=== PATIENT | female | born 1945 | race Hispanic/Latino ===

== ENCOUNTER 2016-11-27 21:22 | Inpatient (IN) | payer MEDICARE, MEDICAID ==
[2016-11-27 21:26] VITALS: BMI 28.3
--- NOTE | 2016-11-27 21:34 | ED PDOC ---
Arrival/HPI - General Chief Complaint: Female Genitourinary Time Seen by Provider: 11/27/16 21:25 Historian: Alf - History of Present Illness Narrative History of Present Illness (Text): 11/27/16 21:34 Heather Grewal is a 71 year old female,whose past medical history includes hypertension, CVA with left hemiplegia, renal failure, diabetes, hydronephrosis with nephrostomy, dementia, and anemia, who presents to the Emergency department sent from custodial for gross hematuria and positive urine culture growth for pseudomonas and enterococcus. Limited HPI and ROS due to patient's dementia. 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 - Reproductive Menopause: Yes - Cardiac Hx Cardiac Disorders: Yes Hx Pacemaker: No - Pulmonary Hx Respiratory Disorders: Yes Hx Pneumonia: Yes - Neurological Hx Neurological Disorder: Yes HX Cerebrovascular Accident: Yes - HEENT Hx HEENT Disorder: No - Renal Hx Renal Disorder: Yes Hx Renal Failure: Yes - Endocrine/Metabolic Hx Endocrine Disorders: Yes Hx Diabetes Mellitus Type 2: Yes - Hematological/Oncological Hx Blood Disorders: No - Integumentary Hx Dermatological Disorder: No Other/Comment: healed sacral and left lower buttock wounds, stge 3 wound to left hand 3rd finger 1cm round wound bed white surrounded by red skin, 2nd finger stg 2 .3cm round small opening wound bed red surrounding skin red, stg 2 left thumb .5 round wound bed red surrounded by red skin, left hand contracted into a fist, left arm contracted, right heel dry and red - Musculoskeletal/Rheumatological Hx Musculoskeletal Disorders: Yes (HX. L HIP FX.) Hx Falls: Yes - Gastrointestinal Hx Gastrointestinal Disorders: Yes Hx Gastroesophageal Reflux: Yes - Genitourinary/Gynecological Hx Genitourinary Disorders: Yes Hx Hematuria: Yes Hx Incontinence: Yes Hx Urinary Tract Infection: Yes - Psychiatric Hx Psychophysiologic Disorder: No Hx Emotional Abuse: No Hx Physical Abuse: No Hx Substance Use: No - Surgical History Hx Orthopedic Surgery: Yes (L hip orif) Other/Comment: cysto with stents, cecal mass excision. R arm PICC - Anesthesia Hx Anesthesia: Yes Hx Anesthesia Reactions: No Hx Malignant Hyperthermia: No - Suicidal Assessment Feels Threatened In Home Enviroment: No Family/Social History - Physician Review Nursing Documentation Reviewed: Yes Family/Social History: No Known Family HX Smoking Status: Unknown If Ever Smoked Hx Alcohol Use: No Hx Substance Use: No Hx Substance Use Treatment: No Allergies/Home Meds Allergies/Adverse Reactions: Allergies ciprofloxacin [From Cipro] Allergy (Verified 11/27/16 22:00) RASH levofloxacin [From Levaquin] Allergy (Verified 11/27/16 22:01) RASH Quinolones Allergy (Verified 11/27/16 22:01) RASH Home Medications: Home Meds Medication Instructions Recorded Confirmed Acetaminophen [Tylenol 325mg tab] 325 mg PO Q4H PRN 11/27/16 11/27/16 Aluminum Hydroxide/Magnesium H 30 ml PO Q4H PRN 11/27/16 11/27/16 [Maalox 30 ml] Aspirin [Aspirin Chewable] 81 mg PO DAILY 11/27/16 11/27/16 Enoxaparin [Lovenox] 40 mg SQ DAILY 11/27/16 11/27/16 Loperamide [Loperamide HCl] 4 mg PO Q6H PRN 11/27/16 11/27/16 Magnesium Hydroxide [Milk Of 400 mg PO HS PRN 11/27/16 11/27/16 Magnesia] Prochlorperazine [Compro] 25 mg RC BID PRN 11/27/16 11/27/16 Sod Phos,M-B/Na Phos,Di-Ba [Fleet 133 ml RC Q8H PRN 11/27/16 11/27/16 Enema] Review of Systems - Review of Systems Systems not reviewed;Unavailable: Altered Mental Status Genitourinary Female: Hematuria Physical Exam Vital Signs Reviewed: Yes Vital Signs Temp Pulse Resp BP Pulse Ox 11/27/16 23:43 46 L 18 156/88 H 99 11/27/16 21:34 98.4 F 42 L 12 174/81 H 100 Temperature: Afebrile Blood Pressure: Hypertensive Pulse: Regular Respiratory Rate: Normal Appearance: Positive for: Non-Toxic, Ill-Appearing Pain Distress: None Mental Status: Positive for: other (Awake, alert, oriented x2) - Systems Exam Head: Present: Atraumatic, Normocephalic Pupils: Present: PERRL Extroacular Muscles: Present: EOMI Conjunctiva: Present: Normal Mouth: Present: Moist Mucous Membranes Neck: Present: Normal Range of Motion Respiratory/Chest: Present: Clear to Auscultation, Good Air Exchange. No: Respiratory Distress, Accessory Muscle Use Cardiovascular: Present: Regular Rate and Rhythm, Normal S1, S2. No: Murmurs Abdomen: Present: Normal Bowel Sounds. No: Tenderness, Distention, Peritoneal Signs Genitourinary/Pelvic Exam: Present: Other (In-dwelling Hirsch catheter with gross hematuria in bag) Back: Present: Other (Nephrostomy tube) Upper Extremity: Present: Other (Positive contracture to bilateral upper extremities). No: Cyanosis, Edema Lower Extremity: Present: Other (Positive contracture to bilatera lower extremities, left heel ulcer). No: Edema Neurological: Present: GCS=15 Skin: Present: Warm, Dry, Rashes (Diffuse psoriatic-type rash to upper back), Normal Color Psychiatric: Present: Alert. No: Oriented x 3 (Oriented x2) Medical Decision Making ED Course and Treatment: 11/27/16 21:34 Impression: 71 year old female brought in for gross hematuria and positive urine culture growth. Differential Diagnosis include but are not limited to: hematuria vs. UTI Plan: -- EKG -- Chest X-ray -- Labs, VBG -- UA, urine cultures -- Reassess and disposition Prior Visits: Notes and results from previous visits were reviewed. On 02/17/2016, pt was seen in the Emergency department for displaced nephrostomy tube. Pt was admitted to the hospital for further evaluation. Progress Notes: 11/27/16 22:17 Reviewed EKG, sinus bradycardia at [address]pm[address] RBBB. Non-specific ST/T wave changes. 11/28/16 00:12 Reviewed radiology, Chest X-ray shows no acute processes. 11/28/16 02:[address] Ghosh, covering for Dr. Colon, who is aware and agrees with plan. Pt will be admitted to [facility] for gross hematuria and UTI. Requests Dr. Romano and Dr. Hughes on consult. - Lab Interpretations Lab Results: 11/27/16 22:35 11/27/16 22:35 Lab Results 11/27/16 22:50: Urine Color Red, Urine Appearance Cloudy, Urine pH 7.0, Ur Specific [place] 1.025, Urine Protein >=300 H, Urine Glucose (UA) Negative, Urine Ketones Negative, Urine Blood Large H, Urine Nitrate Positive H, Urine Bilirubin Negative, Urine Urobilinogen 0.2, Ur Leukocyte Esterase Moderate H, Urine RBC Tntc, Urine WBC 10 - 15, Ur Epithelial Cells Many, Amorphous Sediment Trace, Urine Bacteria Mod 11/27/16 22:35: pO2 133 H, VBG pH 7.47 H, VBG pCO2 39.0 L, VBG HCO3 28.4 H, VBG Total CO2 29.6 H, VBG O2 Sat (Calc) 98.8 H, VBG Base Excess 4.4 H, VBG Potassium 3.7, Sodium 139.0, Chloride 109.0 H, Glucose 198 H, Lactate 1.6, FiO2 21.0, Venous Blood Potassium 3.7 11/27/16 22:35: WBC 7.8 D, RBC 4.11, Hgb 11.7 L, Hct 35.8 L, MCV 87.1, MCH 28.5 , MCHC 32.7, RDW 16.2 H, Plt Count 275, MPV 10.4 11/27/16 22:35: Sodium 137, Chloride 105, Potassium 3.7, Carbon Dioxide 25, Anion Gap 11, BUN 21, Creatinine 0.7, Est GFR ( Amer) > 60, Est GFR (Non- Af Amer) > 60, Random Glucose 187 H, Calcium 8.6, Total Bilirubin 0.3, AST 22, ALT 29, Alkaline Phosphatase 74, Total Protein 7.4, Albumin 3.5, Globulin 3.9, Albumin/Globulin Ratio 0.9 L I have reviewed the lab results: Yes - RAD Interpretation Radiology Orders: 11/27/16 22:05 CHEST PORTABLE [RAD] Stat Hourly Shift: ED Physician - EKG Interpretation Interpreted by ED Physician: Yes Type: 12 lead EKG - Medication Orders Current Medication Orders: Sodium Chloride (Sodium Chloride 0.9%) 1,000 mls @ 100 mls/hr IV .Q10H VESNA Discontinued Medications Cefepime HCl (Maxipime 1gm) 1 gm in 100 mls @ 100 mls/hr IVPB ONCE ONE PRN Reason: Protocol Stop: 11/28/16 03:00 Last Admin: 11/28/16 02:32 Dose: 100 mls/hr - Scribe Statement The provider has reviewed the documentation as recorded by the Scribgriselda Dowd All medical record entries made by the Scribe were at my direction and personally dictated by me. I have reviewed the chart and agree that the record accurately reflects my personal performance of the history, physical exam, medical decision making, and the department course for this patient. I have also personally directed, reviewed, and agree with the discharge instructions and disposition. Disposition/Present on Arrival - Present on Arrival Any Indicators Present on Arrival: No History of DVT/PE: No History of Uncontrolled Diabetes: No Urinary Catheter: Yes History of Decub. Ulcer: No History Surgical Site Infection Following: None - Disposition Have Diagnosis and Disposition been Completed?: Yes Diagnosis: Gross hematuria, UTI (urinary tract infection) Disposition: HOSPITALIZED Disposition Time: 02:23 Patient Plan: Admission Patient Problems: Current Active Problems Problem Status Onset Gross hematuria Acute UTI (urinary tract infection) Acute Condition: STABLE
[2016-11-27 22:46] LABS: HEMATOCRIT 35.8 % (36.0-48.0); MEAN CELL VOLUME 87.1 fL (80.0-105.0); MEAN CORPUSCULAR HEMOGLOBIN 28.5 pg (25.0-35.0); MEAN CORPUSCULAR HGB CONC 32.7 g/dl (31.0-37.0); MEAN PLATELET VOLUME 10.4 fl (7.0-11.0); RED CELL DISTRIBUTION WIDTH 16.2 % (11.5-14.5); WHITE BLOOD COUNT 7.8 10^3/ul (4.5-11.0)
[2016-11-27 22:51] LABS: VENOUS BLOOD GAS BASE EXCESS 4.4 mmol/L (0.0-2.0); VENOUS BLOOD PH 7.47 (7.32-7.43)
[2016-11-27 22:53] LABS: ALB/GLOB RATIO 0.9 (1.1-1.8); ALKALINE PHOSPHATASE 74 U/L (38-133); ALT/SGPT 29 U/L (7-56); AST/SGOT 22 U/L (15-39); BILIRUBIN,TOTAL 0.3 mg/dL (0.2-1.3); BLOOD UREA NITROGEN 21 mg/dL (7-21); CALCIUM 8.6 mg/dL (8.4-10.5); CARBON DIOXIDE 25 mmol/L (21-33); CHLORIDE 105 mmol/L (98-107); GFR AFRICAN-AMERICAN > 60; GLUCOSE,RANDOM 187 mg/dL (70-110); POTASSIUM 3.7 mmol/L (3.6-5.0); SODIUM 137 mmol/L (132-148); TOTAL PROTEIN 7.4 g/dL (5.8-8.3)
[2016-11-27 23:06] LABS: URINE BILIRUBIN NEGATIVE (NEGATIVE); URINE BLOOD LARGE (NEGATIVE); URINE GLUCOSE (UA) NEGATIVE (NEGATIVE); URINE KETONE NEGATIVE (NEGATIVE); URINE LEUKOCYTE ESTERASE MODERATE Leu/uL (NEGATIVE); URINE PROTEIN >=300 mg/dL (<30 mg/dL); URINE UROBILINOGEN 0.2 E.U./dL (<1 E.U./dL)
[2016-11-27 23:07] LABS: URINE APPEARANCE CLOUDY (CLEAR); URINE COLOR RED (YELLOW); URINE EPITHELIAL CELLS MANY /hpf (0-5); URINE RBC TNTC /hpf (0-2)
[2016-11-27 23:08] LABS: URINE AMORPHOUS SEDIMENT TRACE; URINE BACTERIA MOD (NEG)
[2016-11-28] MEDS ORDERED: Cefepime 1gm in NS 100ml 1 GM/100 ML BAG IVPB ONE (02:01)
[2016-11-28] MEDS ORDERED: ALUMINUM HYDROXIDE PO PRN (04:22)
[2016-11-28] MEDS ORDERED: MAGNESIUM H PO PRN (04:22)
[2016-11-28] MEDS ORDERED: Magnesium Hydroxide Susp 30 ml UD PO PRN (04:22)
--- NOTE | 2016-11-28 05:03 | CP.PCM.HP ---
History of Present Illness - History of Present Illness History of Present Illness: 71 year old female with past medical history of CVA with residual left hemiplegia, HTN, hydronephrosis with nephrotomy, anemia and dementia that presents to [facility] ED from skilled nursing for gross hematuria and UTI. On presentation patient is alert but not oriented and confused, this appears to be patients baseline. In the ED ID and urology consults were placed. HPI is limited due to patient's baseline dementia. PMHx: CVA with left hemiplegia, HTN, hydronephrosis PSHx: cysto with stents, cecal mass excision, orthopedic surgery of left hip Social hx: former smoker, denies alcohol or illicit drug use Allergy: ciprofloxacin-rash, levofloxacin- rash, quinolones- rash Home meds: see MAR Present on Admission - Present on Admission Any Indicators Present on Admission: No History of DVT/PE: No History of Uncontrolled Diabetes: No Review of Systems - Review of Systems Systems not reviewed;Unavailable: Dementia - Constitutional Constitutional: As Per HPI - EENT Eyes: As Per HPI Ears: As Per HPI Nose/Mouth/Throat: As Per HPI - Breasts Breasts: As Per HPI - Cardiovascular Cardiovascular: As Per HPI - Respiratory Respiratory: As Per HPI - Gastrointestinal Gastrointestinal: As Per HPI - Genitourinary Genitourinary: As Per HPI, Hematuria - Reproductive: Female Reproductive:Female: As Per HPI - Menstruation Menstruation: As Per HPI - Musculoskeletal Musculoskeletal: As Per HPI - Integumentary Integumentary: As Per HPI - Neurological Neurological: As Per HPI - Psychiatric Psychiatric: As Per HPI - Endocrine Endocrine: As Per HPI - Hematologic/Lymphatic Hematologic: As Per HPI Past Patient History - Infectious Disease Hx of Infectious Diseases: VRE - Past Social History Smoking Status: Unknown If Ever Smoked - CARDIAC Hx Cardiac Disorders: Yes Hx Pacemaker: No - PULMONARY Hx Respiratory Disorders: Yes Hx Pneumonia: Yes - NEUROLOGICAL Hx Neurological Disorder: Yes HX Cerebrovascular Accident: Yes - HEENT Hx HEENT Problems: No - RENAL Hx Chronic Kidney Disease: Yes Hx Renal Failure: Yes - ENDOCRINE/METABOLIC Hx Endocrine Disorders: Yes Hx Diabetes Mellitus Type 2: Yes - HEMATOLOGICAL/ONCOLOGICAL Hx Blood Disorders: No - INTEGUMENTARY Hx Dermatological Problems: No Other/Comment: healed sacral and left lower buttock wounds, stge 3 wound to left hand 3rd finger 1cm round wound bed white surrounded by red skin, 2nd finger stg 2 .3cm round small opening wound bed red surrounding skin red, stg 2 left thumb .5 round wound bed red surrounded by red skin, left hand contracted into a fist, left arm contracted, right heel dry and red - MUSCULOSKELETAL/RHEUMATOLOGICAL Hx Musculoskeletal Disorders: Yes (HX. L HIP FX.) Hx Falls: Yes - GASTROINTESTINAL Hx Gastrointestinal Disorders: Yes Hx Gastroesophageal Reflux: Yes - GENITOURINARY/GYNECOLOGICAL Hx Genitourinary Disorders: Yes Hx Hematuria: Yes Hx Incontinence: Yes Hx Urinary Tract Infection: Yes - PSYCHIATRIC Hx Psychophysiologic Disorder: No Hx Emotional Abuse: No Hx Physical Abuse: No Hx Substance Use: No - SURGICAL HISTORY Hx Orthopedic Surgery: Yes (L hip orif) Other/Comment: cysto with stents, cecal mass excision. R arm PICC - ANESTHESIA Hx Anesthesia: Yes Hx Anesthesia Reactions: No Hx Malignant Hyperthermia: No Meds Allergies/Adverse Reactions: Allergies Allergy/AdvReac Type Severity Reaction Status Date / Time ciprofloxacin [From Cipro] Allergy RASH Verified 11/27/16 22:00 levofloxacin [From Levaquin] Allergy RASH Verified 11/27/16 22:01 Quinolones Allergy RASH Verified 11/27/16 22:01 Physical Exam - Constitutional Appears: Non-toxic, No Acute Distress, Chronically Ill - Head Exam Head Exam: ATRAUMATIC, NORMAL INSPECTION, NORMOCEPHALIC - Eye Exam Eye Exam: EOMI, Normal appearance, PERRL - ENT Exam ENT Exam: Mucous Membranes Moist - Neck Exam Neck exam: Positive for: Normal Inspection - Respiratory Exam Respiratory Exam: Clear to Auscultation Bilateral, NORMAL BREATHING PATTERN. absent: Rhonchi, Wheezes, Respiratory Distress - Cardiovascular Exam Cardiovascular Exam: REGULAR RHYTHM, RRR, +S1, +S2 - GI/Abdominal Exam GI & Abdominal Exam: Normal Bowel Sounds, Soft. absent: Tenderness - Extremities Exam Extremities exam: Positive for: normal capillary refill, pedal pulses present - Back Exam Back exam: NORMAL INSPECTION - Neurological Exam Neurological exam: Alert - Psychiatric Exam Psychiatric exam: Flat Affect - Skin Skin Exam: Normal Color, Warm Results - Vital Signs Recent Vital Signs: Last Vital Signs Temp 98.4 F 11/27/16 21:34 Pulse 52 L 11/28/16 04:54 Resp 18 11/28/16 04:54 BP 143/72 11/28/16 04:54 Pulse Ox 100 11/28/16 04:54 - Labs Result Diagrams: 11/27/16 22:35 11/27/16 22:35 Assessment & Plan - Assessment and Plan (Free Text) Assessment: 71 year old female with past medical history of CVA with residual left hemiplegia, HTN, hydronephrosis, and dementia presents with gross hematuria and UTI Plan: Gross Hematuria - Consultation Urology- Dr. Hughes - Consultation ID- Dr. Romano - H/H stable, no active bleeding - Continue to monitor UTI - UA positive for LE, Nitrate and Protein - cultures- urine and blood - Rocephin 1g iv given in ED - Consultation ID- Dr. Romano - IVF NS 100ml/hr DM - Insulin SS with accuchecks - Cont to Monitor HTN - stable - Cont home medications Amlodipine - Cont to monitor Prophylactic measures - Protonix for GI ppx - SCD for DVT ppx
[2016-11-28] MEDS: Pantoprazole 40 mg EC Tab PO SCH (08:39)
[2016-11-28 10:45] LABS: ADD MANUAL DIFF? NO
[2016-11-28 10:48] LABS: BASO # 0.04 K/mm3 (0.0-2.0); BASO % 0.6 % (0.0-3.0); EOS % 0.1 % (1.5-5.0); GRAN # 5.48 (1.4-6.5); GRAN % 76.8 % (50.0-68.0); HEMATOCRIT 36.5 % (36.0-48.0); LYMPH # 1.2 (1.2-3.4); LYMPH % 16.9 % (22.0-35.0); MEAN CELL VOLUME 87.7 fL (80.0-105.0); MEAN CORPUSCULAR HEMOGLOBIN 28.1 pg (25.0-35.0); MEAN CORPUSCULAR HGB CONC 32.1 g/dl (31.0-37.0); MEAN PLATELET VOLUME 10.8 fl (7.0-11.0); MONO # 0.4 (0.1-0.6); MONO % 5.6 % (1.0-6.0); PLATELET COUNT 278 10^3/uL (120.0-450.0); RED CELL DISTRIBUTION WIDTH 16.3 % (11.5-14.5); WHITE BLOOD COUNT 7.1 10^3/ul (4.5-11.0)
--- NOTE | 2016-11-28 10:55 | RAD ---
HISTORY: medical clearance COMPARISON: 11/02/2015 FINDINGS: LUNGS: No active pulmonary disease. PLEURA: No significant pleural effusion identified, no pneumothorax apparent. CARDIOVASCULAR: Normal. OSSEOUS STRUCTURES: No significant abnormalities. VISUALIZED UPPER ABDOMEN: Normal. OTHER FINDINGS: None. IMPRESSION: No active disease.
[2016-11-28] MEDS: Nystatin 100,000 Units/gm Topical Pow(15 gm) TOP SCH ×2 (11:13→17:55)
[2016-11-28] MEDS: Enoxaparin 40 mg Syringe SC SCH (11:15)
[2016-11-28] MEDS: Piperacillin/Tazobact 3.375 gm 100 ML IVPB SCH ×2 (11:15→18:30)
[2016-11-28 11:23] LABS: ALB/GLOB RATIO 0.9 (1.1-1.8); ALKALINE PHOSPHATASE 76 U/L (38-133); ALT/SGPT 29 U/L (7-56); AST/SGOT 19 U/L (15-39); BILIRUBIN,TOTAL 0.5 mg/dL (0.2-1.3); BLOOD UREA NITROGEN 19 mg/dL (7-21); CALCIUM 8.3 mg/dL (8.4-10.5); CARBON DIOXIDE 23 mmol/L (21-33); CHLORIDE 106 mmol/L (98-107); GFR AFRICAN-AMERICAN > 60; GLUCOSE,RANDOM 248 mg/dL (70-110); POTASSIUM 3.6 mmol/L (3.6-5.0); SODIUM 139 mmol/L (132-148); TOTAL PROTEIN 7.1 g/dL (5.8-8.3)
[2016-11-28] MEDS: Insulin Reg-MEDIUM-Coverage SC SCH ×4 (11:32→22:00)
--- NOTE | 2016-11-28 13:23 | CP.PCM.CON ---
History of Present Illness - History of Present Illness History of Present Illness: 71 year old female with PMH of septic shock due to bacteremia from Proteus and Providencia probably urine as the source S/P right nephrostomy tube placement, diabetes mellitus, hypertension, Chronic kidney disease, hyperlipidemia, cerebrovascular accident, anxiety disorder, history of Morganella morganii urinary tract infection, history of gastrointestinal bleeding, dementia, was brought in to [facility] [place] because of hematuria. Cultures were done in the long-term which apparently showed Pseudomonas and Enterococcus. Infectious Diseases consult is requested to further evaluate and manage. Full review of systems is unobtainable because of the patient's dementia but there is no note of fever, no loss of consciousness, no vomiting, no diarrhea, no convulsion. Review of Systems - Review of Systems Systems not reviewed;Unavailable: Dementia Past Patient History - Infectious Disease Hx of Infectious Diseases: VRE - Past Social History Smoking Status: Unknown If Ever Smoked - CARDIAC Hx Cardiac Disorders: Yes Hx Pacemaker: No - PULMONARY Hx Respiratory Disorders: Yes Hx Pneumonia: Yes - NEUROLOGICAL Hx Neurological Disorder: Yes HX Cerebrovascular Accident: Yes - HEENT Hx HEENT Problems: No - RENAL Hx Chronic Kidney Disease: Yes Hx Renal Failure: Yes - ENDOCRINE/METABOLIC Hx Endocrine Disorders: Yes Hx Diabetes Mellitus Type 2: Yes - HEMATOLOGICAL/ONCOLOGICAL Hx Blood Disorders: No - INTEGUMENTARY Hx Dermatological Problems: No Other/Comment: healed sacral and left lower buttock wounds, stge 3 wound to left hand 3rd finger 1cm round wound bed white surrounded by red skin, 2nd finger stg 2 .3cm round small opening wound bed red surrounding skin red, stg 2 left thumb .5 round wound bed red surrounded by red skin, left hand contracted into a fist, left arm contracted, right heel dry and red - MUSCULOSKELETAL/RHEUMATOLOGICAL Hx Musculoskeletal Disorders: Yes (HX. L HIP FX.) Hx Falls: Yes - GASTROINTESTINAL Hx Gastrointestinal Disorders: Yes Hx Gastroesophageal Reflux: Yes - GENITOURINARY/GYNECOLOGICAL Hx Genitourinary Disorders: Yes Hx Hematuria: Yes Hx Incontinence: Yes Hx Urinary Tract Infection: Yes - PSYCHIATRIC Hx Psychophysiologic Disorder: No Hx Emotional Abuse: No Hx Physical Abuse: No Hx Substance Use: No - SURGICAL HISTORY Hx Orthopedic Surgery: Yes (L hip orif) Other/Comment: cysto with stents, cecal mass excision. R arm PICC - ANESTHESIA Hx Anesthesia: Yes Hx Anesthesia Reactions: No Hx Malignant Hyperthermia: No Meds Allergies/Adverse Reactions: Allergies Allergy/AdvReac Type Severity Reaction Status Date / Time ciprofloxacin [From Cipro] Allergy RASH Verified 11/27/16 22:00 levofloxacin [From Levaquin] Allergy RASH Verified 11/27/16 22:01 Quinolones Allergy RASH Verified 11/27/16 22:01 - Medications Medications: Current Medications Acetaminophen (Tylenol 325mg Tab) 325 mg PO Q4H PRN PRN Reason: Mild pain and fever Aspirin (Aspirin Chewable) 81 mg PO DAILY VESNA Sodium Chloride (Sodium Chloride 0.9%) 1,000 mls @ 100 mls/hr IV .Q10H VESNA Loperamide HCl (Imodium) 4 mg PO Q6H PRN PRN Reason: diarrhoea Magnesium Hydroxide (Milk Of Magnesia) 30 ml PO HS PRN PRN Reason: Constipation Non-Formulary Medication (Aluminum Hydroxide/Magnesium H [Maalox 30 Ml]) 30 ml PO Q4H PRN PRN Reason: Indigestion Pantoprazole Sodium (Protonix Ec Tab) 40 mg PO 0630 VESNA Prochlorperazine (Compazine Rectal Supp) 25 mg RC BID PRN PRN Reason: nausea and vomiting Sodium Phosphate (Fleet Enema) 133 ml RC Q8H PRN PRN Reason: if no result from MOM Physical Exam - Constitutional Appears: Non-toxic, No Acute Distress - Head Exam Head Exam: NORMAL INSPECTION - ENT Exam ENT Exam: Mucous Membranes Moist - Neck Exam Neck exam: Negative for: Lymphadenopathy, Meningismus - Respiratory Exam Respiratory Exam: Decreased Breath Sounds - Cardiovascular Exam Cardiovascular Exam: +S1, +S2 - GI/Abdominal Exam GI & Abdominal Exam: Soft. absent: Tenderness Results - Vital Signs Recent Vital Signs: Last Vital Signs Temp 98.4 F 11/27/16 21:34 Pulse 52 L 11/28/16 04:54 Resp 18 11/28/16 04:54 BP 143/72 11/28/16 04:54 Pulse Ox 100 11/28/16 04:54 - Labs Result Diagrams: 11/28/16 10:44 11/28/16 10:44 Assessment & Plan - Assessment and Plan (Free Text) Plan: Assessment Hematuria, consider urinary tract infections history of septic shock from to gram negative bacteremia (Proteus and Providencia), with urine as the source S/P right nephrostomy tube placement diabetes mellitus hypertension Chronic kidney disease hyperlipidemia cerebrovascular accident anxiety disorder history of Morganella morganii urinary tract infection history of gastrointestinal bleeding Pelvic mass Plan started patient on Zosyn pending blood and urine cx; follow up Urology evaluation will monitor clinically
--- NOTE | 2016-11-28 14:43 | HP ---
I got a call last night that she was having gross bloody urine in the Hirsch from the longterm and this just happened, so I sent her to the Emergency Room. She is fairly comfortable. She is a 71-ye ar-old female with gross hematuria from the longterm, also with appears to be urinary tract infec tion and will need to be on antibiotics. She is alert, eyes looking at me, nonverbal. PAST MEDICAL HISTORY: Includes hypertension, CVA with left weakness, renal failure, diabetes, hydron ephrosis with a nephrostomy, dementia and anemia. There are others, VRE history, menopause, pneumoni a history. She has a healed sacral left and left lower buttock wounds stage III, left hand third fin rigoberto wound, second finger wound, left thumb wound, left hand contracted, left arm contracted, right he el dry and red. She has multiple skin issues already coming from the longterm. History of left hip fracture and fall, gastroesophageal reflux, hematuria in the past, incontinence, urinary tract in fections, left hip ORIF, cystoscopy with stent, cecal mass excision, right arm PICC. FAMILY HISTORY: No known. Not sure if she ever smoked. No alcohol or substance abuse. ALLERGIES: SHE IS ALLERGIC TO CIPRO, LEVOFLOXACIN, QUINOLONES. She takes Tylenol, Maalox, aspirin, Lovenox, loperamide, milk of magnesia, prochlorperazine, Fleet en otoniel as needed. REVIEW OF SYSTEMS: Cannot do, she is nonverbal, does not answer questions at this time, altered ment al status, but looking at me. I cannot tell if she understands what I am saying or not from her face . PHYSICAL EXAMINATION: VITAL SIGNS: Temp 98.4, 46 pulse, 18 respiratory rate, 156/88 blood pressure, 99%-100% O2 sat on heath m air. HEAD: Atraumatic, normocephalic. GENERAL: She is alert, appears comfortable, nontoxic. EYES: Extraocular muscles are intact. Pupils equally reactive to light. THROAT: Moist. NECK: Supple. HEART: Regular rate. Normal S1, S2. LUNGS: Decreased breath sounds. No rhonchi, rales or wheezes. Just not taking deep breaths. ABDOMEN: Soft, nondistended, positive bowel sounds, no guarding, no rebound. EXTREMITIES: Contracted with multiple skin issues. GENITOURINARY: She has a Hirsch catheter in with gross hematuria. NEUROLOGIC: She is alert. Eyes open, that is it. SKIN: Warm and dry with multiple skin issues and small ulcers on her hands and back. LYMPHATIC: Thyroid midline. No appreciable palpable lymphadenopathy. She is here with gross hematuria, which is new, and also probably a urinary tract infection. She is currently on Maalox, aspirin, prochlorperazine, Fleet enema, Imodium, milk of magnesia, Norvas c, Protonix, IV fluids, Tylenol, and Zosyn IV. Urine is moderate leukocytes, moderate bacteria, many large blood. White count 7.8, hemoglobin 11.7, hematocrit 35.8, platelets are 275. Sodium 137, potassium 3.7, BUN 21, creatinine 0.7, GFR is great er than 60, sugar is 187, calcium is 8.6, total bili is 0.3, AST is 22, ALT is 29, alk phos 74, total protein 7.4, albumin 3.5. She has a consult with infectious disease and urology. She will be on IV antibiotics, IV fluids and hopefully she will improve with the gross hematuria and urinary tract infection. Seen for Dr. Mayo is. Geoffrey Ghosh DO cc: [id number] TT: 11/28/2016 14:43:13 en
[2016-11-28] MEDS: Sodium Chloride 0.9% 1,000 ML IV SCH (17:55)
[2016-11-29] MEDS: Piperacillin/Tazobact 3.375 gm 100 ML IVPB SCH ×4 (00:42→23:31)
--- NOTE | 2016-11-29 01:38 | CARD ---
APPROVED REPORT EKG Measurement Heart [id number] <Conclusion> Marked sinus bradycardia Right bundle branch block Septal infarct, age undetermined Abnormal ECG
[2016-11-29] MEDS: Pantoprazole 40 mg EC Tab PO SCH (05:58)
--- NOTE | 2016-11-29 07:15 | CP.PCM.PN ---
<Dayami Pro - Last Filed: 11/29/16 16:21> Subjective - Date & Time of Evaluation Date of Evaluation: 11/29/16 Time of Evaluation: 07:25 - Subjective Subjective: Medicine progress note for Dr Colon and Dr Steen service. Patient with no acute events overnight. Patient curled up in position. Patient is demented, waxing and waning mental status. Patient not interested in talking, told me to " leave her alone and not touch her". Unable to obtain ROS. Objective - Vital Signs/Intake and Output Vital Signs (last 24 hours): Temp Pulse Resp BP Pulse Ox 98.6 F 48 L 19 173/58 H 99 11/28/16 18:02 11/28/16 18:02 11/28/16 18:02 11/28/16 18:02 11/28/16 18:02 Intake and Output: 11/29/16 11/29/16 06:59 18:59 Output Total 450 Balance -450 - Medications Medications: Current Medications Acetaminophen (Tylenol 325mg Tab) 325 mg PO Q4H PRN PRN Reason: Mild pain and fever Amlodipine Besylate (Norvasc) 10 mg PO DAILY [facility] Last Admin: 11/28/16 09:02 Dose: 10 mg Aspirin (Aspirin Chewable) 81 mg PO DAILY [facility] Last Admin: 11/28/16 11:13 Dose: 81 mg Enoxaparin Sodium (Lovenox) 40 mg SC DAILY [facility] PRN Reason: Protocol Last Admin: 11/28/16 11:15 Dose: 40 mg Sodium Chloride (Sodium Chloride 0.9%) 1,000 mls @ 100 mls/hr IV .Q10H [facility] Last Admin: 11/28/16 17:55 Dose: 100 mls/hr Piperacillin Sod/Tazobactam Sod (Zosyn 3.375 In Ns 100ml) 100 mls @ 200 mls/hr IVPB Q6 [facility] PRN Reason: Protocol Stop: 12/05/16 12:01 Last Admin: 11/29/16 00:42 Dose: 200 mls/hr Insulin Human Regular (Humulin R Med) 0 units SC ACHS [facility] PRN Reason: Protocol Last Admin: 11/28/16 22:00 Dose: Not Given Loperamide HCl (Imodium) 4 mg PO Q6H PRN PRN Reason: diarrhoea Magnesium Hydroxide (Milk Of Magnesia) 30 ml PO HS PRN PRN Reason: Constipation Non-Formulary Medication (Aluminum Hydroxide/Magnesium H [Maalox 30 Ml]) 30 ml PO Q4H PRN PRN Reason: Indigestion Nystatin (Nystop Topical Powder) 1 gm TOP BID [facility] Last Admin: 11/28/16 17:55 Dose: 1 applic Pantoprazole Sodium (Protonix Ec Tab) 40 mg PO 0630 [facility] Last Admin: 11/29/16 05:58 Dose: 40 mg Prochlorperazine (Compazine Rectal Supp) 25 mg RC BID PRN PRN Reason: nausea and vomiting Sodium Phosphate (Fleet Enema) 133 ml RC Q8H PRN PRN Reason: if no result from MOM - Labs Labs: 11/28/16 10:44 11/28/16 10:44 - Constitutional Appears: No Acute Distress, Cachectic, Chronically Ill - Head Exam Head Exam: ATRAUMATIC, NORMAL INSPECTION, NORMOCEPHALIC - Eye Exam Eye Exam: EOMI, Normal appearance, PERRL. absent: Scleral icterus - ENT Exam ENT Exam: Mucous Membranes Dry - Neck Exam Neck Exam: Normal Inspection - Respiratory Exam Respiratory Exam: Clear to Ausculation Bilateral, NORMAL BREATHING PATTERN. absent: Rales, Rhonchi, Wheezes, Respiratory Distress, Stridor - Cardiovascular Exam Cardiovascular Exam: REGULAR RHYTHM, RRR, +S1, +S2, Murmur - GI/Abdominal Exam GI & Abdominal Exam: Soft, Normal Bowel Sounds. absent: Distended, Firm, Guarding, Rigid, Tenderness - Extremities Exam Extremities Exam: Normal Inspection - Back Exam Back Exam: NORMAL INSPECTION - Neurological Exam Neurological Exam: Alert, Awake, Oriented x3 - Psychiatric Exam Psychiatric exam: Flat Affect - Skin Skin Exam: Dry, Normal Color, Warm Assessment and Plan - Assessment and Plan (Free Text) Assessment: Patient is a 71 y/o with PMH of recurrent UTI/Urosepsis s/p right nephrostomy tube placement, DM, HTN, CKD, hyperlipidemia, h/o CVA, anxiety disorder, and dementia sent from long term secondary to gross hematuria. Plan: 1) Gross hematuria - have nephrostomy tube - Uro following - IR consulted for nephrostogram - pending - have Hirsch catheter in place 2) UTI - Ua growing gram neg austyn - bcx no growth after 24 hrs pending - no leukocytosis and afebrile. - ID following - Patient is on zosyn pending sensitivity 3) DM - ISS - Accuchecks achs - 4) Uncontrolled htn - continue norvasc. - will monitor and adjuste BP meds accordingly 5) Anxiety - on prohlorperazine 6) Sinus juan j - cardio consult 7) CAD- continue asa 8) Hypokalemia - will replete, and continue to monitor 9) Chronic diarhea/constipation- imodium and fleet enema prn 10) DVT and gi prophylaxis- lovenox sc and protonix. Patient seen, examined, case discussed with Dr Steen <Hayden Steen - Last Filed: 12/12/16 19:07> Objective - Vital Signs/Intake and Output Vital Signs (last 24 hours): Temp Pulse Resp BP Pulse Ox 98.2 F 46 L 20 166/82 H 99 12/02/16 07:57 12/02/16 07:57 12/02/16 07:57 12/02/16 15:43 12/02/16 07:57 - Labs Labs: 12/02/16 08:50 12/02/16 08:50 PT 11.0 Seconds (9.9-11.8) 11/29/16 07:00 INR 1.02 (0.93-1.08) 11/29/16 07:00 Attending/Attestation - Attestation I have personally seen and examined this patient.: Yes I have fully participated in the care of the patient.: Yes I have reviewed all pertinent clinical information, including history, physical exam and plan: Yes Notes (Text): 12/12/16 19:07 Medical record note made by the resident after discussion with my direction and input after the patient was personally seen and examined by me. I have reviewed the chart and agree that the record accurately reflects by personal performance of the history, physical exam, data review, and medical decision-making, in the course for the patient. I have also personally directed the plan of care.
[2016-11-29 07:37] LABS: HEMATOCRIT 36.1 % (36.0-48.0); MEAN CORPUSCULAR HEMOGLOBIN 28.2 pg (25.0-35.0); MEAN CORPUSCULAR HGB CONC 32.4 g/dl (31.0-37.0); MEAN PLATELET VOLUME 11.1 fl (7.0-11.0); RED CELL DISTRIBUTION WIDTH 16.4 % (11.5-14.5); WHITE BLOOD COUNT 7.1 10^3/ul (4.5-11.0)
[2016-11-29 07:43] LABS: INR 1.02 (0.93-1.08)
[2016-11-29 07:54] LABS: ALB/GLOB RATIO 0.8 (1.1-1.8); ALKALINE PHOSPHATASE 78 U/L (38-133); ALT/SGPT 27 U/L (7-56); AST/SGOT 25 U/L (15-39); BILIRUBIN,TOTAL 0.5 mg/dL (0.2-1.3); BLOOD UREA NITROGEN 14 mg/dL (7-21); CARBON DIOXIDE 24 mmol/L (21-33); CHLORIDE 105 mmol/L (95-110); GFR AFRICAN-AMERICAN > 60; GLUCOSE,RANDOM 232 mg/dL (70-110); POTASSIUM 3.4 mmol/L (3.6-5.0); SODIUM 139 mmol/L (132-148); TOTAL PROTEIN 7.3 g/dL (5.8-8.3)
--- NOTE | 2016-11-29 09:08 | CON ---
DATE: 11/28/2016 CHIEF COMPLAINT: Hematuria. HISTORY OF PRESENT ILLNESS: The history is obtained from the chart since the patient has dementia an d is unable to provide any history. The patient [facility] from a [facility]. She has a right nephrost cat tube in as well as a Hirsch catheter. She has had a history of bacteremia in the past. I reviewe d old CAT scan reports. She had a history of prior right renal calculi and a right stent. There cur rently is no stent in place, but a nephrostomy tube and there are no calculi mentioned in the right k idney, or visible. She was admitted because of cultures of pseudomonas and enterococcus in her [facility] home. She had some hematuria, however, no fever, no chills, no clinical evidence of sepsis. PAST MEDICAL HISTORY: Reveals a history of dementia, a CVA, chronic renal insufficiency. She does h ave also history of type 2 diabetes. She has a prior history of a healed sacral and lower gluteal de cubiti. FAMILY AND SOCIAL HISTORY: Not obtainable. REVIEW OF SYMPTOMS: No apparent chest pain or shortness of breath, but because of her dementia, she is unable to communicate. ALLERGIES: CIPRO AND OTHER QUINOLONES. In the [facility], she is on Protonix. She is on milk of magnesia for constipation. PHYSICAL EXAMINATION: VITAL SIGNS: Shows her to be afebrile, pulse 49, blood pressure 159/58, respirations 18. GENERAL: She is not oriented to time, place or person. BACK: She has a rash on her back. Some of it looks psoriatic. GENITOURINARY: She had a Hirsch catheter draining. She has a nephrostomy tube from the right flank, which has hematuria in it. She currently is on Zosyn. SKIN: She has no edema or purpura. LABORATORY WORK: Shows a white count 7000, hemoglobin 11.7. Her creatinine is only 0.7. Coags are normal. IMPRESSION: She has a nephrostomy tube in with some hematuria. She clearly is a very, very poor syd gical candidate. I am not certain why the nephrostomy tube is in place, but I will ask Shantanu hughes put some contrast down the right nephrostomy tube to see if it drains. If it does drain promptly, then we might consider clamping it and possibly removing it. If there is any obstruction, then obvio usly she would still need to have the nephrostomy tube in and he could change it. I showed the nurse s how to make sure the tubes are secured to avoid them inadvertently being pulled out. I would be ve ry conservative with this patient. She is not a surgical candidate regardless of what is found. It is possible trauma could be the source of the hematuria from the tube banging around inside her right renal pelvis. We will speak to Shantanu Ortiz. Akash Hughes MD cc: [phone] TT: 11/29/2016 09:07:40 Confirmation # [id number] Dictation # [id number]
[2016-11-29] MEDS: Insulin Reg-MEDIUM-Coverage SC SCH ×4 (09:16→21:54)
[2016-11-29] MEDS: Enoxaparin 40 mg Syringe SC SCH (09:17)
[2016-11-29] MEDS: Nystatin 100,000 Units/gm Topical Pow(15 gm) TOP SCH ×2 (09:18→17:25)
[2016-11-29] MEDS: Sodium Chloride 0.9% 1,000 ML IV SCH (09:18)
[2016-11-29] MEDS ORDERED: Lidocaine 2% Inj (20ml) ONE (12:38)
[2016-11-29] MEDS ORDERED: Iodixanol 320 MG/ML 100 ML BOTTLE IV ONE ×2 (12:38→13:49)
[2016-11-29] MEDS ORDERED: Midazolam 2 MG/2 ML VIAL ONE (13:00)
[2016-11-29] MEDS ORDERED: Potassium Chloride 20 mEq ER Tab PO ONE (13:36)
--- NOTE | 2016-11-29 16:35 | CP.PCM.PN ---
Subjective - Date & Time of Evaluation Date of Evaluation: 11/29/16 Time of Evaluation: 11:05 - Subjective Subjective: Comfortable, not in distress, afebrile overnight. Objective - Vital Signs/Intake and Output Vital Signs (last 24 hours): Temp Pulse Resp BP Pulse Ox 97.8 F 50 L 16 144/69 99 11/29/16 14:33 11/29/16 14:33 11/29/16 14:33 11/29/16 14:33 11/29/16 14:33 Intake and Output: 11/29/16 11/29/16 06:59 18:59 Intake Total 240 Output Total 450 Balance -450 240 - Medications Medications: Current Medications Acetaminophen (Tylenol 325mg Tab) 325 mg PO Q4H PRN PRN Reason: Mild pain and fever Amlodipine Besylate (Norvasc) 10 mg PO DAILY [facility] Last Admin: 11/29/16 09:18 Dose: Not Given Aspirin (Aspirin Chewable) 81 mg PO DAILY [facility] Last Admin: 11/29/16 09:16 Dose: 81 mg Enoxaparin Sodium (Lovenox) 40 mg SC DAILY [facility] PRN Reason: Protocol Last Admin: 11/29/16 09:17 Dose: 40 mg Sodium Chloride (Sodium Chloride 0.9%) 1,000 mls @ 100 mls/hr IV .Q10H [facility] Last Admin: 11/29/16 09:18 Dose: 100 mls/hr Piperacillin Sod/Tazobactam Sod (Zosyn 3.375 In Ns 100ml) 100 mls @ 200 mls/hr IVPB Q6 [facility] PRN Reason: Protocol Stop: 12/05/16 12:01 Last Admin: 11/29/16 00:42 Dose: 200 mls/hr Insulin Human Regular (Humulin R Med) 0 units SC ACHS [facility] PRN Reason: Protocol Last Admin: 11/29/16 11:52 Dose: 5 units Magnesium Hydroxide (Milk Of Magnesia) 30 ml PO HS PRN PRN Reason: Constipation Non-Formulary Medication (Aluminum Hydroxide/Magnesium H [Maalox 30 Ml]) 30 ml PO Q4H PRN PRN Reason: Indigestion Nystatin (Nystop Topical Powder) 1 gm TOP BID [facility] Last Admin: 11/29/16 09:18 Dose: 1 applic Pantoprazole Sodium (Protonix Ec Tab) 40 mg PO 0630 [facility] Last Admin: 11/29/16 05:58 Dose: 40 mg Prochlorperazine (Compazine Rectal Supp) 25 mg RC BID PRN PRN Reason: nausea and vomiting Sodium Phosphate (Fleet Enema) 133 ml RC Q8H PRN PRN Reason: if no result from [facility]OM - Labs Labs: 11/29/16 07:00 11/29/16 07:00 PT 11.0 Seconds (9.9-11.8) 11/29/16 07:00 INR 1.02 (0.93-1.08) 11/29/16 07:00 - Constitutional Appears: Non-toxic, No Acute Distress - Head Exam Head Exam: NORMAL INSPECTION - Neck Exam Neck Exam: absent: Meningismus - Respiratory Exam Respiratory Exam: Decreased Breath Sounds - Cardiovascular Exam Cardiovascular Exam: +S1, +S2 - GI/Abdominal Exam GI & Abdominal Exam: Soft. absent: Tenderness Assessment and Plan - Assessment and Plan (Free Text) Plan: Assessment Hematuria, consider urinary tract infection with gram negative bacilli history of septic shock from to gram negative bacteremia (Proteus and Providencia), with urine as the source S/P right nephrostomy tube placement diabetes mellitus hypertension Chronic kidney disease hyperlipidemia cerebrovascular accident anxiety disorder history of Morganella morganii urinary tract infection history of gastrointestinal bleeding Pelvic mass Plan continue Zosyn day 2 pending blood and urine cx; follow up Urology evaluation will continue to monitor clinically
--- NOTE | 2016-11-29 19:02 | VASCULAR ---
PROCEDURE: 1. Right nephrostomy tube change HISTORY: Previous pyonephrosis. Chronic indwelling right nephrostomy tube. All functioning tube. Check position PHYSICIAN(S): Shantanu Ortiz MD. TECHNIQUE: The relative risks and indications of the procedure were explained to the patient's family and consent obtained. The patient was placed prone on the angiography table in the right nephrostomy tube prepped and draped usual sterile fashion. 1 percent xylocaine was used to anesthetize the skin and soft tissues. Some difficulty the obstructed right nephrostomy tube was injected. A limited right nephrostogram was performed. 0.035 glidewire was coiled within the right renal pelvis. The old tube was removed. A new larger 14 [place] right nephrostomy tube was coiled in the right renal pelvis. Position was confirmed with injection of contrast. The tube was flushed and secured. The patient tolerated the procedure well . FINDINGS: There is mild right hydronephrosis present. Some narrowing of the right UPJ is noted. Its clinical significance is uncertain. The right ureter is patent and normal in caliber. Contrast flows to the bladder which contains a Hirsch catheter. IMPRESSION: 1.New 14 [place] right nephrostomy tube placed. 2. Apparent right UPJ obstruction. Its clinical significance is uncertain. 3. In the future, the right nephrostomy tube may be capped and patient observed to see if she tolerates capping the nephrostomy tube
[2016-11-30] MEDS: Pantoprazole 40 mg EC Tab PO SCH (05:36)
[2016-11-30] MEDS: Piperacillin/Tazobact 3.375 gm 100 ML IVPB SCH ×4 (05:36→23:39)
[2016-11-30 06:44] LABS: ADD MANUAL DIFF? NO
[2016-11-30 07:07] LABS: BASO # 0.05 K/mm3 (0.0-2.0); BASO % 0.6 % (0.0-3.0); EOS % 0.1 % (1.5-5.0); GRAN # 5.98 (1.4-6.5); GRAN % 73.7 % (50.0-68.0); HEMATOCRIT 32.7 % (36.0-48.0); LYMPH # 1.4 (1.2-3.4); MEAN CELL VOLUME 87.4 fL (80.0-105.0); MEAN CORPUSCULAR HEMOGLOBIN 28.1 pg (25.0-35.0); MEAN CORPUSCULAR HGB CONC 32.1 g/dl (31.0-37.0); MEAN PLATELET VOLUME 10.8 fl (7.0-11.0); MONO # 0.7 (0.1-0.6); MONO % 8.6 % (1.0-6.0); PLATELET COUNT 201 10^3/uL (120.0-450.0); RED CELL DISTRIBUTION WIDTH 16.8 % (11.5-14.5); WHITE BLOOD COUNT 8.1 10^3/ul (4.5-11.0)
[2016-11-30] MEDS: Insulin Reg-MEDIUM-Coverage SC SCH ×4 (08:30→22:06)
[2016-11-30 08:51] LABS: BLOOD UREA NITROGEN 12 mg/dL (7-21); CALCIUM 7.8 mg/dL (8.4-10.5); CARBON DIOXIDE 23 mmol/L (21-33); CHLORIDE 109 mmol/L (98-107); GFR AFRICAN-AMERICAN > 60; GLUCOSE,RANDOM 159 mg/dL (70-110); POTASSIUM 3.4 mmol/L (3.6-5.0); SODIUM 140 mmol/L (132-148)
--- NOTE | 2016-11-30 09:39 | CP.PCM.PN ---
<Dayami Pro - Last Filed: 11/30/16 13:02> Subjective - Date & Time of Evaluation Date of Evaluation: 11/30/16 Time of Evaluation: 07:45 - Subjective Subjective: Medicine progress note for Dr Colon and Dr Steen Patient with no acute events overnight. S/p nephrostomy tube replacement. Unable to obtain ROS due to patient's baseline mental status of dementia. Objective - Vital Signs/Intake and Output Vital Signs (last 24 hours): Temp Pulse Resp BP Pulse Ox 99.1 F 49 L 20 120/57 L 99 11/30/16 08:29 11/30/16 08:29 11/30/16 08:29 11/30/16 08:29 11/30/16 08:29 Intake and Output: 11/30/16 11/30/16 06:59 18:59 Intake Total 360 Output Total 1015 Balance -655 - Medications Medications: Current Medications Acetaminophen (Tylenol 325mg Tab) 325 mg PO Q4H PRN PRN Reason: Mild pain and fever Amlodipine Besylate (Norvasc) 10 mg PO DAILY [facility] Last Admin: 11/29/16 09:18 Dose: Not Given Aspirin (Aspirin Chewable) 81 mg PO DAILY [facility] Last Admin: 11/29/16 09:16 Dose: 81 mg Enoxaparin Sodium (Lovenox) 40 mg SC DAILY [facility] PRN Reason: Protocol Last Admin: 11/29/16 09:17 Dose: 40 mg Sodium Chloride (Sodium Chloride 0.9%) 1,000 mls @ 100 mls/hr IV .Q10H [facility] Last Admin: 11/29/16 09:18 Dose: 100 mls/hr Piperacillin Sod/Tazobactam Sod (Zosyn 3.375 In Ns 100ml) 100 mls @ 200 mls/hr IVPB Q6 [facility] PRN Reason: Protocol Stop: 12/05/16 12:01 Last Admin: 11/30/16 05:36 Dose: 200 mls/hr Insulin Human Regular (Humulin R Med) 0 units SC ACHS [facility] PRN Reason: Protocol Last Admin: 11/30/16 08:30 Dose: 1 units Magnesium Hydroxide (Milk Of Magnesia) 30 ml PO HS PRN PRN Reason: Constipation Non-Formulary Medication (Aluminum Hydroxide/Magnesium H [Maalox 30 Ml]) 30 ml PO Q4H PRN PRN Reason: Indigestion Nystatin (Nystop Topical Powder) 1 gm TOP BID [facility] Last Admin: 11/29/16 17:25 Dose: 1 applic Pantoprazole Sodium (Protonix Ec Tab) 40 mg PO 0630 [facility] Last Admin: 11/30/16 05:36 Dose: 40 mg Potassium Chloride (K-Dur 20 Meq Er Tab) 40 meq PO Q4H [facility] Stop: 11/30/16 13:46 Prochlorperazine (Compazine Rectal Supp) 25 mg RC BID PRN PRN Reason: nausea and vomiting Sodium Phosphate (Fleet Enema) 133 ml RC Q8H PRN PRN Reason: if no result from [facility] - Labs Labs: 11/30/16 06:15 11/30/16 06:15 PT 11.0 Seconds (9.9-11.8) 11/29/16 07:00 INR 1.02 (0.93-1.08) 11/29/16 07:00 - Constitutional Appears: No Acute Distress, Older Than Stated Age, Cachectic, Chronically Ill - Head Exam Head Exam: ATRAUMATIC, NORMAL INSPECTION, NORMOCEPHALIC - Eye Exam Eye Exam: Normal appearance, PERRL. absent: Scleral icterus - ENT Exam ENT Exam: Mucous Membranes Moist - Neck Exam Neck Exam: Normal Inspection - Respiratory Exam Respiratory Exam: Clear to Ausculation Bilateral, NORMAL BREATHING PATTERN. absent: Prolonged Expiratory Phase, Rales, Rhonchi, Wheezes, Respiratory Distress, Stridor - Cardiovascular Exam Cardiovascular Exam: REGULAR RHYTHM, RRR, +S1, +S2, Murmur - GI/Abdominal Exam GI & Abdominal Exam: Soft, Normal Bowel Sounds. absent: Distended, Firm, Guarding, Rigid, Tenderness - Extremities Exam Extremities Exam: Normal Inspection - Back Exam Back Exam: NORMAL INSPECTION - Neurological Exam Neurological Exam: Alert, Awake - Psychiatric Exam Psychiatric exam: Anxious - Skin Skin Exam: Dry, Warm Additional comments: Hirsch catheter in place draining clots with bloody urine Right sided nephrostomy tube draining bloody urine as well. Assessment and Plan - Assessment and Plan (Free Text) Assessment: Patient is a 71 y/o with PMH of recurrent UTI/Urosepsis s/p right nephrostomy tube placement, DM, HTN, CKD, hyperlipidemia, h/o CVA, anxiety disorder, and dementia sent from [facility] secondary to gross hematuria. Plan: 1) Gross hematuria - s/p replacement of the nephrostomy tube by IR. - still draining hematuria - Uro and IR following 2) UTI - Ua growing drug resistance proteus and enterococcus. - will follow up with ID to choices of antibiotics - Otherwise patient is afebrile and has no leukocytosis. 3) DM - ISS - Accuchecks achs - dysphasia diet. 4) Uncontrolled htn - continue norvasc. - will monitor and adjust BP meds accordingly 5) Anxiety - on prochlorperazine 6) Sinus juan j - Monitor for now - cardio consult for help. 7) CAD- continue asa 8) Hypokalemia -will replete, and continue to monitor, will check mag. 9) Chronic diarrhea/constipation- imodium and fleet enema prn 10) DVT and gi prophylaxis- lovenox sc and protonix. Patient seen, examined, case discussed with Dr Steen <Hayden Steen - Last Filed: 12/22/16 14:59> Objective - Vital Signs/Intake and Output Vital Signs (last 24 hours): Temp Pulse Resp BP Pulse Ox 98.2 F 46 L 20 166/82 H 99 12/02/16 07:57 12/02/16 07:57 12/02/16 07:57 12/02/16 15:43 12/02/16 07:57 - Labs Labs: 12/02/16 08:50 12/02/16 08:50 PT 11.0 Seconds (9.9-11.8) 11/29/16 07:00 INR 1.02 (0.93-1.08) 11/29/16 07:00 Attending/Attestation - Attestation I have personally seen and examined this patient.: Yes I have fully participated in the care of the patient.: Yes I have reviewed all pertinent clinical information, including history, physical exam and plan: Yes Notes (Text): 12/22/16 14:59 Medical record note made by the resident after discussion with my direction and input after the patient was personally seen and examined by me. I have reviewed the chart and agree that the record accurately reflects by personal performance of the history, physical exam, data review, and medical decision-making, in the course for the patient. I have also personally directed the plan of care.
[2016-11-30] MEDS: Enoxaparin 40 mg Syringe SC SCH (10:24)
[2016-11-30] MEDS: Potassium Chloride 20 mEq ER Tab PO SCH ×2 (10:26→14:49)
[2016-11-30] MEDS: Nystatin 100,000 Units/gm Topical Pow(15 gm) TOP SCH ×2 (11:03→17:44)
--- NOTE | 2016-11-30 13:23 | CON ---
DATE: 11/30/2016 HISTORY OF PRESENT ILLNESS: The patient is a 71-year-old woman who presented to the hospital for [place] [facility] hematuria. PAST MEDICAL HISTORY: Includes dementia, history of CVA, hypertension, renal insufficiency as well as hydronephrosis with a nephrostomy tube. I was asked to see her for her sinus bradycardia and abnormalities on EKG. SOCIAL HISTORY: Not available. REVIEW OF SYSTEMS: Not available. PHYSICAL EXAMINATION: GENERAL: The patient is in bed, unable to give a history, but is without shortness of breath. VITAL SIGNS: Blood pressure is 120/57, the heart rate is in the 50s. NECK: Negative JVD. LUNGS: Without rales. HEART: Reveals S1, S2 with a III/ systolic ejection murmur. EXTREMITIES: Without edema. EKG shows normal sinus rhythm with 2:1 heart block with a right bundle branch block. LABORATORIES: Potassium is 3.4. The glucose is 159. Hemoglobin is 10.5. IMPRESSION: 1. A 2:1 atrioventricular block, Mobitz II. 2. Right bundle branch block. 3. Aortic stenosis. 4. Anemia. 5. History of cerebrovascular accident. 6. Dementia. 7. Status post nephrostomy tube. 8. Diabetes mellitus. FERREIRA: Given these findings, there is no indication for pacemaker at this time. However, the patient has a high-grade AV block. This may be, in combination, due to her calcification of her aortic valve with her high likelihood of having aortic stenosis. We will obtain an echocardiogram. Avoid AV celestino blocking agents like beta blockers or digoxin. Shantanu Griffith MD cc: [phone] TT: 11/30/2016 13:23:20 Confirmation # [id number] Dictation # [id number]
--- NOTE | 2016-11-30 17:45 | CARD ---
APPROVED REPORT EXAM: Two-dimensional and M-mode echocardiogram with Doppler and color Doppler. INDICATION AV STENOSIS 2D DIMENSIONS Left Atrium (2D)3.8 (1.6-4.0cm)IVSd1.3 (0.7-1.1cm) LVDd3.4 (3.9-5.9cm)LVOT Diameter1.8 (1.8-2.4cm) PWd1.4 (0.7-1.1cm)LVDs2.4 (2.5-4.0cm) FS (%) 30.3 %LVEF (%)58.8 (>50%) M-Mode DIMENSIONS Aortic Root2.40 (2.2-3.7cm)Aortic Cusp Exc.0.90 (1.5-2.0cm) Aortic Valve AoV Peak Qrvwseoi504.0cm/sAoV VTI70.3cmAO Peak GR.42mmHg LVOT Peak Fsaergwx835.0cm/sLVOT VTI28.00cmAO Mean GR.23mmHg STEVAN (VMAX)1.14gi9HTK (VTI)1.03cm2 Mitral Valve E/A ratio0.0 TDI E/Lateral E'0.0E/Medial E'0.0 Tricuspid Valve TR Peak [id number]/sRAP [id number] Peak Gr.40mmHg [id number] LEFT VENTRICLE The left ventricle is normal size. There is mild to moderate concentric left ventricular hypertrophy. The left ventricular function is normal. The left ventricular ejection fraction is within the normal range. Transmitral Doppler flow pattern is Grade I-abnormal relaxation pattern. RIGHT VENTRICLE The right ventricle is normal size. There is normal right ventricular wall thickness. The right ventricular systolic function is normal. ATRIA The left atrium size is normal. The right atrium size is normal. AORTIC VALVE The aortic valve is moderately calcified. There is moderate to severe valvular aortic stenosis. MITRAL VALVE Mitral annular calcification is moderate. Mitral regurgitation is mild. TRICUSPID VALVE There is mild to moderate tricuspid regurgitation. There is moderate pulmonary hypertension. GREAT VESSELS The IVC is normal in size and collapses >50% with inspiration. PERICARDIAL EFFUSION There is no pericardial effusion. <Conclusion> The left ventricle is normal size. There is mild to moderate concentric left ventricular hypertrophy. The left ventricular function is normal. The left ventricular ejection fraction is within the normal range. Transmitral Doppler flow pattern is Grade I-abnormal relaxation pattern. The aortic valve is moderately calcified. There is moderate to severe valvular aortic stenosis. Mitral regurgitation is mild. There is moderate pulmonary hypertension.
--- NOTE | 2016-11-30 20:20 | CP.PCM.PN ---
Subjective - Date & Time of Evaluation Date of Evaluation: 11/30/16 Time of Evaluation: 12:25 - Subjective Subjective: Comfortable, no fevers overnight. Not in distress. Objective - Vital Signs/Intake and Output Vital Signs (last 24 hours): Temp Pulse Resp BP Pulse Ox 98.7 F 82 20 138/79 96 11/30/16 16:00 11/30/16 16:00 11/30/16 16:00 11/30/16 16:00 11/30/16 16:00 - Medications Medications: Current Medications Acetaminophen (Tylenol 325mg Tab) 325 mg PO Q4H PRN PRN Reason: Mild pain and fever Amlodipine Besylate (Norvasc) 10 mg PO DAILY [facility] Last Admin: 11/30/16 10:24 Dose: Not Given Aspirin (Aspirin Chewable) 81 mg PO DAILY [facility] Last Admin: 11/30/16 10:24 Dose: 81 mg Enoxaparin Sodium (Lovenox) 40 mg SC DAILY [facility] PRN Reason: Protocol Last Admin: 11/30/16 10:24 Dose: 40 mg Sodium Chloride (Sodium Chloride 0.9%) 1,000 mls @ 100 mls/hr IV .Q10H [facility] Last Admin: 11/29/16 09:18 Dose: 100 mls/hr Piperacillin Sod/Tazobactam Sod (Zosyn 3.375 In Ns 100ml) 100 mls @ 200 mls/hr IVPB Q6 [facility] PRN Reason: Protocol Stop: 12/05/16 12:01 Last Admin: 11/30/16 17:52 Dose: 200 mls/hr Insulin Human Regular (Humulin R Med) 0 units SC ACHS [facility] PRN Reason: Protocol Last Admin: 11/30/16 17:44 Dose: 1 units Magnesium Hydroxide (Milk Of Magnesia) 30 ml PO HS PRN PRN Reason: Constipation Non-Formulary Medication (Aluminum Hydroxide/Magnesium H [Maalox 30 Ml]) 30 ml PO Q4H PRN PRN Reason: Indigestion Nystatin (Nystop Topical Powder) 1 gm TOP BID [facility] Last Admin: 11/30/16 17:44 Dose: 1 applic Pantoprazole Sodium (Protonix Ec Tab) 40 mg PO 0630 [facility] Last Admin: 11/30/16 05:36 Dose: 40 mg Prochlorperazine (Compazine Rectal Supp) 25 mg RC BID PRN PRN Reason: nausea and vomiting Sodium Phosphate (Fleet Enema) 133 ml RC Q8H PRN PRN Reason: if no result from MOM - Labs Labs: 11/30/16 06:15 11/30/16 06:15 PT 11.0 Seconds (9.9-11.8) 11/29/16 07:00 INR 1.02 (0.93-1.08) 11/29/16 07:00 - Constitutional Appears: Non-toxic, No Acute Distress - Head Exam Head Exam: NORMAL INSPECTION - Neck Exam Neck Exam: absent: Lymphadenopathy, Meningismus - Respiratory Exam Respiratory Exam: Decreased Breath Sounds - Cardiovascular Exam Cardiovascular Exam: +S1, +S2 - GI/Abdominal Exam GI & Abdominal Exam: Soft. absent: Tenderness Assessment and Plan - Assessment and Plan (Free Text) Plan: Assessment Hematuria, consider urinary tract infection with E. faecalis; multidrug- resistant Proteus also found in the urine R/O colonization history of septic shock from to gram negative bacteremia (Proteus and Providencia), with urine as the source S/P right nephrostomy tube placement diabetes mellitus hypertension Chronic kidney disease hyperlipidemia cerebrovascular accident anxiety disorder history of Morganella morganii urinary tract infection history of gastrointestinal bleeding Pelvic mass Plan continue Zosyn day 3; repeated urine cx to see if the PRoteus persists - if it does not, then it is colonization but if it persists, then will need treatment with Aminoglycosides reviewed Urology evaluation will continue to monitor clinically
[2016-12-01] MEDS: Pantoprazole 40 mg EC Tab PO SCH (05:38)
[2016-12-01] MEDS: Piperacillin/Tazobact 3.375 gm 100 ML IVPB SCH ×3 (05:39→17:16)
[2016-12-01 07:30] LABS: ADD MANUAL DIFF? NO
[2016-12-01 07:50] LABS: BLOOD UREA NITROGEN 9 mg/dL (7-21); CALCIUM 7.6 mg/dL (8.4-10.5); CARBON DIOXIDE 26 mmol/L (21-33); CHLORIDE 110 mmol/L (95-110); GFR AFRICAN-AMERICAN > 60; GLUCOSE,RANDOM 121 mg/dL (70-110); MAGNESIUM 1.7 mg/dL (1.7-2.2); PHOSPHOROUS 2.5 mg/dL (2.5-4.5); POTASSIUM 3.3 mmol/L (3.6-5.0); SODIUM 140 mmol/L (132-148)
[2016-12-01 07:53] LABS: BASO # 0.02 K/mm3 (0.0-2.0); BASO % 0.5 % (0.0-3.0); EOS % 0.7 % (1.5-5.0); GRAN # 2.38 (1.4-6.5); GRAN % 58.5 % (50.0-68.0); HEMATOCRIT 29.2 % (36.0-48.0); LYMPH # 1.1 (1.2-3.4); MEAN CELL VOLUME 87.7 fL (80.0-105.0); MEAN CORPUSCULAR HEMOGLOBIN 28.2 pg (25.0-35.0); MEAN CORPUSCULAR HGB CONC 32.2 g/dl (31.0-37.0); MEAN PLATELET VOLUME 10.9 fl (7.0-11.0); MONO # 0.5 (0.1-0.6); MONO % 13.3 % (1.0-6.0); PLATELET COUNT 167 10^3/uL (120.0-450.0); RED CELL DISTRIBUTION WIDTH 16.8 % (11.5-14.5); WHITE BLOOD COUNT 4.1 10^3/ul (4.5-11.0)
[2016-12-01] MEDS: Insulin Reg-MEDIUM-Coverage SC SCH ×3 (08:08→16:50)
--- NOTE | 2016-12-01 09:53 | PQF ANEMIA ---
This form is a permanent part of the medical record Dr. Steen/Dr. Colon, Patient admitted with hematuria and UTI. Hematuria persistent since admission several days ago with H/H dropping from 11.7/35.8 to 9.4/29.2. Documentation notes anemia but this diagnosis needs more specificity to reflect severity. Can you specify if this is acute, chronic, blood loss, iron deficiency, other? Clarification of your documentation is requested to better reflect the severity of illness and intensity of treatment of your patient. Indicators present [x] Anemia [x] Drop in H&H from []11.7/35.8___ to []___9.4/29.2 [] Hypotension [] GI Bleed [] Transfusion(s) [x] Acute bleed other sites- hematuria [] Tachycardia [] Surgical Procedure Blood Loss (expected not a complication) Other:[] Location in the medical record that reflects the above clinical findings: [] Treatment Provided: [] PHYSICIAN'S RESPONSE Based on your medical judgment of the clinical indicators outlined above, are you treating this patient for a known or suspected: [] Acute blood loss anemia [] Chronic blood loss anemia [] Acute on Chronic blood loss anemia [] Anemia due to malignancy [] Anemia due to chemotherapy or radiation therapy [] Anemia of Chronic Disease, please specify: [] [] Other, please indicate type of anemia []____ [] If Unable to Determine, please check the box, sign and date. Present On Admission (POA) Indicator: [] Present at the time of admission [] Not present at the time of admission [] Clinically Undetermined In responding to this query, please exercise your independent professional judgment. The fact that a question is asked does not imply that any particular answer is desired or expected. Thank you for your clarification on this documentation. If you have any questions please call:[ ] * Thank you, [ ]Magdalena Krishna [facility] #[id number] cytotechnologist TYREL
[2016-12-01] MEDS: Potassium Chloride 20 mEq ER Tab PO SCH ×2 (10:04→12:02)
[2016-12-01] MEDS: Enoxaparin 40 mg Syringe SC SCH (10:05)
[2016-12-01] MEDS: Sodium Chloride 0.9% 1,000 ML IV SCH (10:05)
[2016-12-01] MEDS: Nystatin 100,000 Units/gm Topical Pow(15 gm) TOP SCH ×2 (12:42→18:26)
[2016-12-01] MEDS ORDERED: Potassium Chloride 20 mEq ER Tab PO ONE (13:20)
--- NOTE | 2016-12-01 14:52 | CP.PCM.PN ---
Addendum entered and electronically signed by Dee Orellana DO 12/01/16 22:37 : Consent for blood transfusions was obtained over the phone from patient's cousin , Martha Grewal, patient's POA. Risk and benefits were explained in detail, all questions were answered. Nurse witnessed conversation. POA gave consent. Original Note: <Dayami Pro - Last Filed: 12/01/16 20:23> Subjective - Date & Time of Evaluation Date of Evaluation: 12/01/16 Time of Evaluation: 08:20 - Subjective Subjective: Medicine progress note for Dr Colon and Dr Steen. Patient's Mon catheter and nephrostomy tube is still very bloody. Patient appears more diaphoretic, and looks paler . Patient is demented, and unable to obtain ROS. Objective - Vital Signs/Intake and Output Vital Signs (last 24 hours): Temp Pulse Resp BP Pulse Ox 98.2 F 43 L 20 136/50 L 98 12/01/16 06:00 12/01/16 06:00 12/01/16 06:00 12/01/16 10:04 12/01/16 06:00 Intake and Output: 12/01/16 12/01/16 06:59 18:59 Intake Total 2760 0 Output Total 600 300 Balance 2160 -300 - Medications Medications: Current Medications Acetaminophen (Tylenol 325mg Tab) 325 mg PO Q4H PRN PRN Reason: Mild pain and fever Amlodipine Besylate (Norvasc) 10 mg PO DAILY [facility] Last Admin: 12/01/16 10:04 Dose: 10 mg Sodium Chloride (Sodium Chloride 0.9%) 1,000 mls @ 100 mls/hr IV .Q10H [facility] Last Admin: 12/01/16 10:05 Dose: 100 mls/hr Piperacillin Sod/Tazobactam Sod (Zosyn 3.375 In Ns 100ml) 100 mls @ 200 mls/hr IVPB Q6 [facility] PRN Reason: Protocol Stop: 12/05/16 12:01 Last Admin: 12/01/16 12:01 Dose: 200 mls/hr Insulin Human Regular (Humulin R Med) 0 units SC ACHS [facility] PRN Reason: Protocol Last Admin: 12/01/16 12:02 Dose: 1 units Magnesium Hydroxide (Milk Of Magnesia) 30 ml PO HS PRN PRN Reason: Constipation Non-Formulary Medication (Aluminum Hydroxide/Magnesium H [Maalox 30 Ml]) 30 ml PO Q4H PRN PRN Reason: Indigestion Nystatin (Nystop Topical Powder) 1 gm TOP BID [facility] Last Admin: 12/01/16 12:42 Dose: 1 applic Pantoprazole Sodium (Protonix Ec Tab) 40 mg PO 0630 [facility] Last Admin: 12/01/16 05:38 Dose: 40 mg Prochlorperazine (Compazine Rectal Supp) 25 mg RC BID PRN PRN Reason: nausea and vomiting Sodium Phosphate (Fleet Enema) 133 ml RC Q8H PRN PRN Reason: if no result from MOM - Labs Labs: 12/01/16 07:00 12/01/16 07:00 PT 11.0 Seconds (9.9-11.8) 11/29/16 07:00 INR 1.02 (0.93-1.08) 11/29/16 07:00 - Constitutional Appears: No Acute Distress, Older Than Stated Age, Confused, Cachectic, Chronically Ill - Head Exam Head Exam: ATRAUMATIC, NORMAL INSPECTION, NORMOCEPHALIC - Eye Exam Eye Exam: Normal appearance, PERRL. absent: Scleral icterus (pale) - ENT Exam ENT Exam: Mucous Membranes Moist - Neck Exam Neck Exam: Normal Inspection - Respiratory Exam Respiratory Exam: Decreased Breath Sounds, NORMAL BREATHING PATTERN. absent: Rales, Rhonchi, Wheezes, Respiratory Distress, Stridor - Cardiovascular Exam Cardiovascular Exam: REGULAR RHYTHM, RRR, +S1, +S2, Murmur - GI/Abdominal Exam GI & Abdominal Exam: Soft, Normal Bowel Sounds. absent: Distended, Firm, Guarding, Rigid, Tenderness Additional comments: right nephrostomy tube in place, draining bloody urine. - Extremities Exam Extremities Exam: Pedal Edema - Back Exam Back Exam: absent: NORMAL INSPECTION - Neurological Exam Neurological Exam: Alert, Awake. absent: Oriented x3 - Psychiatric Exam Psychiatric exam: Anxious, Depressed - Skin Skin Exam: Dry, Rash (in the back ), Warm Assessment and Plan - Assessment and Plan (Free Text) Assessment: Patient is a 71 y/o correction resident with PMH of recurrent UTI/Urosepsis s/ p right nephrostomy tube placement, DM, HTN, CKD, hyperlipidemia, h/o CVA, anxiety disorder, and dementia admitted with UTI and gross hematuria. Patient is s/p nephrostomy tube replacement 2nd to obstruction. Patient's mon and nephrostomy tube is still draining bloody urine. Plan: 1)Symptomatic acute on chronic anemia 2nd to gross hematuria - h/h dropped from 11.7 to 9.4 - Patient's nephrostomy tube and mon are still bloody - will transfuse 1 unit of prbc - will continue to monitor h/h 2) Gross hematuria 2nd to obstructed nephrostomy tube - s/p IR replacement of the nephrostomy tube - still draining bloody urine - Will follow up with urology for the next plan 3) UTI - 1st urine culture growing drug resistance organism likely due to contamination - repeat urine cx after treatment with zosyn with no growth - Continue abx as per ID 4) DM - ISS - Accuchecks achs - dysphasia diet. 5) htn - continue norvasc. 5) Anxiety - on prochlorperazine 6) High degree av block - cardiology rec appreciate - No Permanent pacemaker at this time. 7) CAD- - repeat echo with moderate to severe , see emr for full report. - Patient also has new RBBB on ekg. - continue asa 8) Hypokalemia -2nd to poor intake, will replete, and continue to monitor. 9) Chronic diarrhea/constipation- imodium and fleet enema prn 10) DVT and gi prophylaxis- SCDs and protonix. Patient seen, examined, case discussed with Dr Steen <Hayden Steen - Last Filed: 12/23/16 18:42> Objective - Vital Signs/Intake and Output Vital Signs (last 24 hours): Temp Pulse Resp BP Pulse Ox 98.2 F 46 L 20 166/82 H 99 12/02/16 07:57 12/02/16 07:57 12/02/16 07:57 12/02/16 15:43 12/02/16 07:57 - Labs Labs: 12/02/16 08:50 12/02/16 08:50 PT 11.0 Seconds (9.9-11.8) 11/29/16 07:00 INR 1.02 (0.93-1.08) 11/29/16 07:00 Attending/Attestation - Attestation I have personally seen and examined this patient.: Yes I have fully participated in the care of the patient.: Yes I have reviewed all pertinent clinical information, including history, physical exam and plan: Yes Notes (Text): 12/22/16 15:11 Medical record note made by the resident after discussion with my direction and input after the patient was personally seen and examined by me. I have reviewed the chart and agree that the record accurately reflects by personal performance of the history, physical exam, data review, and medical decision-making, in the course for the patient. I have also personally directed the plan of care.
--- NOTE | 2016-12-01 15:17 | PN ---
DATE: 12/01/2016 SUBJECTIVE: The patient is in bed, resting comfortably without shortness of breath. PHYSICAL EXAMINATION: VITAL SIGNS: Blood pressure 136/50, heart rate is in the 40s with 2:1 AV celestino block. NECK: Negative JVD. LUNGS: Without rales. HEART: Reveals a III/ systolic ejection murmur. EXTREMITIES: Without edema. LABORATORIES: Hemoglobin is 9.4. Chemistries: BUN and creatinine are normal. Glucose is 121. Echocardiogram reveals aortic stenosis with good LV function. IMPRESSION: 1. 2:1 AV celestino block. 2. Aortic stenosis. 3. Anemia. 4. Dementia. 5. Status post urologic obstruction with a nephrostomy tube. 6. Sepsis. PLAN: Given these findings, the patient has a combined AV celestino block as well as aortic stenosis. G ivjenn the patient's multiple comorbidities, would not proceed with intervention into the aortic valve at this time. Would avoid AV celestino blocking agents. The patient would be at increased risk for any invasive procedures for heart block as well as hemodynamic compromise with her aortic stenosis. Shantanu Griffith MD cc: [phone] TT: 12/01/2016 15:16:31 Confirmation # [id number] Dictation # [id number] naveen
--- NOTE | 2016-12-01 20:27 | CP.PCM.PN ---
Subjective - Date & Time of Evaluation Date of Evaluation: 12/01/16 Time of Evaluation: 12:25 - Subjective Subjective: Comfortable, afebrile. Objective - Vital Signs/Intake and Output Vital Signs (last 24 hours): Temp Pulse Resp BP Pulse Ox 98.5 F 48 L 20 183/60 H 98 12/01/16 16:00 12/01/16 16:00 12/01/16 16:00 12/01/16 16:00 12/01/16 16:00 Intake and Output: 12/01/16 12/02/16 18:59 06:59 Intake Total 480 Output Total 900 Balance -420 - Medications Medications: Current Medications Acetaminophen (Tylenol 325mg Tab) 325 mg PO Q4H PRN PRN Reason: Mild pain and fever Amlodipine Besylate (Norvasc) 10 mg PO DAILY [facility] Last Admin: 12/01/16 10:04 Dose: 10 mg Piperacillin Sod/Tazobactam Sod (Zosyn 3.375 In Ns 100ml) 100 mls @ 200 mls/hr IVPB Q6 [facility] PRN Reason: Protocol Stop: 12/05/16 12:01 Last Admin: 12/01/16 17:16 Dose: 200 mls/hr Insulin Human Regular (Humulin R Med) 0 units SC ACHS [facility] PRN Reason: Protocol Last Admin: 12/01/16 16:50 Dose: 1 units Magnesium Hydroxide (Milk Of Magnesia) 30 ml PO HS PRN PRN Reason: Constipation Non-Formulary Medication (Aluminum Hydroxide/Magnesium H [Maalox 30 Ml]) 30 ml PO Q4H PRN PRN Reason: Indigestion Nystatin (Nystop Topical Powder) 1 gm TOP BID [facility] Last Admin: 12/01/16 18:26 Dose: 1 applic Pantoprazole Sodium (Protonix Ec Tab) 40 mg PO 0630 [facility] Last Admin: 12/01/16 05:38 Dose: 40 mg Prochlorperazine (Compazine Rectal Supp) 25 mg RC BID PRN PRN Reason: nausea and vomiting Sodium Phosphate (Fleet Enema) 133 ml RC Q8H PRN PRN Reason: if no result from MOM - Labs Labs: 12/01/16 07:00 12/01/16 07:00 PT 11.0 Seconds (9.9-11.8) 11/29/16 07:00 INR 1.02 (0.93-1.08) 11/29/16 07:00 - Constitutional Appears: Non-toxic, No Acute Distress - Head Exam Head Exam: NORMAL INSPECTION - Respiratory Exam Respiratory Exam: Decreased Breath Sounds - Cardiovascular Exam Cardiovascular Exam: +S1, +S2 - GI/Abdominal Exam GI & Abdominal Exam: Soft. absent: Tenderness Assessment and Plan - Assessment and Plan (Free Text) Plan: Assessment Hematuria, consider urinary tract infection with E. faecalis; multidrug- resistant Proteus also found in the urine, probably colonization since it cleared from the repeat urine cx without specific treatment history of septic shock from to gram negative bacteremia (Proteus and Providencia), with urine as the source S/P right nephrostomy tube placement diabetes mellitus hypertension Chronic kidney disease hyperlipidemia cerebrovascular accident anxiety disorder history of Morganella morganii urinary tract infection history of gastrointestinal bleeding Pelvic mass Plan continue Zosyn day 4; reviewed Urology evaluation will continue to monitor clinically
[2016-12-02] MEDS: Piperacillin/Tazobact 3.375 gm 100 ML IVPB SCH ×4 (00:26→17:32)
[2016-12-02] MEDS: Pantoprazole 40 mg EC Tab PO SCH (05:45)
[2016-12-02 07:58] VITALS: BP 166/82; PULSE 46; RESP 20; TEMP 98.2; O2SAT 99
[2016-12-02] MEDS: Insulin Reg-MEDIUM-Coverage SC SCH ×3 (08:44→17:32)
[2016-12-02 09:01] LABS: ADD MANUAL DIFF? NO
[2016-12-02 09:03] LABS: BASO # 0.02 K/mm3 (0.0-2.0); BASO % 0.5 % (0.0-3.0); EOS % 0.2 % (1.5-5.0); GRAN # 2.53 (1.4-6.5); GRAN % 57.5 % (50.0-68.0); HEMATOCRIT 38.5 % (36.0-48.0); LYMPH # 1.4 (1.2-3.4); LYMPH % 32.3 % (22.0-35.0); MEAN CELL VOLUME 84.2 fL (80.0-105.0); MEAN CORPUSCULAR HEMOGLOBIN 28.7 pg (25.0-35.0); MEAN PLATELET VOLUME 10.5 fl (7.0-11.0); MONO # 0.4 (0.1-0.6); MONO % 9.5 % (1.0-6.0); PLATELET COUNT 206 10^3/uL (120.0-450.0); RED CELL DISTRIBUTION WIDTH 16.3 % (11.5-14.5); WHITE BLOOD COUNT 4.4 10^3/ul (4.5-11.0)
[2016-12-02 09:13] LABS: BLOOD UREA NITROGEN 7 mg/dL (7-21); CALCIUM 8.7 mg/dL (8.4-10.5); CARBON DIOXIDE 25 mmol/L (21-33); CHLORIDE 106 mmol/L (98-107); GFR AFRICAN-AMERICAN > 60; GLUCOSE,RANDOM 158 mg/dL (70-110); POTASSIUM 3.5 mmol/L (3.6-5.0); SODIUM 140 mmol/L (132-148)
--- NOTE | 2016-12-02 09:13 | PN ---
DATE: 12/02/2016 She continues to have some gross hematuria. This may be mechanical from placement and change of her tube with injection. She is a very poor surgical candidate. There was nothing noted abnormally in t he right nephrostogram. The patient had a CAT scan done last February which did not show any calculi. I am going to repeat a noncontrast CAT scan just to make sure there are no obvious obstructing stone s or bladder calculi. I have also ordered urine for cytology. I am not going to do a cysto unless t he cytology is grossly abnormal. The bleeding from the right nephrostomy tube is what is tracking do wn the ureter into the Hirsch catheter and this hopefully will clear. Akash Hughes MD cc: [phone] TT: 12/02/2016 09:12:02 Confirmation # [id number] Dictation # [id number] tn
--- NOTE | 2016-12-02 10:50 | PN ---
DATE: 12/02/2016 The patient is awake, alert, no dizziness noted. PHYSICAL EXAMINATION: VITAL SIGNS: Blood pressure is 166/82, the heart rate is in the 40s. NECK: Negative JVD. LUNGS: Without rales. HEART: Revealed S1, S2. EXTREMITIES: Without edema. Hemoglobin is 13.1. Potassium is 3.5. IMPRESSION: 1. Sepsis. 2. A 2:1 heart block. 3. Aortic stenosis. 4. Dementia. 5. Anemia. Given these findings, the patient's cardiac status is unchanged. She is currently on IV antibiotics for a urinary tract infection. Shantanu Griffith MD cc: [phone] TT: 12/02/2016 10:48:53 Confirmation # [id number] Dictation # [id number] en
--- NOTE | 2016-12-02 11:01 | CT ---
PROCEDURE: CT Abdomen and Pelvis without intravenous contrast HISTORY: r/o stone COMPARISON: None. TECHNIQUE: Without contrast. Contrast Dose: Radiation dose: Total exam DLP = 617 mGy-cm. This CT exam was performed using one or more of the following dose reduction techniques: Automated exposure control, adjustment of the mA and/or kV according to patient size, and/or use of iterative reconstruction technique. FINDINGS: LOWER THORAX: Minimal pericardial effusion LIVER: Unremarkable. No gross lesion or ductal dilatation. GALLBLADDER AND BILE DUCTS: Unremarkable. PANCREAS: Unremarkable. No gross lesion or ductal dilatation. SPLEEN: Unremarkable. ADRENALS: Unremarkable. No mass. KIDNEYS AND URETERS: There is a right-sided nephrostomy catheter. There is a 9 mm stone adjacent to the pigtail portion of the catheter seen on image 201 series 3. There is a 6 mm stone seen posterior and lateral to the pigtail catheter. There are no ureteral stones visualized VASCULATURE: Unremarkable. No aortic aneurysm. BOWEL: Unremarkable. No obstruction. No gross mural thickening. There is constipation with a moderate degree of fecal impaction APPENDIX: Unremarkable. Normal appendix. PERITONEUM: Unremarkable. No free fluid. No free air. LYMPH NODES: Unremarkable. No enlarged lymph nodes. BLADDER: The bladder is decompressed by Hirsch catheter REPRODUCTIVE: Unremarkable. BONES: No acute fracture. OTHER FINDINGS: None. IMPRESSION: Right-sided nephrostomy with nephrolithiasis.
--- NOTE | 2016-12-02 15:29 | CP.PCM.DIS ---
<Dayami Pro - Last Filed: 12/07/16 09:18> Provider - Provider Date of Admission: 11/28/16 02:14 Attending physician: Lee Colon MD Primary care physician: NO PRIMARY CARE PROVIDER Consults: ID Urology IR Time Spent in preparation of Discharge (in minutes): 60 Diagnosis - Discharge Diagnosis (1) Gross hematuria Status: Acute (2) UTI (urinary tract infection) Status: Acute (3) Sepsis Status: Acute (4) Hypokalemia Status: Resolved (5) HTN (hypertension) Status: Chronic (6) CKD (chronic kidney disease) Status: Chronic (7) Diabetes Status: Chronic (8) CVA (cerebrovascular accident) Status: Chronic Hospital Course - Lab Results Lab Results: Micro Results 11/28/16 11:00 Blood-Venous Blood Culture - Preliminary NO GROWTH AFTER 4 DAYS 11/28/16 10:44 Blood-Venous Blood Culture - Preliminary NO GROWTH AFTER 4 DAYS 11/30/16 10:50 Urine,Hirsch Urine Culture - Final No Growth (<1,000 CFU/ML) Most Recent Lab Values WBC 4.4 10^3/ul (4.5-11.0) L 12/02/16 08:50 RBC 4.57 10^6/uL (3.5-6.1) 12/02/16 08:50 Hgb 13.1 gm/dL (12.0-16.0) 12/02/16 08:50 Hct 38.5 % (36.0-48.0) 12/02/16 08:50 MCV 84.2 fL (80.0-105.0) 12/02/16 08:50 MCH 28.7 pg (25.0-35.0) 12/02/16 08:50 MCHC 34.0 g/dl (31.0-37.0) 12/02/16 08:50 RDW 16.3 % (11.5-14.5) H 12/02/16 08:50 Plt Count 206 10^3/uL (120.0-450.0) 12/02/16 08:50 MPV 10.5 fl (7.0-11.0) 12/02/16 08:50 Gran % 57.5 % (50.0-68.0) 12/02/16 08:50 Lymph % (Auto) 32.3 % (22.0-35.0) 12/02/16 08:50 Pickens % (Auto) 9.5 % (1.0-6.0) H 12/02/16 08:50 Eos % (Auto) 0.2 % (1.5-5.0) L 12/02/16 08:50 Baso % (Auto) 0.5 % (0.0-3.0) 12/02/16 08:50 Gran # 2.53 (1.4-6.5) 12/02/16 08:50 Lymph # 1.4 (1.2-3.4) 12/02/16 08:50 Pickens # 0.4 (0.1-0.6) 12/02/16 08:50 Eos # 0.0 (0.0-0.7) 12/02/16 08:50 Baso # 0.02 K/mm3 (0.0-2.0) 12/02/16 08:50 PT 11.0 Seconds (9.9-11.8) 11/29/16 07:00 INR 1.02 (0.93-1.08) 11/29/16 07:00 pO2 133 mm/Hg (30-55) H 11/27/16 22:35 VBG pH 7.47 (7.32-7.43) H 11/27/16 22:35 VBG pCO2 39.0 (40-60) L 11/27/16 22:35 VBG HCO3 28.4 mmol/l (21-28) H 11/27/16 22:35 VBG Total CO2 29.6 mmol.L (22-28) H 11/27/16 22:35 VBG O2 Sat (Calc) 98.8 % (40-65) H 11/27/16 22:35 VBG Base Excess 4.4 mmol/L (0.0-2.0) H 11/27/16 22:35 VBG Potassium 3.7 mmol/L (3.6-5.2) 11/27/16 22:35 Sodium 139.0 mmol/L (132-148) 11/27/16 22:35 Chloride 109.0 mmol/L (98-107) H 11/27/16 22:35 Glucose 198 mg/dl (65-105) H 11/27/16 22:35 Lactate 1.6 mmol/L (0.7-2.1) 11/27/16 22:35 FiO2 21.0 % 11/27/16 22:35 Sodium 140 mmol/L (132-148) 12/02/16 08:50 Potassium 3.5 mmol/L (3.6-5.0) L 12/02/16 08:50 Chloride 106 mmol/L (98-107) 12/02/16 08:50 Carbon Dioxide 25 mmol/L (21-33) 12/02/16 08:50 Anion Gap 13 (10-20) 12/02/16 08:50 BUN 7 mg/dL (7-21) 12/02/16 08:50 Creatinine 0.6 mg/dL (0.5-1.4) 12/02/16 08:50 Est GFR ( Amer) > 60 12/02/16 08:50 Est GFR (Non-Af Amer) > 60 12/02/16 08:50 POC Glucose (mg/dL) 166 mg/dL (65-110) H 12/02/16 07:30 Random Glucose 158 mg/dL (70-110) H 12/02/16 08:50 Calcium 8.7 mg/dL (8.4-10.5) 12/02/16 08:50 Phosphorus 2.5 mg/dL (2.5-4.5) 12/01/16 07:00 Magnesium 1.7 mg/dL (1.7-2.2) 12/01/16 07:00 Total Bilirubin 0.5 mg/dL (0.2-1.3) 11/29/16 07:00 AST 25 U/L (15-39) 11/29/16 07:00 ALT 27 U/L (7-56) 11/29/16 07:00 Alkaline Phosphatase 78 U/L (38-133) 11/29/16 07:00 Total Protein 7.3 g/dL (5.8-8.3) 11/29/16 07:00 Albumin 3.3 g/dL (3.0-4.8) 11/29/16 07:00 Globulin 3.9 gm/dL 11/29/16 07:00 Albumin/Globulin Ratio 0.8 (1.1-1.8) L 11/29/16 07:00 Venous Blood Potassium 3.7 mmol/L (3.6-5.2) 11/27/16 22:35 Urine Color Red (YELLOW) 11/27/16 22:50 Urine Appearance Cloudy (CLEAR) 11/27/16 22:50 Urine pH 7.0 (4.7-8.0) 11/27/16 22:50 Ur Specific Hurricane 1.025 (1.005-1.035) 11/27/16 22:50 Urine Protein >=300 mg/dL (<30 mg/dL) H 11/27/16 22:50 Urine Glucose (UA) Negative mg/dL (NEGATIVE) 11/27/16 22:50 Urine Ketones Negative mg/dL (NEGATIVE) 11/27/16 22:50 Urine Blood Large (NEGATIVE) H 11/27/16 22:50 Urine Nitrate Positive (NEGATIVE) H 11/27/16 22:50 Urine Bilirubin Negative (NEGATIVE) 11/27/16 22:50 Urine Urobilinogen 0.2 E.U./dL (<1 E.U./dL) 11/27/16 22:50 Ur Leukocyte Esterase Moderate Earnest/uL (NEGATIVE) H 11/27/16 22:50 Urine RBC Tntc /hpf (0-2) 11/27/16 22:50 Urine WBC 10 - 15 /hpf (0-6) 11/27/16 22:50 Ur Epithelial Cells Many /hpf (0-5) 11/27/16 22:50 Amorphous Sediment Trace 11/27/16 22:50 Urine Bacteria Mod (NEG) 11/27/16 22:50 Blood Type O POSITIVE 12/01/16 13:18 Antibody Screen Negative 12/01/16 13:18 Crossmatch See Detail 12/01/16 13:18 BBK History Checked Patient has bt 12/01/16 13:18 - Hospital Course Hospital Course: Patient is a 71 y/o with PMH of recurrent UTI/Urosepsis s/p right nephrostomy tube placement, DM, HTN, CKD, hyperlipidemia, h/o CVA, anxiety disorder, and dementia sent from detention secondary to gross hematuria. On arrival, patient underwent basic labs which was normal, patient was afebrile as well. In the ED, patient's Hirsch catheter was changed, ua revealed UTI. Blood cultures and urine cultures were sent. Chest x-ray was normal. Patient was started on zosyn for UTI. The ucx grew proteus and enteroccocus feacalus few days later, which was multidrug resistance. ID recommended to repeat urine culture. The urine culture revealed no growth, thus colonization was suspected. Patient was treated with zosyn for 5 days, then Augmentin for 5 more days for a total of 10 days. The hematuria was from the Hirsch catheter and nephrostomy tube, urology was consulted, recommended IR do cystostogram. The Cystostogram revealed obstruction of the nephrotomy tube, and the tube was changed. Patient continue to have hematuria afterward. Urology recommended CT which revealed nephrostomy tube and nephrolithiasis. Urology and IR recommended no further interventions, and stated to continue to flush the catheter and eventually the hematuria will resolve. Furthermore, patient was suspected to have new RBBB, with high degree AV block, however due to patient multiple comorbidities, cardiology recommended no pacemaker at this time. Patient should avoid beta blockers and clonidine. Patient to be discharged to detention, and to continue with Augmentin for 5 more days, flush the nephrostomy tube bid. - Date & Time of H&P Date of H&P: 11/28/16 Time of H&P: 09:29 Discharge Exam - Head Exam Head Exam: NORMAL INSPECTION - Eye Exam Eye Exam: EOMI, Normal appearance, PERRL - ENT Exam ENT Exam: Mucous Membranes Moist - Respiratory Exam Respiratory Exam: Clear to PA & Lateral, NORMAL BREATHING PATTERN, UNREMARKABLE. absent: Rales, Rhonchi, Wheezes, Respiratory Distress, Stridor - Cardiovascular Exam Cardiovascular Exam: REGULAR RHYTHM, +S1, +S2. absent: Systolic Murmur - GI/Abdominal Exam GI & Abdominal Exam: Normal Bowel Sounds, Soft, Unremarkable. absent: Distended , Guarding, Hernia, Tenderness - Exam Additional comments: Hirsch and nephrostomy tube draining serosanguinous urine. - Extremities Exam Extremities exam: normal inspection - Back Exam Back exam: NORMAL INSPECTION - Neurological Exam Neurological exam: Altered Additional comments: barely verbal, protracted. - Psychiatric Exam Psychiatric exam: Flat Affect - Skin Skin Exam: Dry, Warm Discharge Plan - Discharge Medications Prescriptions: amLODIPine [Norvasc] 10 mg PO DAILY #30 tab - Follow Up Plan Condition: STABLE Disposition: TRANSF TO SNF Instructions: Acute Hematuria (DC) Additional Instructions: Flush the nephrostomy tube with 10 cc syringe of saline twice a day. Referrals: PCP,NO [Primary Care Provider] - <Hayden Steen - Last Filed: 12/24/16 18:54> Provider - Provider Date of Admission: 11/28/16 02:14 Attending physician: Lee Colon MD Primary care physician: RICHARD PRIMARY CARE PROVIDER Hospital Course - Lab Results Lab Results: Micro Results 11/28/16 11:00 Blood-Venous Blood Culture - Final NO GROWTH AFTER 5 DAYS 11/28/16 11:00 Blood-Venous Gram Stain - Final TEST NOT PERFORMED 11/28/16 10:44 Blood-Venous Blood Culture - Final NO GROWTH AFTER 5 DAYS 11/28/16 10:44 Blood-Venous Gram Stain - Final TEST NOT PERFORMED 11/30/16 10:50 Urine,Hirsch Urine Culture - Final No Growth (<1,000 CFU/ML) Most Recent Lab Values WBC 4.4 10^3/ul (4.5-11.0) L 12/02/16 08:50 RBC 4.57 10^6/uL (3.5-6.1) 12/02/16 08:50 Hgb 13.1 gm/dL (12.0-16.0) 12/02/16 08:50 Hct 38.5 % (36.0-48.0) 12/02/16 08:50 MCV 84.2 fL (80.0-105.0) 12/02/16 08:50 MCH 28.7 pg (25.0-35.0) 12/02/16 08:50 MCHC 34.0 g/dl (31.0-37.0) 12/02/16 08:50 RDW 16.3 % (11.5-14.5) H 12/02/16 08:50 Plt Count 206 10^3/uL (120.0-450.0) 12/02/16 08:50 MPV 10.5 fl (7.0-11.0) 12/02/16 08:50 Gran % 57.5 % (50.0-68.0) 12/02/16 08:50 Lymph % (Auto) 32.3 % (22.0-35.0) 12/02/16 08:50 Pickens % (Auto) 9.5 % (1.0-6.0) H 12/02/16 08:50 Eos % (Auto) 0.2 % (1.5-5.0) L 12/02/16 08:50 Baso % (Auto) 0.5 % (0.0-3.0) 12/02/16 08:50 Gran # 2.53 (1.4-6.5) 12/02/16 08:50 Lymph # 1.4 (1.2-3.4) 12/02/16 08:50 Pickens # 0.4 (0.1-0.6) 12/02/16 08:50 Eos # 0.0 (0.0-0.7) 12/02/16 08:50 Baso # 0.02 K/mm3 (0.0-2.0) 12/02/16 08:50 PT 11.0 Seconds (9.9-11.8) 11/29/16 07:00 INR 1.02 (0.93-1.08) 11/29/16 07:00 pO2 133 mm/Hg (30-55) H 11/27/16 22:35 VBG pH 7.47 (7.32-7.43) H 11/27/16 22:35 VBG pCO2 39.0 (40-60) L 11/27/16 22:35 VBG HCO3 28.4 mmol/l (21-28) H 11/27/16 22:35 VBG Total CO2 29.6 mmol.L (22-28) H 11/27/16 22:35 VBG O2 Sat (Calc) 98.8 % (40-65) H 11/27/16 22:35 VBG Base Excess 4.4 mmol/L (0.0-2.0) H 11/27/16 22:35 VBG Potassium 3.7 mmol/L (3.6-5.2) 11/27/16 22:35 Sodium 139.0 mmol/L (132-148) 11/27/16 22:35 Chloride 109.0 mmol/L (98-107) H 11/27/16 22:35 Glucose 198 mg/dl (65-105) H 11/27/16 22:35 Lactate 1.6 mmol/L (0.7-2.1) 11/27/16 22:35 FiO2 21.0 % 11/27/16 22:35 Sodium 140 mmol/L (132-148) 12/02/16 08:50 Potassium 3.5 mmol/L (3.6-5.0) L 12/02/16 08:50 Chloride 106 mmol/L (98-107) 12/02/16 08:50 Carbon Dioxide 25 mmol/L (21-33) 12/02/16 08:50 Anion Gap 13 (10-20) 12/02/16 08:50 BUN 7 mg/dL (7-21) 12/02/16 08:50 Creatinine 0.6 mg/dL (0.5-1.4) 12/02/16 08:50 Est GFR ( Amer) > 60 12/02/16 08:50 Est GFR (Non-Af Amer) > 60 12/02/16 08:50 POC Glucose (mg/dL) 164 mg/dL (65-110) H 12/02/16 16:28 Random Glucose 158 mg/dL (70-110) H 12/02/16 08:50 Calcium 8.7 mg/dL (8.4-10.5) 12/02/16 08:50 Phosphorus 2.5 mg/dL (2.5-4.5) 12/01/16 07:00 Magnesium 1.7 mg/dL (1.7-2.2) 12/01/16 07:00 Total Bilirubin 0.5 mg/dL (0.2-1.3) 11/29/16 07:00 AST 25 U/L (15-39) 11/29/16 07:00 ALT 27 U/L (7-56) 11/29/16 07:00 Alkaline Phosphatase 78 U/L (38-133) 11/29/16 07:00 Total Protein 7.3 g/dL (5.8-8.3) 11/29/16 07:00 Albumin 3.3 g/dL (3.0-4.8) 11/29/16 07:00 Globulin 3.9 gm/dL 11/29/16 07:00 Albumin/Globulin Ratio 0.8 (1.1-1.8) L 11/29/16 07:00 Venous Blood Potassium 3.7 mmol/L (3.6-5.2) 11/27/16 22:35 Urine Color Red (YELLOW) 11/27/16 22:50 Urine Appearance Cloudy (CLEAR) 11/27/16 22:50 Urine pH 7.0 (4.7-8.0) 11/27/16 22:50 Ur Specific Hurricane 1.025 (1.005-1.035) 11/27/16 22:50 Urine Protein >=300 mg/dL (<30 mg/dL) H 11/27/16 22:50 Urine Glucose (UA) Negative mg/dL (NEGATIVE) 11/27/16 22:50 Urine Ketones Negative mg/dL (NEGATIVE) 11/27/16 22:50 Urine Blood Large (NEGATIVE) H 11/27/16 22:50 Urine Nitrate Positive (NEGATIVE) H 11/27/16 22:50 Urine Bilirubin Negative (NEGATIVE) 11/27/16 22:50 Urine Urobilinogen 0.2 E.U./dL (<1 E.U./dL) 11/27/16 22:50 Ur Leukocyte Esterase Moderate Earnest/uL (NEGATIVE) H 11/27/16 22:50 Urine RBC Tntc /hpf (0-2) 11/27/16 22:50 Urine WBC 10 - 15 /hpf (0-6) 11/27/16 22:50 Ur Epithelial Cells Many /hpf (0-5) 11/27/16 22:50 Amorphous Sediment Trace 11/27/16 22:50 Urine Bacteria Mod (NEG) 11/27/16 22:50 Blood Type O POSITIVE 12/01/16 13:18 Antibody Screen Negative 12/01/16 13:18 Crossmatch See Detail 12/01/16 13:18 BBK History Checked Patient has bt 12/01/16 13:18 Attending/Attestation - Attestation I have personally seen and examined this patient.: Yes I have fully participated in the care of the patient.: Yes I have reviewed all pertinent clinical information, including history, physical exam and plan: Yes Notes (Text): 12/24/16 18:54 Medical record note made by the resident after discussion with my direction and input after the patient was personally seen and examined by me. I have reviewed the chart and agree that the record accurately reflects by personal performance of the history, physical exam, data review, and medical decision-making, in the course for the patient. I have also personally directed the plan of care.
[2016-12-02] MEDS: Potassium Chloride 20 mEq ER Tab PO SCH (15:43)
[2016-12-02] MEDS: Nystatin 100,000 Units/gm Topical Pow(15 gm) TOP SCH ×2 (15:45→17:32)
--- NOTE | 2016-12-02 18:05 | CP.PCM.PN ---
Subjective - Date & Time of Evaluation Date of Evaluation: 12/02/16 Time of Evaluation: 11:05 - Subjective Subjective: Comfortable, no fevers overnight, not in distress. Objective - Vital Signs/Intake and Output Vital Signs (last 24 hours): Temp Pulse Resp BP Pulse Ox 98.2 F 46 L 20 166/82 H 99 12/02/16 07:57 12/02/16 07:57 12/02/16 07:57 12/02/16 15:43 12/02/16 07:57 Intake and Output: 12/02/16 12/02/16 06:59 18:59 Intake Total 685 480 Output Total 900 1400 Balance -215 -920 - Medications Medications: Current Medications Acetaminophen (Tylenol 325mg Tab) 325 mg PO Q4H PRN PRN Reason: Mild pain and fever Amlodipine Besylate (Norvasc) 10 mg PO DAILY [facility] Last Admin: 12/02/16 15:43 Dose: 10 mg Piperacillin Sod/Tazobactam Sod (Zosyn 3.375 In Ns 100ml) 100 mls @ 200 mls/hr IVPB Q6 VESNA PRN Reason: Protocol Stop: 12/05/16 12:01 Last Admin: 12/02/16 17:32 Dose: 200 mls/hr Insulin Human Regular (Humulin R Med) 0 units SC ACHS VESNA PRN Reason: Protocol Last Admin: 12/02/16 17:32 Dose: 1 units Magnesium Hydroxide (Milk Of Magnesia) 30 ml PO HS PRN PRN Reason: Constipation Non-Formulary Medication (Aluminum Hydroxide/Magnesium H [Maalox 30 Ml]) 30 ml PO Q4H PRN PRN Reason: Indigestion Nystatin (Nystop Topical Powder) 1 gm TOP BID [facility] Last Admin: 12/02/16 17:32 Dose: 1 applic Pantoprazole Sodium (Protonix Ec Tab) 40 mg PO 0630 [facility] Last Admin: 12/02/16 05:45 Dose: 40 mg Potassium Chloride (K-Dur 20 Meq Er Tab) 20 meq PO BRK [facility] Prochlorperazine (Compazine Rectal Supp) 25 mg RC BID PRN PRN Reason: nausea and vomiting Sodium Phosphate (Fleet Enema) 133 ml RC Q8H PRN PRN Reason: if no result from MOM - Labs Labs: 12/02/16 08:50 12/02/16 08:50 PT 11.0 Seconds (9.9-11.8) 11/29/16 07:00 INR 1.02 (0.93-1.08) 11/29/16 07:00 - Constitutional Appears: Non-toxic, No Acute Distress - Head Exam Head Exam: NORMAL INSPECTION - ENT Exam ENT Exam: Mucous Membranes Moist - Neck Exam Neck Exam: absent: Lymphadenopathy, Meningismus - Respiratory Exam Respiratory Exam: Decreased Breath Sounds - Cardiovascular Exam Cardiovascular Exam: +S1, +S2 - GI/Abdominal Exam GI & Abdominal Exam: Soft. absent: Tenderness Assessment and Plan - Assessment and Plan (Free Text) Plan: Assessment Hematuria, consider urinary tract infection with E. faecalis; multidrug- resistant Proteus also found in the urine, probably colonization since it cleared from the repeat urine cx without specific treatment history of septic shock from to gram negative bacteremia (Proteus and Providencia), with urine as the source S/P right nephrostomy tube placement diabetes mellitus hypertension Chronic kidney disease hyperlipidemia cerebrovascular accident anxiety disorder history of Morganella morganii urinary tract infection history of gastrointestinal bleeding Pelvic mass Plan on Zosyn day 5; can be switched to PO Augmentin to complete another 5 days reviewed Urology evaluation
[2016-12-03] MEDS ORDERED: Potassium Chloride 20 mEq ER Tab PO SCH (08:00)
== END 2016-12-02 19:28 | DRG 871 ==
LOC: ED 21:22 → ERH 11-28 02:14 → 3RNO 11-28 06:12
PROVIDERS: ADMIT Internal Medicine; ATTEND Internal Medicine
PROC: 0T25X0Z Change Drainage Device in Kidney, External Approach (ICD-10-PCS; principal; 2016-11-29)
PROC: 30233N1 Transfusion of Nonautologous Red Blood Cells into Peripheral Vein, Percutaneous Approach (ICD-10-PCS; 2016-12-02)
DX: A41.9 Sepsis, unspecified organism (principal); L89.893 Pressure ulcer of other site, stage 3; E11.22 Type 2 diabetes mellitus with diabetic chronic kidney disease; I69.354 Hemiplegia and hemiparesis following cerebral infarction affecting left non-dominant side; F03.90 Unspecified dementia, unspecified severity, without behavioral disturbance, psychotic disturbance, mood disturbance, and anxiety; I44.1 Atrioventricular block, second degree; D62 Acute posthemorrhagic anemia; N39.0 Urinary tract infection, site not specified; N13.30 Unspecified hydronephrosis; Z93.6 Other artificial openings of urinary tract status; I12.9 Hypertensive chronic kidney disease with stage 1 through stage 4 chronic kidney disease, or unspecified chronic kidney disease; R31.0 Gross hematuria; N18.9 Chronic kidney disease, unspecified; E78.5 Hyperlipidemia, unspecified; F41.9 Anxiety disorder, unspecified; I35.0 Nonrheumatic aortic (valve) stenosis; I45.10 Unspecified right bundle-branch block; K21.9 Gastro-esophageal reflux disease without esophagitis; Z87.01 Personal history of pneumonia (recurrent); Z87.440 Personal history of urinary (tract) infections; Z87.442 Personal history of urinary calculi; Z87.891 Personal history of nicotine dependence; Z87.81 Personal history of (healed) traumatic fracture; R32 Unspecified urinary incontinence; Z88.1 Allergy status to other antibiotic agents; Z88.8 Allergy status to other drugs, medicaments and biological substances; L89.892 Pressure ulcer of other site, stage 2; K59.00 Constipation, unspecified; I25.10 Atherosclerotic heart disease of native coronary artery without angina pectoris; E87.6 Hypokalemia; R19.00 Intra-abdominal and pelvic swelling, mass and lump, unspecified site; B95.2 Enterococcus as the cause of diseases classified elsewhere; Z16.21 Resistance to vancomycin; B96.4 Proteus (mirabilis) (morganii) as the cause of diseases classified elsewhere; T83.092A Other mechanical complication of nephrostomy catheter, initial encounter

== ENCOUNTER 2016-12-06 17:20 | Observation (INO) | payer MEDICARE, MEDICAID ==
[2016-12-06 17:33] VITALS: BMI 26.5
[2016-12-06 18:11] LABS: ADD MANUAL DIFF? NO
[2016-12-06 18:13] LABS: VENOUS BLOOD GAS BASE EXCESS 5.1 mmol/L (0.0-2.0); VENOUS BLOOD PH 7.44 (7.32-7.43)
[2016-12-06 18:27] LABS: BASO # 0.02 K/mm3 (0.0-2.0); BASO % 0.2 % (0.0-3.0); EOS % 0.2 % (1.5-5.0); GRAN # 5.47 (1.4-6.5); GRAN % 65.4 % (50.0-68.0); HEMATOCRIT 36.8 % (36.0-48.0); LYMPH # 2.2 (1.2-3.4); LYMPH % 26.6 % (22.0-35.0); MEAN CELL VOLUME 86.6 fL (80.0-105.0); MEAN CORPUSCULAR HEMOGLOBIN 29.4 pg (25.0-35.0); MONO # 0.6 (0.1-0.6); MONO % 7.6 % (1.0-6.0); PLATELET COUNT 344 10^3/uL (120.0-450.0); RED CELL DISTRIBUTION WIDTH 16.4 % (11.5-14.5); WHITE BLOOD COUNT 8.4 10^3/ul (4.5-11.0)
[2016-12-06 18:35] LABS: INR 0.97 (0.93-1.08); PARTIAL THROMBOPLASTIN TIME 25.5 Seconds (23.7-30.8)
[2016-12-06 19:25] LABS: URINE BILIRUBIN NEGATIVE (NEGATIVE); URINE BLOOD LARGE (NEGATIVE); URINE GLUCOSE (UA) 500 mg/dL (NEGATIVE); URINE KETONE NEGATIVE (NEGATIVE); URINE LEUKOCYTE ESTERASE SMALL Leu/uL (NEGATIVE); URINE PROTEIN >=300 mg/dL (<30 mg/dL)
[2016-12-06 19:26] LABS: URINE APPEARANCE CLOUDY (CLEAR); URINE COLOR YELLOW (YELLOW)
[2016-12-06 19:55] LABS: ALB/GLOB RATIO 0.9 (1.1-1.8); ALKALINE PHOSPHATASE 70 U/L (38-133); ALT/SGPT 24 U/L (7-56); AST/SGOT 25 U/L (15-39); BILIRUBIN,TOTAL 0.4 mg/dL (0.2-1.3); BLOOD UREA NITROGEN 28 mg/dL (7-21); CARBON DIOXIDE 28 mmol/L (21-33); CHLORIDE 102 mmol/L (98-107); GFR AFRICAN-AMERICAN > 60; GLUCOSE,RANDOM 229 mg/dL (70-110); PHOSPHOROUS 3.1 mg/dL (2.5-4.5); POTASSIUM 3.9 mmol/L (3.6-5.0); SODIUM 138 mmol/L (132-148); TOTAL PROTEIN 7.2 g/dL (5.8-8.3)
[2016-12-06 20:06] LABS: TROPONIN I 0.03 ng/mL
[2016-12-06 20:09] LABS: URINE RBC 20 - 25 /hpf (0-2); URINE WBC TNTC /hpf (0-6)
[2016-12-06 20:10] LABS: URINE BACTERIA MOD (NEG)
[2016-12-06] MEDS ORDERED: cefTRIAXone 1 gm 1 GM/100 ML BAG IVPB STA (20:33)
[2016-12-06] MEDS ORDERED: Azithromycin 500MG/NS 250ml 500 MG/250 ML BAG IVPB STA (20:34)
--- NOTE | 2016-12-06 20:38 | ED PDOC ---
Arrival/HPI - General Historian: Other (RN) - General Chief Complaint: Female Genitourinary Time Seen by Provider: 12/06/16 17:25 - History of Present Illness Narrative History of Present Illness (Text): 12/06/16 20:36 Per RN, 71yo female from a NH with multiple co morbidities was BIBA for clogged nephrostomy tube. states patient have blood on her nephrostomy tube. Patient is a poor historian. She is aphasic and lethargic appearing. 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 - Cardiac Hx Cardiac Disorders: Yes Hx Hypertension: Yes - Pulmonary Hx Pneumonia: Yes - Neurological HX Cerebrovascular Accident: Yes - HEENT Hx HEENT Disorder: No - Renal Hx Renal Failure: Yes - Endocrine/Metabolic Hx Diabetes Mellitus Type 2: Yes - Hematological/Oncological Hx Blood Disorders: No - Integumentary Hx Dermatological Disorder: No Other/Comment: healed sacral and left lower buttock wounds, stge 3 wound to left hand 3rd finger 1cm round wound bed white surrounded by red skin, 2nd finger stg 2 .3cm round small opening wound bed red surrounding skin red, stg 2 left thumb .5 round wound bed red surrounded by red skin, left hand contracted into a fist, left arm contracted, right heel dry and red - Musculoskeletal/Rheumatological Hx Musculoskeletal Disorders: Yes (HX. L HIP FX.) Hx Falls: Yes - Gastrointestinal Hx Gastrointestinal Disorders: Yes Hx Gastroesophageal Reflux: Yes - Genitourinary/Gynecological Hx Genitourinary Disorders: Yes Hx Hematuria: Yes Hx Incontinence: Yes Hx Urinary Tract Infection: Yes - Psychiatric Hx Psychophysiologic Disorder: No Hx Emotional Abuse: No Hx Physical Abuse: No Hx Substance Use: No - Surgical History Hx Orthopedic Surgery: Yes (L hip orif) Other/Comment: cysto with stents, cecal mass excision. R arm PICC - Anesthesia Hx Anesthesia: Yes Hx Anesthesia Reactions: No Hx Malignant Hyperthermia: No - Suicidal Assessment Feels Threatened In Home Enviroment: No Family/Social History - Physician Review Nursing Documentation Reviewed: Yes Family/Social History: Unknown Family HX Smoking Status: Unknown If Ever Smoked Hx Alcohol Use: No Hx Substance Use: No Hx Substance Use Treatment: No Allergies/Home Meds Allergies/Adverse Reactions: Allergies ciprofloxacin [From Cipro] Allergy (Verified 12/06/16 18:55) RASH levofloxacin [From Levaquin] Allergy (Verified 12/06/16 18:55) RASH Quinolones Allergy (Verified 12/06/16 18:55) RASH Home Medications: Home Meds Medication Instructions Recorded Confirmed Acetaminophen [Tylenol 325mg tab] 325 mg PO Q4H PRN 11/27/16 12/06/16 Aluminum Hydroxide/Magnesium H 30 ml PO Q4H PRN 11/27/16 12/06/16 [Maalox 30 ml] Aspirin [Aspirin Chewable] 81 mg PO DAILY 11/27/16 12/06/16 Enoxaparin [Lovenox] 40 mg SQ DAILY 11/27/16 12/06/16 Loperamide [Imodium] 4 mg PO Q6H PRN 11/27/16 12/06/16 Magnesium Hydroxide [Milk Of 400 mg PO HS PRN 11/27/16 12/06/16 Magnesia] Prochlorperazine [Compro] 25 mg RC BID PRN 11/27/16 12/06/16 Sod Phos,M-B/Na Phos,Di-Ba [Fleet 133 ml RC Q8H PRN 11/27/16 12/06/16 Enema] Review of Systems - Review of Systems Systems not reviewed;Unavailable: Other (Aphasic and lethargic) Genitourinary Female: Other (Infilterated nephrostomy tube) Physical Exam Vital Signs Reviewed: Yes Temperature: Febrile Blood Pressure: Normal Pulse: Regular Respiratory Rate: Normal Appearance: Positive for: Non-Toxic, Comfortable, Ill-Appearing, Other ( Contracted extremities) Pain Distress: None - Systems Exam Head: Present: Atraumatic, Normocephalic Pupils: Present: PERRL Extroacular Muscles: Present: EOMI Conjunctiva: Present: Normal Respiratory/Chest: Present: Clear to Auscultation, Good Air Exchange. No: Respiratory Distress, Accessory Muscle Use, Wheezes, Decreased Breath Sounds, Rales, Retracting, Rhonchi Cardiovascular: Present: Regular Rate and Rhythm, Normal S1, S2. No: Murmurs Abdomen: Present: Normal Bowel Sounds, Other (Right sided nephrostomy tube noted in place with blood. No sign of infection in the area). No: Tenderness, Distention, Peritoneal Signs, Rebound, Guarding, McBurney's Point Tender, Rovsing's Sign Present Genitourinary/Pelvic Exam: Present: Other (Hirsch noted in place with urine in the bag) Upper Extremity: Present: Other (Appear contracted). No: Cyanosis, Edema Lower Extremity: Present: Other (appear contracted). No: Edema Skin: Present: Warm, Dry, Normal Color. No: Rashes Vital Signs Temp Pulse Resp BP Pulse Ox 12/06/16 22:34 98.3 F 49 L 18 149/57 L 100 12/06/16 21:10 51 L 20 146/67 99 12/06/16 19:25 52 L 20 145/52 L 99 12/06/16 17:21 101.1 F H 50 L 18 176/69 H 100 Medical Decision Making ED Course and Treatment: I was available for consultation during PA evaluation. The chart was reviewed by me, and I agree with disposition. The documented history was done by the physician office machine mechanic. The documented physical exam was done by the physician office machine mechanic. The documented procedures were done by the physician office machine mechanic. ( Viktor España) 12/07/16 01:27 Pt appeared lethargic and aphasic in ED. The Hirsch was changed in ED. She had no leukocytosis however consolidation was noted on her LLL of her CXR. she does not meet the sepsis criteria. She was recently discharged from the hospital. Zithromax and Rocephin was ordered EKG Marked sinus juan j with incomplete RBBB @47bpm. No ST changes Case was DW Dr. Steen and pt was placed on OBS under Dr. Colon service, Per Dr. Steen. Case was also DW the medical social consultant and he saw pt in ED. (Javad Plunkett) - Lab Interpretations Lab Results: 12/06/16 18:00 12/06/16 19:30 Lab Results 12/06/16 19:30: Sodium 138, Chloride 102, Potassium 3.9, Carbon Dioxide 28, Anion Gap 12, BUN 28 H, Creatinine 0.7, Est GFR ( Amer) > 60, Est GFR ( Non-Af Amer) > 60, Random Glucose 229 H, Calcium 9.0, Phosphorus 3.1, Magnesium 2.0, Total Bilirubin 0.4, AST 25, ALT 24, Alkaline Phosphatase 70, Troponin I 0.03 D, Total Protein 7.2, Albumin 3.4, Globulin 3.7, Albumin/Globulin Ratio 0.9 L 12/06/16 19:00: Urine Color Yellow, Urine Appearance Cloudy, Urine pH 6.0, Ur Specific [place] >= 1.030, Urine Protein >=300 H, Urine Glucose (UA) 500 H, Urine Ketones Negative, Urine Blood Large H, Urine Nitrate Negative, Urine Bilirubin Negative, Urine Urobilinogen 1.0 H, Ur Leukocyte Esterase Small H, Urine RBC 20 - 25, Urine WBC Tntc, Ur Epithelial Cells 4 - 5, Urine Bacteria Mod 12/06/16 18:00: pO2 62 H, VBG pH 7.44 H, VBG pCO2 44.0, VBG HCO3 29.9 H, VBG Total CO2 31.3 H, VBG O2 Sat (Calc) 94.1 H, VBG Base Excess 5.1 H, VBG Potassium 4.4, Sodium 138.0, Chloride 107.0, Glucose 281 H, Lactate 2.3 H, FiO2 21.0, Venous Blood Potassium 4.4 12/06/16 18:00: PT 10.5, INR 0.97, APTT 25.5 12/06/16 18:00: WBC 8.4 D, RBC 4.25, Hgb 12.5, Hct 36.8, MCV 86.6, MCH 29.4, MCHC 34.0, RDW 16.4 H, Plt Count 344, MPV 11.0, Gran % 65.4, Lymph % (Auto) 26.6 , [place] % (Auto) 7.6 H, Eos % (Auto) 0.2 L, Baso % (Auto) 0.2, Gran # 5.47, Lymph # 2.2, [place] # 0.6, Eos # 0.0, Baso # 0.02 - RAD Interpretation Radiology Orders: 12/06/16 17:43 CHEST PORTABLE [RAD] Stat - Medication Orders Current Medication Orders: Acetaminophen (Tylenol 325mg Tab) 650 mg PO Q6H PRN PRN Reason: Fever >100.4 F Al Hydrox/Mg Hydrox/Simethicone (Maalox Plus 30 Ml) 30 ml PO Q4H PRN PRN Reason: Indigestion Amlodipine Besylate (Norvasc) 10 mg PO DAILY VESNA Aspirin (Aspirin Chewable) 81 mg PO DAILY [facility] Enoxaparin Sodium (Lovenox) 40 mg SC DAILY VESNA PRN Reason: Protocol Vancomycin HCl (Vancomycin 1gm) 1 gm in 250 mls @ 167 mls/hr IVPB DAILY VESNA PRN Reason: Protocol Piperacillin Sod/Tazobactam Sod (Zosyn 3.375 In Ns 100ml) 100 mls @ 200 mls/hr IVPB Q6 VESNA PRN Reason: Protocol Stop: 12/07/16 06:29 Last Admin: 12/07/16 00:03 Dose: 200 mls/hr Loperamide HCl (Imodium) 4 mg PO Q6H PRN PRN Reason: diarrhoea Magnesium Hydroxide (Milk Of Magnesia) 30 ml PO HS PRN PRN Reason: Constipation Nystatin (Nystop Topical Powder) 1 gm TOP BID [facility] Pantoprazole Sodium (Protonix Ec Tab) 40 mg PO 0630 [facility] Prochlorperazine (Compazine Rectal Supp) 25 mg RC BID PRN PRN Reason: nausea and vomiting Sodium Phosphate (Fleet Enema) 133 ml RC Q8H PRN PRN Reason: if no result from MOM Discontinued Medications Acetaminophen (Tylenol 325 Mg Supp) 975 mg TN ONCE STA Stop: 12/06/16 17:43 Last Admin: 12/06/16 18:47 Dose: 975 mg Ceftriaxone Sodium (Rocephin 1 Gram Ivpb) 1 gm in 100 mls @ 200 mls/hr IVPB STAT STA PRN Reason: Protocol Stop: 12/06/16 21:02 Last Admin: 12/06/16 21:11 Dose: 200 mls/hr Azithromycin (Zithromax 500mg In Ns) 500 mg in 250 mls @ 167 mls/hr IVPB STAT STA PRN Reason: Protocol Stop: 12/06/16 22:03 Last Admin: 12/06/16 22:14 Dose: 167 mls/hr Disposition/Present on Arrival - Present on Arrival Any Indicators Present on Arrival: No History of DVT/PE: No History of Uncontrolled Diabetes: No Urinary Catheter: No History of Decub. Ulcer: Yes History Surgical Site Infection Following: None - Disposition Have Diagnosis and Disposition been Completed?: Yes Disposition Time: 20:35 - Disposition Diagnosis: Pneumonia, UTI (urinary tract infection) Disposition: HOSPITALIZED Patient Problems: Current Active Problems Problem Status Onset Pneumonia Acute UTI (urinary tract infection) Acute Condition: FAIR
[2016-12-06] MEDS ORDERED: Magnesium Hydroxide Susp 30 ml UD PO PRN (22:31)
[2016-12-06] MEDS ORDERED: Alum-Mag Hydrox-Simethicone Susp (30 mL) PO PRN (22:31)
--- NOTE | 2016-12-06 22:36 | CP.PCM.HP ---
<Samina Ellis - Last Filed: 12/07/16 02:41> History of Present Illness - History of Present Illness History of Present Illness: 71 year old female with past medical history of CVA with residual left hemiplegia, HTN, hydronephrosis with nephrotomy, anemia and dementia that presents to [facility] ED from [facility] for clogged nephrostomy tube. On presentation patient is awake and alert but non verbal. Per chart review, patient appears to be aphasic at baseline. Patient was recently discharged from [facility] for hematuria and UTI on 12/02/16. In the ED Hirsch was changed. CXR showed left lower lobe infiltrate, suggestive of pneumonia. HPI and ROS were limited due to patient's baseline mentation. PMHx: CVA with left hemiplegia, HTN, DM, anxiety, hydronephrosis PSHx: cysto with stents, cecal mass excision, orthopedic surgery of left hip Social hx: former smoker, denies alcohol or illicit drug use Allergy: ciprofloxacin-rash, levofloxacin- rash, quinolones- rash Home meds: see MAR Present on Admission - Present on Admission Any Indicators Present on Admission: No History of DVT/PE: No History of Uncontrolled Diabetes: No Review of Systems - Review of Systems Systems not reviewed;Unavailable: Dementia, Altered Mental Status - Constitutional Constitutional: As Per HPI - EENT Eyes: As Per HPI Ears: As Per HPI Nose/Mouth/Throat: As Per HPI - Cardiovascular Cardiovascular: As Per HPI - Respiratory Respiratory: As Per HPI - Gastrointestinal Gastrointestinal: As Per HPI - Genitourinary Genitourinary: As Per HPI - Musculoskeletal Musculoskeletal: As Per HPI - Integumentary Integumentary: As Per HPI - Neurological Neurological: As Per HPI - Psychiatric Psychiatric: As Per HPI - Endocrine Endocrine: As Per HPI - Hematologic/Lymphatic Hematologic: As Per HPI Past Patient History - Infectious Disease Hx of Infectious Diseases: VRE - Past Social History Smoking Status: Unknown If Ever Smoked - CARDIAC Hx Cardiac Disorders: Yes Hx Hypertension: Yes - PULMONARY Hx Pneumonia: Yes - NEUROLOGICAL HX Cerebrovascular Accident: Yes - HEENT Hx HEENT Problems: No - RENAL Hx Renal Failure: Yes - ENDOCRINE/METABOLIC Hx Diabetes Mellitus Type 2: Yes - HEMATOLOGICAL/ONCOLOGICAL Hx Blood Disorders: No - INTEGUMENTARY Hx Dermatological Problems: No Other/Comment: healed sacral and left lower buttock wounds, stge 3 wound to left hand 3rd finger 1cm round wound bed white surrounded by red skin, 2nd finger stg 2 .3cm round small opening wound bed red surrounding skin red, stg 2 left thumb .5 round wound bed red surrounded by red skin, left hand contracted into a fist, left arm contracted, right heel dry and red - MUSCULOSKELETAL/RHEUMATOLOGICAL Hx Musculoskeletal Disorders: Yes (HX. L HIP FX.) Hx Falls: Yes - GASTROINTESTINAL Hx Gastrointestinal Disorders: Yes Hx Gastroesophageal Reflux: Yes - GENITOURINARY/GYNECOLOGICAL Hx Genitourinary Disorders: Yes Hx Hematuria: Yes Hx Incontinence: Yes Hx Urinary Tract Infection: Yes - PSYCHIATRIC Hx Psychophysiologic Disorder: No Hx Emotional Abuse: No Hx Physical Abuse: No Hx Substance Use: No - SURGICAL HISTORY Hx Orthopedic Surgery: Yes (L hip orif) Other/Comment: cysto with stents, cecal mass excision. R arm PICC - ANESTHESIA Hx Anesthesia: Yes Hx Anesthesia Reactions: No Hx Malignant Hyperthermia: No Meds Allergies/Adverse Reactions: Allergies Allergy/AdvReac Type Severity Reaction Status Date / Time ciprofloxacin [From Cipro] Allergy RASH Verified 12/06/16 18:55 levofloxacin [From Levaquin] Allergy RASH Verified 12/06/16 18:55 Quinolones Allergy RASH Verified 12/06/16 18:55 Physical Exam - Constitutional Appears: Non-toxic, No Acute Distress - Head Exam Head Exam: ATRAUMATIC, NORMOCEPHALIC - Eye Exam Eye Exam: Normal appearance, PERRL - ENT Exam ENT Exam: Mucous Membranes Moist - Neck Exam Neck exam: Positive for: Normal Inspection - Respiratory Exam Respiratory Exam: Clear to Auscultation Bilateral, NORMAL BREATHING PATTERN. absent: Rhonchi, Wheezes, Respiratory Distress - Cardiovascular Exam Cardiovascular Exam: REGULAR RHYTHM, RRR - GI/Abdominal Exam GI & Abdominal Exam: Normal Bowel Sounds, Soft. absent: Tenderness - Extremities Exam Extremities exam: Positive for: normal capillary refill, pedal pulses present Additional comments: contracted bilateral upper extremity, pulses present - Back Exam Back exam: absent: NORMAL INSPECTION (nephrostomy site clean, no erythema nor signs of infection) - Neurological Exam Neurological exam: Alert Additional comments: non verbal - Psychiatric Exam Additional comments: unable to assess - Skin Skin Exam: Normal Color, Warm Additional comments: multiple small ulcerations on hands and back Results - Vital Signs Recent Vital Signs: Last Vital Signs Temp 101.1 F H 12/06/16 17:21 Pulse 49 L 12/06/16 22:34 Resp 18 12/06/16 22:34 BP 149/57 L 12/06/16 22:34 Pulse Ox 100 12/06/16 22:34 - Labs Result Diagrams: 12/06/16 18:00 12/06/16 19:30 Assessment & Plan - Assessment and Plan (Free Text) Assessment: 71 year old female with past medical history of CVA with residual left hemiplegia, HTN, hydronephrosis with nephrotomy, anemia and dementia presents with clogged nephrostomy tube found to have LLL pneumonia and UTI Plan: Pneumonia -Recent hospital admission within 90 days -CXR in ED showed left lower lobe infiltrate -Fever of 101.1 on presentation -No leukocytosis -Start vancomycin and zosyn IV -ID consult, Dr. Romano help appreciated -Follow up blood and urine cultures UTI -Recent admission urine culture positive for P. Mirabilis and E. Faecalis -UA showed small LE, protein >300 -Follow urine culture -Hirsch replaced in the ED -Urology consult, Dr. Hughes help appreciated -ID consult, Dr. Romano help appreciated DM -ISS -Accuchecks ACHS -dysphasia diet, pureed HTN -continue norvasc Anxiety -on prochlorperazine CAD -EKG Marked sinus juan j with incomplete RBBB @47bpm. No ST changes -continue asa Prophylactic measures -SCD for DVT prophylaxis -protonix for GI prophylaxis <Hayden Steen - Last Filed: 12/24/16 18:52> Results - Vital Signs Recent Vital Signs: Last Vital Signs Temp 97.5 F L 12/07/16 16:30 Pulse 54 L 12/07/16 16:30 Resp 16 12/07/16 16:30 BP 130/67 12/07/16 16:30 Pulse Ox 98 12/07/16 16:30 - Labs Result Diagrams: 12/07/16 07:00 12/07/16 07:00 Attending/Attestation - Attestation I have personally seen and examined this patient.: Yes I have fully participated in the care of the patient.: Yes I have reviewed all pertinent clinical information: Yes Notes (Text): 12/24/16 18:52 Medical record note made by the resident after discussion with my direction and input after the patient was personally seen and examined by me. I have reviewed the chart and agree that the record accurately reflects by personal performance of the history, physical exam, data review, and medical decision-making, in the course for the patient. I have also personally directed the plan of care.
[2016-12-06 22:38] LABS: VENOUS BLOOD GAS BASE EXCESS 5.5 mmol/L (0.0-2.0); VENOUS BLOOD PH 7.46 (7.32-7.43)
[2016-12-07] MEDS: Piperacillin/Tazobact 3.375 gm 100 ML IVPB SCH ×2 (00:03→05:53)
[2016-12-07] MEDS ORDERED: Pantoprazole 40 mg EC Tab PO SCH (06:30)
[2016-12-07 07:31] LABS: ADD MANUAL DIFF? NO
--- NOTE | 2016-12-07 07:52 | RAD ---
HISTORY: Sepsis Patient COMPARISON: 11/27/2016 FINDINGS: LUNGS: Left base obscured by patient's hand. No pulmonary infiltrate. PLEURA: No significant pleural effusion identified, no pneumothorax apparent. CARDIOVASCULAR: Normal. OSSEOUS STRUCTURES: No significant abnormalities. VISUALIZED UPPER ABDOMEN: Right percutaneous nephrostomy tube. OTHER FINDINGS: None. IMPRESSION: No active disease.
[2016-12-07 07:55] LABS: ALB/GLOB RATIO 0.9 (1.1-1.8); ALKALINE PHOSPHATASE 74 U/L (38-133); ALT/SGPT 28 U/L (7-56); AST/SGOT 18 U/L (15-39); BILIRUBIN,TOTAL 0.6 mg/dL (0.2-1.3); BLOOD UREA NITROGEN 27 mg/dL (7-21); CALCIUM 8.7 mg/dL (8.4-10.5); CARBON DIOXIDE 28 mmol/L (21-33); CHLORIDE 105 mmol/L (98-107); GFR AFRICAN-AMERICAN > 60; GLUCOSE,RANDOM 200 mg/dL (70-110); POTASSIUM 4.3 mmol/L (3.6-5.0); SODIUM 140 mmol/L (132-148)
[2016-12-07 08:04] VITALS: RESP 16
[2016-12-07] MEDS: Insulin Reg-MEDIUM-Coverage SC SCH ×3 (08:30→16:38)
[2016-12-07 09:08] LABS: BASO # 0.03 K/mm3 (0.0-2.0); BASO % 0.4 % (0.0-3.0); EOS % 0.4 % (1.5-5.0); GRAN # 4.71 (1.4-6.5); GRAN % 59.2 % (50.0-68.0); HEMATOCRIT 36.9 % (36.0-48.0); LYMPH # 2.5 (1.2-3.4); LYMPH % 30.9 % (22.0-35.0); MEAN CELL VOLUME 87.6 fL (80.0-105.0); MEAN PLATELET VOLUME 10.9 fl (7.0-11.0); MONO # 0.7 (0.1-0.6); MONO % 9.1 % (1.0-6.0); PLATELET COUNT 266 10^3/uL (120.0-450.0); RED CELL DISTRIBUTION WIDTH 16.3 % (11.5-14.5)
--- NOTE | 2016-12-07 09:35 | CON ---
DATE: 12/07/2016 REASON FOR CONSULTATION: Pneumonia. REFERRING PHYSICIAN: Dr. Lee Colon. History is obtained via extensive discussion with the night nurse. I have also reviewed the chart at length. HISTORY OF PRESENT ILLNESS: The patient is a 71-year-old female with past medical history significant for cerebrovascular accident (with residual left hemiplegia and aphasia), hypertension, anemia, dementia, hydronephrosis with nephrostomy, who was transferred to [facility] - from [facility] - because of a clogged nephrostomy tube. The patient did present to [facility] with fevers (101.1). In addition, the chest x-ray done in the Emergency Room - revealed a left lower lobe pneumonia. The patient was thus admitted for additional evaluation and treatment. Again, I did discuss the case with the night nurse at length. The night nurse notes NO shortness of breath, cough, or sputum production. There is also no history of chest pain, coughing up of blood or chest pain - made worse with deep respirations. As above, the patient did present with fevers. No history of chills or infectious exposure. No history of night sweats, weight loss or appetite change prior to the above events. No history of calf pains. No history of syncope or diaphoresis. No history of recent travel or trauma. REVIEW OF SYSTEMS: No history of nausea, vomiting or diarrhea. No new neurologic complaints. No musculoskeletal complaints. Rest of review of systems is negative. ALLERGIES: CIPROFLOXACIN AND LEVAQUIN. SOCIAL HISTORY: Negative for tobacco, negative for alcohol. FAMILY HISTORY: No inheritable diseases. HOME MEDICATIONS: Include Norvasc, enema, milk of magnesia, Lovenox, Augmentin , Compro, Imodium, Tylenol, aspirin. PHYSICAL EXAMINATION: GENERAL: The patient appears comfortable this morning. She is not short of breath at rest. VITAL SIGNS: Temperature is 97.0, pulse 49, respirations 18, blood pressure 133 /53. Oxygen saturation on room air is 100%. HEENT: Normocephalic, atraumatic. NECK: No JVD. CARDIOVASCULAR: Positive S1, S2. No S3. LUNGS: Crackles noted at the left base. No rhonchi. No wheezing. EXTREMITIES: No clubbing, cyanosis, or edema. Calves are nontender to palpation. GASTROINTESTINAL: Abdomen is soft, nontender, nondistended. Bowel sounds are positive. SKIN: No acute rash. NEUROLOGIC: Limited at the present time. PERTINENT LABORATORY DATA: Chest x-ray was done in the Emergency Room. There is a new left lower lobe infiltrate noted. CBC: White count 8.4, hemoglobin 12.5, hematocrit 36.8, platelets of 344. Complete metabolic profile: BUN 28, glucose 229. Rest of the metabolic profile is within normal limits. IMPRESSION: 1. Left lower lobe pneumonia. 2. Nephrostomy tube malfunction. 3. Sepsis syndrome. 4. Cerebrovascular accident in the past. PLAN: Again, I did discuss the case with the night nurse at length. I have also reviewed the chart at length. The patient presents to [facility] - transferred from [facility] - with main complaint of clogged nephrostomy tube. On presentation to the Emergency Room, the patient was noted to be febrile. In addition, as above, the chest x-ray showed a left lower lobe pneumonia. The patient was thus admitted for additional evaluation. On physical exam, there is no significant bronchospasm noted. In addition, there is no significant alveolar arterial gradient. Oxygen saturation on room air is 100%. I will certainly order aspiration precautions for this patient - given her above history. The patient has been placed on antibiotic therapy. Pancultures have been ordered and will be analyzed when feasible. Consultation with Dr. oRmano (infectious disease) has also been ordered. Repeat a.m. labs are also ordered. The patient does appear clinically improved this morning. I would also like to repeat the chest x-ray - in a few days - for comparison. Additional pulmonary intervention will be based on the above results, as well as the clinical status of the patient. I will discuss the above with Dr. Colon. Thank you very much for this pulmonary consultation. Moises Salgado MD cc: [id number] TT: 12/07/2016 09:34:21 Confirmation # [id number] Dictation # [id number] kelvin SARAH
[2016-12-07] MEDS ORDERED: Nystatin 100,000 Units/gm Topical Pow(15 gm) TOP SCH (10:00)
[2016-12-07] MEDS ORDERED: Enoxaparin 40 mg Syringe SC SCH (10:00)
[2016-12-07] MEDS ORDERED: Vancomycin 1gm in NS 250ml 1 GM/250 ML BAG IVPB SCH (10:00)
--- NOTE | 2016-12-07 10:14 | CP.PCM.DIS ---
<Dayami Pro - Last Filed: 12/08/16 06:45> Provider - Provider Date of Admission: 12/06/16 21:07 Attending physician: Lee Colon MD Primary care physician: NO PRIMARY CARE PROVIDER Consults: ID urology Pulm Time Spent in preparation of Discharge (in minutes): 45 Diagnosis - Discharge Diagnosis (1) Aspiration pneumonia Status: Acute (2) Nephrostomy tube displaced Status: Acute (3) Fever Status: Acute (4) High degree atrioventricular block Status: Acute (5) Dementia Status: Acute Hospital Course - Lab Results Lab Results: Most Recent Lab Values WBC 8.0 10^3/ul (4.5-11.0) 12/07/16 07:00 RBC 4.21 10^6/uL (3.5-6.1) 12/07/16 07:00 Hgb 11.8 gm/dL (12.0-16.0) L 12/07/16 07:00 Hct 36.9 % (36.0-48.0) 12/07/16 07:00 MCV 87.6 fL (80.0-105.0) 12/07/16 07:00 MCH 28.0 pg (25.0-35.0) 12/07/16 07:00 MCHC 32.0 g/dl (31.0-37.0) 12/07/16 07:00 RDW 16.3 % (11.5-14.5) H 12/07/16 07:00 Plt Count 266 10^3/uL (120.0-450.0) 12/07/16 07:00 MPV 10.9 fl (7.0-11.0) 12/07/16 07:00 Gran % 59.2 % (50.0-68.0) 12/07/16 07:00 Lymph % (Auto) 30.9 % (22.0-35.0) 12/07/16 07:00 [place] % (Auto) 9.1 % (1.0-6.0) H 12/07/16 07:00 Eos % (Auto) 0.4 % (1.5-5.0) L 12/07/16 07:00 Baso % (Auto) 0.4 % (0.0-3.0) 12/07/16 07:00 Gran # 4.71 (1.4-6.5) 12/07/16 07:00 Lymph # 2.5 (1.2-3.4) 12/07/16 07:00 [place] # 0.7 (0.1-0.6) H 12/07/16 07:00 Eos # 0.0 (0.0-0.7) 12/07/16 07:00 Baso # 0.03 K/mm3 (0.0-2.0) 12/07/16 07:00 PT 10.5 Seconds (9.9-11.8) 12/06/16 18:00 INR 0.97 (0.93-1.08) 12/06/16 18:00 APTT 25.5 Seconds (23.7-30.8) 12/06/16 18:00 pO2 211 mm/Hg (30-55) H 12/06/16 22:30 VBG pH 7.46 (7.32-7.43) H 12/06/16 22:30 VBG pCO2 42.0 (40-60) 12/06/16 22:30 VBG HCO3 29.9 mmol/l (21-28) H 12/06/16 22:30 VBG Total CO2 31.2 mmol.L (22-28) H 12/06/16 22:30 VBG O2 Sat (Calc) 98.9 % (40-65) H 12/06/16 22:30 VBG Base Excess 5.5 mmol/L (0.0-2.0) H 12/06/16 22:30 VBG Potassium 3.9 mmol/L (3.6-5.2) 12/06/16 22:30 Sodium 139.0 mmol/L (132-148) 12/06/16 22:30 Chloride 108.0 mmol/L (98-107) H 12/06/16 22:30 Glucose 208 mg/dl (65-105) H 12/06/16 22:30 Lactate 1.7 mmol/L (0.7-2.1) 12/06/16 22:30 FiO2 21.0 % 12/06/16 22:30 Sodium 140 mmol/L (132-148) 12/07/16 07:00 Potassium 4.3 mmol/L (3.6-5.0) 12/07/16 07:00 Chloride 105 mmol/L (98-107) 12/07/16 07:00 Carbon Dioxide 28 mmol/L (21-33) 12/07/16 07:00 Anion Gap 11 (10-20) 12/07/16 07:00 BUN 27 mg/dL (7-21) H 12/07/16 07:00 Creatinine 0.8 mg/dL (0.5-1.4) 12/07/16 07:00 Est GFR ( Amer) > 60 12/07/16 07:00 Est GFR (Non-Af Amer) > 60 12/07/16 07:00 POC Glucose (mg/dL) 229 mg/dL (65-110) H 12/07/16 07:43 Random Glucose 200 mg/dL (70-110) H 12/07/16 07:00 Calcium 8.7 mg/dL (8.4-10.5) 12/07/16 07:00 Phosphorus 3.1 mg/dL (2.5-4.5) 12/06/16 19:30 Magnesium 2.0 mg/dL (1.7-2.2) 12/06/16 19:30 Total Bilirubin 0.6 mg/dL (0.2-1.3) 12/07/16 07:00 AST 18 U/L (15-39) 12/07/16 07:00 ALT 28 U/L (7-56) 12/07/16 07:00 Alkaline Phosphatase 74 U/L (38-133) 12/07/16 07:00 Troponin I 0.03 ng/mL D 12/06/16 19:30 Total Protein 7.0 g/dL (5.8-8.3) 12/07/16 07:00 Albumin 3.3 g/dL (3.0-4.8) 12/07/16 07:00 Globulin 3.7 gm/dL 12/07/16 07:00 Albumin/Globulin Ratio 0.9 (1.1-1.8) L 12/07/16 07:00 Venous Blood Potassium 3.9 mmol/L (3.6-5.2) 12/06/16 22:30 Urine Color Yellow (YELLOW) 12/06/16 19:00 Urine Appearance Cloudy (CLEAR) 12/06/16 19:00 Urine pH 6.0 (4.7-8.0) 12/06/16 19:00 Ur Specific [place] >= 1.030 (1.005-1.035) 12/06/16 19:00 Urine Protein >=300 mg/dL (<30 mg/dL) H 12/06/16 19:00 Urine Glucose (UA) 500 mg/dL (NEGATIVE) H 12/06/16 19:00 Urine Ketones Negative mg/dL (NEGATIVE) 12/06/16 19:00 Urine Blood Large (NEGATIVE) H 12/06/16 19:00 Urine Nitrate Negative (NEGATIVE) 12/06/16 19:00 Urine Bilirubin Negative (NEGATIVE) 12/06/16 19:00 Urine Urobilinogen 1.0 E.U./dL (<1 E.U./dL) H 12/06/16 19:00 Ur Leukocyte Esterase Small Earnest/uL (NEGATIVE) H 12/06/16 19:00 Urine RBC 20 - 25 /hpf (0-2) 12/06/16 19:00 Urine WBC Tntc /hpf (0-6) 12/06/16 19:00 Ur Epithelial Cells 4 - 5 /hpf (0-5) 12/06/16 19:00 Urine Bacteria Mod (NEG) 12/06/16 19:00 - Hospital Course Hospital Course: 71 y/o with PMH of recurrent UTI/Urosepsis s/p right nephrostomy tube placement , DM, HTN, CKD, hyperlipidemia, h/o CVA, anxiety disorder, and dementia , recent discharge for gross hematuria and [facility]rosepsis [facility] to inability to flush the nephrostomy tube. In the ED, the nephrostomy tube was noted to be functioning ( draining urine), the Hirsch catheter was changed. Patient had basic labs which were normal, ua with no uti, chest x-ray left lobe consolidation. Patient was febrile with temp of 101.1. Patient was giving Rocephin and vanco in the ED for nosocomial infection. urology saw patient and recommended the nephrostomy tube was not anchored to patient's skin. Id was also consulted. Correctional Case Manager recommended patient be placed on aspiration precaution, and repeat chest x-ray in few days to reevaluate. Patient looks clinically better, and will be discharged back to [facility] Steen will be following patient as outpatient. Patient to be discharged on Levaquin for 7 days. - Date & Time of H&P Date of H&P: 12/07/16 Time of H&P: 00:05 Discharge Exam - Head Exam Head Exam: ATRAUMATIC, NORMOCEPHALIC Discharge Plan - Discharge Medications Prescriptions: Levofloxacin [Levaquin] 750 mg PO Q24H #7 tablet - Follow Up Plan Condition: FAIR Disposition: TRANSF TO SNF Patient education suggested?: No Instructions: Hirsch Catheter Placement and Care (DC), How to Prevent Pressure Ulcers (DC), Diabetes Mellitus Type 2 in Adults (DC), Nephrostomy Tube Care (DC) , Pneumonia (GEN) Additional Instructions: Discharge to [facility] Keep nephrostomy tube secure to prevent pulling Referrals: RICHARD BOWMAN [Primary Care Provider] - Hayden Steen MD [Staff Provider] - <Hayden Steen - Last Filed: 12/11/16 16:29> Provider - Provider Date of Admission: 12/06/16 21:07 Attending physician: Lee Colon MD Primary care physician: RICHARD PRIMARY CARE PROVIDER Hospital Course - Lab Results Lab Results: Micro Results 12/07/16 15:52 Rectal Fluid VRE Culture - Final Most Recent Lab Values WBC 8.0 10^3/ul (4.5-11.0) 12/07/16 07:00 RBC 4.21 10^6/uL (3.5-6.1) 12/07/16 07:00 Hgb 11.8 gm/dL (12.0-16.0) L 12/07/16 07:00 Hct 36.9 % (36.0-48.0) 12/07/16 07:00 MCV 87.6 fL (80.0-105.0) 12/07/16 07:00 MCH 28.0 pg (25.0-35.0) 12/07/16 07:00 MCHC 32.0 g/dl (31.0-37.0) 12/07/16 07:00 RDW 16.3 % (11.5-14.5) H 12/07/16 07:00 Plt Count 266 10^3/uL (120.0-450.0) 12/07/16 07:00 MPV 10.9 fl (7.0-11.0) 12/07/16 07:00 Gran % 59.2 % (50.0-68.0) 12/07/16 07:00 Lymph % (Auto) 30.9 % (22.0-35.0) 12/07/16 07:00 [place] % (Auto) 9.1 % (1.0-6.0) H 12/07/16 07:00 Eos % (Auto) 0.4 % (1.5-5.0) L 12/07/16 07:00 Baso % (Auto) 0.4 % (0.0-3.0) 12/07/16 07:00 Gran # 4.71 (1.4-6.5) 12/07/16 07:00 Lymph # 2.5 (1.2-3.4) 12/07/16 07:00 [place] # 0.7 (0.1-0.6) H 12/07/16 07:00 Eos # 0.0 (0.0-0.7) 12/07/16 07:00 Baso # 0.03 K/mm3 (0.0-2.0) 12/07/16 07:00 PT 10.5 Seconds (9.9-11.8) 12/06/16 18:00 INR 0.97 (0.93-1.08) 12/06/16 18:00 APTT 25.5 Seconds (23.7-30.8) 12/06/16 18:00 pO2 211 mm/Hg (30-55) H 12/06/16 22:30 VBG pH 7.46 (7.32-7.43) H 12/06/16 22:30 VBG pCO2 42.0 (40-60) 12/06/16 22:30 VBG HCO3 29.9 mmol/l (21-28) H 12/06/16 22:30 VBG Total CO2 31.2 mmol.L (22-28) H 12/06/16 22:30 VBG O2 Sat (Calc) 98.9 % (40-65) H 12/06/16 22:30 VBG Base Excess 5.5 mmol/L (0.0-2.0) H 12/06/16 22:30 VBG Potassium 3.9 mmol/L (3.6-5.2) 12/06/16 22:30 Sodium 139.0 mmol/L (132-148) 12/06/16 22:30 Chloride 108.0 mmol/L (98-107) H 12/06/16 22:30 Glucose 208 mg/dl (65-105) H 12/06/16 22:30 Lactate 1.7 mmol/L (0.7-2.1) 12/06/16 22:30 FiO2 21.0 % 12/06/16 22:30 Sodium 140 mmol/L (132-148) 12/07/16 07:00 Potassium 4.3 mmol/L (3.6-5.0) 12/07/16 07:00 Chloride 105 mmol/L (98-107) 12/07/16 07:00 Carbon Dioxide 28 mmol/L (21-33) 12/07/16 07:00 Anion Gap 11 (10-20) 12/07/16 07:00 BUN 27 mg/dL (7-21) H 12/07/16 07:00 Creatinine 0.8 mg/dL (0.5-1.4) 12/07/16 07:00 Est GFR ( Amer) > 60 12/07/16 07:00 Est GFR (Non-Af Amer) > 60 12/07/16 07:00 POC Glucose (mg/dL) 276 mg/dL (65-110) H 12/07/16 15:48 Random Glucose 200 mg/dL (70-110) H 12/07/16 07:00 Calcium 8.7 mg/dL (8.4-10.5) 12/07/16 07:00 Phosphorus 3.1 mg/dL (2.5-4.5) 12/06/16 19:30 Magnesium 2.0 mg/dL (1.7-2.2) 12/06/16 19:30 Total Bilirubin 0.6 mg/dL (0.2-1.3) 12/07/16 07:00 AST 18 U/L (15-39) 12/07/16 07:00 ALT 28 U/L (7-56) 12/07/16 07:00 Alkaline Phosphatase 74 U/L (38-133) 12/07/16 07:00 Troponin I 0.03 ng/mL D 12/06/16 19:30 Total Protein 7.0 g/dL (5.8-8.3) 12/07/16 07:00 Albumin 3.3 g/dL (3.0-4.8) 12/07/16 07:00 Globulin 3.7 gm/dL 12/07/16 07:00 Albumin/Globulin Ratio 0.9 (1.1-1.8) L 12/07/16 07:00 Procalcitonin 0.07 NG/ML (0.19-0.49) L 12/07/16 05:30 Venous Blood Potassium 3.9 mmol/L (3.6-5.2) 12/06/16 22:30 Urine Color Yellow (YELLOW) 12/06/16 19:00 Urine Appearance Cloudy (CLEAR) 12/06/16 19:00 Urine pH 6.0 (4.7-8.0) 12/06/16 19:00 Ur Specific [place] >= 1.030 (1.005-1.035) 12/06/16 19:00 Urine Protein >=300 mg/dL (<30 mg/dL) H 12/06/16 19:00 Urine Glucose (UA) 500 mg/dL (NEGATIVE) H 12/06/16 19:00 Urine Ketones Negative mg/dL (NEGATIVE) 12/06/16 19:00 Urine Blood Large (NEGATIVE) H 12/06/16 19:00 Urine Nitrate Negative (NEGATIVE) 12/06/16 19:00 Urine Bilirubin Negative (NEGATIVE) 12/06/16 19:00 Urine Urobilinogen 1.0 E.U./dL (<1 E.U./dL) H 12/06/16 19:00 Ur Leukocyte Esterase Small Earnest/uL (NEGATIVE) H 12/06/16 19:00 Urine RBC 20 - 25 /hpf (0-2) 12/06/16 19:00 Urine WBC Tntc /hpf (0-6) 12/06/16 19:00 Ur Epithelial Cells 4 - 5 /hpf (0-5) 12/06/16 19:00 Urine Bacteria Mod (NEG) 12/06/16 19:00 Attending/Attestation - Attestation I have personally seen and examined this patient.: Yes I have fully participated in the care of the patient.: Yes I have reviewed all pertinent clinical information, including history, physical exam and plan: Yes Notes (Text): 12/11/16 16:28 Medical record note made by the resident after discussion with my direction and input after the patient was personally seen and examined by me. I have reviewed the chart and agree that the record accurately reflects by personal performance of the history, physical exam, data review, and medical decision-making, in the course for the patient. I have also personally directed the plan of care.
--- NOTE | 2016-12-07 11:34 | CP.PCM.CON ---
History of Present Illness - History of Present Illness History of Present Illness: 71 year old female with PMH of septic shock due to bacteremia from Proteus and Providencia probably urine as the source S/P right nephrostomy tube placement, diabetes mellitus, hypertension, Chronic kidney disease, hyperlipidemia, cerebrovascular accident, anxiety disorder, history of Morganella morganii urinary tract infection, history of gastrointestinal bleeding, dementia was brought in to [facility] from the senior care because of a clogged right nephrostomy tube. There was no note of fever, no convulsions, no loss of consciousness, no diarrhea. Full review of systems is unobtainable because of the patient's dementia. In the ED, CXR was done which shows questionable left lower lobe infiltrate and the patient had one episode of 101.f F fever. Infectious diseases consult is requested to further evaluate and manage. Review of Systems - Review of Systems Systems not reviewed;Unavailable: Dementia Past Patient History - Infectious Disease Hx of Infectious Diseases: VRE - Past Social History Smoking Status: Unknown If Ever Smoked - CARDIAC Hx Cardiac Disorders: Yes Hx Hypertension: Yes - PULMONARY Hx Pneumonia: Yes - NEUROLOGICAL HX Cerebrovascular Accident: Yes - HEENT Hx HEENT Problems: No - RENAL Hx Renal Failure: Yes - ENDOCRINE/METABOLIC Hx Diabetes Mellitus Type 2: Yes - HEMATOLOGICAL/ONCOLOGICAL Hx Blood Disorders: No - INTEGUMENTARY Hx Dermatological Problems: No Other/Comment: healed sacral and left lower buttock wounds, stge 3 wound to left hand 3rd finger 1cm round wound bed white surrounded by red skin, 2nd finger stg 2 .3cm round small opening wound bed red surrounding skin red, stg 2 left thumb .5 round wound bed red surrounded by red skin, left hand contracted into a fist, left arm contracted, right heel dry and red - MUSCULOSKELETAL/RHEUMATOLOGICAL Hx Musculoskeletal Disorders: Yes (HX. L HIP FX.) Hx Falls: Yes - GASTROINTESTINAL Hx Gastrointestinal Disorders: Yes Hx Gastroesophageal Reflux: Yes - GENITOURINARY/GYNECOLOGICAL Hx Genitourinary Disorders: Yes Hx Hematuria: Yes Hx Incontinence: Yes Hx Urinary Tract Infection: Yes - PSYCHIATRIC Hx Psychophysiologic Disorder: No Hx Emotional Abuse: No Hx Physical Abuse: No Hx Substance Use: No - SURGICAL HISTORY Hx Orthopedic Surgery: Yes (L hip orif) Other/Comment: cysto with stents, cecal mass excision. R arm PICC - ANESTHESIA Hx Anesthesia: Yes Hx Anesthesia Reactions: No Hx Malignant Hyperthermia: No Meds Allergies/Adverse Reactions: Allergies Allergy/AdvReac Type Severity Reaction Status Date / Time ciprofloxacin [From Cipro] Allergy RASH Verified 12/06/16 18:55 levofloxacin [From Levaquin] Allergy RASH Verified 12/06/16 18:55 Quinolones Allergy RASH Verified 12/06/16 18:55 - Medications Medications: Current Medications Acetaminophen (Tylenol 325mg Tab) 650 mg PO Q6H PRN PRN Reason: Fever >100.4 F Al Hydrox/Mg Hydrox/Simethicone (Maalox Plus 30 Ml) 30 ml PO Q4H PRN PRN Reason: Indigestion Amlodipine Besylate (Norvasc) 10 mg PO DAILY VESNA Aspirin (Aspirin Chewable) 81 mg PO DAILY VESNA Doxycycline Hyclate (Doryx) 100 mg PO Q12 VESNA PRN Reason: Protocol Vancomycin HCl (Vancomycin 1gm) 1 gm in 250 mls @ 167 mls/hr IVPB DAILY VESNA PRN Reason: Protocol Piperacillin Sod/Tazobactam Sod (Zosyn 3.375 In Ns 100ml) 100 mls @ 200 mls/hr IVPB Q6 VESNA PRN Reason: Protocol Stop: 12/07/16 18:29 Insulin Human Regular (Humulin R Med) 0 units SC ACHS VESNA PRN Reason: Protocol Loperamide HCl (Imodium) 4 mg PO Q6H PRN PRN Reason: diarrhoea Magnesium Hydroxide (Milk Of Magnesia) 30 ml PO HS PRN PRN Reason: Constipation Nystatin (Nystop Topical Powder) 1 gm TOP BID [facility] Pantoprazole Sodium (Protonix Ec Tab) 40 mg PO 0630 [facility] Prochlorperazine (Compazine Rectal Supp) 25 mg RC BID PRN PRN Reason: nausea and vomiting Sodium Phosphate (Fleet Enema) 133 ml RC Q8H PRN PRN Reason: if no result from MOM Physical Exam - Constitutional Appears: Non-toxic, No Acute Distress - Head Exam Head Exam: NORMAL INSPECTION - Neck Exam Neck exam: Negative for: Lymphadenopathy, Meningismus - Respiratory Exam Respiratory Exam: Decreased Breath Sounds - Cardiovascular Exam Cardiovascular Exam: +S1, +S2 - GI/Abdominal Exam GI & Abdominal Exam: Soft. absent: Tenderness - Back Exam Additional comments: right sided nephrostomy in place Results - Vital Signs Recent Vital Signs: Last Vital Signs Temp 97 F L 12/06/16 23:24 Pulse 48 L 12/06/16 23:24 Resp 18 12/06/16 23:24 BP 133/53 L 12/06/16 23:24 Pulse Ox 100 12/06/16 22:34 - Labs Result Diagrams: 12/07/16 07:00 12/07/16 07:00 Labs: Laboratory Results - last 24 hr 12/06/16 22:30 pO2 211 H VBG pH 7.46 H VBG pCO2 42.0 VBG HCO3 29.9 H VBG Total CO2 31.2 H VBG O2 Sat (Calc) 98.9 H VBG Base Excess 5.5 H VBG Potassium 3.9 Sodium 139.0 Chloride 108.0 H Glucose 208 H Lactate 1.7 FiO2 21.0 Venous Blood Potassium 3.9 Assessment & Plan - Assessment and Plan (Free Text) Plan: Assessment Fever, source to be determined; unlikely pneumonia since the CXR did not show infiltrates (obscuring the left base is the patient's hand, not infiltrate) history of urinary tract infection with E. 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
--- NOTE | 2016-12-07 11:53 | CON ---
DATE: 12/07/2016 CONSULTATION CHIEF COMPLAINT: Questionable blocked nephrostomy tube. HISTORY OF PRESENT ILLNESS: The patient has dementia. History is obtained from the chart. She came through the Emergency Room that is notably because of a blocked nephrostomy tube. The nephrostomy t ube is draining nicely now. There is no leakage around the tube. She was brought to the Emergency R o. The Emergency Room had a chest x-ray done, which was read as left lower lobe infiltrate suggest valdo of pneumonia. The final reading did not show pneumonia. Her tube is draining nicely now. She h as no fever. Her white count is normal. The urine is much clearer than when she was [facility] in [facility]. PAST MEDICAL HISTORY: Significant for history of CVA, hypertension, diabetes, dementia. She has had her left hip pinned. SOCIAL HISTORY AND FAMILY HISTORY: Noncontributory. ALLERGIES: QUINOLONES; SHE GETS A RASH. REVIEW OF SYMPTOMS: She seems comfortable. No obvious complaints of cardiac or respiratory problems . PHYSICAL EXAMINATION: VITAL SIGNS: Shows her to be afebrile. Blood pressure 146/69, pulse 50, respirations 16. GENERAL: She is not oriented x 3. SKIN: Shows no jaundice, no ecchymosis. ABDOMEN: No apparent CVA pain. No hepatosplenomegaly, rebound or guarding. No flank tenderness. N o Rivera Michael's sign. The tube is draining well. What I did notice was her nephrostomy tube is not anchored to her skin. It is only being held in faith ce by the suture, and I instructed the nurses to make sure it is taped in several places to her flank to avoid it accidentally being pulled out, and I will also call [facility] where she reside s to make sure they are aware of this as well to avoid having a problem in the future. No need for a [place] acute urologic problem or intervention. Akash Hughes MD cc: [id number] TT: 12/07/2016 11:53:21 Confirmation # [id number] Dictation # [id number] mynor
[2016-12-07] MEDS ORDERED: Piperacillin/Tazobact 3.375 gm 100 ML IVPB SCH (12:00)
[2016-12-07 16:40] VITALS: BP 130/67; PULSE 54; TEMP 97.5; O2SAT 98
--- NOTE | 2016-12-08 01:52 | CARD ---
APPROVED REPORT EKG Measurement Heart [id number] <Conclusion> Sinus rhythm with 2:1 AV block Incomplete right bundle branch block Abnormal ECG
== END 2016-12-07 18:08 ==
LOC: ED 17:20 → ERH 21:07 → 5RSO 22:54
PROVIDERS: ADMIT Internal Medicine; ATTEND Internal Medicine
DX: T83.193A Other mechanical complication of other urinary stent, initial encounter (principal); J69.0 Pneumonitis due to inhalation of food and vomit; R50.9 Fever, unspecified; I44.30 Unspecified atrioventricular block; F03.90 Unspecified dementia, unspecified severity, without behavioral disturbance, psychotic disturbance, mood disturbance, and anxiety; N18.9 Chronic kidney disease, unspecified; I12.9 Hypertensive chronic kidney disease with stage 1 through stage 4 chronic kidney disease, or unspecified chronic kidney disease; E11.22 Type 2 diabetes mellitus with diabetic chronic kidney disease; E78.5 Hyperlipidemia, unspecified; Y73.2 Prosthetic and other implants, materials and accessory gastroenterology and urology devices associated with adverse incidents; N39.0 Urinary tract infection, site not specified; F41.9 Anxiety disorder, unspecified; I69.320 Aphasia following cerebral infarction; I69.354 Hemiplegia and hemiparesis following cerebral infarction affecting left non-dominant side; K21.9 Gastro-esophageal reflux disease without esophagitis; Z87.01 Personal history of pneumonia (recurrent); Z87.440 Personal history of urinary (tract) infections; Z87.891 Personal history of nicotine dependence; R32 Unspecified urinary incontinence; Z88.1 Allergy status to other antibiotic agents; I45.10 Unspecified right bundle-branch block; I25.10 Atherosclerotic heart disease of native coronary artery without angina pectoris; Z87.19 Personal history of other diseases of the digestive system; R19.00 Intra-abdominal and pelvic swelling, mass and lump, unspecified site; B37.49 Other urogenital candidiasis
CPT/HCPCS: 36415; 71010; 80053; 81001; 82803; 82948; 83735; 84100; 84145; 84484; 85025; 85610; 85730; 87040; 87081; 87086; 93005; 96365; 96366; 96367; 96375; 99285; G0378; J0456; J0696; J2543

== ENCOUNTER 2017-01-23 13:00 | Inpatient (IN) | payer MEDICARE, MEDICAID ==
[2017-01-23 13:01] VITALS: BMI 26.5
--- NOTE | 2017-01-23 13:31 | ED PDOC ---
Arrival/HPI - General Chief Complaint: Female Genitourinary Time Seen by Provider: 01/23/17 13:22 Historian: [facility] - History of Present Illness Narrative History of Present Illness (Text): 01/23/17 13:46 a 71 year old female, whose past medical history includes hypertension, CVA with left hemiplegia, renal failure, diabetes, hydronephrosis with nephrostomy, dementia, a-fib, and anemia, is presenting to the Emergency department sent from [facility] for nephrostomy tube evaulation due to bloody drainage. detention reports that patient has 100 cc bloody drainage from nephrostomy and 100 cc orange drainage in mon bag. Limited HPI and ROS due to patient's dementia. 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 - Cardiac Hx Cardiac Disorders: Yes Hx Hypertension: Yes - Pulmonary Hx Pneumonia: Yes - Neurological HX Cerebrovascular Accident: Yes - HEENT Hx HEENT Disorder: No - Renal Hx Renal Failure: Yes - Endocrine/Metabolic Hx Diabetes Mellitus Type 2: Yes - Hematological/Oncological Hx Blood Disorders: No - Integumentary Hx Dermatological Disorder: No Other/Comment: healed sacral and left lower buttock wounds, stge 3 wound to left hand 3rd finger 1cm round wound bed white surrounded by red skin, 2nd finger stg 2 .3cm round small opening wound bed red surrounding skin red, stg 2 left thumb .5 round wound bed red surrounded by red skin, left hand contracted into a fist, left arm contracted, right heel dry and red - Musculoskeletal/Rheumatological Hx Musculoskeletal Disorders: Yes (HX. L HIP FX.) Hx Falls: Yes - Gastrointestinal Hx Gastrointestinal Disorders: Yes Hx Gastroesophageal Reflux: Yes - Genitourinary/Gynecological Hx Genitourinary Disorders: Yes Hx Hematuria: Yes Hx Incontinence: Yes Hx Urinary Tract Infection: Yes - Psychiatric Hx Psychophysiologic Disorder: No Hx Emotional Abuse: No Hx Physical Abuse: No Hx Substance Use: No - Surgical History Hx Orthopedic Surgery: Yes (L hip orif) Other/Comment: cysto with stents, cecal mass excision. R arm PICC - Anesthesia Hx Anesthesia: Yes Hx Anesthesia Reactions: No Hx Malignant Hyperthermia: No - Suicidal Assessment Feels Threatened In Home Enviroment: No Family/Social History - Physician Review Nursing Documentation Reviewed: Yes Family/Social History: No Known Family HX Smoking Status: Unknown If Ever Smoked Hx Alcohol Use: No Hx Substance Use: No Hx Substance Use Treatment: No Allergies/Home Meds Allergies/Adverse Reactions: Allergies ciprofloxacin [From Cipro] Allergy (Verified 12/06/16 18:55) RASH levofloxacin [From Levaquin] Allergy (Verified 12/06/16 18:55) RASH Quinolones Allergy (Verified 12/06/16 18:55) RASH Home Medications: Home Meds Medication Instructions Recorded Confirmed Acetaminophen [Tylenol 325mg tab] 325 mg PO Q4H PRN 11/27/16 01/23/17 Aluminum Hydroxide/Magnesium H 30 ml PO Q4H PRN 11/27/16 01/23/17 [Maalox 30 ml] Aspirin [Aspirin Chewable] 81 mg PO DAILY 11/27/16 01/23/17 Enoxaparin [Lovenox] 40 mg SQ DAILY 11/27/16 01/23/17 Loperamide [Imodium] 4 mg PO Q6H PRN 11/27/16 01/23/17 Magnesium Hydroxide [Milk Of 400 mg PO HS PRN 11/27/16 01/23/17 Magnesia] Prochlorperazine [Compro] 25 mg RC BID PRN 11/27/16 01/23/17 Sod Phos,M-B/Na Phos,Di-Ba [Fleet 133 ml RC Q8H PRN 11/27/16 01/23/17 Enema] Review of Systems - Review of Systems Systems not reviewed;Unavailable: Dementia Genitourinary Female: Hematuria Physical Exam - Physical Exam Narrative Physical Exam (Text): 01/23/17 13: Constitutional: No acute distress. Head: Normocephalic. Atraumatic. Eyes: PERRL. ENT: Moist mucous membranes. Neck: Supple. Cardiovascular: Regular rate. Chest: No tenderness. Respiratory: Clear to auscultation bilaterally. GI: nephrostomy tube with gross blood. Soft. Nontender. Nondistended. Back: No CVA tenderness. Musculoskeletal: Extremity contraction x 4. No tenderness or swelling of extremities. Skin: No rash. Neurologic: Alert, no focal deficit. Vital Signs Reviewed: Yes Vital Signs Temp Pulse Resp BP Pulse Ox 01/23/17 19:00 46 L 18 169/89 H 99 07/16/17 17:55 47 L 16 209/79 H 99 01/23/17 15:01 52 L 18 209/79 H 100 01/23/17 13:23 98.1 F 47 L 16 169/57 H 100 Temperature: Afebrile Blood Pressure: Hypertensive Pulse: Bradycardic Respiratory Rate: Normal Appearance: Positive for: Well-Appearing, Non-Toxic, Comfortable Pain Distress: None Mental Status: Positive for: other (A & O x 2) Medical Decision Making ED Course and Treatment: 01/23/17 13: Impression: A 71 year old female, brought in by assisted for nephrostomy tube evaluation. Differential Diagnosis included but are not limited to: Plan: -- EKG -- Labs -- Chest X-Ray -- Urinalysis -- Reassess and disposition Prior Visits: Notes and results from previous visits were reviewed. Patient was last seen on 12/06/16 for pneumonia and urinary tract infection. Patient was admitted to the hospital and discharged 12/07/16. Progress Notes: EKG: Ordered, reviewed, and independently interpreted the EKG. Rate : 50 BPM Rhythm : Sinus Rhythm Interpretation : No ST-segment elevations or depressions. Comparison : No previous EKG for comparison. Chest X-Ray [employer] Pricing And Inventory Clerk : Abdoulaye Pompa MD 01/23/2017 14:37:01 HISTORY:hematuria IMPRESSION: No suspect minor bibasilar atelectasis. . In situ right-sided nephrostomy tube. Obvious UTI. Ceftriaxone administered. Cultures sent. Dr. Ghosh accepts patient to his service. - Lab Interpretations Lab Results: 01/23/17 14:43 01/23/17 14:43 Lab Results 01/23/17 14:43: Sodium 137, Potassium 4.2, Chloride 103, Carbon Dioxide 25, Anion Gap 13, BUN 22 H, Creatinine 0.6, Est GFR ( Amer) > 60, Est GFR ( Non-Af Amer) > 60, Random Glucose 206 H, Calcium 9.1, Total Bilirubin 0.4, AST 32, ALT 12, Alkaline Phosphatase 87, Total Protein 8.1, Albumin 3.7, Globulin 4.4, Albumin/Globulin Ratio 0.8 L 01/23/17 14:43: WBC 5.7 D, RBC 4.46, Hgb 12.9, Hct 39.0, MCV 87.4, MCH 28.9, MCHC 33.1, RDW 14.2, Plt Count 282, MPV 11.0, Gran % 64.1, Lymph % (Auto) 27.7, [place] % (Auto) 5.4, Eos % (Auto) 2.3, Baso % (Auto) 0.5, Gran # 3.67, Lymph # 1.6 , [place] # 0.3, Eos # 0.1, Baso # 0.03 01/23/17 14:17: Urine Color Yellow, Urine Appearance Sl cloudy, Urine pH 6.5, Ur Specific [place] 1.010, Urine Protein 100 H, Urine Glucose (UA) Negative, Urine Ketones Negative, Urine Blood Moderate H, Urine Nitrate Positive H, Urine Bilirubin Negative, Urine Urobilinogen 0.2, Ur Leukocyte Esterase Large H, Urine RBC 0 - 2, Urine WBC Tntc, Ur Epithelial Cells 0 - 2, Urine Bacteria Large I have reviewed the lab results: Yes - RAD Interpretation Radiology Orders: 01/23/17 13:48 CHEST PORTABLE [RAD] Stat - EKG Interpretation Interpreted by ED Physician: Yes Type: 12 lead EKG - Medication Orders Current Medication Orders: Amlodipine Besylate (Norvasc) 10 mg PO DAILY [facility] Ceftriaxone Sodium (Rocephin 1 Gram Ivpb) 1 gm in 100 mls @ 100 mls/hr IVPB DAILY [facility] PRN Reason: Protocol Sodium Chloride (Sodium Chloride 0.9%) 1,000 mls @ 75 mls/hr IV .[id number] [facility] Last Admin: 01/23/17 20:30 Dose: 75 mls/hr Insulin Human Lispro (Humalog Med) 0 units SC ACHS [facility] PRN Reason: Protocol Last Admin: 01/23/17 21:44 Dose: Not Given Non-Admin Reason: Blood Sugar Parameter Pantoprazole Sodium (Protonix Ec Tab) 40 mg PO 0630 [facility] Prochlorperazine (Compazine Rectal Supp) 25 mg RC BID PRN PRN Reason: nausea and vomiting Discontinued Medications Amlodipine Besylate (Norvasc) 10 mg PO DAILY [facility] Ceftriaxone Sodium (Rocephin 1 Gram Ivpb) 1 gm in 100 mls @ 200 mls/hr IVPB STAT STA PRN Reason: Protocol Stop: 01/23/17 15:21 Last Admin: 01/23/17 16:45 Dose: 200 mls/hr Sodium Chloride (Sodium Chloride 0.9%) 1,000 mls @ 50 mls/hr IV .Q20H [facility] - Scribe Statement The provider has reviewed the documentation as recorded by the Scribgriselda Ibarra Provider Scribe Attestation: All medical record entries made by the Scribe were at my direction and personally dictated by me. I have reviewed the chart and agree that the record accurately reflects my personal performance of the history, physical exam, medical decision making, and the department course for this patient. I have also personally directed, reviewed, and agree with the discharge instructions and disposition. Disposition/Present on Arrival - Present on Arrival Any Indicators Present on Arrival: Yes History of DVT/PE: No History of Uncontrolled Diabetes: No Urinary Catheter: Yes History of Decub. Ulcer: Yes History Surgical Site Infection Following: None - Disposition Have Diagnosis and Disposition been Completed?: Yes Diagnosis: UTI (urinary tract infection), Nephrostomy tube bleed Disposition: HOSPITALIZED Disposition Time: 15:55 Patient Plan: Admission Condition: GUARDED
[2017-01-23 14:21] LABS: PH,URINE 6.5 (4.7-8.0); URINE BILIRUBIN NEGATIVE (NEGATIVE); URINE BLOOD MODERATE (NEGATIVE); URINE GLUCOSE (UA) NEGATIVE (NEGATIVE); URINE LEUKOCYTE ESTERASE LARGE Leu/uL (NEGATIVE); URINE NITRATE POSITIVE (NEGATIVE); URINE PROTEIN 100 mg/dL (<30 mg/dL); URINE UROBILINOGEN 0.2 E.U./dL (<1 E.U./dL)
[2017-01-23 14:22] LABS: URINE APPEARANCE SL CLOUDY (CLEAR); URINE COLOR YELLOW (YELLOW)
[2017-01-23 14:35] LABS: URINE BACTERIA LARGE (NEG); URINE EPITHELIAL CELLS 0 - 2 /hpf (0-5); URINE RBC 0 - 2 /hpf (0-2); URINE WBC TNTC /hpf (0-6)
--- NOTE | 2017-01-23 14:38 | RAD ---
HISTORY: hematuria COMPARISON: PacsNo prior. FINDINGS: LUNGS: Suspect mild right bibasilar atelectasis right greater than left. Note that the left lateral lower lung field is partially obscured by overlying left hand artifact. . Tubing artifact overlies right lateral lower lung field PLEURA: No significant pleural effusion identified, no pneumothorax apparent. CARDIOVASCULAR: Heart size is within range of normal size OSSEOUS STRUCTURES: No significant abnormalities. VISUALIZED UPPER ABDOMEN: Re- demonstrated is a right-sided pigtail nephrostomy tube unchanged from prior study. OTHER FINDINGS: None. IMPRESSION: No suspect minor bibasilar atelectasis. . In situ right-sided nephrostomy tube.
[2017-01-23] MEDS ORDERED: cefTRIAXone 1 gm 1 GM/100 ML BAG IVPB STA (14:52)
[2017-01-23 15:14] LABS: ALB/GLOB RATIO 0.8 (1.1-1.8); ALBUMIN 3.7 g/dL (3.0-4.8); ALT/SGPT 12 U/L (7-56); AST/SGOT 32 U/L (15-39); BLOOD UREA NITROGEN 22 mg/dL (7-21); CALCIUM 9.1 mg/dL (8.4-10.5); GFR AFRICAN-AMERICAN > 60; GFR NON-AFRICAN AMERICAN > 60
[2017-01-23 15:44] LABS: BASO # 0.03 K/mm3 (0.0-2.0); BASO % 0.5 % (0.0-3.0); EOS # 0.1 (0.0-0.7); EOS % 2.3 % (1.5-5.0); GRAN # 3.67 (1.4-6.5); GRAN % 64.1 % (50.0-68.0); HEMOGLOBIN 12.9 gm/dL (12.0-16.0); LYMPH # 1.6 (1.2-3.4); LYMPH % 27.7 % (22.0-35.0); MEAN CELL VOLUME 87.4 fL (80.0-105.0); MEAN CORPUSCULAR HEMOGLOBIN 28.9 pg (25.0-35.0); MEAN CORPUSCULAR HGB CONC 33.1 g/dl (31.0-37.0); MONO # 0.3 (0.1-0.6); MONO % 5.4 % (1.0-6.0); PLATELET COUNT 282 10^3/uL (120.0-450.0); RBC 4.46 10^6/uL (3.5-6.1); RED CELL DISTRIBUTION WIDTH 14.2 % (11.5-14.5); WHITE BLOOD COUNT 5.7 10^3/ul (4.5-11.0)
--- NOTE | 2017-01-23 18:31 | CP.PCM.HP ---
History of Present Illness - History of Present Illness History of Present Illness: Patient is a 71 year old female with a past medical history including hypertension, CVA with left hemiplegia, renal failure, diabetes, hydronephrosis with nephrostomy, dementia, a-fib, and anemia, who presents to the Emergency department from [facility] for evaluation of her right sided nephrostomy tube which contains bloody drainage. Patient states that she is unaware of the onset of the bleed or any provoking event that may have caused the bleed. As her the mcc reports that patient has 100 cc bloody drainage and 100 cc orange drainage. Patient denies fever, chills, dizziness, chest pain, SOB, abdominal pain, N/V, diarrhea, constipation, urinary symptoms. PMHx: CVA with left hemiplegia, HTN, DM, anxiety, hydronephrosis PSHx: cystoscopy with stent placement, cecal mass excision, orthopedic surgery of left hip Social hx: former smoker, denies alcohol or illicit drug use Allergy: ciprofloxacin-rash, levofloxacin- rash, quinolones- rash Home meds: please see MAR Present on Admission - Present on Admission Any Indicators Present on Admission: Yes Urinary Catheter: Yes Review of Systems - Review of Systems Review of Systems: Please see HPI Past Patient History - Infectious Disease Hx of Infectious Diseases: VRE - Past Social History Smoking Status: Unknown If Ever Smoked - CARDIAC Hx Cardiac Disorders: Yes Hx Hypertension: Yes - PULMONARY Hx Pneumonia: Yes - NEUROLOGICAL HX Cerebrovascular Accident: Yes - HEENT Hx HEENT Problems: No - RENAL Hx Renal Failure: Yes - ENDOCRINE/METABOLIC Hx Diabetes Mellitus Type 2: Yes - HEMATOLOGICAL/ONCOLOGICAL Hx Blood Disorders: No - INTEGUMENTARY Hx Dermatological Problems: No Other/Comment: healed sacral and left lower buttock wounds, stge 3 wound to left hand 3rd finger 1cm round wound bed white surrounded by red skin, 2nd finger stg 2 .3cm round small opening wound bed red surrounding skin red, stg 2 left thumb .5 round wound bed red surrounded by red skin, left hand contracted into a fist, left arm contracted, right heel dry and red - MUSCULOSKELETAL/RHEUMATOLOGICAL Hx Musculoskeletal Disorders: Yes (HX. L HIP FX.) Hx Falls: Yes - GASTROINTESTINAL Hx Gastrointestinal Disorders: Yes Hx Gastroesophageal Reflux: Yes - GENITOURINARY/GYNECOLOGICAL Hx Genitourinary Disorders: Yes Hx Hematuria: Yes Hx Incontinence: Yes Hx Urinary Tract Infection: Yes - PSYCHIATRIC Hx Psychophysiologic Disorder: No Hx Emotional Abuse: No Hx Physical Abuse: No Hx Substance Use: No - SURGICAL HISTORY Hx Orthopedic Surgery: Yes (L hip orif) Other/Comment: cysto with stents, cecal mass excision. R arm PICC - ANESTHESIA Hx Anesthesia: Yes Hx Anesthesia Reactions: No Hx Malignant Hyperthermia: No Meds Allergies/Adverse Reactions: Allergies Allergy/AdvReac Type Severity Reaction Status Date / Time ciprofloxacin [From Cipro] Allergy RASH Verified 12/06/16 18:55 levofloxacin [From Levaquin] Allergy RASH Verified 12/06/16 18:55 Quinolones Allergy RASH Verified 12/06/16 18:55 Physical Exam - Head Exam Head Exam: ATRAUMATIC, NORMAL INSPECTION - Eye Exam Eye Exam: EOMI. absent: Conjunctival injection, Normal appearance Additional comments: left sided scleral discoloration - ENT Exam ENT Exam: Mucous Membranes Dry - Neck Exam Neck exam: Positive for: Normal Inspection. Negative for: Tenderness - Respiratory Exam Respiratory Exam: NORMAL BREATHING PATTERN. absent: Accessory Muscle Use, Rales , Rhonchi, Wheezes - Cardiovascular Exam Cardiovascular Exam: Bradycardia, REGULAR RHYTHM, +S1, +S2 - GI/Abdominal Exam GI & Abdominal Exam: Soft. absent: Rebound, Rigid - Exam Additional comments: Hirsch in place Hirsch bag placed on bed rails for gravity assisted drainage Dora colored urine noted in bag - Extremities Exam Extremities exam: Positive for: pedal pulses present. Negative for: tenderness - Back Exam Additional comments: right sided nephrostomy tube secured in place with bandage no drainage around tube insertion site no erythema around tube insertion site - Neurological Exam Additional comments: Patient is awake, alert, orientated x [address], not to time Patient responds to verbal stimuli, answers questions appropriately, and follows commands CN II- XII intact bilaterally although she did have difficulty shrugging left shoulder Patient is in a contracted state with no movement of the left upper extremity and lower extremity on command muscle strength 0/5 Left hand contracted into a fist, left arm contracted Patient is able to move right upper extremity and right lower extremity on command muscle strength 3/5 Sensation is intact to touch on the right upper extremity and lower extremity pedrito points - Psychiatric Exam Psychiatric exam: Normal Affect, Normal Mood - Skin Additional comments: Sacral redness with mild abrasion noted, covered with bandage with no drainage. right heel dry and red Results - Vital Signs Recent Vital Signs: Last Vital Signs Temp 98.1 F 01/23/17 13:23 Pulse 47 L 01/23/17 17:55 Resp 16 01/23/17 17:55 BP 209/79 H 01/23/17 17:55 Pulse Ox 99 01/23/17 17:55 - Labs Result Diagrams: 01/24/17 01:14 01/23/17 14:43 Assessment & Plan - Assessment and Plan (Free Text) Assessment: . Plan: Patient is a 71 year old female with past medical history of CVA with residual left hemiplegia, HTN, hydronephrosis with nephrotomy, anemia and dementia who is being admitted to the hospital for evaluation and treatment of bloody drainage from the NGT 1. Hx of Hydronephrosis with Current Nephrostomy Tube Bleed - Consult urology - H and H q8 hours - renal ultrasound 2. UTI - urine culture - ceftriaxone - procalcitonin 3. Diabetes - accuchecks - insulin sliding scale - dysphagia/consistent carb diet 4. Hypertension - continue home amlodipine hold parameters SBP < 100 or HR < 60 - hydralazine PRN 4. Anemia - HGb 12.9 HCT 39, at baseline - monitor via daily CBC 5. Left Sided Hemiplegia 2/2 Hx of CVA - high risk fall precautions - physical therapy - occupational therapy 6. Anxiety - continue home prochlorperazine 7. PPX - SCD - protonix
[2017-01-23] MEDS ORDERED: Sodium Chloride 0.9% 1,000 ML IV SCH (19:15)
[2017-01-23] MEDS: Sodium Chloride 0.9% 1,000 ML IV SCH (20:30)
[2017-01-23] MEDS: Insulin Lispro (humaLOG) MEDIUM Coverage SC SCH (21:44)
[2017-01-24 01:34] LABS: BASO # 0.03 K/mm3 (0.0-2.0); BASO % 0.4 % (0.0-3.0); EOS # 0.1 (0.0-0.7); EOS % 1.7 % (1.5-5.0); GRAN # 6.01 (1.4-6.5); GRAN % 72.4 % (50.0-68.0); HEMOGLOBIN 12.8 gm/dL (12.0-16.0); LYMPH # 1.5 (1.2-3.4); LYMPH % 18.4 % (22.0-35.0); MEAN CELL VOLUME 87.5 fL (80.0-105.0); MEAN CORPUSCULAR HEMOGLOBIN 29.1 pg (25.0-35.0); MEAN CORPUSCULAR HGB CONC 33.2 g/dl (31.0-37.0); MEAN PLATELET VOLUME 11.2 fl (7.0-11.0); MONO # 0.6 (0.1-0.6); MONO % 7.1 % (1.0-6.0); PLATELET COUNT 268 10^3/uL (120.0-450.0); WHITE BLOOD COUNT 8.3 10^3/ul (4.5-11.0)
[2017-01-24] MEDS: Pantoprazole 40 mg EC Tab PO SCH (05:50)
[2017-01-24 07:23] LABS: BASO # 0.03 K/mm3 (0.0-2.0); BASO % 0.4 % (0.0-3.0); EOS # 0.2 (0.0-0.7); EOS % 2.1 % (1.5-5.0); GRAN # 4.35 (1.4-6.5); GRAN % 59.7 % (50.0-68.0); HEMOGLOBIN 11.6 gm/dL (12.0-16.0); LYMPH # 2.2 (1.2-3.4); MEAN CELL VOLUME 87.8 fL (80.0-105.0); MEAN CORPUSCULAR HEMOGLOBIN 28.3 pg (25.0-35.0); MEAN CORPUSCULAR HGB CONC 32.2 g/dl (31.0-37.0); MONO # 0.6 (0.1-0.6); MONO % 7.8 % (1.0-6.0); PLATELET COUNT 240 10^3/uL (120.0-450.0); RED CELL DISTRIBUTION WIDTH 14.1 % (11.5-14.5); WHITE BLOOD COUNT 7.3 10^3/ul (4.5-11.0)
[2017-01-24 07:48] LABS: ALB/GLOB RATIO 0.9 (1.1-1.8); ALBUMIN 3.2 g/dL (3.0-4.8); ALT/SGPT 19 U/L (7-56); AST/SGOT 24 U/L (15-39); BLOOD UREA NITROGEN 23 mg/dL (7-21); CALCIUM 8.5 mg/dL (8.4-10.5); GFR AFRICAN-AMERICAN > 60; GFR NON-AFRICAN AMERICAN > 60
[2017-01-24] MEDS ORDERED: cefTRIAXone 1 gm 1 GM/100 ML BAG IVPB SCH (10:00)
[2017-01-24] MEDS: Insulin Lispro (humaLOG) MEDIUM Coverage SC SCH ×4 (10:01→22:15)
--- NOTE | 2017-01-24 15:34 | US ---
PROCEDURE: Ultrasound of the Kidneys HISTORY: nephrostomy tube bleed COMPARISON: None available. TECHNIQUE: Sonogram of the kidneys. FINDINGS: RIGHT KIDNEY: Measures: 9.1 cm. Normal in size, contour and echogenicity. No mass or hydronephrosis. Lower pole nonobstructing calculus, 7 mm. LEFT KIDNEY: Measures: 10.3 cm. Normal in size, contour and echogenicity. No stone, solid mass lesion or hydronephrosis visualized. OTHER FINDINGS: None. IMPRESSION: 7 mm nonobstructing right lower pole renal calculus. Otherwise unremarkable examination.
--- NOTE | 2017-01-24 16:23 | CP.PCM.PN ---
Subjective - Date & Time of Evaluation Date of Evaluation: 01/24/17 Time of Evaluation: 06:45 - Subjective Subjective: Melissa Ybarra DO PGY1 - Internal Medicine Progress Note - Darlene/Enio Service Patient seen and evaluated at bedside. No acute overnight events reported. She initially presented with bloody drainage from right nephrostomy tube. Today, she is not speaking, but appears awake and alert. She does not appear uncomfortable. Hirsch catheter and nephrostomy tubes are in place and appear patent. Objective - Vital Signs/Intake and Output Vital Signs (last 24 hours): Temp Pulse Resp BP Pulse Ox 97.8 F 48 L 18 163/52 H 100 01/24/17 07:43 01/24/17 07:43 01/24/17 07:43 01/24/17 07:43 01/24/17 07:43 Intake and Output: 01/24/17 01/24/17 06:59 18:59 Intake Total 0 360 Output Total 900 475 Balance -900 -115 - Medications Medications: Current Medications Amlodipine Besylate (Norvasc) 10 mg PO DAILY [facility] Last Admin: 01/24/17 10:03 Dose: Not Given Hydralazine HCl (Apresoline) 10 mg IVP Q6 PRN PRN Reason: SBP > 180 Ceftriaxone Sodium (Rocephin 1 Gram Ivpb) 1 gm in 100 mls @ 100 mls/hr IVPB DAILY [facility] PRN Reason: Protocol Last Admin: 01/24/17 10:02 Dose: 100 mls/hr Sodium Chloride (Sodium Chloride 0.9%) 1,000 mls @ 75 mls/hr IV .[id number] [facility] Last Admin: 01/23/17 20:30 Dose: 75 mls/hr Insulin Human Lispro (Humalog Med) 0 units SC ACHS [facility] PRN Reason: Protocol Last Admin: 01/24/17 12:20 Dose: 5 units Pantoprazole Sodium (Protonix Ec Tab) 40 mg PO 0630 [facility] Last Admin: 01/24/17 05:50 Dose: 40 mg Prochlorperazine (Compazine Rectal Supp) 25 mg RC BID PRN PRN Reason: nausea and vomiting - Labs Labs: 01/24/17 06:45 01/24/17 06:45 - Constitutional Appears: Non-toxic, No Acute Distress - Head Exam Head Exam: ATRAUMATIC, NORMOCEPHALIC - Eye Exam Eye Exam: EOMI, Normal appearance - ENT Exam ENT Exam: Mucous Membranes Moist - Neck Exam Neck Exam: Normal Inspection - Respiratory Exam Respiratory Exam: Clear to Ausculation Bilateral - Cardiovascular Exam Cardiovascular Exam: RRR, +S1, +S2, Murmur (blowing holosystolic, grade ) - GI/Abdominal Exam GI & Abdominal Exam: Soft. absent: Tenderness - Exam Additional comments: Hirsch catheter in place. Cloudy-yellow urine in the bag. Nephrostomy tube in place. Dark bloody urine in the bag. - Back Exam Additional comments: Nephrostomy tube on the right, bandaged. - Neurological Exam Neurological Exam: Alert, Awake Additional comments: Not speaking, appears to hear, but not obeying commands. - Psychiatric Exam Psychiatric exam: Flat Affect, Normal Mood - Skin Skin Exam: Dry, Intact Assessment and Plan - Assessment and Plan (Free Text) Assessment: Patient is a 71 year old female with past medical history of CVA with residual left hemiplegia, HTN, hydronephrosis with nephrotomy, anemia and dementia who is being treated for hematuria and UTI. Plan: 1. R kidney hematuria - Patient has a PMH of Hydronephrosis, s/p nephrostomy one year ago, remains patent, continues to have bloody drainage from nephrostomy tube - Renal US significant for 7mm non-obstructing nephrolithiasis in left lower pole - Consult urology Dr. Hughes, appreciate all recs - H and H stable, continue to monitor 2. UTI - Urine culture significant for gram negative rods - Continue ceftriaxone - Procalcitonin 0.07 3. Diabetes - Continue accuchecks - Continue insulin sliding scale - Continue dysphagia/consistent carb diet 4. Hypertension - Continue home amlodipine hold parameters SBP < 100 or HR < 60 - Continue hydralazine PRN 4. Anemia - stable - HGb 12.9 HCT 39, at baseline - Monitor via daily CBC 5. Left Sided Hemiplegia 2/2 Hx of CVA - High risk fall precautions - Continue PT/OT 6. Anxiety - Continue home prochlorperazine GI/DVT PPx - Protonix and DVT Patient discussed and reviewed with senior resident Dr. Beasley PGY2 and attending Dr. Colon
--- NOTE | 2017-01-24 17:19 | CARD ---
APPROVED REPORT EKG Measurement Heart [id number] DC 180P24 [id number] <Conclusion> Marked sinus bradycardia Incomplete right bundle branch block Septal infarct, age undetermined Abnormal ECG
[2017-01-24] MEDS: Sodium Chloride 0.9% 1,000 ML IV SCH ×2 (20:59→23:15)
[2017-01-25] MEDS: Pantoprazole 40 mg EC Tab PO SCH (06:20)
[2017-01-25 07:15] LABS: BASO # 0.02 K/mm3 (0.0-2.0); BASO % 0.4 % (0.0-3.0); EOS # 0.2 (0.0-0.7); EOS % 3.6 % (1.5-5.0); GRAN # 2.39 (1.4-6.5); GRAN % 50.1 % (50.0-68.0); HEMOGLOBIN 12.2 gm/dL (12.0-16.0); LYMPH % 41.3 % (22.0-35.0); MEAN CORPUSCULAR HEMOGLOBIN 28.8 pg (25.0-35.0); MEAN CORPUSCULAR HGB CONC 32.7 g/dl (31.0-37.0); MEAN PLATELET VOLUME 11.1 fl (7.0-11.0); MONO # 0.2 (0.1-0.6); MONO % 4.6 % (1.0-6.0); PLATELET COUNT 215 10^3/uL (120.0-450.0); RBC 4.24 10^6/uL (3.5-6.1); RED CELL DISTRIBUTION WIDTH 14.1 % (11.5-14.5); WHITE BLOOD COUNT 4.8 10^3/ul (4.5-11.0)
[2017-01-25 07:27] LABS: ALB/GLOB RATIO 0.9 (1.1-1.8); ALBUMIN 3.1 g/dL (3.0-4.8); ALT/SGPT 20 U/L (7-56); AST/SGOT 19 U/L (15-39); BLOOD UREA NITROGEN 16 mg/dL (7-21); CALCIUM 8.4 mg/dL (8.4-10.5); GFR AFRICAN-AMERICAN > 60; GFR NON-AFRICAN AMERICAN > 60
[2017-01-25] MEDS: Insulin Lispro (humaLOG) MEDIUM Coverage SC SCH ×4 (08:31→22:25)
[2017-01-25] MEDS: Sodium Chloride 0.9% 1,000 ML IV SCH (10:22)
--- NOTE | 2017-01-25 20:18 | CP.PCM.PN ---
<ROSAURAMELISSA - Last Filed: 01/25/17 20:15> Subjective - Date & Time of Evaluation Date of Evaluation: 01/25/17 Time of Evaluation: 06:45 - Subjective Subjective: Melissa Ybarra DO PGY1 - Internal Medicine Progress Note - Darlene/Enio Service Patient seen and evaluated at bedside. No acute overnight events reported. She initially presented with bloody drainage from right nephrostomy tube. Today, she is awake and alert, and more responsive than yesterday. She does not appear uncomfortable. Hirsch catheter and nephrostomy tubes are in place and appear patent. Objective - Vital Signs/Intake and Output Vital Signs (last 24 hours): Temp Pulse Resp BP Pulse Ox 97.7 F 48 L 18 179/61 H 100 01/25/17 16:00 01/25/17 16:00 01/25/17 16:00 01/25/17 16:00 01/25/17 16:00 - Medications Medications: Current Medications Amlodipine Besylate (Norvasc) 10 mg PO DAILY [facility] Last Admin: 01/24/17 10:03 Dose: Not Given Hydralazine HCl (Apresoline) 10 mg IVP Q6 PRN PRN Reason: SBP > 180 Sodium Chloride (Sodium Chloride 0.9%) 1,000 mls @ 75 mls/hr IV .[id number] [facility] Last Admin: 01/25/17 10:22 Dose: 75 mls/hr Insulin Human Lispro (Humalog Med) 0 units SC ACHS [facility] PRN Reason: Protocol Last Admin: 01/25/17 17:45 Dose: 3 units Pantoprazole Sodium (Protonix Ec Tab) 40 mg PO 0630 [facility] Last Admin: 01/25/17 06:20 Dose: Not Given Prochlorperazine (Compazine Rectal Supp) 25 mg RC BID PRN PRN Reason: nausea and vomiting - Labs Labs: 01/25/17 07:00 01/25/17 07:00 - Constitutional Appears: Non-toxic, No Acute Distress, Chronically Ill - Head Exam Head Exam: ATRAUMATIC, NORMOCEPHALIC - Eye Exam Eye Exam: EOMI, Normal appearance - ENT Exam ENT Exam: Mucous Membranes Moist - Respiratory Exam Respiratory Exam: Clear to Ausculation Bilateral. absent: Rales, Rhonchi, Wheezes - Cardiovascular Exam Cardiovascular Exam: RRR, +S1, +S2 - GI/Abdominal Exam GI & Abdominal Exam: Soft. absent: Tenderness - Exam Additional comments: Hirsch catheter in place. Clear-yellow urine in the bag. Nephrostomy tube in place. [place] urine in the bag. - Back Exam Additional comments: Nephrostomy tube on the right, bandaged. - Neurological Exam Neurological Exam: Awake Additional comments: Answering questions appropriately - Psychiatric Exam Psychiatric exam: Flat Affect - Skin Skin Exam: Dry, Intact Assessment and Plan - Assessment and Plan (Free Text) Assessment: Patient is a 71 year old female with past medical history of CVA with residual left hemiplegia, HTN, hydronephrosis with nephrotomy, anemia and dementia who is being treated for hematuria and UTI. Plan: 1. R kidney hematuria - Patient has a PMH of Hydronephrosis, s/p nephrostomy one year ago, remains patent, continues to have bloody drainage from nephrostomy tube - Renal US significant for 7mm non-obstructing nephrolithiasis in left lower pole - Consult urology (Dr. Hughes), appreciate all recs; Seen today, flushed nephrostomy tube. Recommended adjustment or replacement by IR - Consult IR (Dr. Ortiz) - H and H stable, continue to monitor - Pending transfer back to [facility] 2. UTI - Urine culture significant for E. coli, ESBL+ - Consult ID (Juan Antonio), advised no Abx needed - Discontinue ceftriaxone 3. Diabetes - Continue accuchecks - Continue insulin sliding scale - Continue dysphagia/consistent carb diet 4. Hypertension - Continue home amlodipine hold parameters SBP < 100 or HR < 60 - Continue hydralazine PRN 5. Left Sided Hemiplegia 2/2 Hx of CVA - High risk fall precautions - Continue PT/OT 6. Anxiety - Continue home prochlorperazine GI/DVT PPx - Protonix and DVT Patient discussed and reviewed with attending Dr. Steen <Hayden Steen - Last Filed: 01/31/17 17:14> Objective - Vital Signs/Intake and Output Vital Signs (last 24 hours): Temp Pulse Resp BP Pulse Ox 98.2 F 55 L 18 173/64 H 98 01/26/17 16:30 01/26/17 16:30 01/26/17 16:30 01/26/17 16:30 01/26/17 16:30 - Labs Labs: 01/26/17 07:00 01/26/17 07:00 Attending/Attestation - Attestation I have personally seen and examined this patient.: Yes I have fully participated in the care of the patient.: Yes I have reviewed all pertinent clinical information, including history, physical exam and plan: Yes Notes (Text): 01/31/17 17:14 Medical record note made by the resident after discussion with my direction and input after the patient was personally seen and examined by me. I have reviewed the chart and agree that the record accurately reflects by personal performance of the history, physical exam, data review, and medical decision-making, in the course for the patient. I have also personally directed the plan of care.
[2017-01-26] MEDS: Pantoprazole 40 mg EC Tab PO SCH (06:37)
[2017-01-26 07:20] LABS: BASO # 0.02 K/mm3 (0.0-2.0); BASO % 0.5 % (0.0-3.0); EOS # 0.1 (0.0-0.7); EOS % 3.2 % (1.5-5.0); GRAN # 2.29 (1.4-6.5); GRAN % 52.9 % (50.0-68.0); LYMPH # 1.5 (1.2-3.4); LYMPH % 35.3 % (22.0-35.0); MEAN CELL VOLUME 87.5 fL (80.0-105.0); MEAN CORPUSCULAR HEMOGLOBIN 28.1 pg (25.0-35.0); MEAN CORPUSCULAR HGB CONC 32.2 g/dl (31.0-37.0); MEAN PLATELET VOLUME 10.7 fl (7.0-11.0); MONO # 0.4 (0.1-0.6); MONO % 8.1 % (1.0-6.0); PLATELET COUNT 200 10^3/uL (120.0-450.0); RBC 3.91 10^6/uL (3.5-6.1); WHITE BLOOD COUNT 4.3 10^3/ul (4.5-11.0)
[2017-01-26 07:44] LABS: ALB/GLOB RATIO 0.9 (1.1-1.8); ALBUMIN 2.9 g/dL (3.0-4.8); ALT/SGPT 19 U/L (7-56); AST/SGOT 17 U/L (15-39); BLOOD UREA NITROGEN 12 mg/dL (7-21); CALCIUM 8.2 mg/dL (8.4-10.5); GFR AFRICAN-AMERICAN > 60; GFR NON-AFRICAN AMERICAN > 60
--- NOTE | 2017-01-26 07:54 | CON ---
DATE: 01/24/2017 CHIEF COMPLAINT: Hematuria. HISTORY OF PRESENT ILLNESS: This is 71-year-old female who is seen in [facility]. The patient has a history of renal failure with hydronephrosis, she had a right nephrostomy placed. She has multiple medical issues including dementia and atrial fibrillation, reportedly the patient was transferred from [facility] to the emergency department for bleeding in her right nephrostomy tube. The patient is awake and alert although does have dementia, she is no acute distress and a consultation was requested. PAST MEDICAL HISTORY: Significant for CVA with left hemiplegia, hypertension, diabetes, anxiety, dementia, kidney stones, questionable colon cancer. MEDICATIONS: Include, hydralazine, Compazine, insulin coverage, Norvasc, Protonix and Rocephin. ALLERGIES: ALLERGIC TO CIPRO, LEVAQUIN AND QUINOLONES. FAMILY HISTORY: Noncontributory. SOCIAL HISTORY: Positive for smoking in the past and no current smoking or EtOH use. REVIEW OF SYSTEMS: This is obtained from the chart as patient is unable to give adequate history. Positive for gross hematuria, positive for weakness and lethargy. Other systems as per the history of present illness. PHYSICAL EXAMINATION: GENERAL: The patient is awake, alert, she is responsive, but unable to give a good history. VITAL SIGNS: She has been afebrile, temperature was 97.8, pulse 48, blood pressure 163/52, respirations 18. NECK: Supple. There is no adenopathy. LUNGS: Chest reveals normal inspiratory effort. CARDIAC: Exam shows positive S1 and S2. There was some bradycardia, there is mild peripheral edema noted. ABDOMEN: Soft, nontender and nondistended. There is no hepatosplenomegaly, the nephrostomy tube draining from the flank is moderately blood tinged. There is no suprapubic tenderness. Hirsch catheter in place, draining clear urine. The nephrostomy site appears clean and dry. LABORATORY DATA: WBC count was 7.3. GFR was greater than 60. Urine culture and blood cultures are pending. IMPRESSION: I flushed the nephrostomy tube, it irrigates easily and appears to be clearing up. The patient does not appears septic at this point; although, she does have some bradycardia. On reviewing the chart, it appears that the patient has had the nephrostomy tube dislodged in the past, currently it does not appear to be dislodged and is draining. Unfortunately, from time to time the patient will likely have hematuria as the tube causes localized trauma in the kidney and the urine will likely always be infected given the indwelling tube. The patient had a renal ultrasound done, which showed the right kidney to have a lower pole non-obstructing stone. Left kidney, no stones or hydronephrosis. IMPRESSION: Gross hematuria from the nephrostomy tube, appears stable, the tube is draining well. I irrigated it with sterile saline and the tube is patent and draining well. PLAN: Will be to consult Dr. Shantanu Ortiz if the tube has not been changed recently, it should be changed and the patient should be on a schedule where the tube is changed approximately every 3 months. If it has been within this time, then the patient can be treated with antibiotics, likely return to the nursing facility and be scheduled for the tube to be changed as an outpatient when her other medical issues have improved. Thank you for allowing me to participate in the care of this patient. We will follow her with you. Stephen Singh MD
[2017-01-26] MEDS: Insulin Lispro (humaLOG) MEDIUM Coverage SC SCH ×3 (08:28→17:02)
[2017-01-26] MEDS ORDERED: Lidocaine 2% Inj (20ml) ONE (09:59)
[2017-01-26] MEDS ORDERED: Midazolam 2 MG/2 ML VIAL ONE ×2 (10:00→11:37)
[2017-01-26] MEDS ORDERED: Iodixanol 320 MG/ML 100 ML BOTTLE IV ONE (10:00)
[2017-01-26 12:53] VITALS: O2SAT 98
[2017-01-26] MEDS ORDERED: Meropenem 1g/NS 100mL IVPB 1 GM/100 ML PIGGYBACK IVPB SCH (14:30)
[2017-01-26 16:34] VITALS: BP 173/64; PULSE 55; RESP 18; TEMP 98.2
--- NOTE | 2017-01-26 19:28 | VASCULAR ---
PROCEDURE: 1. Right nephrostomy tube injection and change HISTORY: Previous pyonephrosis. Renal calculi. Chronic right nephrostomy tube. Inject catheter unchanged tube. PHYSICIAN(S): Shantanu Ortiz MD. TECHNIQUE: The relative risks and indications of the procedure were explained to the patient's power of immigration attorney and consent obtained. The patient was placed prone on the arteriogram table and the right nephrostomy tube prepped and draped usual sterile fashion. Conscious sedation monitoring were provided throughout the procedure by a nurse. Contrast was injected and a right nephrostogram performed. 0.035 glidewire was coiled in the right renal pelvis in the old tube removed. A new 14 [place]ana nephrostomy tube was placed in the right renal pelvis. Its position was confirmed with injection of contrast. The catheter was flushed secured and capped. FINDINGS: The intrarenal collecting system is decompressed. 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 With additional injection contrast flows down the normal-appearing right ureter. The visualized bladder contains a Hirsch catheter. Is otherwise unremarkable. No obstructing stones are seen in the ureter. IMPRESSION: 1.Successful change of a 14 [place]ana right nephrostomy tube. The new tube was capped. If the patient tolerates the capped tube, the tube may be removed in the near future. 2. Apparent secondary right UPJ obstruction. Otherwise the right ureter is normal in caliber and course. No obstructing stone is seen in the ureter. Some debris/stones are noted in the right renal pelvis.
--- NOTE | 2017-01-26 19:36 | CP.PCM.DIS ---
Addendum entered and electronically signed by Frandy Beasley DO 01/28/17 07:20: Patient seen throughout admission. Nephrostomy tube changed, no more bloody urine, will have 7 days of meropenem. Frandy Beasley D.O. PGY-2 Original Note: <JOSE KAPLAN - Last Filed: 01/26/17 19:26> Provider - Provider Date of Admission: 01/23/17 18:14 Attending physician: Lee Colon MD Primary care physician: Lee Colon MD Consults: Uro: Ellen IR: Shantanu Ortiz ID: [email or web address] Time Spent in preparation of Discharge (in minutes): 45 Diagnosis - Discharge Diagnosis (1) Nephrostomy tube bleed Status: Acute Priority: High (2) UTI (urinary tract infection) Status: Acute Priority: High Hospital Course - Lab Results Lab Results: Most Recent Lab Values WBC 4.3 10^3/ul (4.5-11.0) L 01/26/17 07:00 RBC 3.91 10^6/uL (3.5-6.1) 01/26/17 07:00 Hgb 11.0 gm/dL (12.0-16.0) L 01/26/17 07:00 Hct 34.2 % (36.0-48.0) L 01/26/17 07:00 MCV 87.5 fL (80.0-105.0) 01/26/17 07:00 MCH 28.1 pg (25.0-35.0) 01/26/17 07:00 MCHC 32.2 g/dl (31.0-37.0) 01/26/17 07:00 RDW 14.0 % (11.5-14.5) 01/26/17 07:00 Plt Count 200 10^3/uL (120.0-450.0) 01/26/17 07:00 MPV 10.7 fl (7.0-11.0) 01/26/17 07:00 Gran % 52.9 % (50.0-68.0) 01/26/17 07:00 Lymph % (Auto) 35.3 % (22.0-35.0) H 01/26/17 07:00 [place] % (Auto) 8.1 % (1.0-6.0) H 01/26/17 07:00 Eos % (Auto) 3.2 % (1.5-5.0) 01/26/17 07:00 Baso % (Auto) 0.5 % (0.0-3.0) 01/26/17 07:00 Gran # 2.29 (1.4-6.5) 01/26/17 07:00 Lymph # 1.5 (1.2-3.4) 01/26/17 07:00 [place] # 0.4 (0.1-0.6) 01/26/17 07:00 Eos # 0.1 (0.0-0.7) 01/26/17 07:00 Baso # 0.02 K/mm3 (0.0-2.0) 01/26/17 07:00 Sodium 142 mmol/L (132-148) 01/26/17 07:00 Potassium 3.6 mmol/L (3.6-5.0) 01/26/17 07:00 Chloride 108 mmol/L (95-110) 01/26/17 07:00 Carbon Dioxide 26 mmol/L (21-33) 01/26/17 07:00 Anion Gap 12 (10-20) 01/26/17 07:00 BUN 12 mg/dL (7-21) 01/26/17 07:00 Creatinine 0.6 mg/dL (0.5-1.4) 01/26/17 07:00 Est GFR ( Amer) > 60 01/26/17 07:00 Est GFR (Non-Af Amer) > 60 01/26/17 07:00 POC Glucose (mg/dL) 161 mg/dL (65-110) H 01/26/17 07:26 Random Glucose 149 mg/dL (70-110) H 01/26/17 07:00 Calcium 8.2 mg/dL (8.4-10.5) L 01/26/17 07:00 Total Bilirubin 0.2 mg/dL (0.2-1.3) 01/26/17 07:00 AST 17 U/L (15-39) 01/26/17 07:00 ALT 19 U/L (7-56) 01/26/17 07:00 Alkaline Phosphatase 64 U/L (38-133) 01/26/17 07:00 Total Protein 6.1 g/dL (5.8-8.3) 01/26/17 07:00 Albumin 2.9 g/dL (3.0-4.8) L 01/26/17 07:00 Globulin 3.2 gm/dL 01/26/17 07:00 Albumin/Globulin Ratio 0.9 (1.1-1.8) L 01/26/17 07:00 Procalcitonin 0.07 NG/ML (0.19-0.49) L 01/24/17 06:45 Urine Color Yellow (YELLOW) 01/23/17 14:17 Urine Appearance Sl cloudy (CLEAR) 01/23/17 14:17 Urine pH 6.5 (4.7-8.0) 01/23/17 14:17 Ur Specific [place] 1.010 (1.005-1.035) 01/23/17 14:17 Urine Protein 100 mg/dL (<30 mg/dL) H 01/23/17 14:17 Urine Glucose (UA) Negative mg/dL (NEGATIVE) 01/23/17 14:17 Urine Ketones Negative mg/dL (NEGATIVE) 01/23/17 14:17 Urine Blood Moderate (NEGATIVE) H 01/23/17 14:17 Urine Nitrate Positive (NEGATIVE) H 01/23/17 14:17 Urine Bilirubin Negative (NEGATIVE) 01/23/17 14:17 Urine Urobilinogen 0.2 E.U./dL (<1 E.U./dL) 01/23/17 14:17 Ur Leukocyte Esterase Large Earnest/uL (NEGATIVE) H 01/23/17 14:17 Urine RBC 0 - 2 /hpf (0-2) 01/23/17 14:17 Urine WBC Tntc /hpf (0-6) 01/23/17 14:17 Ur Epithelial Cells 0 - 2 /hpf (0-5) 01/23/17 14:17 Urine Bacteria Large (NEG) 01/23/17 14:17 - Hospital Course Hospital Course: Patient is a 71 year old female with past medical history of CVA with residual left hemiplegia, HTN, hydronephrosis with nephrotomy, anemia and dementia who is being admitted to the hospital for evaluation and treatment of bloody drainage from right nephrostomy. On admission, she was also diagnosed with UTI based on UA. She was started Ceftriaxone for UTI, and urology was consulted concerning the nephrostomy. The following day, urology (Dr. Hughes) flushed the nephrostomy and recommended evaluation by IR to consider replacement vs adjustment. On hospital day 3, the urine in the mon bag was no longer cloudy, but the urine in the nephrostomy bag was still bloody. Culture and sensitivity of the urine came back positive for E. coli ELBL+ and ID was consulted, who recommended IV merrem. Today, patient was seen by IR (Dr. Ortiz) who replaced the nephrostomy tube. Patient reports no pain or discomfort. A new IV line was placed for administration of the IV Merrem and the patient was discharged back to the retirement. Discharge Exam - Head Exam Head Exam: ATRAUMATIC, NORMOCEPHALIC - Eye Exam Eye Exam: EOMI, Normal appearance - ENT Exam ENT Exam: Mucous Membranes Moist - Neck Exam Neck exam: Normal Inspection - Respiratory Exam Respiratory Exam: Clear to PA & Lateral. absent: Rales, Rhonchi, Wheezes - Cardiovascular Exam Cardiovascular Exam: RRR, +S1, +S2 - GI/Abdominal Exam GI & Abdominal Exam: Normal Bowel Sounds, Soft - Exam Additional comments: Mon catheter in place. Clear-yellow urine in the bag. Nephrostomy tube in place. [place] urine in the bag. - Extremities Exam Additional comments: All extremities contracted - Back Exam Additional comments: Nephrostomy tube on the right, bandaged. - Neurological Exam Neurological exam: Alert - Psychiatric Exam Psychiatric exam: Agitated Discharge Plan - Follow Up Plan Condition: GUARDED Disposition: TRANSF TO [facility] Instructions: Urinary Tract Infection in Women (DC), Nephrostomy Tube Care (DC) , Dysuria (GEN), Fall Prevention (DC) Referrals: Lee Colon MD [Primary Care Provider] - <Hayden Steen - Last Filed: 01/31/17 17:17> Provider - Provider Date of Admission: 01/23/17 18:14 Attending physician: Lee Colon MD Primary care physician: Lee Colon MD Hospital Course - Lab Results Lab Results: Most Recent Lab Values WBC 4.3 10^3/ul (4.5-11.0) L 01/26/17 07:00 RBC 3.91 10^6/uL (3.5-6.1) 01/26/17 07:00 Hgb 11.0 gm/dL (12.0-16.0) L 01/26/17 07:00 Hct 34.2 % (36.0-48.0) L 01/26/17 07:00 MCV 87.5 fL (80.0-105.0) 01/26/17 07:00 MCH 28.1 pg (25.0-35.0) 01/26/17 07:00 MCHC 32.2 g/dl (31.0-37.0) 01/26/17 07:00 RDW 14.0 % (11.5-14.5) 01/26/17 07:00 Plt Count 200 10^3/uL (120.0-450.0) 01/26/17 07:00 MPV 10.7 fl (7.0-11.0) 01/26/17 07:00 Gran % 52.9 % (50.0-68.0) 01/26/17 07:00 Lymph % (Auto) 35.3 % (22.0-35.0) H 01/26/17 07:00 [place] % (Auto) 8.1 % (1.0-6.0) H 01/26/17 07:00 Eos % (Auto) 3.2 % (1.5-5.0) 01/26/17 07:00 Baso % (Auto) 0.5 % (0.0-3.0) 01/26/17 07:00 Gran # 2.29 (1.4-6.5) 01/26/17 07:00 Lymph # 1.5 (1.2-3.4) 01/26/17 07:00 [place] # 0.4 (0.1-0.6) 01/26/17 07:00 Eos # 0.1 (0.0-0.7) 01/26/17 07:00 Baso # 0.02 K/mm3 (0.0-2.0) 01/26/17 07:00 Sodium 142 mmol/L (132-148) 01/26/17 07:00 Potassium 3.6 mmol/L (3.6-5.0) 01/26/17 07:00 Chloride 108 mmol/L (95-110) 01/26/17 07:00 Carbon Dioxide 26 mmol/L (21-33) 01/26/17 07:00 Anion Gap 12 (10-20) 01/26/17 07:00 BUN 12 mg/dL (7-21) 01/26/17 07:00 Creatinine 0.6 mg/dL (0.5-1.4) 01/26/17 07:00 Est GFR ( Amer) > 60 01/26/17 07:00 Est GFR (Non-Af Amer) > 60 01/26/17 07:00 POC Glucose (mg/dL) 223 mg/dL (65-110) H 01/26/17 15:49 Random Glucose 149 mg/dL (70-110) H 01/26/17 07:00 Calcium 8.2 mg/dL (8.4-10.5) L 01/26/17 07:00 Total Bilirubin 0.2 mg/dL (0.2-1.3) 01/26/17 07:00 AST 17 U/L (15-39) 01/26/17 07:00 ALT 19 U/L (7-56) 01/26/17 07:00 Alkaline Phosphatase 64 U/L (38-133) 01/26/17 07:00 Total Protein 6.1 g/dL (5.8-8.3) 01/26/17 07:00 Albumin 2.9 g/dL (3.0-4.8) L 01/26/17 07:00 Globulin 3.2 gm/dL 01/26/17 07:00 Albumin/Globulin Ratio 0.9 (1.1-1.8) L 01/26/17 07:00 Procalcitonin 0.07 NG/ML (0.19-0.49) L 01/24/17 06:45 Urine Color Yellow (YELLOW) 01/23/17 14:17 Urine Appearance Sl cloudy (CLEAR) 01/23/17 14:17 Urine pH 6.5 (4.7-8.0) 01/23/17 14:17 Ur Specific [place] 1.010 (1.005-1.035) 01/23/17 14:17 Urine Protein 100 mg/dL (<30 mg/dL) H 01/23/17 14:17 Urine Glucose (UA) Negative mg/dL (NEGATIVE) 01/23/17 14:17 Urine Ketones Negative mg/dL (NEGATIVE) 01/23/17 14:17 Urine Blood Moderate (NEGATIVE) H 01/23/17 14:17 Urine Nitrate Positive (NEGATIVE) H 01/23/17 14:17 Urine Bilirubin Negative (NEGATIVE) 01/23/17 14:17 Urine Urobilinogen 0.2 E.U./dL (<1 E.U./dL) 01/23/17 14:17 Ur Leukocyte Esterase Large Earnest/uL (NEGATIVE) H 01/23/17 14:17 Urine RBC 0 - 2 /hpf (0-2) 01/23/17 14:17 Urine WBC Tntc /hpf (0-6) 01/23/17 14:17 Ur Epithelial Cells 0 - 2 /hpf (0-5) 01/23/17 14:17 Urine Bacteria Large (NEG) 01/23/17 14:17 Attending/Attestation - Attestation I have personally seen and examined this patient.: Yes I have fully participated in the care of the patient.: Yes I have reviewed all pertinent clinical information, including history, physical exam and plan: Yes Notes (Text): 01/31/17 17:17 Medical record note made by the resident after discussion with my direction and input after the patient was personally seen and examined by me. I have reviewed the chart and agree that the record accurately reflects by personal performance of the history, physical exam, data review, and medical decision-making, in the course for the patient. I have also personally directed the plan of care.
[2017-01-27] MEDS ORDERED: Meropenem 1g/NS 100mL IVPB 1 GM/100 ML PIGGYBACK IVPB SCH (06:00)
--- NOTE | 2017-01-27 08:41 | CON ---
DATE: 01/26/2017 The patient seen early this morning in room 570, bed 1. CHIEF COMPLAINT: Positive for urine culture times 1 day duration. HISTORY OF PRESENT ILLNESS: This is a 71-year-old female with past medical history of hypertension, kidney disease, dyslipidemia, cerebrovascular accident, anxiety, history of Morganella morganii, History of GI bleed, history of proteus bacteremia. The patient also had right nephrostomy tube. She is allergic to quinolone, ceftriaxone and amoxicillin who was admitted from assisted with hematuria. No fevers or chills reported. No chest pain. No shortness of breath, abdominal pain or diarrhea. PAST MEDICAL HISTORY: Significant for hypertension, kidney disease, dyslipidemia, cerebrovascular accident, anxiety, and history of proteus bacteremia. PAST SURGICAL HISTORY: Significant for right nephrostomy tube. The patient at this time also had Hirsch catheter. ALLERGIES: CIPRO, LEVAQUIN AND QUINOLONES. MEDICATIONS AT HOME: Reveals the patient's assisted records are reviewed. PHYSICAL EXAMINATION VITAL SIGNS: Temperature is 98, blood pressure is 172/50, respiratory rate of 22, and heart rate of 62. HEENT: Examination of HEENT is unremarkable. NECK: Supple. LUNGS: Decreased breath sounds. HEART: S1 and S2. ABDOMEN: Soft and nontender. LABORATORY DATA: Examination reveals white count is 4.3, hemoglobin of 11, and platelets of 200. Chemistries reveal the BUN of 12, and creatinine of 0.6. Urinalysis reveals too numerous to count of WBCs with large bacteria. Microbiology reveals ESBL E. Coli, urinary tract infection and/or cystitis. ASSESSMENT AND PLAN: This is a 71-year-old female with history of Morganella morganii, urinary tract infection, history of Enterococcus urinary tract infection, history of Proteus urinary tract infection and history of anxiety and Proteus bacteremia and kidney disease, now admitted with hematuria with right nephrostomy tube with extended-spectrum beta-lactamase Escherichia coli and urinary tract infection with completed short course of meropenem and 5 days of meropenem and we will follow closely with you. Case was discussed with team. We will also keep the patient on extended-spectrum beta-lactamase precautions. Sin Romano MD
== END 2017-01-26 22:43 | DRG 699 ==
LOC: ED 13:00 → ERH 18:14 → 5RSO 19:09
PROVIDERS: ADMIT Family Medicine; ATTEND Internal Medicine
PROC: 0T9B70Z Drainage of Bladder with Drainage Device, Via Natural or Artificial Opening (ICD-10-PCS; 2017-01-24)
PROC: 0T25X0Z Change Drainage Device in Kidney, External Approach (ICD-10-PCS; principal; 2017-01-26)
DX: N99.520 Hemorrhage of incontinent external stoma of urinary tract (principal); N39.0 Urinary tract infection, site not specified; I69.354 Hemiplegia and hemiparesis following cerebral infarction affecting left non-dominant side; F03.90 Unspecified dementia, unspecified severity, without behavioral disturbance, psychotic disturbance, mood disturbance, and anxiety; N19 Unspecified kidney failure; I10 Essential (primary) hypertension; B96.20 Unspecified Escherichia coli [E. coli] as the cause of diseases classified elsewhere; E11.9 Type 2 diabetes mellitus without complications; N13.2 Hydronephrosis with renal and ureteral calculous obstruction; D64.9 Anemia, unspecified; Y83.3 Surgical operation with formation of external stoma as the cause of abnormal reaction of the patient, or of later complication, without mention of misadventure at the time of the procedure; F41.9 Anxiety disorder, unspecified; K21.9 Gastro-esophageal reflux disease without esophagitis; R31.0 Gross hematuria; Z79.4 Long term (current) use of insulin; Z87.891 Personal history of nicotine dependence; Z79.82 Long term (current) use of aspirin

== ENCOUNTER 2017-04-28 16:39 | Inpatient (IN) | payer MEDICARE, MEDICAID ==
--- NOTE | 2017-04-28 16:57 | ED PDOC ---
Arrival/HPI - General Time Seen by Provider: 04/28/17 16:42 Historian: Patient - History of Present Illness Narrative History of Present Illness (Text): 04/28/17 16:57 Information taken from patient's nursing chart. a 71 year old female, whose past medical history includes hypertension, CVA with left hemiplegia, renal failure, diabetes, hydronephrosis with nephrostomy, dementia, a-fib, and anemia, is presenting to the Emergency department sent from [facility] for hematuria seen on Mon catheter, lethergic, and fever since early today. Patient is not alert. 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 - Cardiac Hx Cardiac Disorders: Yes Hx Hypertension: Yes - Pulmonary Hx Pneumonia: Yes - Neurological HX Cerebrovascular Accident: Yes - HEENT Hx HEENT Disorder: No - Renal Hx Renal Failure: Yes - Endocrine/Metabolic Hx Diabetes Mellitus Type 2: Yes - Hematological/Oncological Hx Blood Disorders: No - Integumentary Hx Dermatological Disorder: No Other/Comment: healed sacral and left lower buttock wounds, stge 3 wound to left hand 3rd finger 1cm round wound bed white surrounded by red skin, 2nd finger stg 2 .3cm round small opening wound bed red surrounding skin red, stg 2 left thumb .5 round wound bed red surrounded by red skin, left hand contracted into a fist, left arm contracted, right heel dry and red - Musculoskeletal/Rheumatological Hx Musculoskeletal Disorders: Yes (HX. L HIP FX.) Hx Falls: Yes - Gastrointestinal Hx Gastrointestinal Disorders: Yes Hx Gastroesophageal Reflux: Yes - Genitourinary/Gynecological Hx Genitourinary Disorders: Yes Hx Hematuria: Yes Hx Incontinence: Yes Hx Urinary Tract Infection: Yes - Psychiatric Hx Psychophysiologic Disorder: No Hx Emotional Abuse: No Hx Physical Abuse: No Hx Substance Use: No - Surgical History Hx Orthopedic Surgery: Yes (L hip orif) Other/Comment: cysto with stents, cecal mass excision. R arm PICC - Anesthesia Hx Anesthesia: Yes Hx Anesthesia Reactions: No Hx Malignant Hyperthermia: No - Suicidal Assessment Feels Threatened In Home Enviroment: No Family/Social History - Physician Review Nursing Documentation Reviewed: Yes Family/Social History: Other (noncontributory) Smoking Status: Unknown If Ever Smoked Hx Alcohol Use: No Hx Substance Use: No Hx Substance Use Treatment: No Allergies/Home Meds Allergies/Adverse Reactions: Allergies ciprofloxacin [From Cipro] Allergy (Verified 12/06/16 18:55) RASH levofloxacin [From Levaquin] Allergy (Verified 12/06/16 18:55) RASH Quinolones Allergy (Verified 12/06/16 18:55) RASH Home Medications: Home Meds Medication Instructions Recorded Confirmed Acetaminophen [Tylenol 325mg tab] 325 mg PO Q4H PRN 11/27/16 01/23/17 Aluminum Hydroxide/Magnesium H 30 ml PO Q4H PRN 11/27/16 01/23/17 [Maalox 30 ml] Aspirin [Aspirin Chewable] 81 mg PO DAILY 11/27/16 01/23/17 Enoxaparin [Lovenox] 40 mg SQ DAILY 11/27/16 01/23/17 Loperamide [Imodium] 4 mg PO Q6H PRN 11/27/16 01/23/17 Magnesium Hydroxide [Milk Of 400 mg PO HS PRN 11/27/16 01/23/17 Magnesia] Prochlorperazine [Compro] 25 mg RC BID PRN 11/27/16 01/23/17 Sod Phos,M-B/Na Phos,Di-Ba [Fleet 133 ml RC Q8H PRN 11/27/16 01/23/17 Enema] Review of Systems - Review of Systems Systems not reviewed;Unavailable: Altered Mental Status Physical Exam Vital Signs Temp Pulse Resp BP Pulse Ox 04/28/17 18:10 102.4 F H 04/28/17 17:14 102.4 F H 102 H 30 H 161/90 H 93 L 04/28/17 17:09 102.4 F H 106 H 32 H 161/90 H 93 L Temperature: Febrile Blood Pressure: Hypertensive Pulse: Tachycardic Respiratory Rate: Normal Appearance: Positive for: Comfortable, Ill-Appearing Pain Distress: None - Systems Exam Head: Present: Atraumatic, Normocephalic Pupils: Present: PERRL Extroacular Muscles: Present: EOMI Conjunctiva: Present: Normal Mouth: Present: Moist Mucous Membranes Neck: Present: Normal Range of Motion, Trachea Midline. No: Meningeal Signs, Lymphadenopathy Respiratory/Chest: Present: Clear to Auscultation, Good Air Exchange. No: Respiratory Distress, Accessory Muscle Use, Wheezes, Rales, Retracting, Rhonchi Cardiovascular: Present: Regular Rate and Rhythm, Normal S1, S2. No: Murmurs Abdomen: Present: Normal Bowel Sounds, Ostomy Tubes, Other (mon catheter with dark urine, faulty odor). No: Tenderness, Distention, Peritoneal Signs Back: Present: Normal Inspection. No: CVA Tenderness Upper Extremity: Present: Normal Inspection, Normal ROM, NORMAL PULSES, Neurovascularly Intact, Capillary Refill < 2s. No: Cyanosis, Edema Lower Extremity: Present: Normal Inspection, NORMAL PULSES, Normal ROM, Neurovascularly Intact, Capillary Refill < 2 s. No: Edema, CALF TENDERNESS Neurological: Present: GCS=15, CN II-XII Intact, Speech Normal, Motor Func Grossly Intact, Normal Sensory Function, Normal Cerebellar Funct, Gait Normal, Memory Normal Skin: Present: Warm, Dry, Normal Color. No: Rashes Psychiatric: Present: Alert, Oriented x 3 Medical Decision Making ED Course and Treatment: 04/28/17 19:[address] Steen regarding patient history of fever, lethargic, diaphoresis, hematuria. We also reviewed labs, cxr. Dr. Steen agreed with plan for admission. He also recommended to have have medical record transcriber see patient. resident buyer was paged. 04/28/17 19:37 I spoke with [employer] Instructor regarding patient history, physical exam, labs, and cxr finding. He is aware I spoke with Dr. Steen. He stated he will come to ED to examine patient. Re-evaluation Time: 19:31 Reassessment Condition: Re-examined, Improving,but remains with symptoms - Lab Interpretations Lab Results: 04/28/17 17:56 04/28/17 17:56 Lab Results 04/28/17 17:56: Sodium 150 H, Chloride 110 H, Potassium 4.0, Carbon Dioxide 28, Anion Gap 16, BUN 91 H, Creatinine 2.1 H, Est GFR ( Amer) 28, Est GFR ( Non-Af Amer) 23, Random Glucose 237 H, Calcium 9.7, Phosphorus 3.4, Magnesium 2.9 H, Total Bilirubin 0.9, AST 64 H, ALT 32, Alkaline Phosphatase 164 H, Troponin I 0.12 D, NT-Pro-B Natriuret Pep 8280 H, Total Protein 7.4, Albumin 3.4, Globulin 4.0, Albumin/Globulin Ratio 0.9 L 04/28/17 17:56: pO2 41, VBG pH 7.48 H, VBG pCO2 40.0, VBG HCO3 29.8 H, VBG Total CO2 31.0 H, VBG O2 Sat (Calc) 81.9 H, VBG Base Excess 5.8 H, VBG Potassium 4.0, Sodium 146.0, Chloride 111.0 H, Glucose 243 H, Lactate 1.6, FiO2 21.0, Venous Blood Potassium 4.0 04/28/17 17:56: PT 11.3, INR 1.04, APTT 25.9 04/28/17 17:56: WBC 8.6 D, RBC 4.34, Hgb 12.0, Hct 36.8, MCV 84.8, MCH 27.6, MCHC 32.6, RDW 16.5 H, Plt Count 107 L, MPV 12.7 H, Gran % 83.5 H, Lymph % (Auto ) 6.1 L, [place] % (Auto) 10.2 H, Eos % (Auto) 0.1 L, Baso % (Auto) 0.1, Gran # 7.20 H, Lymph # 0.5 L, [place] # 0.9 H, Eos # 0.0, Baso # 0.01 I have reviewed the lab results: Yes Interpretation: Abnormal lab values - RAD Interpretation Narrative RAD Interpretations (Text): 04/28/17 19:31 CXR: NAD Radiology Orders: 04/28/17 17:29 CHEST PORTABLE [RAD] Stat - Medication Orders Current Medication Orders: Discontinued Medications Acetaminophen (Tylenol 650 Mg Supp) 650 mg RC STAT STA Stop: 04/28/17 17:33 Last Admin: 04/28/17 18:10 Dose: 650 mg MAR Pain/Vitals Document 04/28/17 18:10 MR (Rec: 04/28/17 18:10 MR [id number]) Pain Reassessment Is This A Pain ReAssessment? No Vitals Temperature (97.6 F-99.6 F) 102.4 F Temperature Source Rectal Sodium Chloride (Sodium Chloride 0.9%) 1,000 mls @ 999 mls/hr IV .Q1H1M STA Stop: 04/28/17 18:31 Last Admin: 04/28/17 18:09 Dose: 999 mls/hr eMAR Start Stop Document 04/28/17 18:09 MR (Rec: 04/28/17 18:09 MR [id number]) Intravenous Solution Start Date 04/28/17 Start Time 18:09 End Date 04/28/17 End time 19:10 Total Infusion Time 61 Ceftriaxone Sodium (Rocephin 1 Gram Ivpb) 1 gm in 100 mls @ 200 mls/hr IVPB STAT STA PRN Reason: Protocol Stop: 04/28/17 18:03 Last Admin: 04/28/17 18:10 Dose: 200 mls/hr eMAR Start Stop Document 04/28/17 18:10 MR (Rec: 04/28/17 18:10 MR [id number]) Intravenous Solution Start Date 04/28/17 Start Time 18:10 End Date 04/28/17 End time 18:40 Total Infusion Time 30 Disposition/Present on Arrival - Present on Arrival Any Indicators Present on Arrival: No History of DVT/PE: No History of Uncontrolled Diabetes: No Urinary Catheter: Yes History Surgical Site Infection Following: None - Disposition Have Diagnosis and Disposition been Completed?: Yes Diagnosis: Dehydration with hypernatremia, Altered mental status, unspecified, Acute cystitis with hematuria, SIRS (systemic inflammatory response syndrome) Disposition: HOSPITALIZED Disposition Time: 19:34 Patient Plan: Admission Patient Problems: Current Active Problems Problem Status Onset Acute cystitis with hematuria Acute Altered mental status, unspecified Acute Dehydration with hypernatremia Acute SIRS (systemic inflammatory response syndrome) Acute Condition: STABLE Referrals: Lee Colon MD [Primary Care Provider] - Follow up with primary
[2017-04-28 17:27] VITALS: BMI 28.7
[2017-04-28] MEDS ORDERED: Sodium Chloride 0.9% 1,000 ML IV STA (17:31)
[2017-04-28] MEDS ORDERED: cefTRIAXone 1 gm 1 GM/100 ML BAG IVPB STA (17:34)
[2017-04-28 18:21] LABS: VENOUS BLOOD GAS BASE EXCESS 5.8 mmol/L (0.0-2.0); VENOUS BLOOD PH 7.48 (7.32-7.43)
[2017-04-28 18:24] LABS: BASO # 0.01 K/mm3 (0.0-2.0); BASO % 0.1 % (0.0-3.0); EOS % 0.1 % (1.5-5.0); GRAN # 7.2 (1.4-6.5); GRAN % 83.5 % (50.0-68.0); HEMATOCRIT 36.8 % (36.0-48.0); LYMPH # 0.5 (1.2-3.4); LYMPH % 6.1 % (22.0-35.0); MEAN CELL VOLUME 84.8 fl (80.0-105.0); MEAN CORPUSCULAR HEMOGLOBIN 27.6 pg (25.0-35.0); MEAN CORPUSCULAR HGB CONC 32.6 g/dl (31.0-37.0); MEAN PLATELET VOLUME 12.7 fl (7.0-11.0); MONO # 0.9 (0.1-0.6); MONO % 10.2 % (1.0-6.0); RED CELL DISTRIBUTION WIDTH 16.5 % (11.5-14.5); WHITE BLOOD COUNT 8.6 10^3/ul (4.5-11.0)
[2017-04-28 18:32] LABS: ALB/GLOB RATIO 0.9 (1.1-1.8); BILIRUBIN,TOTAL 0.9 mg/dL (0.2-1.3); CALCIUM 9.7 mg/dL (8.4-10.5); MAGNESIUM 2.9 mg/dL (1.7-2.2); PHOSPHOROUS 3.4 mg/dL (2.5-4.5); TOTAL PROTEIN 7.4 g/dL (5.8-8.3)
[2017-04-28 18:41] LABS: INR 1.04 (0.93-1.08); PARTIAL THROMBOPLASTIN TIME 25.9 Seconds (25.1-36.5)
[2017-04-28 18:46] LABS: TROPONIN I 0.12 ng/mL
[2017-04-28] MEDS ORDERED: Sodium Chloride 0.45% 1,000 ML IV SCH (22:15)
[2017-04-29 01:12] LABS: ARTERIAL BLOOD GAS HCO3 25.5 mmol/L (21-28); ARTERIAL BLOOD GAS PH 7.51 (7.35-7.45)
--- NOTE | 2017-04-29 07:07 | CP.PCM.HP ---
History of Present Illness - History of Present Illness History of Present Illness: CC: Hematuria Pt is a 71 yo female with PMH of pyelonephritis, kidney stones with stents, hydronephrosis, pneumonia, pleural effusion, CVA, HLD, HTN, DM , chronic pain, hip fracture and CKD sent from [facility] for blood seen in Mon catheter, lethergy, and fever since early today. On review of chart, pt has had nephrostomy tube for past year for recurrent kidney stones with failed stenting and recurrent hydronephrosis. Pt has an indwelling catheter. Pt was arousable to pain, but not responsive to questioning. History is limited due to patient's altered mental status. PMD: [place] PMH: pyelonephritis, kidney stones with stents, hydronephrosis, pneumonia, pleural effusion, CVA, HLD, HTN, DM , chronic pain, hip fracture, anxiety, and CKD PSHx: nephrostomy tube placement, cystoscopy with stent placement, cecal mass excision, orthopedic surgery of left hip Social hx: former smoker, denies alcohol or illicit drug use Allergy: ciprofloxacin-rash, levofloxacin- rash, quinolones- rash FHx: Non-contributory Meds: Reviewed as per MAR Present on Admission - Present on Admission Any Indicators Present on Admission: No Review of Systems - Review of Systems Review of Systems: ROS unobtainable due to patient's altered mental status. Past Patient History - Infectious Disease Hx of Infectious Diseases: VRE - Past Social History Smoking Status: aphasic - CARDIAC Hx Cardiac Disorders: Yes Hx Hypertension: Yes - PULMONARY Hx Pneumonia: Yes - NEUROLOGICAL HX Cerebrovascular Accident: Yes - HEENT Hx HEENT Problems: No - RENAL Hx Renal Failure: Yes - ENDOCRINE/METABOLIC Hx Diabetes Mellitus Type 2: Yes - HEMATOLOGICAL/ONCOLOGICAL Hx Blood Disorders: No - INTEGUMENTARY Hx Dermatological Problems: No Other/Comment: left buttocks reddened. Healed ulcer - MUSCULOSKELETAL/RHEUMATOLOGICAL Hx Falls: No (unable to obtained,unresponesive) - GASTROINTESTINAL Hx Gastrointestinal Disorders: Yes Hx Gastroesophageal Reflux: Yes - GENITOURINARY/GYNECOLOGICAL Hx Genitourinary Disorders: Yes Hx Hematuria: Yes Hx Incontinence: Yes Hx Urinary Tract Infection: Yes - PSYCHIATRIC Hx Psychophysiologic Disorder: No Hx Emotional Abuse: No Hx Physical Abuse: No - SURGICAL HISTORY Hx Orthopedic Surgery: Yes (L hip orif) Other/Comment: cysto with stents, cecal mass excision. R arm PICC - ANESTHESIA Hx Anesthesia: Yes Hx Anesthesia Reactions: No Hx Malignant Hyperthermia: No Meds Allergies/Adverse Reactions: Allergies Allergy/AdvReac Type Severity Reaction Status Date / Time ciprofloxacin [From Cipro] Allergy RASH Verified 12/06/16 18:55 levofloxacin [From Levaquin] Allergy RASH Verified 12/06/16 18:55 Quinolones Allergy RASH Verified 12/06/16 18:55 Physical Exam - Constitutional Appears: Toxic - Head Exam Head Exam: ATRAUMATIC, NORMOCEPHALIC - Eye Exam Eye Exam: PERRL - ENT Exam ENT Exam: Mucous Membranes Dry - Neck Exam Neck exam: Negative for: Lymphadenopathy, Thyromegaly - Respiratory Exam Respiratory Exam: Clear to Auscultation Bilateral. absent: Rales, Rhonchi, Wheezes - Cardiovascular Exam Cardiovascular Exam: Tachycardia, REGULAR RHYTHM, +S1, +S2, Systolic Murmur ( greatest at right sternal border 3/6). absent: Gallop, Rubs - GI/Abdominal Exam GI & Abdominal Exam: Soft. absent: Distended, Guarding, Organomegaly, Rebound, Tenderness - Exam Additional comments: 100 cc brown urine noted in mon catheter, brown fluid noted in nephrostomy bag - Extremities Exam Additional comments: Left arm contracted, shoulder adducted, elbow flexed - Neurological Exam Neurological exam: Altered Additional comments: Somnolent, arousable to pain only - Skin Skin Exam: Diaphoretic, Intact, Warm Results - Vital Signs Recent Vital Signs: Last Vital Signs Temp 99.7 F H 04/29/17 05:46 Pulse 102 H 04/29/17 05:46 Resp 20 04/29/17 05:46 BP 178/91 H 04/29/17 05:46 Pulse Ox 96 04/28/17 21:13 - Labs Result Diagrams: 04/28/17 17:56 04/28/17 17:56 Labs: Laboratory Results - last 24 hr 04/29/17 04/29/17 00:30 01:09 pCO2 32 L pO2 76.0 L HCO3 25.5 ABG pH 7.51 H ABG Total CO2 26.5 ABG O2 Saturation 96.7 ABG Base Excess 3.0 ABG Potassium 3.1 L Sodium 149.0 H Chloride 117.0 H Glucose 225 H Lactate 1.0 FiO2 28.0 Troponin I 0.10 Arterial Blood Potassium 3.1 L Assessment & Plan - Assessment and Plan (Free Text) Assessment: 72 yo female with PMH of pyelonephritis, kidney stones with stents, hydronephrosis, pneumonia, pleural effusion, CVA, HLD, HTN, DM , chronic pain, hip fracture and CKD will be admitted for evaluation and treatment for AMS 2/2 urosepsis. Plan: 1. AMS 2/2 Urosepsis - Pt with indwelling mon catheter - WBC normal, however with left shift - Urology consulted - ID consulted - Rocephin 1 gm IVPB - Tylenol for fever - Troponin 0.12, f/u trend x2 - Lactate normal on VBG - F/u blood and urine cultures, procal, UA, ABG - Strict I's and O's - Maintain mon, change as needed - NPO 2. CKD - Cr 2.1, GFR 23 - Avoid nephrotoxic medications 3. CHF - BNP 8280 - Echo (11/30) showed mild to moderate LVH, mod to severe , mild MR, moderate pulm HTN 4. HTN - Hypertensive, tachycardic on admission - Lopressor IV - Hold PO medications due to pt status - Hold JOSH due to CKD 5. DM - Glucose on adm 237 - ISS - Accuchecks ACHS 6. Thrombocytopenia - Plt 107 - PT, PTT normal 7. Hyponatremia - Na 150 - 1/2 NS at 40 ml/hr - Cont to monitor GI/DVT PPx - Protonix - SCDs, no anticoaguation due to hematuria Pt is DNR/DNI. Pt discussed in detail with Dr. Steen. Shaun Savage, PGY1
[2017-04-29 07:14] LABS: HEMATOCRIT 35.8 % (36.0-48.0); MEAN CELL VOLUME 85.2 fl (80.0-105.0); MEAN CORPUSCULAR HEMOGLOBIN 26.9 pg (25.0-35.0); MEAN CORPUSCULAR HGB CONC 31.6 g/dl (31.0-37.0); MEAN PLATELET VOLUME 12.2 fl (7.0-11.0); RED CELL DISTRIBUTION WIDTH 16.8 % (11.5-14.5); WHITE BLOOD COUNT 6.7 10^3/ul (4.5-11.0)
[2017-04-29 07:27] LABS: ALB/GLOB RATIO 0.9 (1.1-1.8); BILIRUBIN,TOTAL 0.7 mg/dL (0.2-1.3); CALCIUM 9.1 mg/dL (8.4-10.5); MAGNESIUM 2.7 mg/dL (1.7-2.2); PHOSPHOROUS 3.6 mg/dL (2.5-4.5); POTASSIUM 3.7 mmol/L (3.6-5.0); TOTAL PROTEIN 6.9 g/dL (5.8-8.3)
[2017-04-29 07:35] LABS: TROPONIN I 0.1 ng/mL
[2017-04-29] MEDS: Insulin Lispro (humaLOG) LOW Coverage SC SCH ×3 (08:28→21:58)
--- NOTE | 2017-04-29 09:13 | RAD ---
HISTORY: Sepsis Patient COMPARISON: 01/23/2017 FINDINGS: LUNGS: No infiltrate. Evaluation of left base limited due to superimposed patient's hand. PLEURA: No significant pleural effusion identified, no pneumothorax apparent. CARDIOVASCULAR: Normal. OSSEOUS STRUCTURES: No significant abnormalities. VISUALIZED UPPER ABDOMEN: Normal. OTHER FINDINGS: None. IMPRESSION: No active disease.
[2017-04-29 09:53] LABS: PH,URINE 6.5 (4.7-8.0); URINE BILIRUBIN SMALL (NEGATIVE); URINE BLOOD LARGE (NEGATIVE); URINE GLUCOSE (UA) NEGATIVE (NEGATIVE); URINE KETONE TRACE mg/dL (NEGATIVE); URINE LEUKOCYTE ESTERASE LARGE Leu/uL (NEGATIVE); URINE PROTEIN >=300 mg/dL (<30 mg/dL); URINE UROBILINOGEN 0.2 E.U./dL (<1 E.U./dL)
[2017-04-29 09:55] LABS: URINE APPEARANCE TURBID (CLEAR); URINE COLOR YELLOW (YELLOW)
[2017-04-29] MEDS ORDERED: cefTRIAXone 1 gm 1 GM/100 ML BAG IVPB SCH (10:00)
[2017-04-29] MEDS ORDERED: Enoxaparin 40 mg Syringe SC SCH (10:00)
[2017-04-29 10:14] LABS: URINE BACTERIA MANY (NEG); URINE RBC TNTC /hpf (0-2); URINE WBC TNTC /hpf (0-6)
[2017-04-29] MEDS ORDERED: Sodium Chloride 0.45% 1,000 ML IV SCH (13:32)
--- NOTE | 2017-04-29 18:18 | CP.PCM.CON ---
History of Present Illness - History of Present Illness History of Present Illness: Infectious Disease Consultation: April 29, 2017 72 yo female sent for altered mental status. Not answering questions. Her hospitalization in January 2017 showed a patient who was awake and alert and able to express needs. The patient is lying in bed crosseyed and tracking only after heavy stimulation. Patient had fevers in the nursing facility ([facility] not sure if [place] or [place]). Fevers of 102.4 F here. PMHx: Pyelonephritis, nephrolithiasis, hydronephrosis, pneumonia, pleural effusion, CVA, HLD, HTN, DM , chronic pain, hip fracture, anxiety, and CKD PSHx: nephrostomy, cystoscopy with stent placement, cecal mass excision, left hip orthapedic surgery. Allergies: Quinolones Social Hx: Ex-smoker, no EtOH, no illicit drug use. Active Medications Acetaminophen (Tylenol 650 Mg Supp) 650 mg RC Q4H PRN PRN Reason: Fever >100.4 F Ceftriaxone Sodium (Rocephin 1 Gram Ivpb) 1 gm in 100 mls @ 100 mls/hr IVPB DAILY [facility] PRN Reason: Protocol Last Admin: 04/29/17 10:36 Dose: 100 mls/hr Sodium Chloride (Sodium Chloride 0.45%) 1,000 mls @ 65 mls/hr IV .[id number] [facility] Insulin Human Lispro (Humalog Low) 0 units SC ACHS [facility] PRN Reason: Protocol Last Admin: 04/29/17 12:12 Dose: 2 units Pantoprazole Sodium (Protonix Inj) 40 mg IVP DAILY [facility] Last Admin: 04/29/17 10:36 Dose: 40 mg Family Hx: none ROS: Unable to Obtain. Past Patient History - Infectious Disease Hx of Infectious Diseases: VRE - Past Social History Smoking Status: aphasic - CARDIAC Hx Cardiac Disorders: Yes Hx Hypertension: Yes - PULMONARY Hx Pneumonia: Yes - NEUROLOGICAL HX Cerebrovascular Accident: Yes - HEENT Hx HEENT Problems: No - RENAL Hx Renal Failure: Yes - ENDOCRINE/METABOLIC Hx Diabetes Mellitus Type 2: Yes - HEMATOLOGICAL/ONCOLOGICAL Hx Blood Disorders: No - INTEGUMENTARY Hx Dermatological Problems: No Other/Comment: left buttocks reddened. Healed ulcer - MUSCULOSKELETAL/RHEUMATOLOGICAL Hx Falls: No (unable to obtained,unresponesive) - GASTROINTESTINAL Hx Gastrointestinal Disorders: Yes Hx Gastroesophageal Reflux: Yes - GENITOURINARY/GYNECOLOGICAL Hx Genitourinary Disorders: Yes Hx Hematuria: Yes Hx Incontinence: Yes Hx Urinary Tract Infection: Yes - PSYCHIATRIC Hx Psychophysiologic Disorder: No Hx Emotional Abuse: No Hx Physical Abuse: No - SURGICAL HISTORY Hx Orthopedic Surgery: Yes (L hip orif) Other/Comment: cysto with stents, cecal mass excision. R arm PICC - ANESTHESIA Hx Anesthesia: Yes Hx Anesthesia Reactions: No Hx Malignant Hyperthermia: No Meds Allergies/Adverse Reactions: Allergies Allergy/AdvReac Type Severity Reaction Status Date / Time ciprofloxacin [From Cipro] Allergy RASH Verified 12/06/16 18:55 levofloxacin [From Levaquin] Allergy RASH Verified 12/06/16 18:55 Quinolones Allergy RASH Verified 12/06/16 18:55 - Medications Medications: Current Medications Acetaminophen (Tylenol 650 Mg Supp) 650 mg RC Q4H PRN PRN Reason: Fever >100.4 F Ceftriaxone Sodium (Rocephin 1 Gram Ivpb) 1 gm in 100 mls @ 100 mls/hr IVPB DAILY [facility] PRN Reason: Protocol Last Admin: 04/29/17 10:36 Dose: 100 mls/hr Sodium Chloride (Sodium Chloride 0.45%) 1,000 mls @ 65 mls/hr IV .[id number] [facility] Insulin Human Lispro (Humalog Low) 0 units SC ACHS [facility] PRN Reason: Protocol Last Admin: 04/29/17 12:12 Dose: 2 units Pantoprazole Sodium (Protonix Inj) 40 mg IVP DAILY [facility] Last Admin: 04/29/17 10:36 Dose: 40 mg Physical Exam - Constitutional Appears: Non-toxic, No Acute Distress, Chronically Ill - Head Exam Head Exam: ATRAUMATIC, NORMOCEPHALIC - Eye Exam Eye Exam: EOMI, PERRL Pupil Exam: NORMAL ACCOMODATION, PERRL Additional comments: cross eyed. - ENT Exam ENT Exam: Mucous Membranes Moist, Normal External Ear Exam, TM's Normal Bilaterally - Neck Exam Neck exam: Positive for: Full Rom, Normal Inspection - Respiratory Exam Respiratory Exam: Clear to Auscultation Bilateral, NORMAL BREATHING PATTERN. absent: Rales, Rhonchi, Wheezes - Cardiovascular Exam Cardiovascular Exam: Tachycardia, REGULAR RHYTHM, +S1, +S2, Systolic Murmur - GI/Abdominal Exam GI & Abdominal Exam: Normal Bowel Sounds, Soft. absent: Distended, Tenderness - Extremities Exam Additional comments: general weakness. contractures of the left arm from shoulder to wrist. - Neurological Exam Neurological exam: Altered Additional comments: at best arousable to pain and heavy stimuli. - Skin Skin Exam: Diaphoretic, Intact, Warm Results - Vital Signs Recent Vital Signs: Last Vital Signs Temp 100 F H 04/29/17 11:39 Pulse 108 H 04/29/17 11:39 Resp 20 04/29/17 11:39 BP 138/78 04/29/17 11:39 Pulse Ox 94 L 04/29/17 11:39 - Labs Result Diagrams: 04/29/17 07:08 04/29/17 07:08 Labs: Laboratory Results - last 24 hr 04/29/17 04/29/17 04/29/17 00:30 01:09 07:08 WBC RBC Hgb Hct MCV MCH MCHC RDW Plt Count MPV pCO2 32 L pO2 76.0 L HCO3 25.5 ABG pH 7.51 H ABG Total CO2 26.5 ABG O2 Saturation 96.7 ABG Base Excess 3.0 ABG Potassium 3.1 L Sodium 149.0 H 153 H Chloride 117.0 H 114 H Glucose 225 H Lactate 1.0 FiO2 28.0 Potassium 3.7 Carbon Dioxide 26 Anion Gap 17 BUN 95 H Creatinine 2.2 H Est GFR ( Amer) 27 Est GFR (Non-Af Amer) 22 POC Glucose (mg/dL) Random Glucose 262 H Calcium 9.1 Phosphorus 3.6 Magnesium 2.7 H Total Bilirubin 0.7 AST 88 H D ALT 47 Alkaline Phosphatase 171 H Troponin I 0.10 0.10 Total Protein 6.9 Albumin 3.2 Globulin 3.7 Albumin/Globulin Ratio 0.9 L Arterial Blood Potassium 3.1 L Urine Color Urine Appearance Urine pH Ur Specific [place] Urine Protein Urine Glucose (UA) Urine Ketones Urine Blood Urine Nitrate Urine Bilirubin Urine Urobilinogen Ur Leukocyte Esterase Urine RBC Urine WBC Urine Bacteria Fine Granular Casts Urine Osmolality Ur Random Creatinine Ur Random Sodium 04/29/17 04/29/17 04/29/17 07:08 07:36 09:30 WBC 6.7 D RBC 4.20 Hgb 11.3 L Hct 35.8 L MCV 85.2 MCH 26.9 MCHC 31.6 RDW 16.8 H Plt Count 99 L MPV 12.2 H pCO2 pO2 HCO3 ABG pH ABG Total CO2 ABG O2 Saturation ABG Base Excess ABG Potassium Sodium Chloride Glucose Lactate FiO2 Potassium Carbon Dioxide Anion Gap BUN Creatinine Est GFR ( Amer) Est GFR (Non-Af Amer) POC Glucose (mg/dL) 251 H Random Glucose Calcium Phosphorus Magnesium Total Bilirubin AST ALT Alkaline Phosphatase Troponin I Total Protein Albumin Globulin Albumin/Globulin Ratio Arterial Blood Potassium Urine Color Urine Appearance Urine pH Ur Specific [place] Urine Protein Urine Glucose (UA) Urine Ketones Urine Blood Urine Nitrate Urine Bilirubin Urine Urobilinogen Ur Leukocyte Esterase Urine RBC Urine WBC Urine Bacteria Fine Granular Casts Urine Osmolality 432 Ur Random Creatinine Ur Random Sodium 04/29/17 04/29/17 09:30 09:30 WBC RBC Hgb Hct MCV MCH MCHC RDW Plt Count MPV pCO2 pO2 HCO3 ABG pH ABG Total CO2 ABG O2 Saturation ABG Base Excess ABG Potassium Sodium Chloride Glucose Lactate FiO2 Potassium Carbon Dioxide Anion Gap BUN Creatinine Est GFR ( Amer) Est GFR (Non-Af Amer) POC Glucose (mg/dL) Random Glucose Calcium Phosphorus Magnesium Total Bilirubin AST ALT Alkaline Phosphatase Troponin I Total Protein Albumin Globulin Albumin/Globulin Ratio Arterial Blood Potassium Urine Color Yellow Urine Appearance Turbid Urine pH 6.5 Ur Specific [place] 1.020 Urine Protein >=300 H Urine Glucose (UA) Negative Urine Ketones Trace H Urine Blood Large H Urine Nitrate Positive H Urine Bilirubin Small H Urine Urobilinogen 0.2 Ur Leukocyte Esterase Large H Urine RBC Tntc Urine WBC Tntc Urine Bacteria Many Fine Granular Casts 0 - 2 Urine Osmolality Ur Random Creatinine 67 Ur Random Sodium 43 Assessment & Plan - Assessment and Plan (Free Text) Assessment: 72 yo female with extensive past medical history presenting with AMS. Fevers up to 102.4 F. Urinalysis highly suggestive of UTI. Currently on Ceftriaxone. Patient is growing gram negative rods in the blood cultures. History of ESBL + E. Coli in the distant past. Would change the patient to Meropenem for treatment. The patient also has renal insuffiency. Ordered CT scan of the head given the severe change in mental status. Awaiting final blood culture results. Patient with Bacteremia. Supportive care Thank you for allowing me to participate in the care of the patient, we will follow with you.
--- NOTE | 2017-04-29 21:31 | CT ---
EXAM: CT Head Without Intravenous Contrast EXAM DATE/TIME: 04/29/2017 6:45 PM CLINICAL HISTORY: 72 years old, female; Pain; Headache; Headache not specified TECHNIQUE: Axial computed tomography images of the head/brain without intravenous contrast. All CT scans at this facility use one or more dose reduction techniques, viz.: automated exposure control; ma/kV adjustment per patient size (including targeted exams where dose is matched to indication; i.e. head); or iterative reconstruction technique. COMPARISON: CT - HEAD W/O CONTRAST 2015-10-25 22:18 FINDINGS: Brain: There is prominence of sulci gyri and ventricles increased since the prior study.. There is no midline shift. There is decreased attenuation in periventricular white matter.There are basal ganglia calcifications bilaterally. There are no focal masses. There are no focal hemorrhages. Blackburn-white differentiation is visualized. Ventricles: See above. Bones: Cranial vault is intact. Soft tissues: unremarkable Sinuses: There is no acute sinusitis. Ears and mastoids: Middle ears and mastoids are unremarkable. Orbits: Orbital contents are unremarkable. IMPRESSION: No acute intracranial abnormality; interval progression of small vessel disease and atrophic changes
[2017-04-29] MEDS: Meropenem 500 MG in Sodium Chloride 0.9% 100 ML IVPB SCH (21:58)
--- NOTE | 2017-04-29 23:09 | CARD ---
APPROVED REPORT EKG Measurement Heart [id number] CO [id number] <Conclusion> Unusual P axis, possible ectopic atrial tachycardia Left axis deviation Incomplete right bundle branch block Nonspecific T wave abnormality Abnormal ECG
[2017-04-30 06:41] LABS: HEMATOCRIT 34.4 % (36.0-48.0); MEAN CELL VOLUME 87.1 fl (80.0-105.0); MEAN CORPUSCULAR HEMOGLOBIN 26.8 pg (25.0-35.0); MEAN CORPUSCULAR HGB CONC 30.8 g/dl (31.0-37.0); MEAN PLATELET VOLUME 11.5 fl (7.0-11.0); RED CELL DISTRIBUTION WIDTH 17.4 % (11.5-14.5); WHITE BLOOD COUNT 7.5 10^3/ul (4.5-11.0)
[2017-04-30 06:53] LABS: ALB/GLOB RATIO 0.9 (1.1-1.8); BILIRUBIN,TOTAL 0.7 mg/dL (0.2-1.3); CALCIUM 8.5 mg/dL (8.4-10.5); POTASSIUM 3.4 mmol/L (3.6-5.0); TOTAL PROTEIN 6.5 g/dL (5.8-8.3)
[2017-04-30] MEDS: Insulin Lispro (humaLOG) LOW Coverage SC SCH ×5 (08:18→21:23)
[2017-04-30] MEDS: Meropenem 500 MG in Sodium Chloride 0.9% 100 ML IVPB SCH ×2 (10:12→21:18)
[2017-04-30] MEDS: Sodium Chloride 0.45% 1,000 ML IV SCH (10:13)
[2017-04-30] MEDS: Potassium Chl 10 mEq in D5-1/2 1,000 ML IV SCH (12:30)
--- NOTE | 2017-04-30 14:12 | CP.PCM.PN ---
Subjective - Date & Time of Evaluation Date of Evaluation: 04/30/17 Time of Evaluation: 06:10 - Subjective Subjective: Patient seen and evaluated bedside. Patient was asleep, i had to call her name several times to open her eyes. She opened her eyes but then she did not speak or say anything. Unable to obtain ROS due to AMS. Objective - Vital Signs/Intake and Output Vital Signs (last 24 hours): Temp Pulse Resp BP Pulse Ox 98.2 F 101 H 20 165/82 H 97 04/30/17 07:00 04/30/17 07:00 04/30/17 07:00 04/30/17 07:00 04/30/17 07:00 Intake and Output: 04/30/17 04/30/17 06:59 18:59 Intake Total 780 Output Total 550 Balance 230 - Medications Medications: Current Medications Acetaminophen (Tylenol 650 Mg Supp) 650 mg RC Q4H PRN PRN Reason: Fever >100.4 F Meropenem 500 mg/ Sodium (Chloride) 100 mls @ 100 mls/hr IVPB Q12 [facility] PRN Reason: Protocol Last Admin: 04/30/17 10:12 Dose: 100 mls/hr Sodium Chloride (Sodium Chloride 0.45%) 1,000 mls @ 100 mls/hr IV .Q10H [facility] Last Admin: 04/30/17 10:13 Dose: 100 mls/hr Potassium Chloride/Dextrose/Sod Cl (Potassium Chl 10 Meq In D5-1/2ns) 1,000 mls @ 100 mls/hr IV .Q10H [facility] Insulin Human Lispro (Humalog Low) 0 units SC ACHS [facility] PRN Reason: Protocol Last Admin: 04/30/17 12:28 Dose: 2 units Pantoprazole Sodium (Protonix Inj) 40 mg IVP DAILY [facility] Last Admin: 04/30/17 10:13 Dose: 40 mg - Labs Labs: 04/30/17 06:00 04/30/17 06:00 PT 11.3 SECONDS (9.4-12.5) 04/28/17 17:56 INR 1.04 (0.93-1.08) 04/28/17 17:56 APTT 25.9 Seconds (25.1-36.5) 04/28/17 17:56 - Head Exam Head Exam: ATRAUMATIC, NORMAL INSPECTION, NORMOCEPHALIC - Eye Exam Eye Exam: Normal appearance - ENT Exam ENT Exam: Mucous Membranes Moist - Respiratory Exam Respiratory Exam: Clear to Ausculation Bilateral, NORMAL BREATHING PATTERN - Cardiovascular Exam Cardiovascular Exam: Tachycardia, REGULAR RHYTHM, +S1, +S2 - GI/Abdominal Exam GI & Abdominal Exam: absent: Distended - Neurological Exam Neurological Exam: Altered Assessment and Plan - Assessment and Plan (Free Text) Assessment: 72 yo female with PMH of pyelonephritis, kidney stones with stents, hydronephrosis, pneumonia, pleural effusion, CVA, HLD, HTN, DM , chronic pain, hip fracture and CKD will be admitted for evaluation and treatment for AMS 2/2 urosepsis. Plan: 1. AMS 2/2 Urosepsis - Pt with indwelling mon catheter - WBC 3.5 today - Urology consulted - ID consulted-Dr. Wynn: switched abx to meropenem due to blood culture, Head CT ordered as well which did not reveal any intracranial abnormality - Started on meropenem - Tylenol for fever - Troponins negativex3 - Lactate normal on VBG - blood cultures showed gram - rods - urine cultures showed gram - rods - procal: -UA showing leukocyte eterase - Strict I's and O's - Maintain mon, change as needed - NPO 2. CKD - Cr 2.4 - Avoid nephrotoxic medications 3. CHF - BNP 8280 - Echo (11/30) showed mild to moderate LVH, mod to severe , mild MR, moderate pulm HTN 4. HTN - Hypertensive, tachycardic on admission - Lopressor IV - Hold PO medications due to pt status - Hold JOSH due to CKD 5. DM - Glucose on adm 237, current 213 - ISS - Accuchecks ACHS 6. Thrombocytopenia - Plt 107 yesterday 110 today - PT, PTT normal 7. Hypernatremia - Na 157 - 1/2 NS at 100 ml/hr - Cont to monitor 8. Hypokalemia -K 3.4 -repleted -monitor -K 10meq in 1/2NS GI/DVT PPx - Protonix - SCDs, no anticoaguation due to hematuria Pt is DNR/DNI.
--- NOTE | 2017-04-30 17:43 | CP.PCM.PN ---
Subjective - Date & Time of Evaluation Date of Evaluation: 04/30/17 Time of Evaluation: 16:00 - Subjective Subjective: Infectious Disease Follow Up: April 30, 2017 72 yo female sent for altered mental status. Not answering questions. Her hospitalization in January 2017 showed a patient who was awake and alert and able to express needs. The patient is lying in bed crosseyed and tracking only after heavy stimulation. Patient had fevers in the nursing facility ([facility] not sure if [place] or [place]). Fevers of 102.4 F here. Tmax of 100.5 F in past 24 hours. Bacteremia and UTI. Gram negative rods are predominant. Head CT showing no new abnormalities. Interval progression of small vessel disease as per reading. Objective - Vital Signs/Intake and Output Vital Signs (last 24 hours): Temp Pulse Resp BP Pulse Ox 100.5 F H 96 H 21 130/81 97 04/30/17 16:31 04/30/17 16:28 04/30/17 16:28 04/30/17 16:28 04/30/17 16:28 Intake and Output: 04/30/17 04/30/17 06:59 18:59 Intake Total 780 Output Total 550 Balance 230 - Medications Medications: Current Medications Acetaminophen (Tylenol 650 Mg Supp) 650 mg RC Q4H PRN PRN Reason: Fever >100.4 F Last Admin: 04/30/17 16:31 Dose: 650 mg Meropenem 500 mg/ Sodium (Chloride) 100 mls @ 100 mls/hr IVPB Q12 [facility] PRN Reason: Protocol Last Admin: 04/30/17 10:12 Dose: 100 mls/hr Sodium Chloride (Sodium Chloride 0.45%) 1,000 mls @ 100 mls/hr IV .Q10H [facility] Last Admin: 04/30/17 10:13 Dose: 100 mls/hr Potassium Chloride/Dextrose/Sod Cl (Potassium Chl 10 Meq In D5-1/2ns) 1,000 mls @ 100 mls/hr IV .Q10H [facility] Last Admin: 04/30/17 12:30 Dose: 100 mls/hr Insulin Human Lispro (Humalog Low) 0 units SC ACHS [facility] PRN Reason: Protocol Last Admin: 04/30/17 17:19 Dose: 1 units Pantoprazole Sodium (Protonix Inj) 40 mg IVP DAILY [facility] Last Admin: 04/30/17 10:13 Dose: 40 mg - Labs Labs: 04/30/17 06:00 04/30/17 06:00 PT 11.3 SECONDS (9.4-12.5) 04/28/17 17:56 INR 1.04 (0.93-1.08) 04/28/17 17:56 APTT 25.9 Seconds (25.1-36.5) 04/28/17 17:56 - Constitutional Appears: Non-toxic, No Acute Distress, Chronically Ill - Head Exam Head Exam: ATRAUMATIC, NORMOCEPHALIC - Eye Exam Eye Exam: EOMI, PERRL Pupil Exam: NORMAL ACCOMODATION, PERRL - ENT Exam ENT Exam: Mucous Membranes Moist, Normal External Ear Exam, TM's Normal Bilaterally - Neck Exam Neck Exam: Full ROM, Normal Inspection - Respiratory Exam Respiratory Exam: Clear to Ausculation Bilateral, NORMAL BREATHING PATTERN. absent: Rales, Rhonchi, Wheezes - Cardiovascular Exam Cardiovascular Exam: Tachycardia, +S1, +S2 - GI/Abdominal Exam GI & Abdominal Exam: Soft, Normal Bowel Sounds. absent: Distended, Tenderness - Extremities Exam Additional comments: general weakness. contractures of the left arm from shoulder to wrist. - Neurological Exam Neurological Exam: Altered Additional comments: at best arousable to pain and heavy stimuli. - Skin Skin Exam: Diaphoretic, Intact, Warm Assessment and Plan - Assessment and Plan (Free Text) Assessment: 72 yo female with extensive past medical history presenting with AMS. Fevers up to 102.4 F. Urinalysis highly suggestive of UTI. Currently on Ceftriaxone. Patient is growing gram negative rods in the blood cultures. History of ESBL + E. Coli in the distant past. Would change the patient to Meropenem for treatment. The patient also has renal insuffiency. Ordered CT scan of the head given the severe change in mental status... this was negative. Awaiting final blood culture and urine culture results. Patient with Bacteremia and UTI with gram negative rods at the least. Continuing on Meropenem. Supportive care Thank you for allowing me to participate in the care of the patient, we will follow with you.
[2017-05-01] MEDS: Potassium Chl 10 mEq in D5-1/2 1,000 ML IV SCH ×2 (01:48→15:02)
[2017-05-01] MEDS: Sodium Chloride 0.45% 1,000 ML IV SCH ×3 (03:32→15:01)
[2017-05-01 07:46] LABS: HEMATOCRIT 34.2 % (36.0-48.0); MEAN CELL VOLUME 87.5 fl (80.0-105.0); MEAN CORPUSCULAR HEMOGLOBIN 26.6 pg (25.0-35.0); MEAN CORPUSCULAR HGB CONC 30.4 g/dl (31.0-37.0); MEAN PLATELET VOLUME 11.1 fl (7.0-11.0); RED CELL DISTRIBUTION WIDTH 17.6 % (11.5-14.5); WHITE BLOOD COUNT 8.2 10^3/ul (4.5-11.0)
[2017-05-01 07:47] LABS: ALB/GLOB RATIO 0.8 (1.1-1.8); BILIRUBIN,TOTAL 0.8 mg/dL (0.2-1.3); CALCIUM 8.1 mg/dL (8.4-10.5); POTASSIUM 3.4 mmol/L (3.6-5.0); TOTAL PROTEIN 6.1 g/dL (5.8-8.3)
[2017-05-01] MEDS: Insulin Lispro (humaLOG) LOW Coverage SC SCH ×6 (08:42→21:52)
[2017-05-01] MEDS ORDERED: Potassium Phosphate 15 MMOLE in Sodium Chloride 0.9% 250 ML IVPB ONE (09:30)
[2017-05-01] MEDS ORDERED: Potassium Phosphate 3 mmol/ml Inj IV SCH (10:00)
[2017-05-01] MEDS: Meropenem 500 MG in Sodium Chloride 0.9% 100 ML IVPB SCH ×2 (11:50→21:52)
--- NOTE | 2017-05-01 12:29 | CP.PCM.PN ---
Subjective - Date & Time of Evaluation Date of Evaluation: 05/01/17 Time of Evaluation: 11:30 - Subjective Subjective: Infectious Disease Follow Up: May 01, 2017 72 yo female sent for altered mental status. Not answering questions. Her hospitalization in January 2017 showed a patient who was awake and alert and able to express needs. The patient is lying in bed crosseyed and tracking only after heavy stimulation. Patient had fevers in the nursing facility ([facility] not sure if [place] or [place]). Fevers of 102.4 F here. Tmax of 100.5 F in past 24 hours. Bacteremia and UTI. Gram negative rods are predominant. ESBL + E. coli and Providencia noted in blood and urine cultures. One blood culture not completely results as of yet. Head CT showing no new abnormalities. Interval progression of small vessel disease as per reading. Objective - Vital Signs/Intake and Output Vital Signs (last 24 hours): Temp Pulse Resp BP Pulse Ox 99.9 F H 100 H 20 127/83 96 05/01/17 07:10 05/01/17 07:10 05/01/17 07:10 05/01/17 07:10 05/01/17 07:10 Intake and Output: 05/01/17 05/01/17 06:59 18:59 Intake Total 2400 Output Total 100 Balance 2300 - Medications Medications: Current Medications Acetaminophen (Tylenol 650 Mg Supp) 650 mg RC Q4H PRN PRN Reason: Fever >100.4 F Last Admin: 04/30/17 16:31 Dose: 650 mg Meropenem 500 mg/ Sodium (Chloride) 100 mls @ 100 mls/hr IVPB Q12 [facility] PRN Reason: Protocol Last Admin: 05/01/17 11:50 Dose: 100 mls/hr Sodium Chloride (Sodium Chloride 0.45%) 1,000 mls @ 110 mls/hr IV .Q9H6M [facility] Potassium Phosphate 15 mmole/ (Sodium Chloride) 255 mls @ 42.5 mls/hr IVPB ONCE ONE Stop: 05/01/17 15:29 Last Admin: 05/01/17 11:17 Dose: 42.5 mls/hr Insulin Human Lispro (Humalog Low) 0 units SC ACHS [facility] PRN Reason: Protocol Last Admin: 05/01/17 08:55 Dose: 7 units Pantoprazole Sodium (Protonix Inj) 40 mg IVP DAILY [facility] Last Admin: 05/01/17 11:18 Dose: 40 mg - Labs Labs: 05/01/17 06:00 05/01/17 06:00 PT 11.3 SECONDS (9.4-12.5) 04/28/17 17:56 INR 1.04 (0.93-1.08) 04/28/17 17:56 APTT 25.9 Seconds (25.1-36.5) 04/28/17 17:56 - Constitutional Appears: Non-toxic, No Acute Distress, Chronically Ill - Head Exam Head Exam: ATRAUMATIC, NORMOCEPHALIC - Eye Exam Eye Exam: EOMI, PERRL Pupil Exam: NORMAL ACCOMODATION, PERRL - ENT Exam ENT Exam: Mucous Membranes Moist, Normal External Ear Exam, TM's Normal Bilaterally - Neck Exam Neck Exam: Full ROM, Normal Inspection - Respiratory Exam Respiratory Exam: Clear to Ausculation Bilateral, NORMAL BREATHING PATTERN. absent: Rales, Rhonchi, Wheezes - Cardiovascular Exam Cardiovascular Exam: Tachycardia, +S1, +S2 - GI/Abdominal Exam GI & Abdominal Exam: Soft, Normal Bowel Sounds. absent: Distended, Tenderness - Extremities Exam Additional comments: general weakness. contractures of the left arm from shoulder to wrist. - Neurological Exam Neurological Exam: Altered Additional comments: at best arousable to pain and heavy stimuli. - Skin Skin Exam: Intact, Warm Assessment and Plan - Assessment and Plan (Free Text) Assessment: 72 yo female with extensive past medical history presenting with AMS. Fevers up to 102.4 F. Urinalysis highly suggestive of UTI. Currently on Ceftriaxone. Patient is growing gram negative rods in the blood cultures. History of ESBL + E. Coli in the distant past. Would change the patient to Meropenem for treatment. The patient also has renal insuffiency. Ordered CT scan of the head given the severe change in mental status... this was negative. Awaiting final blood culture and urine culture results. Patient with Bacteremia and UTI with gram negative rods at the least. Continuing on Meropenem give ESBL+ E. Coli and Providencia (sensitive to Rocephin). Reculture the patient on tuesday... both urine and blood. Supportive care Thank you for allowing me to participate in the care of the patient, we will follow with you.
--- NOTE | 2017-05-01 13:04 | CP.PCM.PN ---
<Filipe Lund - Last Filed: 05/02/17 07:30> Subjective - Date & Time of Evaluation Date of Evaluation: 05/01/17 Time of Evaluation: 06:00 - Subjective Subjective: Patient seen and evaluated bedside. LEft arm contracted holding a squeeze objext. Patient asleep, i had to call her name several times and performed sternal rub to open her eyes. She opened her eyes but then she did not speak or say anything, same as yesterday. Unable to obtain ROS due to AMS. Objective - Vital Signs/Intake and Output Vital Signs (last 24 hours): Temp Pulse Resp BP Pulse Ox 99.9 F H 100 H 20 127/83 96 05/01/17 07:10 05/01/17 07:10 05/01/17 07:10 05/01/17 07:10 05/01/17 07:10 Intake and Output: 05/01/17 05/01/17 06:59 18:59 Intake Total 2400 Output Total 100 Balance 2300 - Medications Medications: Current Medications Acetaminophen (Tylenol 650 Mg Supp) 650 mg RC Q4H PRN PRN Reason: Fever >100.4 F Last Admin: 04/30/17 16:31 Dose: 650 mg Meropenem 500 mg/ Sodium (Chloride) 100 mls @ 100 mls/hr IVPB Q12 [facility] PRN Reason: Protocol Last Admin: 05/01/17 11:50 Dose: 100 mls/hr Sodium Chloride (Sodium Chloride 0.45%) 1,000 mls @ 110 mls/hr IV .Q9H6M [facility] Potassium Phosphate 15 mmole/ (Sodium Chloride) 255 mls @ 42.5 mls/hr IVPB ONCE ONE Stop: 05/01/17 15:29 Last Admin: 05/01/17 11:17 Dose: 42.5 mls/hr Insulin Human Lispro (Humalog Low) 0 units SC ACHS [facility] PRN Reason: Protocol Last Admin: 05/01/17 12:52 Dose: 4 units Pantoprazole Sodium (Protonix Inj) 40 mg IVP DAILY [facility] Last Admin: 05/01/17 11:18 Dose: 40 mg - Labs Labs: 05/01/17 06:00 05/01/17 06:00 PT 11.3 SECONDS (9.4-12.5) 04/28/17 17:56 INR 1.04 (0.93-1.08) 04/28/17 17:56 APTT 25.9 Seconds (25.1-36.5) 04/28/17 17:56 - Constitutional Appears: Chronically Ill - Head Exam Head Exam: ATRAUMATIC, NORMAL INSPECTION, NORMOCEPHALIC - Eye Exam Eye Exam: Normal appearance, PERRL Pupil Exam: NORMAL ACCOMODATION, PERRL - ENT Exam ENT Exam: Mucous Membranes Moist, Normal Exam - Neck Exam Neck Exam: Normal Inspection - Respiratory Exam Respiratory Exam: Clear to Ausculation Bilateral, NORMAL BREATHING PATTERN - Cardiovascular Exam Cardiovascular Exam: Tachycardia, +S1, +S2 - GI/Abdominal Exam GI & Abdominal Exam: Soft. absent: Distended, Tenderness - Neurological Exam Neurological Exam: Altered - Skin Skin Exam: Warm Assessment and Plan - Assessment and Plan (Free Text) Assessment: 72 yo female with PMH of pyelonephritis, kidney stones with stents, hydronephrosis, pneumonia, pleural effusion, CVA, HLD, HTN, DM , chronic pain, hip fracture and CKD will be admitted for evaluation and treatment for AMS 2/2 urosepsis. Plan: 1. AMS 2/2 Urosepsis - Pt with indwelling mon catheter - WBC 8.2 today - Urology consulted - ID consulted-Dr. Wynn: Continuing on Meropenem give ESBL+ E. Coli and Providencia (sensitive to Rocephin). Reculture the patient on tuesday (urine and blood.) - Head CT ordered as well which did not reveal any intracranial abnormality - Tylenol for fever - Troponins negativex3 - Lactate normal on VBG - blood cultures showed gram - rods - urine cultures showed gram - rods - procal: -UA showing leukocyte eterase - Strict I's and O's - Maintain mon, change as needed - NPO 2. CKD - Cr 2.1 - Avoid nephrotoxic medications 3. CHF - BNP 8280 - Echo (11/30) showed mild to moderate LVH, mod to severe , mild MR, moderate pulm HTN 4. HTN - Hypertensive, tachycardic on admission - Lopressor IV - Hold PO medications due to pt status - Hold JOSH due to CKD 5. DM - Glucose 419 - ISS - Accuchecks ACHS 6. Thrombocytopenia - Plt 132 - PT, PTT normal 7. Hypernatremia - Na 159 - 1/2 NS at 110 ml/hr - Cont to monitor 8. Hypokalemia -K 3.4 -repleted -monitor -started on 15mmole of Kphophate GI/DVT PPx - Protonix - SCDs, no anticoaguation due to hematuria Pt is DNR/DNI. <Geoffrey Ghosh - Last Filed: 05/02/17 07:59> Objective - Vital Signs/Intake and Output Vital Signs (last 24 hours): Temp Pulse Resp BP Pulse Ox 100.3 F H 56 L 23 129/95 H 98 05/01/17 16:49 05/01/17 16:49 05/01/17 16:49 05/01/17 16:49 05/01/17 16:49 Intake and Output: 05/02/17 05/02/17 06:59 18:59 Intake Total 2640 Output Total 100 Balance 2540 - Medications Medications: Current Medications Acetaminophen (Tylenol 650 Mg Supp) 650 mg RC Q4H PRN PRN Reason: Fever >100.4 F Last Admin: 05/02/17 06:08 Dose: 650 mg Meropenem 500 mg/ Sodium (Chloride) 100 mls @ 100 mls/hr IVPB Q12 [facility] PRN Reason: Protocol Last Admin: 05/01/17 21:52 Dose: 100 mls/hr Sodium Chloride (Sodium Chloride 0.45%) 1,000 mls @ 110 mls/hr IV .Q9H6M [facility] Last Admin: 05/02/17 02:36 Dose: 110 mls/hr Insulin Human Lispro (Humalog Low) 0 units SC ACHS [facility] PRN Reason: Protocol Last Admin: 05/01/17 21:52 Dose: Not Given Pantoprazole Sodium (Protonix Inj) 40 mg IVP DAILY [facility] Last Admin: 05/01/17 11:18 Dose: 40 mg - Labs Labs: 05/02/17 07:30 05/01/17 06:00 PT 11.3 SECONDS (9.4-12.5) 04/28/17 17:56 INR 1.04 (0.93-1.08) 04/28/17 17:56 APTT 25.9 Seconds (25.1-36.5) 04/28/17 17:56 Assessment and Plan - Assessment and Plan (Free Text) Assessment: went over w/ resident meds labs orders plans
[2017-05-02] MEDS: Sodium Chloride 0.45% 1,000 ML IV SCH (02:36)
[2017-05-02 07:43] LABS: MEAN CELL VOLUME 88.8 fl (80.0-105.0); MEAN CORPUSCULAR HEMOGLOBIN 26.9 pg (25.0-35.0); MEAN CORPUSCULAR HGB CONC 30.3 g/dl (31.0-37.0); MEAN PLATELET VOLUME 11.5 fl (7.0-11.0); RED CELL DISTRIBUTION WIDTH 17.8 % (11.5-14.5)
[2017-05-02 07:59] LABS: ALB/GLOB RATIO 0.7 (1.1-1.8); BILIRUBIN,TOTAL 0.8 mg/dL (0.2-1.3); CALCIUM 7.7 mg/dL (8.4-10.5); POTASSIUM 3.7 mmol/L (3.6-5.0); TOTAL PROTEIN 6.1 g/dL (5.8-8.3)
[2017-05-02 08:22] LABS: MAGNESIUM 2.3 mg/dL (1.7-2.2); PHOSPHOROUS 3.6 mg/dL (2.5-4.5)
[2017-05-02] MEDS ORDERED: Sodium Chloride 0.45% 1,000 ML IV SCH (09:32)
[2017-05-02] MEDS: Meropenem 500 MG in Sodium Chloride 0.9% 100 ML IVPB SCH ×2 (10:06→22:04)
--- NOTE | 2017-05-02 11:12 | RAD ---
HISTORY: r/o pneumonia COMPARISON: 04/28/2017. FINDINGS: LUNGS: There are low lung volumes. There is multifocal airspace disease in the left lower lobe. PLEURA: No significant pleural effusion identified, no pneumothorax apparent. CARDIOVASCULAR: Normal. OSSEOUS STRUCTURES: No significant abnormalities. VISUALIZED UPPER ABDOMEN: Normal. OTHER FINDINGS: None. IMPRESSION: Multifocal airspace disease in the left lower lobe could represent subsegmental atelectasis however superimposed pneumonia cannot be excluded. Follow-up after medical management is recommended to ensure complete resolution.
[2017-05-02] MEDS ORDERED: Insulin Lispro (humaLOG) MEDIUM Coverage SC SCH (11:30)
--- NOTE | 2017-05-02 12:00 | CP.PCM.CON ---
History of Present Illness - History of Present Illness History of Present Illness: Palliative consult requested by Dr Regis Colon Reason: Goals of care 72 year old female with history of renal calculi, hydronephrosis, pneumonia, pleural effusions and CVA who was sent form [place] with lethargy, fever and hematuria. Patient has right nephrostomy tube. The patient is extremely lethargic and non verbal on presentation. PMHx: pneumonia, obstructive renal calculi, stent failed> has right nephrostomy tube, hydronephrosis, CVA right hemiparesis, aphasia, pleural effusions, CKD, HTN, DM,COPD, left hip ORIF. Social History: Former smoker, no alcohol or drug use. Lives in [facility] Family History: Non contributory Advance Care Planning: POLST: DNR/DNI. Martha ABDI [phone] Review of Systems: As per HPI, patient is non verbal with altered mental status Past Patient History - Infectious Disease Hx of Infectious Diseases: VRE - Past Social History Smoking Status: aphasic - CARDIAC Hx Cardiac Disorders: Yes Hx Hypertension: Yes - PULMONARY Hx Pneumonia: Yes - NEUROLOGICAL HX Cerebrovascular Accident: Yes - HEENT Hx HEENT Problems: No - RENAL Hx Renal Failure: Yes - ENDOCRINE/METABOLIC Hx Diabetes Mellitus Type 2: Yes - HEMATOLOGICAL/ONCOLOGICAL Hx Blood Disorders: No - INTEGUMENTARY Hx Dermatological Problems: No Other/Comment: left buttocks reddened. Healed ulcer - MUSCULOSKELETAL/RHEUMATOLOGICAL Hx Falls: No (unable to obtained,unresponesive) - GASTROINTESTINAL Hx Gastrointestinal Disorders: Yes Hx Gastroesophageal Reflux: Yes - GENITOURINARY/GYNECOLOGICAL Hx Genitourinary Disorders: Yes Hx Hematuria: Yes Hx Incontinence: Yes Hx Urinary Tract Infection: Yes - PSYCHIATRIC Hx Psychophysiologic Disorder: No Hx Emotional Abuse: No Hx Physical Abuse: No - SURGICAL HISTORY Hx Orthopedic Surgery: Yes (L hip orif) Other/Comment: cysto with stents, cecal mass excision. R arm PICC - ANESTHESIA Hx Anesthesia: Yes Hx Anesthesia Reactions: No Hx Malignant Hyperthermia: No Meds Allergies/Adverse Reactions: Allergies Allergy/AdvReac Type Severity Reaction Status Date / Time ciprofloxacin [From Cipro] Allergy RASH Verified 12/06/16 18:55 levofloxacin [From Levaquin] Allergy RASH Verified 12/06/16 18:55 Quinolones Allergy RASH Verified 12/06/16 18:55 - Medications Medications: Current Medications Acetaminophen (Tylenol 650 Mg Supp) 650 mg RC Q4H PRN PRN Reason: Fever >100.4 F Last Admin: 05/02/17 06:08 Dose: 650 mg Heparin Sodium (Porcine) (Heparin) 5,000 units SC Q12 [facility] PRN Reason: Protocol Last Admin: 05/02/17 10:06 Dose: 5,000 units Meropenem 500 mg/ Sodium (Chloride) 100 mls @ 100 mls/hr IVPB Q12 [facility] PRN Reason: Protocol Last Admin: 05/02/17 10:06 Dose: 100 mls/hr Sodium Chloride (Sodium Chloride 0.45%) 1,000 mls @ 150 mls/hr IV .Q6H40M [facility] Last Admin: 05/02/17 10:08 Dose: 150 mls/hr Insulin Human Lispro (Humalog Med) 0 units SC ACHS [facility] PRN Reason: Protocol Pantoprazole Sodium (Protonix Inj) 40 mg IVP DAILY [facility] Last Admin: 05/02/17 10:06 Dose: 40 mg Physical Exam - Constitutional Appears: Cachectic, Chronically Ill - Head Exam Head Exam: NORMAL INSPECTION - Eye Exam Eye Exam: Normal appearance, PERRL - ENT Exam ENT Exam: Mucous Membranes Moist, Normal Oropharynx - Respiratory Exam Respiratory Exam: Decreased Breath Sounds, NORMAL BREATHING PATTERN - Cardiovascular Exam Cardiovascular Exam: REGULAR RHYTHM, +S1 - GI/Abdominal Exam GI & Abdominal Exam: Diminished Bowel Sounds, Soft - Exam Additional comments: right nephrostomy tub, hematuria - Extremities Exam Extremities exam: Positive for: pedal pulses present Additional comments: contracted - Neurological Exam Neurological exam: Altered Additional comments: sacral ulcer, left heel blackened area - Skin Skin Exam: Dry, Pallor, Warm - Additional Findings Additional findings: palliative performance scale rating 20 % Results - Vital Signs Recent Vital Signs: Last Vital Signs Temp 99.0 F 05/02/17 08:00 Pulse 101 H 05/02/17 08:00 Resp 20 05/02/17 08:00 BP 127/76 05/02/17 08:00 Pulse Ox 96 05/02/17 08:00 - Labs Result Diagrams: 05/02/17 07:30 05/02/17 12:25 Labs: Laboratory Results - last 24 hr 05/01/17 05/01/17 05/01/17 08:27 11:34 16:29 WBC RBC Hgb Hct MCV MCH MCHC RDW Plt Count MPV Sodium Potassium Chloride Carbon Dioxide Anion Gap BUN Creatinine Est GFR ( Amer) Est GFR (Non-Af Amer) POC Glucose (mg/dL) 421 H* 302 H 245 H Random Glucose Calcium Phosphorus Magnesium Total Bilirubin AST ALT Alkaline Phosphatase Total Protein Albumin Globulin Albumin/Globulin Ratio Ur Random Sodium 05/01/17 05/02/17 05/02/17 21:45 07:00 07:20 WBC RBC Hgb Hct MCV MCH MCHC RDW Plt Count MPV Sodium Potassium Chloride Carbon Dioxide Anion Gap BUN Creatinine Est GFR ( Amer) Est GFR (Non-Af Amer) POC Glucose (mg/dL) 200 H 248 H Random Glucose Calcium Phosphorus 3.6 Magnesium 2.3 H Total Bilirubin AST ALT Alkaline Phosphatase Total Protein Albumin Globulin Albumin/Globulin Ratio Ur Random Sodium 05/02/17 05/02/17 05/02/17 07:30 07:30 10:50 WBC 15.0 H D RBC 3.49 L Hgb 9.4 L Hct 31.0 L MCV 88.8 MCH 26.9 MCHC 30.3 L RDW 17.8 H Plt Count 174 MPV 11.5 H Sodium 162 H* Potassium 3.7 Chloride 129 H Carbon Dioxide 19 L Anion Gap 18 BUN 80 H Creatinine 2.0 H Est GFR ( Amer) 30 Est GFR (Non-Af Amer) 24 POC Glucose (mg/dL) Random Glucose 236 H Calcium 7.7 L Phosphorus Magnesium Total Bilirubin 0.8 AST 37 H ALT 29 Alkaline Phosphatase 94 Total Protein 6.1 Albumin 2.6 L Globulin 3.5 Albumin/Globulin Ratio 0.7 L Ur Random Sodium 57 Assessment & Plan - Assessment and Plan (Free Text) Assessment: 72 year old female with CVA, hydronephrosis, pneumonia and other multiple comorbidities(please see PMH) who is admitted with sepsis, UTI, hematuria, hypernatremia,altered mental status Patient is extremely lethargic, non verbal. In no acute distress. Patient is a resident of [facility]. She is DNR/DNI. VM left for Martha ABDI. Intend to discuss future goals of care and option for hospice services Patent's Martha ABDI called later in the day. JIN wants to speak with attending physician regarding patients medical situation. JIN states that he want's to pursue all medical options for patients care. He is not considering comfort /hospice care at this time. Time spent in goals of care discussion with JIN,15 minutes Plan: Dr. Pro notified of JIN's request for discussion involving his aunts medical situation Will assist family in establishing future goal of care Palliative counseling
[2017-05-02 12:37] LABS: CALCIUM 7.4 mg/dL (8.4-10.5); POTASSIUM 3.7 mmol/L (3.6-5.0)
--- NOTE | 2017-05-02 13:58 | CP.PCM.CON ---
History of Present Illness - History of Present Illness History of Present Illness: RENAL CONSULT NOTE 71 yo female non verbal and AMS, unable to provide any hx, NH resident, hx from records. She has documented PMH of pyelonephritis, kidney stones with stents, hydronephrosis, with nephrostomy tube, CVA, HLD, HTN, DM is admitted with hematuria, UTI, urosepsis. SHe is now AMS and unable to provide any hx. her creatinine earlier this year was normal on review of chart, UOP is low and sodium has been climbing up, hence i have been requested to see the patient PMD: [place] PMH: pyelonephritis, kidney stones with stents, hydronephrosis, pneumonia, pleural effusion, CVA, HLD, HTN, DM PSHx: nephrostomy tube, cecal mass excision, orthopedic surgery of left hip family & Social hx: unable to obtain Review of Systems - Review of Systems Systems not reviewed;Unavailable: Altered Mental Status Past Patient History - Infectious Disease Hx of Infectious Diseases: VRE - Past Social History Smoking Status: aphasic - CARDIAC Hx Cardiac Disorders: Yes Hx Hypertension: Yes - PULMONARY Hx Pneumonia: Yes - NEUROLOGICAL HX Cerebrovascular Accident: Yes - HEENT Hx HEENT Problems: No - RENAL Hx Renal Failure: Yes - ENDOCRINE/METABOLIC Hx Diabetes Mellitus Type 2: Yes - HEMATOLOGICAL/ONCOLOGICAL Hx Blood Disorders: No - INTEGUMENTARY Hx Dermatological Problems: No Other/Comment: left buttocks reddened. Healed ulcer - MUSCULOSKELETAL/RHEUMATOLOGICAL Hx Falls: No (unable to obtained,unresponesive) - GASTROINTESTINAL Hx Gastrointestinal Disorders: Yes Hx Gastroesophageal Reflux: Yes - GENITOURINARY/GYNECOLOGICAL Hx Genitourinary Disorders: Yes Hx Hematuria: Yes Hx Incontinence: Yes Hx Urinary Tract Infection: Yes - PSYCHIATRIC Hx Psychophysiologic Disorder: No Hx Emotional Abuse: No Hx Physical Abuse: No - SURGICAL HISTORY Hx Orthopedic Surgery: Yes (L hip orif) Other/Comment: cysto with stents, cecal mass excision. R arm PICC - ANESTHESIA Hx Anesthesia: Yes Hx Anesthesia Reactions: No Hx Malignant Hyperthermia: No Meds Allergies/Adverse Reactions: Allergies Allergy/AdvReac Type Severity Reaction Status Date / Time ciprofloxacin [From Cipro] Allergy RASH Verified 12/06/16 18:55 levofloxacin [From Levaquin] Allergy RASH Verified 12/06/16 18:55 Quinolones Allergy RASH Verified 12/06/16 18:55 - Medications Medications: Current Medications Acetaminophen (Tylenol 650 Mg Supp) 650 mg RC Q4H PRN PRN Reason: Fever >100.4 F Last Admin: 05/02/17 06:08 Dose: 650 mg Heparin Sodium (Porcine) (Heparin) 5,000 units SC Q12 [facility] PRN Reason: Protocol Last Admin: 05/02/17 10:06 Dose: 5,000 units Meropenem 500 mg/ Sodium (Chloride) 100 mls @ 100 mls/hr IVPB Q12 [facility] PRN Reason: Protocol Last Admin: 05/02/17 10:06 Dose: 100 mls/hr Sodium Chloride (Sodium Chloride 0.45%) 1,000 mls @ 150 mls/hr IV .Q6H40M [facility] Last Admin: 05/02/17 10:08 Dose: 150 mls/hr Insulin Human Lispro (Humalog Med) 0 units SC ACHS [facility] PRN Reason: Protocol Pantoprazole Sodium (Protonix Inj) 40 mg IVP DAILY [facility] Last Admin: 05/02/17 10:06 Dose: 40 mg Physical Exam - Constitutional Appears: In Acute Distress, Confused - Head Exam Head Exam: NORMAL INSPECTION - Eye Exam Eye Exam: Normal appearance - ENT Exam ENT Exam: Mucous Membranes Moist - Respiratory Exam Respiratory Exam: NORMAL BREATHING PATTERN - Cardiovascular Exam Cardiovascular Exam: +S1, +S2 - GI/Abdominal Exam GI & Abdominal Exam: Soft - Neurological Exam Additional comments: AO times 0 - Skin Skin Exam: Dry Results - Vital Signs Recent Vital Signs: Last Vital Signs Temp 99.0 F 05/02/17 08:00 Pulse 101 H 05/02/17 08:00 Resp 20 05/02/17 08:00 BP 127/76 05/02/17 08:00 Pulse Ox 96 05/02/17 08:00 - Labs Result Diagrams: 05/02/17 07:30 05/02/17 12:25 Labs: Laboratory Results - last 24 hr 05/01/17 05/01/17 05/01/17 08:27 11:34 16:29 WBC RBC Hgb Hct MCV MCH MCHC RDW Plt Count MPV Sodium Potassium Chloride Carbon Dioxide Anion Gap BUN Creatinine Est GFR ( Amer) Est GFR (Non-Af Amer) POC Glucose (mg/dL) 421 H* 302 H 245 H Random Glucose Calcium Phosphorus Magnesium Total Bilirubin AST ALT Alkaline Phosphatase Total Protein Albumin Globulin Albumin/Globulin Ratio Ur Random Sodium 05/01/17 05/02/17 05/02/17 21:45 07:00 07:20 WBC RBC Hgb Hct MCV MCH MCHC RDW Plt Count MPV Sodium Potassium Chloride Carbon Dioxide Anion Gap BUN Creatinine Est GFR ( Amer) Est GFR (Non-Af Amer) POC Glucose (mg/dL) 200 H 248 H Random Glucose Calcium Phosphorus 3.6 Magnesium 2.3 H Total Bilirubin AST ALT Alkaline Phosphatase Total Protein Albumin Globulin Albumin/Globulin Ratio Ur Random Sodium 05/02/17 05/02/17 05/02/17 07:30 07:30 10:50 WBC 15.0 H D RBC 3.49 L Hgb 9.4 L Hct 31.0 L MCV 88.8 MCH 26.9 MCHC 30.3 L RDW 17.8 H Plt Count 174 MPV 11.5 H Sodium 162 H* Potassium 3.7 Chloride 129 H Carbon Dioxide 19 L Anion Gap 18 BUN 80 H Creatinine 2.0 H Est GFR ( Amer) 30 Est GFR (Non-Af Amer) 24 POC Glucose (mg/dL) Random Glucose 236 H Calcium 7.7 L Phosphorus Magnesium Total Bilirubin 0.8 AST 37 H ALT 29 Alkaline Phosphatase 94 Total Protein 6.1 Albumin 2.6 L Globulin 3.5 Albumin/Globulin Ratio 0.7 L Ur Random Sodium 57 05/02/17 12:25 WBC RBC Hgb Hct MCV MCH MCHC RDW Plt Count MPV Sodium 160 H* Potassium 3.7 Chloride 130 H* Carbon Dioxide 20 L Anion Gap 14 BUN 79 H Creatinine 2.1 H Est GFR ( Amer) 28 Est GFR (Non-Af Amer) 23 POC Glucose (mg/dL) Random Glucose 243 H Calcium 7.4 L Phosphorus Magnesium Total Bilirubin AST ALT Alkaline Phosphatase Total Protein Albumin Globulin Albumin/Globulin Ratio Ur Random Sodium Assessment & Plan - Assessment and Plan (Free Text) Plan: TSERING/hypernatremia/acidosis/urosepsis/dm/htn/sepsis syndrome tsering likely sec to prerenal ischemic atn from volume depletion and sepsis hypernatremia sec to no oral intake, needs more salt freefluids plan is for feeding tube placement tomorrow recommend d5 water gtt in the meanwhile DM: can increase Blood sugars insulin coverage check labs in am UOP is broderline( mon +nephrostomy tube): monitor if no improvement; HD needs ? palliative on board
--- NOTE | 2017-05-02 14:03 | CP.PCM.PCO ---
Physician Communication Note - Physician Communication Note Physician Communication Note: Spoke to Martha, pt's cousin and POA, updated him on pt's condition.
[2017-05-02] MEDS: Insulin Reg-HIGH-Coverage SC SCH (17:06)
--- NOTE | 2017-05-02 17:55 | CP.PCM.PN ---
Subjective - Date & Time of Evaluation Date of Evaluation: 05/02/17 Time of Evaluation: 07:45 - Subjective Subjective: Patient was seen and examined at bedside. Patient was having morning labs drawn at the moment. Patient was non responsive but did have eyes open. Patient was unable to verbally communicate. Left arm was noted to be contracted. Complete ROS unobtainable due to patients AMS. Objective - Vital Signs/Intake and Output Vital Signs (last 24 hours): Temp Pulse Resp BP Pulse Ox 99.5 F 97 H 20 114/71 99 05/02/17 16:00 05/02/17 16:00 05/02/17 16:00 05/02/17 16:00 05/02/17 16:00 Intake and Output: 05/02/17 05/02/17 06:59 18:59 Intake Total 2640 Output Total 100 Balance 2540 - Medications Medications: Current Medications Acetaminophen (Tylenol 650 Mg Supp) 650 mg RC Q4H PRN PRN Reason: Fever >100.4 F Last Admin: 05/02/17 06:08 Dose: 650 mg Heparin Sodium (Porcine) (Heparin) 5,000 units SC Q12 [facility]ESNA PRN Reason: Protocol Last Admin: 05/02/17 10:06 Dose: 5,000 units Meropenem 500 mg/ Sodium (Chloride) 100 mls @ 100 mls/hr IVPB Q12 [facility]NA PRN Reason: Protocol Last Admin: 05/02/17 10:06 Dose: 100 mls/hr Dextrose (Dextrose 5% In Water 1000 Ml) 1,000 mls @ 30 mls/hr IV .Q24H [facility] Insulin Human Regular (Humulin R High) 0 units SC ACHS [facility]ESNA PRN Reason: Protocol Last Admin: 05/02/17 17:06 Dose: 7 units Pantoprazole Sodium (Protonix Inj) 40 mg IVP DAILY [facility] Last Admin: 05/02/17 10:06 Dose: 40 mg - Labs Labs: 05/02/17 07:30 05/02/17 12:25 PT 11.3 SECONDS (9.4-12.5) 04/28/17 17:56 INR 1.04 (0.93-1.08) 04/28/17 17:56 APTT 25.9 Seconds (25.1-36.5) 04/28/17 17:56 - Constitutional Appears: Confused - Head Exam Head Exam: ATRAUMATIC, NORMAL INSPECTION - Eye Exam Eye Exam: EOMI, Normal appearance Pupil Exam: NORMAL ACCOMODATION - ENT Exam ENT Exam: Mucous Membranes Moist, Normal Exam - Respiratory Exam Respiratory Exam: Clear to Ausculation Bilateral - Cardiovascular Exam Cardiovascular Exam: REGULAR RHYTHM, +S1, +S2 - GI/Abdominal Exam GI & Abdominal Exam: Soft. absent: Rigid - Extremities Exam Extremities Exam: Normal Inspection ( stage 3 wound to left hand 3rd finger 1cm round wound bed white surrounded by red skin, 2nd finger stage 2 .3cm round small opening wound bed red surrounding skin red, stage 2 left thumb .5 round wound bed red surrounded by red skin, left hand contracted into a fist, left arm contracted, right heel dry and red) Assessment and Plan - Assessment and Plan (Free Text) Plan: 72 yo female with PMH of pyelonephritis, kidney stones with stents, hydronephrosis, pneumonia, pleural effusion, CVA, HLD, HTN, DM , chronic pain, hip fracture and CKD will be admitted for evaluation and treatment for AMS 2/2 urosepsis. 1. AMS 2/2 Urosepsis - Pt with indwelling mon catheter - WBC 15.0 today - Urology consulted; recs appreciated - ID consulted-treating with meropenem and unasyn due to blood cultures ( VRE, ESBL, Providencia, E. Coli) , Head CT; ICH not present - Tylenol for fever - Troponins negativex3 - Lactate normal on VBG - Blood and urine culture previously positive for gram negative rods; cultures repeated today as per ID - procalcitonin; result pending - UA positive for Nitrate and Leukocyte esterase - Strict I's and O's; todays total intake 2640, total output 200, for a balance of 2440 - Maintain mon, change as needed - NPO 2. CKD - Most likely a result of dehydration - Cr 2.1 - Avoid nephrotoxic medications 3. CHF - BNP 8280 upon being admitted, BNP level ordered for morning; results pending - Echo (11/30) showed mild to moderate LVH, mod to severe , mild MR, moderate pulm HTN 4. HTN - BP stable last measured at 114/71 - Hypertensive, tachycardic on admission - Hold PO medications due to pt status - Hold JOSH due to CKD 5. DM - Glucose on adm 237, current 243 - D5 is being administered due to hypernatremia. Set at rate of 30 cc per hour due to patients hyperglycemia, continue to monitor blood glucose closely. - ISS High due to administering of D5. - Accuchecks ACHS 6. Thrombocytopenia - Plt 110 yesterday 174 today - PT, PTT normal 7. Hypernatremia - Most likely a result of dehydration (free water deficit),D5 is being administered due to hypernatremia. Set at rate of 30 cc per hour due to patient s hyperglycemia, continue to monitor blood glucose closely. - Na 160 - D5 NS at 30 ml/hr - Cont to monitor 8. Hypokalemia -K now 3.7 -Continue to monitor -K 10meq in 1/2NS; discontinued GI/DVT PPx - Protonix - Heparin IV SC q12 DNR/DNI - Discussed with patient's nephew regarding status. Nephew requests to continue with medical management and desires no hospice at this current time.
--- NOTE | 2017-05-02 18:19 | CP.PCM.PN ---
Subjective - Date & Time of Evaluation Date of Evaluation: 05/02/17 Time of Evaluation: 16:00 - Subjective Subjective: Infectious Disease Follow Up: May 02, 2017 72 yo female sent for altered mental status. Not answering questions. Her hospitalization in January 2017 showed a patient who was awake and alert and able to express needs. The patient is lying in bed crosseyed and tracking only after heavy stimulation. Patient had fevers in the nursing facility ([facility] not sure if [place] or [place]). Fevers up to 102.4 F here. Tmax of 100.3 F in past 24 hours. Bacteremia and UTI. Gram negative rods are predominant. ESBL + E. coli and Providencia noted in blood and urine cultures. VRE in one other culture as well. Head CT showing no new abnormalities. Interval progression of small vessel disease as per reading. Objective - Vital Signs/Intake and Output Vital Signs (last 24 hours): Temp Pulse Resp BP Pulse Ox 99.5 F 97 H 20 114/71 99 05/02/17 16:00 05/02/17 16:00 05/02/17 16:00 05/02/17 16:00 05/02/17 16:00 Intake and Output: 05/02/17 05/02/17 06:59 18:59 Intake Total 2640 Output Total 100 Balance 2540 - Medications Medications: Current Medications Acetaminophen (Tylenol 650 Mg Supp) 650 mg RC Q4H PRN PRN Reason: Fever >100.4 F Last Admin: 05/02/17 06:08 Dose: 650 mg Heparin Sodium (Porcine) (Heparin) 5,000 units SC Q12 [facility] PRN Reason: Protocol Last Admin: 05/02/17 10:06 Dose: 5,000 units Meropenem 500 mg/ Sodium (Chloride) 100 mls @ 100 mls/hr IVPB Q12 [facility] PRN Reason: Protocol Last Admin: 05/02/17 10:06 Dose: 100 mls/hr Dextrose (Dextrose 5% In Water 1000 Ml) 1,000 mls @ 30 mls/hr IV .Q24H [facility] Insulin Human Regular (Humulin R High) 0 units SC ACHS [facility]NA PRN Reason: Protocol Last Admin: 05/02/17 17:06 Dose: 7 units Pantoprazole Sodium (Protonix Inj) 40 mg IVP DAILY [facility] Last Admin: 05/02/17 10:06 Dose: 40 mg - Labs Labs: 05/02/17 07:30 05/02/17 12:25 PT 11.3 SECONDS (9.4-12.5) 04/28/17 17:56 INR 1.04 (0.93-1.08) 04/28/17 17:56 APTT 25.9 Seconds (25.1-36.5) 04/28/17 17:56 - Constitutional Appears: Non-toxic, No Acute Distress, Chronically Ill - Head Exam Head Exam: ATRAUMATIC, NORMOCEPHALIC - Eye Exam Eye Exam: EOMI, PERRL Pupil Exam: NORMAL ACCOMODATION, PERRL - ENT Exam ENT Exam: Mucous Membranes Moist, Normal External Ear Exam, TM's Normal Bilaterally - Neck Exam Neck Exam: Full ROM, Normal Inspection - Respiratory Exam Respiratory Exam: Clear to Ausculation Bilateral, NORMAL BREATHING PATTERN. absent: Rales, Rhonchi, Wheezes - Cardiovascular Exam Cardiovascular Exam: REGULAR RHYTHM, RRR, +S1, +S2 - GI/Abdominal Exam GI & Abdominal Exam: Soft, Normal Bowel Sounds. absent: Distended, Tenderness - Extremities Exam Additional comments: general weakness. contractures of the left arm from shoulder to wrist. - Neurological Exam Neurological Exam: Altered Additional comments: at best arousable to pain and heavy stimuli. Opens eyes and stares. - Skin Skin Exam: Intact, Warm Assessment and Plan - Assessment and Plan (Free Text) Assessment: 72 yo female with extensive past medical history presenting with AMS. Fevers up to 102.4 F. Urinalysis highly suggestive of UTI. Currently on Ceftriaxone. Patient is growing gram negative rods in the blood cultures. History of ESBL + E. Coli in the distant past. Would change the patient to Meropenem for treatment. The patient also has renal insuffiency. Ordered CT scan of the head given the severe change in mental status... this was negative. Awaiting final blood culture and urine culture results. Patient with Bacteremia and UTI with gram negative rods at the least. Continuing on Meropenem give ESBL+ E. Coli and Providencia (sensitive to Rocephin). Blood culture is also showing VRE growth. Reculture the patient on tuesday... both urine and blood. Will add Unasyn for the VRE seen. Supportive care Thank you for allowing me to participate in the care of the patient, we will follow with you.
[2017-05-03] MEDS: Ampicillin/Sulbactam 3 GM in Sodium Chloride 0.9% 100 ML IVPB SCH ×4 (00:19→17:04)
[2017-05-03 08:13] LABS: MEAN CELL VOLUME 89.7 fl (80.0-105.0); MEAN CORPUSCULAR HEMOGLOBIN 27.7 pg (25.0-35.0); MEAN CORPUSCULAR HGB CONC 30.9 g/dl (31.0-37.0); MEAN PLATELET VOLUME 11.6 fl (7.0-11.0); RED CELL DISTRIBUTION WIDTH 17.9 % (11.5-14.5); WHITE BLOOD COUNT 13.4 10^3/ul (4.5-11.0)
[2017-05-03] MEDS: Insulin Reg-HIGH-Coverage SC SCH ×5 (08:14→22:28)
[2017-05-03 08:16] LABS: ALB/GLOB RATIO 0.7 (1.1-1.8); BILIRUBIN,TOTAL 0.8 mg/dL (0.2-1.3); CALCIUM 7.7 mg/dL (8.4-10.5); MAGNESIUM 2.4 mg/dL (1.7-2.2); PHOSPHOROUS 3.3 mg/dL (2.5-4.5); POTASSIUM 3.7 mmol/L (3.6-5.0); TOTAL PROTEIN 6.4 g/dL (5.8-8.3)
[2017-05-03] MEDS: Meropenem 500 MG in Sodium Chloride 0.9% 100 ML IVPB SCH ×2 (10:12→22:27)
--- NOTE | 2017-05-03 11:07 | CP.PCM.PN ---
Subjective - Date & Time of Evaluation Date of Evaluation: 05/03/17 Time of Evaluation: 06:50 - Subjective Subjective: Patient was seen and examined at bedside. Patient is still maintaining squeeze toy in left hand which is contracted along with the left arm. Patient remains unable to verbally communicate but is able to keep eyes open. Patient found to moan at times upon stimulation. ROS limited due to patient's status. Objective - Vital Signs/Intake and Output Vital Signs (last 24 hours): Temp Pulse Resp BP Pulse Ox 100.3 F H 51 L 21 99/55 L 100 05/03/17 08:00 05/03/17 08:00 05/03/17 08:00 05/03/17 08:00 05/03/17 08:00 Intake and Output: 05/03/17 05/03/17 06:59 18:59 Intake Total 0 Output Total 100 Balance -100 - Medications Medications: Current Medications Acetaminophen (Tylenol 650 Mg Supp) 650 mg RC Q4H PRN PRN Reason: Fever >100.4 F Last Admin: 05/02/17 06:08 Dose: 650 mg Collagenase (Santyl) 0 gm TOP DAILY [facility] Heparin Sodium (Porcine) (Heparin) 5,000 units SC Q12 [facility] PRN Reason: Protocol Last Admin: 05/02/17 22:03 Dose: 5,000 units Meropenem 500 mg/ Sodium (Chloride) 100 mls @ 100 mls/hr IVPB Q12 [facility] PRN Reason: Protocol Last Admin: 05/03/17 10:12 Dose: 100 mls/hr Ampicillin Sodium/Sulbactam (Sodium 3 gm/ Sodium Chloride) 100 mls @ 200 mls/ hr IVPB Q6 [facility] PRN Reason: Protocol Last Admin: 05/03/17 08:15 Dose: 200 mls/hr Dextrose (Dextrose 5% In Water 1000 Ml) 1,000 mls @ 50 mls/hr IV .Q20H [facility] Last Admin: 05/03/17 09:05 Dose: 50 mls/hr Insulin Human Regular (Humulin R High) 0 units SC ACHS [facility] PRN Reason: Protocol Last Admin: 05/03/17 08:59 Dose: 7 units Pantoprazole Sodium (Protonix Inj) 40 mg IVP DAILY [facility] Last Admin: 05/03/17 10:12 Dose: 40 mg - Labs Labs: 05/03/17 05:00 05/03/17 07:40 PT 11.3 SECONDS (9.4-12.5) 04/28/17 17:56 INR 1.04 (0.93-1.08) 04/28/17 17:56 APTT 25.9 Seconds (25.1-36.5) 04/28/17 17:56 - Constitutional Appears: Toxic - Head Exam Head Exam: ATRAUMATIC, NORMAL INSPECTION - Eye Exam Eye Exam: Normal appearance - ENT Exam ENT Exam: Mucous Membranes Dry - Respiratory Exam Respiratory Exam: absent: NORMAL BREATHING PATTERN (patient sounds fluid overloaded ) - Cardiovascular Exam Cardiovascular Exam: +S1, +S2 - GI/Abdominal Exam GI & Abdominal Exam: Soft. absent: Guarding, Rigid - Neurological Exam Neurological Exam: Awake - Skin Skin Exam: Diaphoretic, Normal Color, Warm Assessment and Plan - Assessment and Plan (Free Text) Assessment: 72 yo female with PMH of pyelonephritis, kidney stones with stents, hydronephrosis, pneumonia, pleural effusion, CVA, HLD, HTN, DM , chronic pain, hip fracture and CKD will be admitted for evaluation and treatment for AMS 2/2 urosepsis. Plan: 1. AMS due to Sepsis with UTI and bacteremia as possible source and Uremic encephalopathy and severe dehydration r/o Stroke -CT head upon admission revealed no acute findings -Sepsis is being treated with antibiotics as per ID - Nephrology is following patient for renal failure and hypernatremia -Patient remains NPO due mental status and failed swallow evaluation, will consider other means of nutrition - GI consulted for possible PEG tube feed - Continue aspiration and fall precautions as well as head above the bed 45 degrees 2. Sepsis due to VRE and ESBL bacteremia and UTI - Patient is currently has low grade temp and blood pressure is stable and leukocytosis trending down - ID following - Patient had repeat blood and urine cultures; results pending - Repeat CXR revealed questionable pneumonia vs atelectasis - ID started patient on unasyn for VRE will continue with merem as per ID 3. Hypernatremia due to free water deficit due to dehydration - Will increase rate of D5 - Will monitor heart sounds, if patient sounds overloaded will give IV Lasix 4. TSERING - likely pre renal with FeNa < 1% less - Rule out post renal given that patient has a stent and nephrostomy tube - Urology on case, patient will get nephrostomy tube replaced today - Creatinine remains stable at 2.1 - Nephrology is following 5. Diastolic CHF with moderate to severe Aortic stenosis and Pulmonary Hypertension - BNP was elevated -patient cannot get lasix due to current dehydration; will consult cardiology for help 6.HTN - Hold bp meds due to labile hypotension. 7. DM - ISS High due to administering of D5. - Accuchecks ACHS - Swallow study passed, Dysphagia diet started 8.Thrombocytopenia - Plt is improving, continue to monitor. 9.Hypokalemia -will replete GI/DVT PPx - Protonix - Heparin IV SC q12 DNR/DNI - Discussed with patient's nephew regarding status. Nephew requests to continue with medical management and desires no hospice at this current time. Patient's nephew is made aware that his aunt's condition is worsening; nephew prefers to speak to an attending regarding case.
[2017-05-03] MEDS ORDERED: Albuterol-Ipratrop 3 mg / 0.5 (3 ml) UD IH PRN (11:10)
--- NOTE | 2017-05-03 14:50 | CP.PCM.PCO ---
Physician Communication Note - Physician Communication Note Physician Communication Note: Called pt's POA, Mr Thomas to update him, no response, left a message.
--- NOTE | 2017-05-03 15:27 | CP.PCM.PN ---
Subjective - Date & Time of Evaluation Date of Evaluation: 05/03/17 Time of Evaluation: 15:23 - Subjective Subjective: overnight low urine output, sob + fever overnight PE:lying in bed mild sob vitals reviewed, bp soft s1s2 present bilateral air entry equal abd soft nephrostomy tube present mon + awake, oritented X0 skin normal TSERING/hypernatremia/acidosis/urosepsis/dm/htn/sepsis syndrome tsering likely sec to prerenal ischemic atn from volume depletion and sepsis syndrome now oliguric with early signs of volume overload hypernatremia sec to no oral intake, needs more salt free fluids , recommend increasing d5 to 60-70cc pe rhour ( should not cause volume issues ) Recommend getting ct abdomen pelvis without contrast to rule out hydronephrosis and abscess recommend d5 water gtt in the meanwhile DM: per your care, monitor especially she is on iv d5 drip check labs in am UOP is [place]( mon +nephrostomy tube): monitor if no improvement; if urine output continues to be low, may need hemodialysis urology on board: plan for possibel nephrostomy tube replacement as she is infected palliative on board d/w housestaff will continue to follow, please call our office if any qs [phone] Objective - Vital Signs/Intake and Output Vital Signs (last 24 hours): Temp Pulse Resp BP Pulse Ox 99.6 F 51 L 21 99/55 L 100 05/03/17 10:00 05/03/17 08:00 05/03/17 08:00 05/03/17 08:00 05/03/17 08:00 Intake and Output: 05/03/17 05/03/17 06:59 18:59 Intake Total 0 Output Total 100 300 Balance -100 -300 - Medications Medications: Current Medications Acetaminophen (Tylenol 650 Mg Supp) 650 mg RC Q4H PRN PRN Reason: Fever >100.4 F Last Admin: 05/02/17 06:08 Dose: 650 mg Albuterol/Ipratropium (Duoneb 3 Mg/0.5 Mg (3 Ml) Ud) 3 ml IH [id number] PRN PRN Reason: Shortness of Breath Collagenase (Santyl) 0 gm TOP DAILY [facility] Heparin Sodium (Porcine) (Heparin) 5,000 units SC Q12 [facility] PRN Reason: Protocol Last Admin: 05/03/17 11:00 Dose: 5,000 units Meropenem 500 mg/ Sodium (Chloride) 100 mls @ 100 mls/hr IVPB Q12 [facility] PRN Reason: Protocol Last Admin: 05/03/17 10:12 Dose: 100 mls/hr Ampicillin Sodium/Sulbactam (Sodium 3 gm/ Sodium Chloride) 100 mls @ 200 mls/ hr IVPB Q6 [facility] PRN Reason: Protocol Last Admin: 05/03/17 12:53 Dose: 200 mls/hr Dextrose (Dextrose 5% In Water 1000 Ml) 1,000 mls @ 70 mls/hr [facility] .[id number] [facility] Stop: 05/04/17 04:28 Last Admin: 05/03/17 14:31 Dose: 70 mls/hr Insulin Human Regular (Humulin R High) 0 units SC ACHS [facility] PRN Reason: Protocol Last Admin: 05/03/17 13:50 Dose: 4 units Pantoprazole Sodium (Protonix Inj) 40 mg IVP DAILY [facility] Last Admin: 05/03/17 10:12 Dose: 40 mg - Labs Labs: 05/03/17 05:00 05/03/17 07:40 PT 11.3 SECONDS (9.4-12.5) 04/28/17 17:56 INR 1.04 (0.93-1.08) 04/28/17 17:56 APTT 25.9 Seconds (25.1-36.5) 04/28/17 17:56
--- NOTE | 2017-05-03 16:38 | CP.PCM.PN ---
Subjective - Date & Time of Evaluation Date of Evaluation: 05/03/17 Time of Evaluation: 16:00 - Subjective Subjective: Infectious Disease Follow Up: May 03, 2017 72 yo female sent for altered mental status. Not answering questions. Her hospitalization in January 2017 showed a patient who was awake and alert and able to express needs. The patient is lying in bed crosseyed and tracking only after heavy stimulation. Patient had fevers in the nursing facility ([facility] not sure if [facility] or [facility]). Fevers up to 102.4 F here. Tmax of 100.3 F in past 24 hours. Bacteremia and UTI. Gram negative rods are predominant. ESBL + E. coli and Providencia noted in blood and urine cultures. VRE in one other culture as well. Head CT showing no new abnormalities. Interval progression of small vessel disease as per reading. Patient is more responsive today. Objective - Vital Signs/Intake and Output Vital Signs (last 24 hours): Temp Pulse Resp BP Pulse Ox 99.6 F 51 L 21 79/46 L 100 05/03/17 10:00 05/03/17 08:00 05/03/17 08:00 05/03/17 15:52 05/03/17 08:00 Intake and Output: 05/03/17 05/03/17 06:59 18:59 Intake Total 0 Output Total 100 300 Balance -100 -300 - Medications Medications: Current Medications Acetaminophen (Tylenol 650 Mg Supp) 650 mg RC Q4H PRN PRN Reason: Fever >100.4 F Last Admin: 05/02/17 06:08 Dose: 650 mg Albuterol/Ipratropium (Duoneb 3 Mg/0.5 Mg (3 Ml) Ud) 3 ml IH [id number] PRN PRN Reason: Shortness of Breath Collagenase (Santyl) 0 gm TOP DAILY [facility] Heparin Sodium (Porcine) (Heparin) 5,000 units SC Q12 [facility] PRN Reason: Protocol Last Admin: 05/03/17 11:00 Dose: 5,000 units Meropenem 500 mg/ Sodium (Chloride) 100 mls @ 100 mls/hr IVPB Q12 [facility] PRN Reason: Protocol Last Admin: 05/03/17 10:12 Dose: 100 mls/hr Ampicillin Sodium/Sulbactam (Sodium 3 gm/ Sodium Chloride) 100 mls @ 200 mls/ hr IVPB Q6 [facility] PRN Reason: Protocol Last Admin: 05/03/17 12:53 Dose: 200 mls/hr Dextrose (Dextrose 5% In Water 1000 Ml) 1,000 mls @ 70 mls/hr IV .[id number] [facility] Stop: 05/04/17 04:28 Last Admin: 05/03/17 14:31 Dose: 70 mls/hr Insulin Human Regular (Humulin R High) 0 units SC ACHS [facility] PRN Reason: Protocol Last Admin: 05/03/17 13:50 Dose: 4 units Pantoprazole Sodium (Protonix Inj) 40 mg IVP DAILY [facility] Last Admin: 05/03/17 10:12 Dose: 40 mg - Labs Labs: 05/03/17 05:00 05/03/17 07:40 PT 11.3 SECONDS (9.4-12.5) 04/28/17 17:56 INR 1.04 (0.93-1.08) 04/28/17 17:56 APTT 25.9 Seconds (25.1-36.5) 04/28/17 17:56 - Constitutional Appears: Non-toxic, No Acute Distress, Chronically Ill - Head Exam Head Exam: ATRAUMATIC, NORMOCEPHALIC - Eye Exam Eye Exam: EOMI, PERRL Pupil Exam: NORMAL ACCOMODATION, PERRL - ENT Exam ENT Exam: Mucous Membranes Moist, Normal External Ear Exam, TM's Normal Bilaterally - Neck Exam Neck Exam: Full ROM, Normal Inspection - Respiratory Exam Respiratory Exam: Clear to Ausculation Bilateral, Rales, Wheezes, NORMAL BREATHING PATTERN. absent: Rhonchi - Cardiovascular Exam Cardiovascular Exam: REGULAR RHYTHM, RRR. absent: +S1, +S2 - GI/Abdominal Exam GI & Abdominal Exam: Soft, Normal Bowel Sounds. absent: Distended, Tenderness - Extremities Exam Additional comments: general weakness. contractures of the left arm from shoulder to wrist - Neurological Exam Neurological Exam: Altered Additional comments: arousable to pain and moderate stimuli. Opens eyes and stares. Not voicing words as of yet. - Skin Skin Exam: Intact, Warm Assessment and Plan - Assessment and Plan (Free Text) Assessment: 72 yo female with extensive past medical history presenting with AMS. Fevers up to 102.4 F. Urinalysis highly suggestive of UTI. Currently on Ceftriaxone. Patient is growing gram negative rods in the blood cultures. History of ESBL + E. Coli in the distant past. Would change the patient to Meropenem for treatment. The patient also has renal insuffiency. Ordered CT scan of the head given the severe change in mental status... this was negative. Awaiting final blood culture and urine culture results. Patient with Bacteremia and UTI with gram negative rods at the least. Continuing on Meropenem give ESBL+ E. Coli and Providencia (sensitive to Rocephin). Blood culture is also showing VRE growth. Reculture the patient on tuesday... both urine and blood. Will add Unasyn for the VRE seen. Supportive care. Patient is more arousable today. Thank you for allowing me to participate in the care of the patient, we will follow with you.
--- NOTE | 2017-05-03 17:29 | CP.PCM.CON ---
<Heather Peterson - Last Filed: 05/03/17 17:30> History of Present Illness - History of Present Illness History of Present Illness: Seen and examined at the bedside earlier today, the chart was reviewed. Request for GI consult is for PEG tube evaluation. HPI: This is a 72-year-old female with a past medical history of renal stones with stents,hydronephrosis, pyelonephritis, chronic kidney disease, CVA who came from [facility] for hematuria noted in her Hirsch catheter. The patient also had a fever and was lethargic. the patient currently has a nephrostomy for recurrent kidneys stones and recurrent hydronephrosis with failed stenting. The patient history is obtained from medical staff and chart, patient has altered mental status and does not answer questions. The patient had a head CT on April 29, 2017 which showed no acute intracranial abnormality , did show atrophic changes and progressive small vessel disease. The patient had speech evaluation on 05/02/2017 and found to have severe oropharyngeal dysphagia with high risk for aspiration secondary to lethargic mental status and is currently nothing by mouth. No reports of hematemesis, melena, or diarrhea. Past medical history: Pneumonia, CVA with left-sided weakness hyperlipidemia, hypertension, diabetes mellitus, pyelonephritis, kidney stones with stents, hydronephrosis Past surgical history: Nephrostomy tube, left hip surgery, cecal mass excision, last EGD/colon with 02/2014, found to have gastritis/colon polyps/diverticulosis Family history: Unable to obtain Allergies: Quinolones, levofloxacin and ciprofloxacin Social history: History of tobacco use, no history of EtOH or drug use. Medications: Reviewed as per MAR ROS: Patient is nonverbal, unable to obtain, see HPI Past Patient History - Infectious Disease Hx of Infectious Diseases: VRE - Past Social History Smoking Status: aphasic - CARDIAC Hx Cardiac Disorders: Yes Hx Hypertension: Yes - PULMONARY Hx Pneumonia: Yes - NEUROLOGICAL HX Cerebrovascular Accident: Yes - HEENT Hx HEENT Problems: No - RENAL Hx Renal Failure: Yes - ENDOCRINE/METABOLIC Hx Diabetes Mellitus Type 2: Yes - HEMATOLOGICAL/ONCOLOGICAL Hx Blood Disorders: No - INTEGUMENTARY Hx Dermatological Problems: No Other/Comment: left buttocks reddened. Healed ulcer - MUSCULOSKELETAL/RHEUMATOLOGICAL Hx Falls: No (unable to obtained,unresponesive) - GASTROINTESTINAL Hx Gastrointestinal Disorders: Yes Hx Gastroesophageal Reflux: Yes - GENITOURINARY/GYNECOLOGICAL Hx Genitourinary Disorders: Yes Hx Hematuria: Yes Hx Incontinence: Yes Hx Urinary Tract Infection: Yes - PSYCHIATRIC Hx Psychophysiologic Disorder: No Hx Emotional Abuse: No Hx Physical Abuse: No - SURGICAL HISTORY Hx Orthopedic Surgery: Yes (L hip orif) Other/Comment: cysto with stents, cecal mass excision. R arm PICC - ANESTHESIA Hx Anesthesia: Yes Hx Anesthesia Reactions: No Hx Malignant Hyperthermia: No Meds Allergies/Adverse Reactions: Allergies Allergy/AdvReac Type Severity Reaction Status Date / Time ciprofloxacin [From Cipro] Allergy RASH Verified 12/06/16 18:55 levofloxacin [From Levaquin] Allergy RASH Verified 12/06/16 18:55 Quinolones Allergy RASH Verified 12/06/16 18:55 - Medications Medications: Current Medications Acetaminophen (Tylenol 650 Mg Supp) 650 mg RC Q4H PRN PRN Reason: Fever >100.4 F Last Admin: 05/02/17 06:08 Dose: 650 mg Albuterol/Ipratropium (Duoneb 3 Mg/0.5 Mg (3 Ml) Ud) 3 ml IH [id number] PRN PRN Reason: Shortness of Breath Collagenase (Santyl) 0 gm TOP DAILY [facility] Heparin Sodium (Porcine) (Heparin) 5,000 units SC Q12 [facility] PRN Reason: Protocol Last Admin: 05/03/17 11:00 Dose: 5,000 units Meropenem 500 mg/ Sodium (Chloride) 100 mls @ 100 mls/hr IVPB Q12 [facility] PRN Reason: Protocol Last Admin: 05/03/17 10:12 Dose: 100 mls/hr Ampicillin Sodium/Sulbactam (Sodium 3 gm/ Sodium Chloride) 100 mls @ 200 mls/ hr IVPB Q6 [facility] PRN Reason: Protocol Last Admin: 05/03/17 12:53 Dose: 200 mls/hr Dextrose (Dextrose 5% In Water 1000 Ml) 1,000 mls @ 70 mls/hr IV .[id number] [facility] Stop: 05/04/17 04:28 Last Admin: 05/03/17 14:31 Dose: 70 mls/hr Insulin Human Regular (Humulin R High) 0 units SC ACHS [facility] PRN Reason: Protocol Last Admin: 05/03/17 13:50 Dose: 4 units Pantoprazole Sodium (Protonix Inj) 40 mg IVP DAILY [facility] Last Admin: 05/03/17 10:12 Dose: 40 mg Physical Exam - Constitutional Appears: No Acute Distress - Head Exam Head Exam: NORMOCEPHALIC - Eye Exam Eye Exam: Normal appearance. absent: Scleral icterus - ENT Exam ENT Exam: Mucous Membranes Dry - Neck Exam Neck exam: Positive for: Normal Inspection - Respiratory Exam Respiratory Exam: Decreased Breath Sounds, NORMAL BREATHING PATTERN. absent: Respiratory Distress - Cardiovascular Exam Cardiovascular Exam: +S1, +S2 - GI/Abdominal Exam GI & Abdominal Exam: Normal Bowel Sounds, Soft. absent: Distended, Guarding, Rebound, Tenderness - Extremities Exam Extremities exam: Positive for: pedal pulses present. Negative for: pedal edema Additional comments: left-sided weakness, left arm contracted, has a totally in left hand. - Back Exam Additional comments: nephrostomy tube noted, insertion site dry and intact - Neurological Exam Neurological exam: Altered (awake and nonverbal) - Skin Skin Exam: Dry, Warm Additional comments: sacral decubiti noted Results - Vital Signs Recent Vital Signs: Last Vital Signs Temp 99.6 F 05/03/17 10:00 Pulse 51 L 05/03/17 08:00 Resp 21 05/03/17 08:00 BP 79/46 L 05/03/17 15:52 Pulse Ox 100 05/03/17 08:00 - Labs Result Diagrams: 05/03/17 05:00 05/03/17 07:40 Labs: Laboratory Results - last 24 hr 05/02/17 05/02/17 05/02/17 11:25 11:42 21:23 WBC RBC Hgb Hct MCV MCH MCHC RDW Plt Count MPV Sodium Potassium Chloride Carbon Dioxide Anion Gap BUN Creatinine Est GFR ( Amer) Est GFR (Non-Af Amer) POC Glucose (mg/dL) 274 H 199 H Random Glucose Serum Osmolality 367 H Calcium Phosphorus Magnesium Total Bilirubin AST ALT Alkaline Phosphatase NT-Pro-B Natriuret Pep Total Protein Albumin Globulin Albumin/Globulin Ratio 05/03/17 05/03/17 05:00 07:40 WBC 13.4 H RBC 3.79 Hgb 10.5 L Hct 34.0 L MCV 89.7 MCH 27.7 MCHC 30.9 L RDW 17.9 H Plt Count 196 MPV 11.6 H Sodium 165 H* Potassium 3.7 Chloride 130 H Carbon Dioxide 19 L Anion Gap 20 BUN 73 H Creatinine 2.1 H Est GFR ( Amer) 28 Est GFR (Non-Af Amer) 23 POC Glucose (mg/dL) Random Glucose 243 H Serum Osmolality Calcium 7.7 L Phosphorus 3.3 Magnesium 2.4 H Total Bilirubin 0.8 AST 37 H ALT 27 Alkaline Phosphatase 93 NT-Pro-B Natriuret Pep 7580 H Total Protein 6.4 Albumin 2.7 L Globulin 3.7 Albumin/Globulin Ratio 0.7 L Assessment & Plan - Assessment and Plan (Free Text) Assessment: Assessment: Altered mental status Urosepsis, positive VRE and ESBL bacteremia Dehydration History of stroke with left-sided weakness Oropharyngeal dysphagia Hypernatremia, may be due to dehydration Acute renal failure Diabetes mellitus Thrombocytopenia CHF Plan: NPO, continue IV F On IV antibiotics as per ID On heparin subcutaneous which is currently on hold Continue PPI as per renal Called Kasandra Grewal, patient's POA at [phone], left message for callback, office number was given. Patient may benefit from PEG tube placement, consider went optimal, patient with hypernatremia. Take you for this consult and for allowing us to participate in your patient's care, further recommendations based upon clinical course. Seen and discussed with Dr. Ferguson. Addendum: Patient is noted to have re-swallow evaluation and started onpure honey thick diet, will add calorie count. <Sameera Ferguson V - Last Filed: 05/04/17 00:02> Meds - Medications Medications: Current Medications Acetaminophen (Tylenol 650 Mg Supp) 650 mg RC Q4H PRN PRN Reason: Fever >100.4 F Last Admin: 05/02/17 06:08 Dose: 650 mg Albuterol/Ipratropium (Duoneb 3 Mg/0.5 Mg (3 Ml) Ud) 3 ml IH [id number] PRN PRN Reason: Shortness of Breath Collagenase (Santyl) 0 gm TOP DAILY [facility] Heparin Sodium (Porcine) (Heparin) 5,000 units SC Q12 [facility] PRN Reason: Protocol Last Admin: 05/03/17 11:00 Dose: 5,000 units Meropenem 500 mg/ Sodium (Chloride) 100 mls @ 100 mls/hr IVPB Q12 [facility] PRN Reason: Protocol Last Admin: 05/03/17 22:27 Dose: 100 mls/hr Ampicillin Sodium/Sulbactam (Sodium 3 gm/ Sodium Chloride) 100 mls @ 200 mls/ hr IVPB Q6 [facility] PRN Reason: Protocol Last Admin: 05/03/17 17:04 Dose: 200 mls/hr Dextrose (Dextrose 5% In Water 1000 Ml) 1,000 mls @ 70 mls/hr IV .[id number] [facility] Stop: 05/04/17 04:28 Last Admin: 05/03/17 14:31 Dose: 70 mls/hr Insulin Human Regular (Humulin R High) 0 units SC ACHS [facility] PRN Reason: Protocol Last Admin: 05/03/17 22:28 Dose: Not Given Pantoprazole Sodium (Protonix Inj) 40 mg IVP DAILY [facility] Last Admin: 05/03/17 10:12 Dose: 40 mg Results - Vital Signs Recent Vital Signs: Last Vital Signs Temp 99.8 F H 05/03/17 16:00 Pulse 52 L 05/03/17 16:00 Resp 16 05/03/17 16:00 BP 79/47 L 05/03/17 16:00 Pulse Ox 98 05/03/17 16:00 - Labs Result Diagrams: 05/03/17 05:00 05/03/17 07:40 Labs: Laboratory Results - last 24 hr 05/03/17 05/03/17 05/03/17 05:00 07:40 07:51 WBC 13.4 H RBC 3.79 Hgb 10.5 L Hct 34.0 L MCV 89.7 MCH 27.7 MCHC 30.9 L RDW 17.9 H Plt Count 196 MPV 11.6 H Sodium 165 H* Potassium 3.7 Chloride 130 H Carbon Dioxide 19 L Anion Gap 20 BUN 73 H Creatinine 2.1 H Est GFR ( Amer) 28 Est GFR (Non-Af Amer) 23 POC Glucose (mg/dL) 271 H Random Glucose 243 H Calcium 7.7 L Phosphorus 3.3 Magnesium 2.4 H Total Bilirubin 0.8 AST 37 H ALT 27 Alkaline Phosphatase 93 NT-Pro-B Natriuret Pep 7580 H Total Protein 6.4 Albumin 2.7 L Globulin 3.7 Albumin/Globulin Ratio 0.7 L 05/03/17 05/03/17 05/03/17 10:53 16:31 21:07 WBC RBC Hgb Hct MCV MCH MCHC RDW Plt Count MPV Sodium Potassium Chloride Carbon Dioxide Anion Gap BUN Creatinine Est GFR ( Amer) Est GFR (Non-Af Amer) POC Glucose (mg/dL) 231 H 328 H 204 H Random Glucose Calcium Phosphorus Magnesium Total Bilirubin AST ALT Alkaline Phosphatase NT-Pro-B Natriuret Pep Total Protein Albumin Globulin Albumin/Globulin Ratio Attending/Attestation - Attestation I have personally seen and examined this patient.: Yes I have fully participated in the care of the patient.: Yes I have reviewed all pertinent clinical information: Yes Notes (Text): This is an addendum to GI progress report dictated by Heather Peterson APN.The patient was seen and examined earlier. Medical records, lab studies, imagings were reviewed. Last 24 hours events reviewed. Agreed with the above treatment plan as outlined in Heather Peterson APN's notes the with the addition of the following Discussed with the nursing staff. Patient has been started on by mouth and [place] count Would need a PEG tube if by mouth intake remains poor. Family expressed their intention to follow aggressive care 05/03/17 23:56
--- NOTE | 2017-05-03 18:53 | CON ---
DATE: 05/03/2017 CHIEF COMPLAINT: Nephrostomy tube and urosepsis. HISTORY OF PRESENT ILLNESS: A 72-year-old female who was admitted with altered mental status, history is obtained from the chart, she is not able to give a history. She is at a correction. She was admitted because of fevers. She has a past history of stones. She has had diabetes, CVA, hypertension, and a nephrostomy tube had been placed in the past for obstruction. The current nephrostomy tube has been in for 3 months. SHE IS ALLERGIC TO QUINOLONE. The history again is obtained from the chart. She is an ex-smoker. She does not drink. She is on Protonix. PAST SURGICAL HISTORY: Include a left hip open reduction and internal fixation surgery. REVIEW OF SYMPTOMS: No apparent symptoms are referable to the cardiac, respiratory, or GI systems. PHYSICAL EXAMINATION VITAL SIGNS: Shows her to be with a temperature of 100.3, blood pressure 99/55, respirations 21, pulse 51. HEENT: Normocephalic. GENERAL: She does not respond and is basically bedridden. The nephrostomy tube only put out 200 mL and 100 mL out the Hirsch. ABDOMEN: Soft, no rebound, or guarding. SKIN: No purpura. LABORATORY WORK: The lab work shows a white count of 13,000, hemoglobin 10.5, her creatinine is 2.1 with a BUN of 73. She currently is on meropenem as per ID, which has been switched to Unasyn. Her urine culture was growing 2 organisms; E. coli and Providencia stuartii. A blood culture was growing coli, Providencia, and also vancomycin-resistant Enterococcus faecalis. ASSESSMENT AND PLAN: The patient is going to have a nephrostomy tube change while she is here since that has been over 3 months and it is difficult to get her here from her correction. Treatment should just be supportive and I would not remove the nephrostomy tube since it is a safety valve that have actually put out two-thirds of her output, 200 mL versus 100 from the Hirsch, so I would continue to maintain it. Akash Hughes MD
--- NOTE | 2017-05-03 19:12 | CT ---
PROCEDURE: CT Abdomen and Pelvis without intravenous contrast HISTORY: r/o intrabdominal abscess COMPARISON: 12/02/2016 TECHNIQUE: Without contrast.. Contrast Dose: 0 Radiation dose: Total exam DLP = 542.17 mGy-cm. This CT exam was performed using one or more of the following dose reduction techniques: Automated exposure control, adjustment of the mA and/or kV according to patient size, and/or use of iterative reconstruction technique. FINDINGS: LOWER THORAX: There is left lower lobe opacity, possibly pneumonia. Follow-up with chest radiography is advised. Minimal bilateral lower lobe dependent pleural thickening. LIVER: Unremarkable. No gross lesion or ductal dilatation. GALLBLADDER AND BILE DUCTS: Cholelithiasis. No mural thickening or pericholecystic fluid. PANCREAS: Unremarkable. No gross lesion or ductal dilatation. SPLEEN: Unremarkable. ADRENALS: Stable 2.9 cm ovoid low-attenuation mass in the right adrenal. Likely adrenal adenoma. It measures 29 Hounsfield units in attenuation. This is nonspecific. No left adrenal mass. KIDNEYS AND URETERS: Right percutaneous nephrostomy tube. Right upper pole renal calculi. Nonobstructing 5 mm calculus in left renal pelvis. No change from prior. No hydronephrosis. The left kidney is enlarged. This is a change from prior CT examination. Significance uncertain. Consider extensive pyelonephritis or renal venous obstruction. No significant perinephric inflammatory change. Abnormality of left mid renal contour, possibly small cortical mass or cyst. No mass demonstrated on ultrasound examination of 01/24/2017. Nevertheless, follow-up with ultrasound advised. VASCULATURE: Unremarkable. No aortic aneurysm. BOWEL: Suspect acute diverticulitis at splenic flexure of the colon. Focal mural thickening, diverticular disease and pericolonic inflammatory change with thickening of the adjacent fascia. No abscess. No free air. Diverticulosis of the sigmoid colon is noted. The patient is status post partial right colectomy with central anastomosis evident. No other abnormal bowel loops. APPENDIX: Not identified. PERITONEUM: No ascites or pneumoperitoneum. LYMPH NODES: Shotty retroperitoneal nodes without significant bulky lymphadenopathy. No pelvic lymphadenopathy. BLADDER: Poorly distended. Hirsch catheter balloon. Intraluminal air likely secondary to Hirsch catheterization. REPRODUCTIVE: Unremarkable uterus. BONES: No acute fracture. OTHER FINDINGS: None. IMPRESSION: Acute diverticulitis of the splenic flexure/ proximal descending colon without evidence of abscess or free air. Mild enlargement of left kidney without evidence of hydronephrosis. This represents interval change from prior CT examination. Significance uncertain. Differential diagnosis includes extensive pyelonephritis or possible renal venous thrombosis. Cholelithiasis without evidence of cholecystitis. Right percutaneous nephrostomy tube and nonobstructing right renal calculi. Nonobstructing 5 mm left renal pelvic calculus. Stable 2.9 cm right adrenal mass.
[2017-05-04] MEDS: Ampicillin/Sulbactam 3 GM in Sodium Chloride 0.9% 100 ML IVPB SCH ×4 (00:34→20:31)
[2017-05-04 07:59] LABS: BASO # 0.01 K/mm3 (0.0-2.0); BASO % 0.1 % (0.0-3.0); EOS # 0.2 (0.0-0.7); EOS % 1.3 % (1.5-5.0); GRAN # 11.71 (1.4-6.5); GRAN % 84.7 % (50.0-68.0); HEMATOCRIT 27.2 % (36.0-48.0); LYMPH # 1.4 (1.2-3.4); LYMPH % 9.8 % (22.0-35.0); MEAN CELL VOLUME 90.4 fl (80.0-105.0); MEAN CORPUSCULAR HEMOGLOBIN 27.2 pg (25.0-35.0); MEAN CORPUSCULAR HGB CONC 30.1 g/dl (31.0-37.0); MEAN PLATELET VOLUME 11.6 fl (7.0-11.0); MONO # 0.6 (0.1-0.6); MONO % 4.1 % (1.0-6.0); RED CELL DISTRIBUTION WIDTH 18.1 % (11.5-14.5); WHITE BLOOD COUNT 13.8 10^3/ul (4.5-11.0)
[2017-05-04 08:11] LABS: ALB/GLOB RATIO 0.7 (1.1-1.8); BILIRUBIN,TOTAL 0.8 mg/dL (0.2-1.3); CALCIUM 7.4 mg/dL (8.4-10.5); MAGNESIUM 2.1 mg/dL (1.7-2.2); POTASSIUM 3.3 mmol/L (3.6-5.0); TOTAL PROTEIN 5.7 g/dL (5.8-8.3)
[2017-05-04] MEDS: Insulin Reg-HIGH-Coverage SC SCH ×4 (08:21→22:13)
[2017-05-04] MEDS ORDERED: Midazolam 2 MG/2 ML VIAL ONE (10:06)
[2017-05-04] MEDS ORDERED: Lidocaine 2% Inj (20ml) ONE (10:06)
[2017-05-04] MEDS ORDERED: Iodixanol 320 MG/ML 100 ML BOTTLE IV ONE (10:07)
[2017-05-04] MEDS ORDERED: Iodixanol 320 MG/ML 200 ML BOTTLE IV ONE (10:07)
--- NOTE | 2017-05-04 12:26 | CP.PCM.CON ---
History of Present Illness - History of Present Illness History of Present Illness: Surgery 72 F w PMH of renal stone, R hemicolectomy for cecal mass , CKD came from assisted with AMS, hematuria. Pt is still AAO x0 history and ROS from chart. Surgery is consulted to evaluate for diverticulitis. CT shows acute diverticulitis on splenic flecture. No free air. WBC is 14. PMH: pyelonephritis, kidney stones with stents, hydronephrosis, pneumonia, pleural effusion, CVA, HLD, HTN, DM , chronic pain, hip fracture, anxiety, and CKD PSHx: nephrostomy tube placement, cystoscopy with stent placement, R hemicolectomy for cecal mass , orthopedic surgery of left hip Social hx: former smoker, denies alcohol or illicit drug use Allergy: ciprofloxacin-rash, levofloxacin- rash, quinolones- rash FHx: Non-contributory Review of Systems - Review of Systems Systems not reviewed;Unavailable: Altered Mental Status Past Patient History - Infectious Disease Hx of Infectious Diseases: VRE - Past Social History Smoking Status: aphasic - CARDIAC Hx Cardiac Disorders: Yes Hx Hypertension: Yes - PULMONARY Hx Pneumonia: Yes - NEUROLOGICAL HX Cerebrovascular Accident: Yes - HEENT Hx HEENT Problems: No - RENAL Hx Renal Failure: Yes - ENDOCRINE/METABOLIC Hx Diabetes Mellitus Type 2: Yes - HEMATOLOGICAL/ONCOLOGICAL Hx Blood Disorders: No - INTEGUMENTARY Hx Dermatological Problems: No Other/Comment: left buttocks reddened. Healed ulcer - MUSCULOSKELETAL/RHEUMATOLOGICAL Hx Falls: No (unable to obtained,unresponesive) - GASTROINTESTINAL Hx Gastrointestinal Disorders: Yes Hx Gastroesophageal Reflux: Yes - GENITOURINARY/GYNECOLOGICAL Hx Genitourinary Disorders: Yes Hx Hematuria: Yes Hx Incontinence: Yes Hx Urinary Tract Infection: Yes - PSYCHIATRIC Hx Psychophysiologic Disorder: No Hx Emotional Abuse: No Hx Physical Abuse: No - SURGICAL HISTORY Hx Orthopedic Surgery: Yes (L hip orif) Other/Comment: cysto with stents, cecal mass excision. R arm PICC - ANESTHESIA Hx Anesthesia: Yes Hx Anesthesia Reactions: No Hx Malignant Hyperthermia: No Meds Allergies/Adverse Reactions: Allergies Allergy/AdvReac Type Severity Reaction Status Date / Time ciprofloxacin [From Cipro] Allergy RASH Verified 12/06/16 18:55 levofloxacin [From Levaquin] Allergy RASH Verified 12/06/16 18:55 Quinolones Allergy RASH Verified 12/06/16 18:55 - Medications Medications: Current Medications Acetaminophen (Tylenol 650 Mg Supp) 650 mg RC Q4H PRN PRN Reason: Fever >100.4 F Last Admin: 05/02/17 06:08 Dose: 650 mg Albuterol/Ipratropium (Duoneb 3 Mg/0.5 Mg (3 Ml) Ud) 3 ml IH [id number] PRN PRN Reason: Shortness of Breath Collagenase (Santyl) 0 gm TOP DAILY [facility] Heparin Sodium (Porcine) (Heparin) 5,000 units SC Q12 [facility] PRN Reason: Protocol Last Admin: 05/03/17 11:00 Dose: 5,000 units Meropenem 500 mg/ Sodium (Chloride) 100 mls @ 100 mls/hr IVPB Q12 [facility] PRN Reason: Protocol Last Admin: 05/03/17 22:27 Dose: 100 mls/hr Ampicillin Sodium/Sulbactam (Sodium 3 gm/ Sodium Chloride) 100 mls @ 200 mls/ hr IVPB Q6 [facility] PRN Reason: Protocol Last Admin: 05/04/17 06:54 Dose: 200 mls/hr Dextrose (Dextrose 5% In Water 1000 Ml) 1,000 mls @ 80 mls/hr IV .[id number] [facility] Potassium Chloride (Potassium Chloride 20 Meq/100 Ml) 20 meq in 100 mls @ 50 mls/hr IVPB Q2H [facility] Stop: 05/04/17 13:14 Insulin Human Regular (Humulin R High) 0 units SC ACHS [facility] PRN Reason: Protocol Last Admin: 05/04/17 08:21 Dose: 12 units Pantoprazole Sodium (Protonix Inj) 40 mg IVP DAILY [facility] Last Admin: 05/03/17 10:12 Dose: 40 mg Physical Exam - Constitutional Appears: Chronically Ill - Head Exam Head Exam: ATRAUMATIC, NORMAL INSPECTION, NORMOCEPHALIC - ENT Exam ENT Exam: Mucous Membranes Dry - Neck Exam Neck exam: Positive for: Normal Inspection - Respiratory Exam Respiratory Exam: NORMAL BREATHING PATTERN. absent: Respiratory Distress - Cardiovascular Exam Cardiovascular Exam: REGULAR RHYTHM - GI/Abdominal Exam GI & Abdominal Exam: Normal Bowel Sounds, Soft. absent: Distended, Firm, Guarding, Hernia, Rigid, Tenderness - Exam Exam: absent: NORMAL INSPECTION Additional comments: renal catheter in place. - Neurological Exam Neurological exam: Altered - Skin Skin Exam: Dry, Warm Results - Vital Signs Recent Vital Signs: Last Vital Signs Temp 98.5 F 05/04/17 11:44 Pulse 87 05/04/17 11:44 Resp 14 05/04/17 11:44 BP 100/62 05/04/17 11:44 Pulse Ox 97 05/04/17 11:44 - Labs Result Diagrams: 05/04/17 07:30 05/04/17 07:30 Labs: Laboratory Results - last 24 hr 05/03/17 05/03/17 05/03/17 07:51 10:53 16:31 WBC RBC Hgb Hct MCV MCH MCHC RDW Plt Count MPV Gran % Lymph % (Auto) [place] % (Auto) Eos % (Auto) Baso % (Auto) Gran # Lymph # [place] # Eos # Baso # Sodium Potassium Chloride Carbon Dioxide Anion Gap BUN Creatinine Est GFR ( Amer) Est GFR (Non-Af Amer) POC Glucose (mg/dL) 271 H 231 H 328 H Random Glucose Calcium Phosphorus Magnesium Total Bilirubin AST ALT Alkaline Phosphatase Total Protein Albumin Globulin Albumin/Globulin Ratio Blood Type Antibody Screen BBK History Checked 05/03/17 05/04/17 05/04/17 21:07 07:28 07:30 WBC 13.8 H RBC 3.01 L Hgb 8.2 L D Hct 27.2 L MCV 90.4 MCH 27.2 MCHC 30.1 L RDW 18.1 H Plt Count 196 MPV 11.6 H Gran % 84.7 H Lymph % (Auto) 9.8 L [place] % (Auto) 4.1 Eos % (Auto) 1.3 L Baso % (Auto) 0.1 Gran # 11.71 H Lymph # 1.4 [place] # 0.6 Eos # 0.2 Baso # 0.01 Sodium Potassium Chloride Carbon Dioxide Anion Gap BUN Creatinine Est GFR ( Amer) Est GFR (Non-Af Amer) POC Glucose (mg/dL) 204 H 302 H Random Glucose Calcium Phosphorus Magnesium Total Bilirubin AST ALT Alkaline Phosphatase Total Protein Albumin Globulin Albumin/Globulin Ratio Blood Type Antibody Screen BBK History Checked 05/04/17 05/04/17 07:30 08:40 WBC RBC Hgb Hct MCV MCH MCHC RDW Plt Count MPV Gran % Lymph % (Auto) [place] % (Auto) Eos % (Auto) Baso % (Auto) Gran # Lymph # [place] # Eos # Baso # Sodium 160 H* Potassium 3.3 L Chloride 129 H Carbon Dioxide 22 Anion Gap 12 BUN 64 H Creatinine 2.1 H Est GFR ( Amer) 28 Est GFR (Non-Af Amer) 23 POC Glucose (mg/dL) Random Glucose 277 H Calcium 7.4 L Phosphorus 3.0 Magnesium 2.1 Total Bilirubin 0.8 AST 30 ALT 31 Alkaline Phosphatase 70 Total Protein 5.7 L Albumin 2.3 L Globulin 3.4 Albumin/Globulin Ratio 0.7 L Blood Type O POSITIVE Antibody Screen Negative BBK History Checked Patient has bt Assessment & Plan - Assessment and Plan (Free Text) Assessment: Acute diverticulitis WBC 14 CT acute diverticulitis around splenic flecture -Conservative management -GI on board: calorie count. Possible PEG for dysphagia -Medical managment -ABX Will DW Dr. Pickens
[2017-05-04] MEDS: Meropenem 500 MG in Sodium Chloride 0.9% 100 ML IVPB SCH ×2 (14:26→21:01)
--- NOTE | 2017-05-04 15:41 | CP.PCM.PN ---
Subjective - Date & Time of Evaluation Date of Evaluation: 05/04/17 Time of Evaluation: 15:36 - Subjective Subjective: TRENAL PROGRESS NOTE no events overnight nephrostomy tube has been changed more awake today oral intake improved PE:lying in bed vitals reviewed, bp soft s1s2 present bilateral air entry equal abd soft nephrostomy tube present mon + awake, oritented X0 skin normal TSERING/hypernatremia/acidosis/urosepsis/dm/htn/sepsis syndrome tsering likely sec to prerenal ischemic atn from volume depletion and sepsis syndrome UOP mildly improved today cr is stable hypernatremia sec to no oral intake, needs more salt free fluids , recommend increasing d5 to 100cc perhour DM: per your care, monitor especially she is on iv d5 drip urosepsis: abx per ID and nephrostomy tube changed d/w housestaff will continue to follow, please call our office if any qs [phone] Objective - Vital Signs/Intake and Output Vital Signs (last 24 hours): Temp Pulse Resp BP Pulse Ox 98.5 F 87 14 100/62 97 05/04/17 11:44 05/04/17 11:44 05/04/17 11:44 05/04/17 11:44 05/04/17 11:44 Intake and Output: 05/04/17 05/04/17 06:59 18:59 Intake Total 980 Output Total 700 Balance 280 - Medications Medications: Current Medications Acetaminophen (Tylenol 650 Mg Supp) 650 mg RC Q4H PRN PRN Reason: Fever >100.4 F Last Admin: 05/02/17 06:08 Dose: 650 mg Albuterol/Ipratropium (Duoneb 3 Mg/0.5 Mg (3 Ml) Ud) 3 ml IH [id number] PRN PRN Reason: Shortness of Breath Collagenase (Santyl) 0 gm TOP DAILY [facility] Heparin Sodium (Porcine) (Heparin) 5,000 units SC Q12 [facility] PRN Reason: Protocol Last Admin: 05/03/17 11:00 Dose: 5,000 units Meropenem 500 mg/ Sodium (Chloride) 100 mls @ 100 mls/hr IVPB Q12 [facility] PRN Reason: Protocol Last Admin: 05/04/17 14:26 Dose: Not Given Ampicillin Sodium/Sulbactam (Sodium 3 gm/ Sodium Chloride) 100 mls @ 200 mls/ hr IVPB Q6 [facility] PRN Reason: Protocol Last Admin: 05/04/17 14:27 Dose: 200 mls/hr Dextrose (Dextrose 5% In Water 1000 Ml) 1,000 mls @ 100 mls/hr IV .Q10H [facility] Insulin Human Regular (Humulin R High) 0 units SC ACHS [facility] PRN Reason: Protocol Last Admin: 05/04/17 14:26 Dose: Not Given Pantoprazole Sodium (Protonix Inj) 40 mg IVP DAILY [facility] Last Admin: 05/04/17 14:26 Dose: 40 mg - Labs Labs: 05/04/17 07:30 05/04/17 07:30 PT 11.3 SECONDS (9.4-12.5) 04/28/17 17:56 INR 1.04 (0.93-1.08) 04/28/17 17:56 APTT 25.9 Seconds (25.1-36.5) 04/28/17 17:56
[2017-05-04 16:33] LABS: HEMATOCRIT 28.3 % (36.0-48.0)
[2017-05-04 16:50] LABS: IRON 10 ug/dL (45-180)
--- NOTE | 2017-05-04 16:56 | CP.PCM.PN ---
Subjective - Date & Time of Evaluation Date of Evaluation: 05/04/17 Time of Evaluation: 15:30 - Subjective Subjective: Infectious Disease Follow Up: May 04, 2017 72 yo female sent for altered mental status. Not answering questions. Her hospitalization in January 2017 showed a patient who was awake and alert and able to express needs. The patient is lying in bed crosseyed and tracking only after heavy stimulation. Patient had fevers in the nursing facility ([facility] not sure if [place] or [place] Fevers up to 102.4 F here. Afebrile the last 24 hours. Bacteremia and UTI. Gram negative rods are predominant. ESBL + E. coli and Providencia noted in blood and urine cultures. VRE in one other culture as well. Head CT showing no new abnormalities. Interval progression of small vessel disease as per reading. Finding of diverticulitis being evaluated by surgery... no surgical intervention. Patient is more responsive today as see opens eyes to voice. Objective - Vital Signs/Intake and Output Vital Signs (last 24 hours): Temp Pulse Resp BP Pulse Ox 98.5 F 87 14 100/62 97 05/04/17 11:44 05/04/17 11:44 05/04/17 11:44 05/04/17 11:44 05/04/17 11:44 Intake and Output: 05/04/17 05/04/17 06:59 18:59 Intake Total 980 Output Total 700 Balance 280 - Medications Medications: Current Medications Acetaminophen (Tylenol 650 Mg Supp) 650 mg RC Q4H PRN PRN Reason: Fever >100.4 F Last Admin: 05/02/17 06:08 Dose: 650 mg Albuterol/Ipratropium (Duoneb 3 Mg/0.5 Mg (3 Ml) Ud) 3 ml IH [id number] PRN PRN Reason: Shortness of Breath Collagenase (Santyl) 0 gm TOP DAILY [facility] Heparin Sodium (Porcine) (Heparin) 5,000 units SC Q12 [facility] PRN Reason: Protocol Last Admin: 05/03/17 11:00 Dose: 5,000 units Meropenem 500 mg/ Sodium (Chloride) 100 mls @ 100 mls/hr IVPB Q12 [facility] PRN Reason: Protocol Last Admin: 05/04/17 14:26 Dose: Not Given Ampicillin Sodium/Sulbactam (Sodium 3 gm/ Sodium Chloride) 100 mls @ 200 mls/ hr IVPB Q6 [facility] PRN Reason: Protocol Last Admin: 05/04/17 14:27 Dose: 200 mls/hr Dextrose (Dextrose 5% In Water 1000 Ml) 1,000 mls @ 100 mls/hr IV .Q10H [facility] Last Admin: 05/04/17 16:13 Dose: 100 mls/hr Insulin Human Regular (Humulin R High) 0 units SC ACHS [facility] PRN Reason: Protocol Last Admin: 05/04/17 14:26 Dose: Not Given Pantoprazole Sodium (Protonix Inj) 40 mg IVP DAILY [facility] Last Admin: 05/04/17 14:26 Dose: 40 mg - Labs Labs: 05/04/17 16:28 05/04/17 07:30 PT 11.3 SECONDS (9.4-12.5) 04/28/17 17:56 INR 1.04 (0.93-1.08) 04/28/17 17:56 APTT 25.9 Seconds (25.1-36.5) 04/28/17 17:56 - Constitutional Appears: Non-toxic, No Acute Distress, Chronically Ill - Head Exam Head Exam: ATRAUMATIC, NORMOCEPHALIC - Eye Exam Eye Exam: EOMI, PERRL Pupil Exam: NORMAL ACCOMODATION, PERRL - ENT Exam ENT Exam: Mucous Membranes Moist, Normal External Ear Exam, TM's Normal Bilaterally - Neck Exam Neck Exam: Full ROM, Normal Inspection - Respiratory Exam Respiratory Exam: Decreased Breath Sounds, NORMAL BREATHING PATTERN. absent: Rales, Rhonchi, Wheezes - Cardiovascular Exam Cardiovascular Exam: REGULAR RHYTHM, RRR, +S1, +S2 - GI/Abdominal Exam GI & Abdominal Exam: Soft, Normal Bowel Sounds. absent: Distended, Tenderness - Extremities Exam Additional comments: general weakness. contractures of the left arm from shoulder to wrist - Neurological Exam Neurological Exam: Altered Additional comments: arousable to pain and moderate stimuli. Opens eyes and stares. Not voicing words as of yet. - Psychiatric Exam Additional comments: Unable to test. - Skin Skin Exam: Intact, Warm Assessment and Plan - Assessment and Plan (Free Text) Assessment: 72 yo female with extensive past medical history presenting with AMS. Fevers up to 102.4 F. Urinalysis highly suggestive of UTI. Currently on Ceftriaxone. Patient is growing gram negative rods in the blood cultures. History of ESBL + E. Coli in the distant past. Would change the patient to Meropenem for treatment. The patient also has renal insuffiency. Ordered CT scan of the head given the severe change in mental status... this was negative. Awaiting final blood culture and urine culture results. Patient with Bacteremia and UTI with gram negative rods at the least. Continuing on Meropenem give ESBL+ E. Coli and Providencia (sensitive to Rocephin). Blood culture is also showing VRE growth. Reculture the patient on tuesday... both urine and blood. Continue on Unasyn for the VRE seen. Bedbound patient. Patient with extremely limited ability to interact. Supportive care. Patient is more arousable today. Thank you for allowing me to participate in the care of the patient, we will follow with you.
--- NOTE | 2017-05-04 17:10 | CP.PCM.PN ---
<Heather Peterson - Last Filed: 05/05/17 19:17> Subjective - Date & Time of Evaluation Date of Evaluation: 05/04/17 Time of Evaluation: 12:00 - Subjective Subjective: Seen and examined at the bedside earlier this afternoon, the patient just returned from change of nephrostomy tube. Patient seems more awake and alert today. Yesterday she had swallow re-evaluation and tolerated pure thick liquid. had ct scan abdomen and pelvis yesterday to r/o intrabdominal abcess, report review, reading acute diverticulitis. Objective - Vital Signs/Intake and Output Vital Signs (last 24 hours): Temp Pulse Resp BP Pulse Ox 98.5 F 87 14 100/62 97 05/04/17 11:44 05/04/17 11:44 05/04/17 11:44 05/04/17 11:44 05/04/17 11:44 Intake and Output: 05/04/17 05/04/17 06:59 18:59 Intake Total 980 Output Total 700 Balance 280 - Medications Medications: Current Medications Acetaminophen (Tylenol 650 Mg Supp) 650 mg RC Q4H PRN PRN Reason: Fever >100.4 F Last Admin: 05/02/17 06:08 Dose: 650 mg Albuterol/Ipratropium (Duoneb 3 Mg/0.5 Mg (3 Ml) Ud) 3 ml IH [id number] PRN PRN Reason: Shortness of Breath Collagenase (Santyl) 0 gm TOP DAILY [facility] Heparin Sodium (Porcine) (Heparin) 5,000 units SC Q12 [facility] PRN Reason: Protocol Last Admin: 05/03/17 11:00 Dose: 5,000 units Meropenem 500 mg/ Sodium (Chloride) 100 mls @ 100 mls/hr IVPB Q12 [facility] PRN Reason: Protocol Last Admin: 05/04/17 14:26 Dose: Not Given Ampicillin Sodium/Sulbactam (Sodium 3 gm/ Sodium Chloride) 100 mls @ 200 mls/ hr IVPB Q6 [facility] PRN Reason: Protocol Last Admin: 05/04/17 14:27 Dose: 200 mls/hr Dextrose (Dextrose 5% In Water 1000 Ml) 1,000 mls @ 100 mls/hr IV .Q10H [facility] Last Admin: 05/04/17 16:13 Dose: 100 mls/hr Insulin Human Regular (Humulin R High) 0 units SC ACHS [facility] PRN Reason: Protocol Last Admin: 05/04/17 14:26 Dose: Not Given Pantoprazole Sodium (Protonix Inj) 40 mg IVP DAILY [facility] Last Admin: 05/04/17 14:26 Dose: 40 mg - Labs Labs: 05/04/17 16:28 05/04/17 07:30 PT 11.3 SECONDS (9.4-12.5) 04/28/17 17:56 INR 1.04 (0.93-1.08) 04/28/17 17:56 APTT 25.9 Seconds (25.1-36.5) 04/28/17 17:56 - Constitutional Appears: No Acute Distress - Eye Exam Eye Exam: Normal appearance. absent: Scleral icterus - ENT Exam ENT Exam: Mucous Membranes Dry - Neck Exam Neck Exam: Normal Inspection - Respiratory Exam Respiratory Exam: NORMAL BREATHING PATTERN. absent: Respiratory Distress - Cardiovascular Exam Cardiovascular Exam: +S1, +S2 - GI/Abdominal Exam GI & Abdominal Exam: Soft, Normal Bowel Sounds. absent: Guarding (Y), Tenderness, Rebound - Back Exam Additional comments: nephrostomy site dry and intact, drain hematuria, no clots - Neurological Exam Neurological Exam: Alert, Awake - Skin Skin Exam: Dry, Warm Assessment and Plan - Assessment and Plan (Free Text) Assessment: Assessment: S/P nephrostomy change ?Acute diverticulitis on ct scan Altered mental status Urosepsis, positive VRE and ESBL bacteremia Dehydration History of stroke with left-sided weakness Oropharyngeal dysphagia Hypernatremia, may be due to dehydration Acute renal failure Diabetes mellitus Thrombocytopenia CHF Plan: on purree, thick liquid continue IV F On IV antibiotics as per ID On heparin subcutaneous which is currently on hold for nephrostomy change Continue PPI as per renal, ID, for surgical eval Called Kasandra Grewal, patient's POA at [phone], discuss PEG, aware that patient is on puree diet, would like to see how patient tolerates oral intake before considering PEG, patient placed on calorie count Seen and discussed with Dr. Ferguson. <Sameera Ferguson V - Last Filed: 05/05/17 23:46> Objective - Vital Signs/Intake and Output Vital Signs (last 24 hours): Temp Pulse Resp BP Pulse Ox 99.1 F 91 H 18 155/81 H 98 05/05/17 21:54 05/05/17 21:54 05/05/17 21:54 05/05/17 21:54 05/05/17 07:30 Intake and Output: 05/05/17 05/06/17 18:59 06:59 Intake Total 240 565 Output Total 450 300 Balance -210 265 - Medications Medications: Current Medications Acetaminophen (Tylenol 650 Mg Supp) 650 mg RC Q4H PRN PRN Reason: Fever >100.4 F Last Admin: 05/02/17 06:08 Dose: 650 mg Albuterol/Ipratropium (Duoneb 3 Mg/0.5 Mg (3 Ml) Ud) 3 ml IH [id number] PRN PRN Reason: Shortness of Breath Calcium/Vitamin D (Oscal-D 250 Mg-125 Units Tab) 1 tab PO DAILY [facility] Last Admin: 05/05/17 10:51 Dose: 1 tab Collagenase (Santyl) 0 gm TOP DAILY [facility] Last Admin: 05/04/17 20:35 Dose: Not Given Heparin Sodium (Porcine) (Heparin) 5,000 units SC Q12 [facility] PRN Reason: Protocol Last Admin: 05/03/17 11:00 Dose: 5,000 units Meropenem 500 mg/ Sodium (Chloride) 100 mls @ 100 mls/hr IVPB Q12 [facility] PRN Reason: Protocol Last Admin: 05/05/17 11:50 Dose: 100 mls/hr Ampicillin Sodium/Sulbactam (Sodium 3 gm/ Sodium Chloride) 100 mls @ 200 mls/ hr IVPB Q6 [facility] PRN Reason: Protocol Last Admin: 05/05/17 18:41 Dose: 200 mls/hr Dextrose (Dextrose 5% In Water 1000 Ml) 1,000 mls @ 100 mls/hr IV .Q10H [facility] Last Admin: 05/05/17 05:53 Dose: 100 mls/hr Insulin Human Regular (Humulin R High) 0 units SC ACHS [facility] PRN Reason: Protocol Last Admin: 05/05/17 16:41 Dose: 10 units Multivitamins (Thera Tab) 1 tab PO 0800 [facility] Last Admin: 05/05/17 09:25 Dose: 1 tab Pantoprazole Sodium (Protonix Inj) 40 mg IVP DAILY [facility] Last Admin: 05/05/17 10:51 Dose: 40 mg Thiamine HCl (Vitamin B1 Tab) 100 mg PO DAILY [facility] Last Admin: 05/05/17 10:51 Dose: 100 mg - Labs Labs: 05/05/17 06:13 05/05/17 18:05 PT 11.3 SECONDS (9.4-12.5) 04/28/17 17:56 INR 1.04 (0.93-1.08) 04/28/17 17:56 APTT 25.9 Seconds (25.1-36.5) 04/28/17 17:56 Attending/Attestation - Attestation I have personally seen and examined this patient.: Yes I have fully participated in the care of the patient.: Yes I have reviewed all pertinent clinical information, including history, physical exam and plan: Yes Notes (Text): this is a delayed dictation. Patient was seen along with the Heather Peterson APN. Also discussed with nursing staff. This is an addendum to GI progress report dictated by Heather Peterson APN.The patient was seen and examined earlier. Medical records, lab studies, imagings were reviewed. Last 24 hours events reviewed. Agreed with the above treatment plan as outlined in Heather Peterson APN's notes the with the addition of the following discussed with the patient's POA. The plan is to consider gastric feeding tube if intake remains low 05/05/17 23:40
--- NOTE | 2017-05-04 18:54 | VASCULAR ---
PROCEDURE: 1. Percutaneous right nephrostomy tube change HISTORY: History renal calculi and hydronephrosis. Chronic right nephrostomy tube. Needs change PHYSICIAN(S): Shantanu Ortiz MD. TECHNIQUE: The relative risks and indications of the procedure were explained to the patient's family and consent obtained. The patient was placed prone on the arteriogram table and the right back and flank prepped and draped in the usual sterile fashion. Conscious sedation and monitoring were provided throughout the procedure by a nurse. Contrast was injected via the right nephrostomy tube and a nephrostogram performed. Revealed filling defects in the upper calices consistent with renal stones. Mild hydronephrosis is seen. There is a 2-3 cm long narrowing of the proximal right ureter. This may be related to previous stone disease. The mid to distal right ureter is normal and patent. Contrast flows into the bladder 0.035 glidewire was coiled in the right renal pelvis. The old tube was removed. A new 14 Jamaican right nephrostomy tube was placed the right renal pelvis. Vision was confirmed with injection of contrast. Thick catheter was flushed and secured. The patient tolerated the procedure well. FINDINGS: IMPRESSION: 1.Mild right hydronephrosis. Upper pole renal calculi. 2. Moderate proximal right ureteral stricture. This may be related to previous stone disease. 3. Successful exchange for a new 14 [place]ican right percutaneous nephrostomy 2
--- NOTE | 2017-05-04 20:17 | CP.PCM.PN ---
Subjective - Date & Time of Evaluation Date of Evaluation: 05/04/17 Time of Evaluation: 07:00 - Subjective Subjective: Patient was seen and examined at bedside in no acute distress. Patient was found holding tightly to her squeeze toy in her left hand. Patient is able to open eyes and is currently attempting to move her mouth in attempts to speak. ROS not obtained due to patient's AMS. Objective - Vital Signs/Intake and Output Vital Signs (last 24 hours): Temp Pulse Resp BP Pulse Ox 97.8 F 91 H 72 H 122/71 98 05/04/17 17:39 05/04/17 17:39 05/04/17 17:39 05/04/17 17:39 05/04/17 17:39 - Medications Medications: Current Medications Acetaminophen (Tylenol 650 Mg Supp) 650 mg RC Q4H PRN PRN Reason: Fever >100.4 F Last Admin: 05/02/17 06:08 Dose: 650 mg Albuterol/Ipratropium (Duoneb 3 Mg/0.5 Mg (3 Ml) Ud) 3 ml IH [id number] PRN PRN Reason: Shortness of Breath Collagenase (Santyl) 0 gm TOP DAILY [facility] Heparin Sodium (Porcine) (Heparin) 5,000 units SC Q12 [facility] PRN Reason: Protocol Last Admin: 05/03/17 11:00 Dose: 5,000 units Meropenem 500 mg/ Sodium (Chloride) 100 mls @ 100 mls/hr IVPB Q12 [facility] PRN Reason: Protocol Last Admin: 05/04/17 14:26 Dose: Not Given Ampicillin Sodium/Sulbactam (Sodium 3 gm/ Sodium Chloride) 100 mls @ 200 mls/ hr IVPB Q6 [facility] PRN Reason: Protocol Last Admin: 05/04/17 14:27 Dose: 200 mls/hr Dextrose (Dextrose 5% In Water 1000 Ml) 1,000 mls @ 100 mls/hr IV .Q10H [facility] Last Admin: 05/04/17 16:13 Dose: 100 mls/hr Insulin Human Regular (Humulin R High) 0 units SC ACHS [facility] PRN Reason: Protocol Last Admin: 05/04/17 17:10 Dose: 7 units Pantoprazole Sodium (Protonix Inj) 40 mg IVP DAILY [facility] Last Admin: 05/04/17 14:26 Dose: 40 mg - Labs Labs: 05/04/17 16:28 05/04/17 07:30 PT 11.3 SECONDS (9.4-12.5) 04/28/17 17:56 INR 1.04 (0.93-1.08) 04/28/17 17:56 APTT 25.9 Seconds (25.1-36.5) 04/28/17 17:56 - Constitutional Appears: No Acute Distress - Head Exam Head Exam: ATRAUMATIC, NORMAL INSPECTION - Eye Exam Eye Exam: Normal appearance. absent: EOMI - ENT Exam ENT Exam: Mucous Membranes Dry - Neck Exam Neck Exam: Normal Inspection - Respiratory Exam Respiratory Exam: absent: NORMAL BREATHING PATTERN (patient sounds fluid overloaded) - Cardiovascular Exam Cardiovascular Exam: REGULAR RHYTHM, +S1, +S2 - GI/Abdominal Exam GI & Abdominal Exam: Soft, Diminished Bowel Sounds - Extremities Exam Extremities Exam: absent: Normal Inspection (contraction of left Upper and Lower extremity, stage 3 wound to left hand 3rd finger 1cm round wound bed white surrounded by red skin, 2nd finger stage 2 .3cm round small opening wound bed red surrounding skin red, stage 2 left thumb .5 round wound bed red surrounded by red skin, left hand contracted into a fist, left arm contracted, right heel dry and red) - Neurological Exam Neurological Exam: Awake - Skin Skin Exam: Normal Color, Warm Assessment and Plan - Assessment and Plan (Free Text) Assessment: Assessment: 72 yo female with PMH of pyelonephritis, kidney stones with stents, hydronephrosis, pneumonia, pleural effusion, CVA, HLD, HTN, DM , chronic pain, hip fracture and CKD will be admitted for evaluation and treatment for AMS 2/2 urosepsis. Plan: Plan: 1. AMS due to Sepsis with UTI and bacteremia as possible source and Uremic encephalopathy and severe dehydration r/o Stroke -CT head upon admission revealed no acute findings -Sepsis is being treated with antibiotics as per ID -Nephrology is following patient for renal failure and hypernatremia -Patient has passed swallow eval, currently tolerating dysphagic puree food diet -GI consulted for possible PEG tube feed; GI will hold off on PEG tube as patient is tolerating pureed diet -Continue aspiration and fall precautions as well as head above the bed 45 degrees 2. Sepsis due to VRE and ESBL bacteremia and UTI - Patient currently afebrile and blood pressure is stable. Leukocytosis still present - ID following - Repeated blood and urine cultures; results pending for urine cultures - Repeat CXR revealed questionable pneumonia vs atelectasis - Continue with unasyn for VRE will continue with merem as per ID 3. Hypernatremia due to free water deficit due to dehydration - rate of D5 increased from 80 to 100 - Will monitor heart sounds, if patient sounds overloaded will give IV Lasix 4. TSERING - likely pre renal with FeNa < 1% less - Rule out post renal given that patient has a stent and nephrostomy tube - Urology on case; IR consulted for nephrostomy tube placement; procedure performed; revealed mild right hydropnephrosis, upper pole renal calculi, moderate proximal right ureteral stricture - Creatinine remains stable at 2.1 - Nephrology is following 5. Diastolic CHF with moderate to severe Aortic stenosis and Pulmonary Hypertension - BNP was elevated -patient cannot get lasix due to current dehydration 6.HTN - Hold bp meds due to labile hypotension. 7. DM - ISS High due to administering of D5. - Accuchecks ACHS - Swallow study passed, Dysphagia diet started 8.Thrombocytopenia - Plt is improving, continue to monitor. 9.Hypokalemia -will replete 10. Acute Diverticulitis - Surgery consulted; recommends medical management - Patient was already initially made NPO and is currently on abx 11. Ulcerated wounds on left upper extremity - apply santyl to affected areas GI/DVT PPx - Protonix - Heparin IV SC q12 DNR/DNI -Will see patient's status tomorrow and discuss with nephew.
[2017-05-04] MEDS: Collagenase 250 Units/gm Ointment(30 gm) TOP SCH (20:35)
--- NOTE | 2017-05-04 21:51 | CON ---
DATE: 05/04/2017 CARDIOLOGY CONSULTATION HISTORY OF PRESENT ILLNESS: The patient is a 72-year-old woman who presented to the emergency room last week for hematuria. The patient remains lethargic. PAST MEDICAL HISTORY: Includes a history of hypertension and CVA. She also has diabetes mellitus. She has a nephrostomy tube for hydronephrosis and suffers from severe dementia. In the past, her cardiac workup has included an EKG that showed type I Wenckebach AV block. LV function has been found to be normal. In addition, she suffers from aortic stenosis. Currently, the patient is in bed, in no acute distress and is unresponsive to verbal stimuli. REVIEW OF SYSTEMS: Unavailable. PHYSICAL EXAMINATION: VITAL SIGNS: Blood pressure is 100/62, the heart rate in the 80s. NECK: Negative JVD. HEART: Reveals a 3/6 systolic ejection murmur. LUNGS: Without rales. HEART REVEALS: S1 and S2. EXTREMITIES: Without edema. LABORATORY DATA: BUN and creatinine are 64 and 2.1. The sodium is 160. The ProBNP is elevated. The hemoglobin is 8.2. IMPRESSION: 1. Prerenal azotemia. 2. History of aortic stenosis. 3. Normal left ventricular function. 4. History of Wenckebach, which is not relevant. 5. Severe dementia. 6. Anemia. 7. History of nephrostomy tube. Given these findings, the patient is not in CHF clinically. Would avoid diuretics at this time. Gentle hydration would be appropriate. The patient's long-term prognosis is poor. Shantanu Griffith MD
[2017-05-05] MEDS: Ampicillin/Sulbactam 3 GM in Sodium Chloride 0.9% 100 ML IVPB SCH ×4 (01:07→18:41)
--- NOTE | 2017-05-05 05:57 | CP.PCM.PN ---
Subjective - Date & Time of Evaluation Date of Evaluation: 05/05/17 Time of Evaluation: 05:54 - Subjective Subjective: Patient was seen and examined at bedside. Patient appears to be diaphoretic with squeeze toy in left hand. Patient did open eyes when name was called. When asked how she is doing, patient said " I'm alright." Patient's mental status continues to improve. ROS limited due to patient inability to fully communicate. Objective - Vital Signs/Intake and Output Vital Signs (last 24 hours): Temp Pulse Resp BP Pulse Ox 991 F H 97 H 20 102/69 100 05/05/17 00:00 05/05/17 00:00 05/05/17 00:00 05/05/17 00:00 05/05/17 00:00 Intake and Output: 05/04/17 05/05/17 18:59 06:59 Intake Total 360 Output Total 325 Balance 35 - Medications Medications: Current Medications Acetaminophen (Tylenol 650 Mg Supp) 650 mg RC Q4H PRN PRN Reason: Fever >100.4 F Last Admin: 05/02/17 06:08 Dose: 650 mg Albuterol/Ipratropium (Duoneb 3 Mg/0.5 Mg (3 Ml) Ud) 3 ml IH [id number] PRN PRN Reason: Shortness of Breath Collagenase (Santyl) 0 gm TOP DAILY [facility] Last Admin: 05/04/17 20:35 Dose: Not Given Heparin Sodium (Porcine) (Heparin) 5,000 units SC Q12 [facility] PRN Reason: Protocol Last Admin: 05/03/17 11:00 Dose: 5,000 units Meropenem 500 mg/ Sodium (Chloride) 100 mls @ 100 mls/hr IVPB Q12 [facility] PRN Reason: Protocol Last Admin: 05/04/17 21:01 Dose: 100 mls/hr Ampicillin Sodium/Sulbactam (Sodium 3 gm/ Sodium Chloride) 100 mls @ 200 mls/ hr IVPB Q6 [facility] PRN Reason: Protocol Last Admin: 05/05/17 01:07 Dose: 200 mls/hr Dextrose (Dextrose 5% In Water 1000 Ml) 1,000 mls @ 100 mls/hr IV .Q10H [facility] Last Admin: 05/04/17 16:13 Dose: 100 mls/hr Insulin Human Regular (Humulin R High) 0 units SC ACHS [facility] PRN Reason: Protocol Last Admin: 05/04/17 22:13 Dose: 4 units Pantoprazole Sodium (Protonix Inj) 40 mg IVP DAILY [facility] Last Admin: 05/04/17 14:26 Dose: 40 mg - Labs Labs: 05/04/17 16:28 05/04/17 07:30 PT 11.3 SECONDS (9.4-12.5) 04/28/17 17:56 INR 1.04 (0.93-1.08) 04/28/17 17:56 APTT 25.9 Seconds (25.1-36.5) 04/28/17 17:56 - Constitutional Appears: No Acute Distress - Head Exam Head Exam: ATRAUMATIC, NORMAL INSPECTION - Eye Exam Eye Exam: Normal appearance - ENT Exam ENT Exam: Mucous Membranes Dry - Neck Exam Neck Exam: absent: Lymphadenopathy, Thyromegaly - Respiratory Exam Respiratory Exam: Clear to Ausculation Bilateral. absent: Rales, Wheezes, Stridor - Cardiovascular Exam Cardiovascular Exam: REGULAR RHYTHM, +S1 - GI/Abdominal Exam GI & Abdominal Exam: Soft, Diminished Bowel Sounds - Extremities Exam Additional comments: Contraction of left upper and b/l lower extremities - Neurological Exam Neurological Exam: Altered, Awake - Skin Skin Exam: Diaphoretic, Normal Color, Warm Assessment and Plan - Assessment and Plan (Free Text) Assessment: 72 yo female with PMH of pyelonephritis, kidney stones with stents, hydronephrosis, pneumonia, pleural effusion, CVA, HLD, HTN, DM , chronic pain, hip fracture and CKD will be admitted for evaluation and treatment for AMS 2/2 urosepsis. Plan: 1. AMS due to Sepsis with UTI and bacteremia as possible source and Uremic encephalopathy and severe dehydration r/o Stroke -CT head upon admission revealed no acute findings -Sepsis is being treated with antibiotics as per ID -Nephrology is following patient for renal failure and hypernatremia -Currently tolerating dysphagic puree food diet -GI consulted for possible PEG tube feed; GI will hold off on PEG tube as patient is tolerating pureed diet with caloric count included -Continue aspiration and fall precautions as well as head above the bed 45 degrees 2. Sepsis due to VRE and ESBL bacteremia and UTI - Patient currently afebrile and blood pressure is stable. Leukocytosis still present - ID following - Repeated blood and urine cultures; results pending for urine cultures - Repeat CXR revealed questionable pneumonia vs atelectasis - Continue with unasyn for VRE will continue with merem as per ID 3. Hypernatremia due to free water deficit due to dehydration - rate of D5 increased from 80 to 100 - Will monitor heart sounds, if patient sounds overloaded will give IV Lasix 4. TSERING - likely pre renal with FeNa < 1% less - Urology on case; IR consulted for nephrostomy tube placement; procedure performed; revealed mild right hydropnephrosis, upper pole renal calculi, moderate proximal right ureteral stricture - Creatinine downtrending currently 1.9 - Nephrology following 5. Anemia - H&H 7.9 & 25.8 - Type and screened - 1 unit PRBC to be transfused; recheck h&h in morning 6. Diastolic CHF with moderate to severe Aortic stenosis and Pulmonary Hypertension - BNP was elevated - Most likely due to valvular - patient cannot get lasix due to current dehydration 7.HTN - Hold bp meds due to labile hypotension. 8. DM - ISS High due to administering of D5. - Accuchecks ACHS - Continue with dysphagia diet 9.Thrombocytopenia - Continue to monitor. 10.Hypokalemia -repleting 11. Acute Diverticulitis - Follow wbc count - C/w surgery's recs of medical management 12. Ulcerated wounds on left upper extremity - apply santyl to affected areas GI/DVT PPx - Protonix - Heparin IV SC q12 DNR/DNI -Transufsion discussed with nephew; nephew agrees to allow transfusion
[2017-05-05 06:19] LABS: BASO # 0.01 K/mm3 (0.0-2.0); BASO % 0.1 % (0.0-3.0); EOS # 0.2 (0.0-0.7); GRAN # 13.2 (1.4-6.5); GRAN % 88.2 % (50.0-68.0); HEMATOCRIT 25.8 % (36.0-48.0); LYMPH # 1.1 (1.2-3.4); LYMPH % 7.4 % (22.0-35.0); MEAN CELL VOLUME 89.6 fl (80.0-105.0); MEAN CORPUSCULAR HEMOGLOBIN 27.4 pg (25.0-35.0); MEAN CORPUSCULAR HGB CONC 30.6 g/dl (31.0-37.0); MEAN PLATELET VOLUME 11.8 fl (7.0-11.0); MONO # 0.5 (0.1-0.6); MONO % 3.3 % (1.0-6.0); RED CELL DISTRIBUTION WIDTH 17.7 % (11.5-14.5)
[2017-05-05 06:28] LABS: ALB/GLOB RATIO 0.6 (1.1-1.8); BILIRUBIN,TOTAL 0.8 mg/dL (0.2-1.3); MAGNESIUM 1.9 mg/dL (1.7-2.2); POTASSIUM 3.4 mmol/L (3.6-5.0); TOTAL PROTEIN 5.7 g/dL (5.8-8.3)
[2017-05-05 07:00] LABS: CALCIUM 6.9 mg/dL (8.4-10.5)
--- NOTE | 2017-05-05 07:56 | CP.PCM.PN ---
Subjective - Date & Time of Evaluation Date of Evaluation: 05/05/17 Time of Evaluation: 07:53 - Subjective Subjective: PGY1 General Surgery Note for Dr. Pickens Patient seen and examined at bedside this morning. No acute events overnight. Patient is awake, laying in her bed. She follows resident's movements with her eyes. Patient does not appear to be in any pain or acute distress. Patient is non-verbal due to prior CVA. ROS unattainable. Objective - Vital Signs/Intake and Output Vital Signs (last 24 hours): Temp Pulse Resp BP Pulse Ox 991 F H 97 H 20 102/69 100 05/05/17 00:00 05/05/17 00:00 05/05/17 00:00 05/05/17 00:00 05/05/17 00:00 Intake and Output: 05/05/17 05/05/17 06:59 18:59 Intake Total 360 Output Total 625 Balance -265 - Medications Medications: Current Medications Acetaminophen (Tylenol 650 Mg Supp) 650 mg RC Q4H PRN PRN Reason: Fever >100.4 F Last Admin: 05/02/17 06:08 Dose: 650 mg Albuterol/Ipratropium (Duoneb 3 Mg/0.5 Mg (3 Ml) Ud) 3 ml IH [id number] PRN PRN Reason: Shortness of Breath Collagenase (Santyl) 0 gm TOP DAILY [facility] Last Admin: 05/04/17 20:35 Dose: Not Given Heparin Sodium (Porcine) (Heparin) 5,000 units SC Q12 [facility] PRN Reason: Protocol Last Admin: 05/03/17 11:00 Dose: 5,000 units Meropenem 500 mg/ Sodium (Chloride) 100 mls @ 100 mls/hr IVPB Q12 [facility] PRN Reason: Protocol Last Admin: 05/04/17 21:01 Dose: 100 mls/hr Ampicillin Sodium/Sulbactam (Sodium 3 gm/ Sodium Chloride) 100 mls @ 200 mls/ hr IVPB Q6 [facility] PRN Reason: Protocol Last Admin: 05/05/17 05:53 Dose: 200 mls/hr Dextrose (Dextrose 5% In Water 1000 Ml) 1,000 mls @ 100 mls/hr IV .Q10H [facility] Last Admin: 05/05/17 05:53 Dose: 100 mls/hr Potassium Chloride (Potassium Chloride 20 Meq/100 Ml) 20 meq in 100 mls @ 50 mls/hr IVPB Q2H [facility] Stop: 05/05/17 11:59 Insulin Human Regular (Humulin R High) 0 units SC ACHS [facility] PRN Reason: Protocol Last Admin: 05/04/17 22:13 Dose: 4 units Pantoprazole Sodium (Protonix Inj) 40 mg IVP DAILY [facility] Last Admin: 05/04/17 14:26 Dose: 40 mg - Labs Labs: 05/05/17 06:13 05/05/17 06:13 PT 11.3 SECONDS (9.4-12.5) 04/28/17 17:56 INR 1.04 (0.93-1.08) 04/28/17 17:56 APTT 25.9 Seconds (25.1-36.5) 04/28/17 17:56 - Constitutional Appears: No Acute Distress - Head Exam Head Exam: ATRAUMATIC, NORMOCEPHALIC - Eye Exam Eye Exam: EOMI, Normal appearance, PERRL Pupil Exam: NORMAL ACCOMODATION, PERRL - ENT Exam ENT Exam: Mucous Membranes Moist - Respiratory Exam Respiratory Exam: NORMAL BREATHING PATTERN. absent: Accessory Muscle Use, Respiratory Distress - Cardiovascular Exam Cardiovascular Exam: REGULAR RHYTHM - GI/Abdominal Exam GI & Abdominal Exam: Soft. absent: Distended, Firm, Guarding, Rigid, Tenderness - Extremities Exam Extremities Exam: absent: Calf Tenderness, Pedal Edema - Neurological Exam Neurological Exam: Alert, Altered (prior CVA, patient non-verbal this morning. ) , Awake - Psychiatric Exam Psychiatric exam: absent: Normal Affect, Normal Mood - Skin Skin Exam: Dry, Warm Assessment and Plan - Assessment and Plan (Free Text) Assessment: 72 year old female with acute diverticulitis Plan: WBC 15; Hgb 7.9 CT Abd/Pelvis w/o PO or IV contrast (05/03/17) - acute diverticulitis around splenic flecture - Conservative management - GI on board: calorie count. Possible PEG for dysphagia - Medical managment - ABX Will discuss with Dr. Celio Ambrose Donna PGY1
[2017-05-05] MEDS: Insulin Reg-HIGH-Coverage SC SCH ×4 (08:24→23:35)
[2017-05-05] MEDS: Multivitamin Therapeutic Tab PO SCH (09:25)
[2017-05-05] MEDS: Calcium-Vit D 250 mg-125 Units Tab UD PO SCH (10:51)
--- NOTE | 2017-05-05 11:03 | CP.PCM.PCO ---
Physician Communication Note - Physician Communication Note Physician Communication Note: Called JIN Thomas at [phone] for blood consent, awaiting call back.
[2017-05-05] MEDS: Meropenem 500 MG in Sodium Chloride 0.9% 100 ML IVPB SCH ×2 (11:50→23:31)
--- NOTE | 2017-05-05 13:08 | CP.PCM.PN ---
<Heather Peterson - Last Filed: 05/05/17 13:06> Subjective - Date & Time of Evaluation Date of Evaluation: 05/05/17 Time of Evaluation: 10:00 - Subjective Subjective: Seen and examined at the bedside earlier today, the chart was reviewed. Patient reported to have tolerated the femur Hernan, eggs, half of applesauce and water, with assistance. Patient reported to have a soft stool, no reports of bleeding. Patient is awake and alert. No acute overnight events reported. Objective - Vital Signs/Intake and Output Vital Signs (last 24 hours): Temp Pulse Resp BP Pulse Ox 99.0 F 52 L 18 124/74 98 05/05/17 07:30 05/05/17 07:30 05/05/17 07:30 05/05/17 07:30 05/05/17 07:30 Intake and Output: 05/05/17 05/05/17 06:59 18:59 Intake Total 2760 Output Total 625 Balance 2135 - Medications Medications: Current Medications Acetaminophen (Tylenol 650 Mg Supp) 650 mg RC Q4H PRN PRN Reason: Fever >100.4 F Last Admin: 05/02/17 06:08 Dose: 650 mg Albuterol/Ipratropium (Duoneb 3 Mg/0.5 Mg (3 Ml) Ud) 3 ml IH [id number] PRN PRN Reason: Shortness of Breath Calcium/Vitamin D (Oscal-D 250 Mg-125 Units Tab) 1 tab PO DAILY [facility] Last Admin: 05/05/17 10:51 Dose: 1 tab Collagenase (Santyl) 0 gm TOP DAILY [facility] Last Admin: 05/04/17 20:35 Dose: Not Given Heparin Sodium (Porcine) (Heparin) 5,000 units SC Q12 [facility] PRN Reason: Protocol Last Admin: 05/03/17 11:00 Dose: 5,000 units Meropenem 500 mg/ Sodium (Chloride) 100 mls @ 100 mls/hr IVPB Q12 [facility] PRN Reason: Protocol Last Admin: 05/05/17 11:50 Dose: 100 mls/hr Ampicillin Sodium/Sulbactam (Sodium 3 gm/ Sodium Chloride) 100 mls @ 200 mls/ hr IVPB Q6 [facility] PRN Reason: Protocol Last Admin: 05/05/17 05:53 Dose: 200 mls/hr Dextrose (Dextrose 5% In Water 1000 Ml) 1,000 mls @ 100 mls/hr IV .Q10H [facility] Last Admin: 05/05/17 05:53 Dose: 100 mls/hr Insulin Human Regular (Humulin R High) 0 units SC ACHS [facility] PRN Reason: Protocol Last Admin: 05/05/17 08:24 Dose: 10 units Multivitamins (Thera Tab) 1 tab PO 0800 [facility] Last Admin: 05/05/17 09:25 Dose: 1 tab Pantoprazole Sodium (Protonix Inj) 40 mg IVP DAILY [facility] Last Admin: 05/05/17 10:51 Dose: 40 mg Thiamine HCl (Vitamin B1 Tab) 100 mg PO DAILY [facility] Last Admin: 05/05/17 10:51 Dose: 100 mg - Labs Labs: 05/05/17 06:13 05/05/17 06:13 PT 11.3 SECONDS (9.4-12.5) 04/28/17 17:56 INR 1.04 (0.93-1.08) 04/28/17 17:56 APTT 25.9 Seconds (25.1-36.5) 04/28/17 17:56 - Constitutional Appears: No Acute Distress - Eye Exam Eye Exam: Normal appearance. absent: Scleral icterus - ENT Exam ENT Exam: Mucous Membranes Moist - Neck Exam Neck Exam: Normal Inspection - Respiratory Exam Respiratory Exam: NORMAL BREATHING PATTERN. absent: Respiratory Distress - Cardiovascular Exam Cardiovascular Exam: +S1, +S2 - GI/Abdominal Exam GI & Abdominal Exam: Soft, Normal Bowel Sounds. absent: Guarding, Tenderness, Rebound Additional comments: positive nephrostomy tube in place - Neurological Exam Neurological Exam: Alert, Awake - Skin Skin Exam: Dry, Warm Assessment and Plan - Assessment and Plan (Free Text) Assessment: Assessment: S/P nephrostomy change ?Acute diverticulitis on ct scan Altered mental status Urosepsis, positive VRE and ESBL bacteremia Dehydration History of stroke with left-sided weakness Oropharyngeal dysphagia Hypernatremia, may be due to dehydration Acute renal failure Diabetes mellitus Thrombocytopenia CHF Plan: on puree, thick liquid, did well this am , on calorie count is a continue IV F On IV antibiotics as per ID On heparin subcutaneous, on hold Continue PPI pending blood transfusion as per renal, ID, for surgical eval Seen and discussed with Dr. Ferguson. <Sameera Ferguson V - Last Filed: 05/05/17 23:39> Objective - Vital Signs/Intake and Output Vital Signs (last 24 hours): Temp Pulse Resp BP Pulse Ox 99.1 F 91 H 18 155/81 H 98 05/05/17 21:54 05/05/17 21:54 05/05/17 21:54 05/05/17 21:54 05/05/17 07:30 Intake and Output: 05/05/17 05/06/17 18:59 06:59 Intake Total 240 565 Output Total 450 300 Balance -210 265 - Medications Medications: Current Medications Acetaminophen (Tylenol 650 Mg Supp) 650 mg RC Q4H PRN PRN Reason: Fever >100.4 F Last Admin: 05/02/17 06:08 Dose: 650 mg Albuterol/Ipratropium (Duoneb 3 Mg/0.5 Mg (3 Ml) Ud) 3 ml IH [id number] PRN PRN Reason: Shortness of Breath Calcium/Vitamin D (Oscal-D 250 Mg-125 Units Tab) 1 tab PO DAILY [facility] Last Admin: 05/05/17 10:51 Dose: 1 tab Collagenase (Santyl) 0 gm TOP DAILY [facility] Last Admin: 05/04/17 20:35 Dose: Not Given Heparin Sodium (Porcine) (Heparin) 5,000 units SC Q12 [facility] PRN Reason: Protocol Last Admin: 05/03/17 11:00 Dose: 5,000 units Meropenem 500 mg/ Sodium (Chloride) 100 mls @ 100 mls/hr IVPB Q12 [facility] PRN Reason: Protocol Last Admin: 05/05/17 11:50 Dose: 100 mls/hr Ampicillin Sodium/Sulbactam (Sodium 3 gm/ Sodium Chloride) 100 mls @ 200 mls/ hr IVPB Q6 [facility] PRN Reason: Protocol Last Admin: 05/05/17 18:41 Dose: 200 mls/hr Dextrose (Dextrose 5% In Water 1000 Ml) 1,000 mls @ 100 mls/hr IV .Q10H [facility] Last Admin: 05/05/17 05:53 Dose: 100 mls/hr Insulin Human Regular (Humulin R High) 0 units SC ACHS [facility] PRN Reason: Protocol Last Admin: 05/05/17 16:41 Dose: 10 units Multivitamins (Thera Tab) 1 tab PO 0800 [facility] Last Admin: 05/05/17 09:25 Dose: 1 tab Pantoprazole Sodium (Protonix Inj) 40 mg IVP DAILY [facility] Last Admin: 05/05/17 10:51 Dose: 40 mg Thiamine HCl (Vitamin B1 Tab) 100 mg PO DAILY [facility] Last Admin: 05/05/17 10:51 Dose: 100 mg - Labs Labs: 05/05/17 06:13 05/05/17 18:05 PT 11.3 SECONDS (9.4-12.5) 04/28/17 17:56 INR 1.04 (0.93-1.08) 04/28/17 17:56 APTT 25.9 Seconds (25.1-36.5) 04/28/17 17:56 Attending/Attestation - Attestation I have personally seen and examined this patient.: Yes I have fully participated in the care of the patient.: Yes I have reviewed all pertinent clinical information, including history, physical exam and plan: Yes Notes (Text): This is an addendum to GI progress report dictated by Heather Peterson APN.The patient was seen and examined earlier. Medical records, lab studies, imagings were reviewed. Last 24 hours events reviewed. Agreed with the above treatment plan as outlined in Heather Peterson APN's notes the with the addition of the following on examination abdomen soft no mass On calorie count. We will introduce remains poor Multiple comorbidities and drop in blood count and transfuse as needed ?diverticulitis sigmoid Constipation large amount of stool in the rectum and sigmoid extending continue antibiotics as per ID Stool softeners 05/05/17 23:36
[2017-05-05 13:54] LABS: FOLATE > 20.0 ng/mL
--- NOTE | 2017-05-05 15:01 | CP.PCM.PN ---
Subjective - Date & Time of Evaluation Date of Evaluation: 05/05/17 Time of Evaluation: 14:30 - Subjective Subjective: Infectious Disease Follow Up: May 05, 2017 72 yo female sent for altered mental status. Not answering questions. Her hospitalization in January 2017 showed a patient who was awake and alert and able to express needs. The patient is lying in bed crosseyed and tracking only after heavy stimulation. Patient had fevers in the nursing facility ([facility] not sure if [place] or [place] Fevers up to 102.4 F here. Afebrile the last 24 hours. Bacteremia and UTI. Gram negative rods are predominant. ESBL + E. coli and Providencia noted in blood and urine cultures. VRE in one other culture as well. Head CT showing no new abnormalities. Interval progression of small vessel disease as per reading. Finding of diverticulitis being evaluated by surgery... no surgical intervention. Possible PEG placement. Patient is more responsive today as see opens eyes to voice. Nurse last night state that she will occasionally mouth a word or two. Objective - Vital Signs/Intake and Output Vital Signs (last 24 hours): Temp Pulse Resp BP Pulse Ox 99.0 F 52 L 18 124/74 98 05/05/17 07:30 05/05/17 07:30 05/05/17 07:30 05/05/17 07:30 05/05/17 07:30 Intake and Output: 05/05/17 05/05/17 06:59 18:59 Intake Total 2760 Output Total 625 Balance 2135 - Medications Medications: Current Medications Acetaminophen (Tylenol 650 Mg Supp) 650 mg RC Q4H PRN PRN Reason: Fever >100.4 F Last Admin: 05/02/17 06:08 Dose: 650 mg Albuterol/Ipratropium (Duoneb 3 Mg/0.5 Mg (3 Ml) Ud) 3 ml IH [id number] PRN PRN Reason: Shortness of Breath Calcium/Vitamin D (Oscal-D 250 Mg-125 Units Tab) 1 tab PO DAILY [facility] Last Admin: 05/05/17 10:51 Dose: 1 tab Collagenase (Santyl) 0 gm TOP DAILY [facility] Last Admin: 05/04/17 20:35 Dose: Not Given Heparin Sodium (Porcine) (Heparin) 5,000 units SC Q12 [facility] PRN Reason: Protocol Last Admin: 05/03/17 11:00 Dose: 5,000 units Meropenem 500 mg/ Sodium (Chloride) 100 mls @ 100 mls/hr IVPB Q12 [facility] PRN Reason: Protocol Last Admin: 05/05/17 11:50 Dose: 100 mls/hr Ampicillin Sodium/Sulbactam (Sodium 3 gm/ Sodium Chloride) 100 mls @ 200 mls/ hr IVPB Q6 [facility] PRN Reason: Protocol Last Admin: 05/05/17 14:09 Dose: 200 mls/hr Dextrose (Dextrose 5% In Water 1000 Ml) 1,000 mls @ 100 mls/hr IV .Q10H [facility] Last Admin: 05/05/17 05:53 Dose: 100 mls/hr Insulin Human Regular (Humulin R High) 0 units SC ACHS [facility] PRN Reason: Protocol Last Admin: 05/05/17 12:01 Dose: 10 units Multivitamins (Thera Tab) 1 tab PO 0800 [facility] Last Admin: 05/05/17 09:25 Dose: 1 tab Pantoprazole Sodium (Protonix Inj) 40 mg IVP DAILY [facility] Last Admin: 05/05/17 10:51 Dose: 40 mg Thiamine HCl (Vitamin B1 Tab) 100 mg PO DAILY [facility] Last Admin: 05/05/17 10:51 Dose: 100 mg - Labs Labs: 05/05/17 06:13 05/05/17 06:13 PT 11.3 SECONDS (9.4-12.5) 04/28/17 17:56 INR 1.04 (0.93-1.08) 04/28/17 17:56 APTT 25.9 Seconds (25.1-36.5) 04/28/17 17:56 - Constitutional Appears: Non-toxic, No Acute Distress, Chronically Ill - Head Exam Head Exam: ATRAUMATIC, NORMOCEPHALIC - Eye Exam Eye Exam: EOMI, PERRL Pupil Exam: NORMAL ACCOMODATION, PERRL - ENT Exam ENT Exam: Mucous Membranes Moist, Normal External Ear Exam, TM's Normal Bilaterally - Neck Exam Neck Exam: Full ROM, Normal Inspection - Respiratory Exam Respiratory Exam: Decreased Breath Sounds, NORMAL BREATHING PATTERN. absent: Rales, Rhonchi, Wheezes - Cardiovascular Exam Cardiovascular Exam: REGULAR RHYTHM, RRR, +S1, +S2 - GI/Abdominal Exam GI & Abdominal Exam: Soft, Tenderness, Normal Bowel Sounds. absent: Distended - Extremities Exam Additional comments: general weakness. contractures of the left arm from shoulder to wrist - Neurological Exam Neurological Exam: Alert Additional comments: arousable to pain and moderate stimuli. Opens eyes and stares. Not voicing words as of yet. - Skin Skin Exam: Intact, Normal Color Assessment and Plan - Assessment and Plan (Free Text) Assessment: 72 yo female with extensive past medical history presenting with AMS. Fevers up to 102.4 F. Urinalysis highly suggestive of UTI. Currently on Ceftriaxone. Patient is growing gram negative rods in the blood cultures. History of ESBL + E. Coli in the distant past. Would change the patient to Meropenem for treatment. The patient also has renal insuffiency. Ordered CT scan of the head given the severe change in mental status... this was negative. Awaiting final blood culture and urine culture results. Patient with Bacteremia and UTI with gram negative rods at the least. Continuing on Meropenem give ESBL+ E. Coli and Providencia (sensitive to Rocephin). Blood culture is also showing VRE growth. Reculture the patient on tuesday... both urine and blood. Continue on Unasyn for the VRE seen. 05/02/2017 culture appears to be negative. Bedbound patient. Patient with extremely limited ability to interact. Supportive care. Patient is more arousable today. Consider up to 14 days of treatment Thank you for allowing me to participate in the care of the patient, we will follow with you.
[2017-05-05 18:26] LABS: POTASSIUM 4.3 mmol/L (3.6-5.0)
--- NOTE | 2017-05-05 23:56 | PN ---
DATE: SUBJECTIVE: Heather Grewal is seen. The CAT scan on admission was reviewed and certainly the report from Dr. Dueñas is diverticulitis of the splenic flexure. I really do not see that. There is a dilated gallbladder with some sludgy stones. PHYSICAL EXAMINATION: because of neurologic static is very difficult to gauge. There is no tenderness, guarding or rebound that I can see. PLAN: We will follow without surgical intent. Sumit Pickens MD
[2017-05-06 00:18] VITALS: RESP 20
[2017-05-06] MEDS: Ampicillin/Sulbactam 3 GM in Sodium Chloride 0.9% 100 ML IVPB SCH ×2 (01:08→05:52)
[2017-05-06 06:12] LABS: BASO # 0.01 K/mm3 (0.0-2.0); BASO % 0.1 % (0.0-3.0); EOS # 0.2 (0.0-0.7); EOS % 1.1 % (1.5-5.0); GRAN # 12.97 (1.4-6.5); GRAN % 87.7 % (50.0-68.0); HEMATOCRIT 27.8 % (36.0-48.0); LYMPH # 1.2 (1.2-3.4); LYMPH % 7.9 % (22.0-35.0); MEAN CELL VOLUME 86.1 fl (80.0-105.0); MEAN CORPUSCULAR HEMOGLOBIN 27.2 pg (25.0-35.0); MEAN CORPUSCULAR HGB CONC 31.7 g/dl (31.0-37.0); MEAN PLATELET VOLUME 11.5 fl (7.0-11.0); MONO # 0.5 (0.1-0.6); MONO % 3.2 % (1.0-6.0); RED CELL DISTRIBUTION WIDTH 19.5 % (11.5-14.5); WHITE BLOOD COUNT 14.8 10^3/ul (4.5-11.0)
[2017-05-06 06:32] LABS: ALB/GLOB RATIO 0.6 (1.1-1.8); BILIRUBIN,TOTAL 0.9 mg/dL (0.2-1.3); MAGNESIUM 1.8 mg/dL (1.7-2.2); PHOSPHOROUS 3.2 mg/dL (2.5-4.5); POTASSIUM 3.9 mmol/L (3.6-5.0); TOTAL PROTEIN 5.5 g/dL (5.8-8.3)
[2017-05-06] MEDS ORDERED: ALUMINUM HYDROXIDE PO PRN (06:57)
[2017-05-06] MEDS ORDERED: MAGNESIUM H PO PRN (06:57)
[2017-05-06] MEDS: Multivitamin Therapeutic Tab PO SCH (08:24)
[2017-05-06] MEDS: Insulin Reg-HIGH-Coverage SC SCH ×2 (08:25→11:58)
--- NOTE | 2017-05-06 10:29 | CP.PCM.PN ---
Subjective - Date & Time of Evaluation Date of Evaluation: 05/06/17 Time of Evaluation: 08:00 - Subjective Subjective: Seen and examined at the bedside earlier this morning, the chart was reviewed. Patient is on calorie count, patient tolerated management A those in applesauce , patient reported to have a soft brown BM, received 1 unit of packed RBCs yesterday. No acute overnight events reported. Objective - Vital Signs/Intake and Output Vital Signs (last 24 hours): Temp Pulse Resp BP Pulse Ox 98.3 F 95 H 20 130/80 100 05/06/17 08:35 05/06/17 08:35 05/06/17 08:35 05/06/17 08:35 05/06/17 08:35 Intake and Output: 05/06/17 05/06/17 06:59 18:59 Intake Total 3160 Output Total 500 Balance 2660 - Medications Medications: Current Medications Acetaminophen (Tylenol 650 Mg Supp) 650 mg RC Q4H PRN PRN Reason: Fever >100.4 F Last Admin: 05/02/17 06:08 Dose: 650 mg Albuterol/Ipratropium (Duoneb 3 Mg/0.5 Mg (3 Ml) Ud) 3 ml IH [id number] PRN PRN Reason: Shortness of Breath Amlodipine Besylate (Norvasc) 10 mg PO DAILY [facility] Aspirin (Aspirin Chewable) 81 mg PO DAILY [facility] Calcium/Vitamin D (Oscal-D 250 Mg-125 Units Tab) 1 tab PO DAILY [facility] Last Admin: 05/05/17 10:51 Dose: 1 tab Collagenase (Santyl) 0 gm TOP DAILY [facility] Last Admin: 05/04/17 20:35 Dose: Not Given Heparin Sodium (Porcine) (Heparin) 5,000 units SC Q12 [facility] PRN Reason: Protocol Last Admin: 05/05/17 23:36 Dose: 5,000 units Meropenem 500 mg/ Sodium (Chloride) 100 mls @ 100 mls/hr IVPB Q12 [facility] PRN Reason: Protocol Last Admin: 05/05/17 23:31 Dose: 100 mls/hr Ampicillin Sodium/Sulbactam (Sodium 3 gm/ Sodium Chloride) 100 mls @ 200 mls/ hr IVPB Q6 [facility] PRN Reason: Protocol Last Admin: 05/06/17 05:52 Dose: 200 mls/hr Dextrose (Dextrose 5% In Water 1000 Ml) 1,000 mls @ 100 mls/hr IV .Q10H [facility] Last Admin: 05/06/17 04:58 Dose: 100 mls/hr Insulin Human Regular (Humulin R High) 0 units SC ACHS [facility] PRN Reason: Protocol Last Admin: 05/06/17 08:25 Dose: 10 units Multivitamins (Thera Tab) 1 tab PO 0800 [facility] Last Admin: 05/06/17 08:24 Dose: 1 tab Pantoprazole Sodium (Protonix Inj) 40 mg IVP DAILY [facility] Last Admin: 05/05/17 10:51 Dose: 40 mg Sodium Phosphate (Fleet Enema) 133 ml RC Q12H [facility] Thiamine HCl (Vitamin B1 Tab) 100 mg PO DAILY [facility] Last Admin: 05/05/17 10:51 Dose: 100 mg - Labs Labs: 05/06/17 06:00 05/06/17 06:00 PT 11.3 SECONDS (9.4-12.5) 04/28/17 17:56 INR 1.04 (0.93-1.08) 04/28/17 17:56 APTT 25.9 Seconds (25.1-36.5) 04/28/17 17:56 - Constitutional Appears: No Acute Distress - Eye Exam Eye Exam: Normal appearance. absent: Scleral icterus - ENT Exam ENT Exam: Mucous Membranes Moist - Neck Exam Neck Exam: Normal Inspection - Respiratory Exam Respiratory Exam: Decreased Breath Sounds, NORMAL BREATHING PATTERN. absent: Respiratory Distress - Cardiovascular Exam Cardiovascular Exam: +S1, +S2 - GI/Abdominal Exam GI & Abdominal Exam: Soft, Normal Bowel Sounds. absent: Guarding, Tenderness, Rebound Additional comments: nephrostomy tube draining yellow urine - Extremities Exam Extremities Exam: absent: Calf Tenderness - Neurological Exam Neurological Exam: Altered (asleep, patient reported to be awake last night) - Skin Skin Exam: Dry, Warm Assessment and Plan - Assessment and Plan (Free Text) Assessment: Assessment: S/P nephrostomy change ?Acute diverticulitis on ct scan Constipation Altered mental status Urosepsis, positive VRE and ESBL bacteremia Dehydration History of stroke with left-sided weakness Oropharyngeal dysphagia Hypernatremia, may be due to dehydration Acute renal failure Diabetes mellitus Thrombocytopenia CHF Plan: on puree, thick liquid give dulcolax suppository, no enema for diverticulitis continue calorie count continue IV F On IV antibiotics as per ID On heparin subcutaneous, on hold Continue PPI as per renal, ID consider PEG if nutritional intake insufficient, previously discussed w/ POA, medical team, on calorie count Seen and discussed with Dr. Ferguson.
[2017-05-06] MEDS: Calcium-Vit D 250 mg-125 Units Tab UD PO SCH (10:30)
--- NOTE | 2017-05-06 10:40 | PN ---
DATE: 05/06/2017 CARDIOLOGY FOLLOWUP SUBJECTIVE: The patient is in bed, confused, but without distress. OBJECTIVE: VITAL SIGNS: Blood pressure is 130/80, the heart rate is in the 90s. NECK: Negative JVD. LUNGS: Without rales. HEART: Reveals 2/6 systolic ejection murmur. EXTREMITIES: Without edema. LABORATORY DATA: Hemoglobin is 8.8. Chemistries: The sodium is 154, BUN and creatinine are 44 and 1.8. IMPRESSION: 1. Prerenal azotemia. 2. Hypernatremia. 3. History of aortic valve stenosis. 4. History of Wenckebach. 5. Severe dementia. Given these findings, the patient's cardiac status is stable at this time. Adjusting IV fluids. Shantanu Griffith MD
[2017-05-06] MEDS ORDERED: POLYETHYLENE GLYCOL 3350 17 GM/Dose PACKET PO SCH (11:30)
--- NOTE | 2017-05-06 11:42 | CP.PCM.DIS ---
Provider - Provider Date of Admission: 04/28/17 19:39 Attending physician: Lee Colon MD Primary care physician: Lee Colon MD Consults: Infectious Disease: Dr. Wynn Cardiology: Dr. Griffith Urology: Dr. Hughes Interventional Radiology: Dr. Ortiz General Surgery: Dr. Pickens Nephrology:Dr. Montes Gastroenterology: Dr. Ferguson Time Spent in preparation of Discharge (in minutes): 45 Diagnosis - Discharge Diagnosis (1) Acute diverticulitis Status: Acute (2) Severe sepsis Status: Acute (3) Bacteremia Status: Acute (4) VRE (vancomycin resistant enterococcus) culture positive Status: Acute (5) ESBL (extended spectrum beta-lactamase) producing bacteria infection Status: Acute (6) E-coli UTI Status: Acute (7) UTI (urinary tract infection) Status: Acute (8) Hypernatremia Status: Acute (9) Acute kidney injury Status: Acute (10) Uncontrolled diabetes mellitus Status: Acute (11) Uncontrolled diabetes mellitus Status: Acute Hospital Course - Lab Results Lab Results: Micro Results 05/02/17 08:00 Blood Blood Culture - Preliminary NO GROWTH AFTER 4 DAYS 04/29/17 09:30 Urine,Mon Urine Culture - Final Escherichia Coli Providencia Stuartii Most Recent Lab Values WBC 14.8 10^3/ul (4.5-11.0) H 05/06/17 06:00 RBC 3.23 10^6/uL (3.5-6.1) L 05/06/17 06:00 Hgb 8.8 g/dL (12.0-16.0) L 05/06/17 06:00 Hct 27.8 % (36.0-48.0) L 05/06/17 06:00 MCV 86.1 fl (80.0-105.0) D 05/06/17 06:00 MCH 27.2 pg (25.0-35.0) 05/06/17 06:00 MCHC 31.7 g/dl (31.0-37.0) 05/06/17 06:00 RDW 19.5 % (11.5-14.5) H 05/06/17 06:00 Plt Count 185 10^3/uL (120.0-450.0) 05/06/17 06:00 MPV 11.5 fl (7.0-11.0) H 05/06/17 06:00 Gran % 87.7 % (50.0-68.0) H 05/06/17 06:00 Lymph % (Auto) 7.9 % (22.0-35.0) L 05/06/17 06:00 [place] % (Auto) 3.2 % (1.0-6.0) 05/06/17 06:00 Eos % (Auto) 1.1 % (1.5-5.0) L 05/06/17 06:00 Baso % (Auto) 0.1 % (0.0-3.0) 05/06/17 06:00 Gran # 12.97 (1.4-6.5) H 05/06/17 06:00 Lymph # 1.2 (1.2-3.4) 05/06/17 06:00 [place] # 0.5 (0.1-0.6) 05/06/17 06:00 Eos # 0.2 (0.0-0.7) 05/06/17 06:00 Baso # 0.01 K/mm3 (0.0-2.0) 05/06/17 06:00 Smear Path Review Cancelled 05/05/17 06:13 PT 11.3 SECONDS (9.4-12.5) 04/28/17 17:56 INR 1.04 (0.93-1.08) 04/28/17 17:56 APTT 25.9 Seconds (25.1-36.5) 04/28/17 17:56 pCO2 32 mm/Hg (35-45) L 04/29/17 01:09 pO2 76.0 mm/Hg (80-100) L 04/29/17 01:09 HCO3 25.5 mmol/L (21-28) 04/29/17 01:09 ABG pH 7.51 (7.35-7.45) H 04/29/17 01:09 ABG Total CO2 26.5 mmol.L (22-28) 04/29/17 01:09 ABG O2 Saturation 96.7 % (95-98) 04/29/17 01:09 ABG Base Excess 3.0 mmol/L (-2.0-3.0) 04/29/17 01:09 ABG Potassium 3.1 mmol/L (3.6-5.2) L 04/29/17 01:09 VBG pH 7.48 (7.32-7.43) H 04/28/17 17:56 VBG pCO2 40.0 (40-60) 04/28/17 17:56 VBG HCO3 29.8 mmol/l (21-28) H 04/28/17 17:56 VBG Total CO2 31.0 mmol.L (22-28) H 04/28/17 17:56 VBG O2 Sat (Calc) 81.9 % (40-65) H 04/28/17 17:56 VBG Base Excess 5.8 mmol/L (0.0-2.0) H 04/28/17 17:56 VBG Potassium 4.0 mmol/L (3.6-5.2) 04/28/17 17:56 Sodium 149.0 mmol/L (132-148) H 04/29/17 01:09 Chloride 117.0 mmol/L (98-107) H 04/29/17 01:09 Glucose 225 mg/dl (65-105) H 04/29/17 01:09 Lactate 1.0 mmol/L (0.7-2.1) 04/29/17 01:09 FiO2 28.0 % 04/29/17 01:09 Sodium 154 mmol/L (132-148) H 05/06/17 06:00 Potassium 3.9 mmol/L (3.6-5.0) 05/06/17 06:00 Chloride 126 mmol/L (95-110) H* 05/06/17 06:00 Carbon Dioxide 20 mmol/L (21-33) L 05/06/17 06:00 Anion Gap 12 (10-20) 05/06/17 06:00 BUN 44 mg/dL (7-21) H 05/06/17 06:00 Creatinine 1.8 mg/dL (0.7-1.2) H 05/06/17 06:00 Est GFR ( Amer) 33 05/06/17 06:00 Est GFR (Non-Af Amer) 28 05/06/17 06:00 POC Glucose (mg/dL) 334 mg/dL (65-110) H 05/06/17 07:51 Random Glucose 290 mg/dL (70-110) H 05/06/17 06:00 Serum Osmolality 367 mosm/kg (272-300) H 05/02/17 11:25 Calcium 7.0 mg/dL (8.4-10.5) L 05/06/17 06:00 Phosphorus 3.2 mg/dL (2.5-4.5) 05/06/17 06:00 Magnesium 1.8 mg/dL (1.7-2.2) 05/06/17 06:00 Iron 10 ug/dL (45-180) L 05/04/17 16:28 TIBC 166 ug/dL (265-497) L 05/04/17 16:28 % Saturation 6 % (20-55) L 05/04/17 16:28 Ferritin 306.0 ng/mL 05/04/17 16:28 Total Bilirubin 0.9 mg/dL (0.2-1.3) 05/06/17 06:00 AST 36 U/L (14-36) D 05/06/17 06:00 ALT 33 U/L (7-56) 05/06/17 06:00 Alkaline Phosphatase 69 U/L (38-126) 05/06/17 06:00 Troponin I 0.10 ng/mL 04/29/17 07:08 NT-Pro-B Natriuret Pep 7580 pg/mL (0-450) H 05/03/17 07:40 Total Protein 5.5 g/dL (5.8-8.3) L 05/06/17 06:00 Albumin 2.1 g/dL (3.0-4.8) L 05/06/17 06:00 Globulin 3.4 gm/dL 05/06/17 06:00 Albumin/Globulin Ratio 0.6 (1.1-1.8) L 05/06/17 06:00 Vitamin B12 798 pg/mL (239-931) 05/05/17 06:40 Folate > 20.0 ng/mL 05/05/17 06:40 Procalcitonin 31.65 NG/ML (0.19-0.49) H 04/28/17 17:56 Arterial Blood Potassium 3.1 mmol/L (3.6-5.2) L 04/29/17 01:09 Venous Blood Potassium 4.0 mmol/L (3.6-5.2) 04/28/17 17:56 Urine Color Yellow (YELLOW) 04/29/17 09:30 Urine Appearance Turbid (CLEAR) 04/29/17 09:30 Urine pH 6.5 (4.7-8.0) 04/29/17 09:30 Ur Specific [place] 1.020 (1.005-1.035) 04/29/17 09:30 Urine Protein >=300 mg/dL (<30 mg/dL) H 04/29/17 09:30 Urine Glucose (UA) Negative mg/dL (NEGATIVE) 04/29/17 09:30 Urine Ketones Trace mg/dL (NEGATIVE) H 04/29/17 09:30 Urine Blood Large (NEGATIVE) H 04/29/17 09:30 Urine Nitrate Positive (NEGATIVE) H 04/29/17 09:30 Urine Bilirubin Small (NEGATIVE) H 04/29/17 09:30 Urine Urobilinogen 0.2 E.U./dL (<1 E.U./dL) 04/29/17 09:30 Ur Leukocyte Esterase Large Earn[place]/uL (NEGATIVE) H 04/29/17 09:30 Urine RBC Tntc /hpf (0-2) 04/29/17 09:30 Urine WBC Tntc /hpf (0-6) 04/29/17 09:30 Urine Bacteria Many (NEG) 04/29/17 09:30 Fine Granular Casts 0 - 2 /hpf (0-2) 04/29/17 09:30 Urine Osmolality 553 mosm/kg (300-1000) 05/02/17 10:50 Ur Random Creatinine 67 mg/dL 04/29/17 09:30 Ur Random Sodium 57 meq/L 05/02/17 10:50 Stool Occult Blood Negative (NEGATIVE) 05/06/17 10:42 Blood Type O POSITIVE 05/04/17 08:40 Antibody Screen Negative 05/04/17 08:40 Crossmatch See Detail 05/04/17 08:40 BBK History Checked Patient has bt 05/04/17 08:40 - Hospital Course Hospital Course: Patient is a 72 year old female with past medical history of pyelonephritis, hydronephrosis, kidney stones with stents, CVA, HLD, HTN, DM, CKD, dementia, aortic stenosis, wenkebach sent from longterm due to blood in mon catheter, lethargy, and fever on 04/28/17 found be septic due to urinary tract infection, hypernatremic, TSERING, thrombocytopenic. During course of hospital stay , patient was seen and treated by Infectious disease, Cardiology, Gastroenterology, General surgery, Nephrology, and Urology, Interventional radiology. Patient was found to be septic due to bacteremia and urinary tract infection. Proper antibiotic regimen was given to treat organisms yielded by blood and urine cultures which were ESBL, VRE, Providencia, and E.coli. Meropenem and Unasyn were started as per infectious disease. As per cardiology taking into consideration patient's past cardiac history of aortic stenosis and wenckeback, patient's cardiac status is deemed stable with no further intervention necessary. Gastroenterology was initially consulted for evaluation of PEG tube, however considering the patient passed swallow evaluation and tolerated pureed diet, PEG tube placement is not necessary at this time considering patient is doing well on calorie count. General surgery was consulted for acute diverticulitis for further evaluation and input, considering patient was initially made NPO upon admission and already started on an antibiotic regimen, no surgical intervention was needed; medical management was recommended. Nephrology was consulted due to patient's acute kidney injury, metabolic acidosis, and hypernatremia; treatment included D5 to replace free water loss. During course of stay hypernatremia continued to improve as well as renal function. Urology was consulted regarding patient's nephrostomy tube which was successfully replaced by IR. With antibiotic treatment, d5 fluid intake, and nephrostomy replacement patient's mental status continued to improve. Patient's POA was continuously involved in patient' s plan of care during the hospital visit and agrees to plan. Discharge Exam - Head Exam Head Exam: ATRAUMATIC, NORMAL INSPECTION - Eye Exam Eye Exam: Normal appearance. absent: Scleral icterus - ENT Exam ENT Exam: Mucous Membranes Moist, Normal Exam - Neck Exam Neck exam: Normal Inspection - Respiratory Exam Respiratory Exam: NORMAL BREATHING PATTERN. absent: Rales, Rhonchi, Wheezes, Stridor - Cardiovascular Exam Cardiovascular Exam: +S1, +S2, Systolic Murmur. absent: Bradycardia, Tachycardia, Clicks, Gallop - GI/Abdominal Exam GI & Abdominal Exam: Diminished Bowel Sounds, Normal Bowel Sounds. absent: Mass , Pulsatile Mass, Rebound - Extremities Exam Additional comments: contaction of extremities, upper and lowr - Neurological Exam Neurological exam: Altered - Skin Skin Exam: Diaphoretic, Normal Color, Warm Discharge Plan - Discharge Medications Prescriptions: Ampicillin/Sulbactam [Unasyn] 3 gm IVPB Q6 10 Days vial Bisacodyl [Dulcolax] 10 mg RC DAILY PRN 30 Days supp.rect PRN Reason: Constipation Meropenem [Merrem IV] 500 mg IVPB Q12 7 Days vial - Follow Up Plan Condition: STABLE Disposition: NURSING FACILITY MEDICAID CERT Instructions: Pneumococcal Vaccine for Adults (GEN), Wound Infection (GEN), Mon Catheter Placement and Care (GEN), Peripherally Inserted Central Catheters and Midline Catheters (GEN), Influenza (GEN), Vancomycin Resistant Enterococcus Infection (DC), Acute Wound Care (GEN), Nephrostomy Tube Care (GEN) , Extended Spectrum Beta Lactamase (GEN), Fall Prevention (GEN) Additional Instructions: Continue pureed diet with honey thick liquid and extra gravy. Patient will need help with the feeding Wound care of the stage 2 decubiti- please apply santyl daily to the wound, with optiform dressing. Turn patient every 2 hours, and use air mattress. Follow up with [facility] in 2-3 weeks. Referrals: Lee Colon MD [Primary Care Provider] - Eileen Mas MD [Staff Provider] -
--- NOTE | 2017-05-06 14:04 | CP.PCM.PN ---
Subjective - Date & Time of Evaluation Date of Evaluation: 05/06/17 Time of Evaluation: 14:03 - Subjective Subjective: renal follow up note no events overnight PE:lying in bed vitals reviewed, bp soft s1s2 present bilateral air entry equal abd soft nephrostomy tube present mon + awake, oritented X0 skin normal TSERING/hypernatremia/acidosis/urosepsis/dm/htn/sepsis syndrome tsering likely sec to prerenal ischemic atn from volume depletion and sepsis syndrome improved today cr is improving hypernatremia improving DM: per primary team urosepsis: abx per ID and nephrostomy tube changed d/w housestaff if discharged today, recommend follow up in office in 2-3 weeks will continue to follow, please call our office if any [phone] Objective - Vital Signs/Intake and Output Vital Signs (last 24 hours): Temp Pulse Resp BP Pulse Ox 98.3 F 95 H 20 130/80 100 05/06/17 08:35 05/06/17 08:35 05/06/17 08:35 05/06/17 10:30 05/06/17 08:35 Intake and Output: 05/06/17 05/06/17 06:59 18:59 Intake Total 3160 Output Total 500 Balance 2660 - Medications Medications: Current Medications Acetaminophen (Tylenol 650 Mg Supp) 650 mg RC Q4H PRN PRN Reason: Fever >100.4 F Last Admin: 05/02/17 06:08 Dose: 650 mg Albuterol/Ipratropium (Duoneb 3 Mg/0.5 Mg (3 Ml) Ud) 3 ml IH [id number] PRN PRN Reason: Shortness of Breath Amlodipine Besylate (Norvasc) 10 mg PO DAILY [facility] Last Admin: 05/06/17 10:30 Dose: 10 mg Aspirin (Aspirin Chewable) 81 mg PO DAILY [facility] Last Admin: 05/06/17 10:30 Dose: 81 mg Calcium/Vitamin D (Oscal-D 250 Mg-125 Units Tab) 1 tab PO DAILY [facility] Last Admin: 05/06/17 10:30 Dose: 1 tab Collagenase (Santyl) 0 gm TOP DAILY [facility] Last Admin: 05/04/17 20:35 Dose: Not Given Docusate Sodium (Colace Liquid) 100 mg PO TID [facility] Heparin Sodium (Porcine) (Heparin) 5,000 units SC Q12 VESNA PRN Reason: Protocol Last Admin: 05/06/17 11:00 Dose: 5,000 units Meropenem 500 mg/ Sodium (Chloride) 100 mls @ 100 mls/hr IVPB Q12 VESNA PRN Reason: Protocol Last Admin: 05/05/17 23:31 Dose: 100 mls/hr Ampicillin Sodium/Sulbactam (Sodium 3 gm/ Sodium Chloride) 100 mls @ 200 mls/ hr IVPB Q6 VESNA PRN Reason: Protocol Last Admin: 05/06/17 05:52 Dose: 200 mls/hr Dextrose (Dextrose 5% In Water 1000 Ml) 1,000 mls @ 100 mls/hr IV .Q10H [facility] Last Admin: 05/06/17 04:58 Dose: 100 mls/hr Insulin Human Regular (Humulin R High) 0 units SC ACHS VESNA PRN Reason: Protocol Last Admin: 05/06/17 11:58 Dose: 10 units Multivitamins (Thera Tab) 1 tab PO 0800 [facility] Last Admin: 05/06/17 08:24 Dose: 1 tab Pantoprazole Sodium (Protonix Inj) 40 mg IVP DAILY [facility] Last Admin: 05/06/17 11:00 Dose: 40 mg Polyethylene Glycol (Miralax) 17 gm PO DAILY [facility] Last Admin: 05/06/17 12:17 Dose: 17 gm Thiamine HCl (Vitamin B1 Tab) 100 mg PO DAILY [facility] Last Admin: 05/05/17 10:51 Dose: 100 mg - Labs Labs: 05/06/17 06:00 05/06/17 06:00 PT 11.3 SECONDS (9.4-12.5) 04/28/17 17:56 INR 1.04 (0.93-1.08) 04/28/17 17:56 APTT 25.9 Seconds (25.1-36.5) 04/28/17 17:56
[2017-05-06] MEDS ORDERED: SULBACTAM IVPB SCH (14:51)
[2017-05-06] MEDS ORDERED: AMPICILLIN IVPB SCH (14:51)
[2017-05-06] MEDS ORDERED: DEXTROSE 5% IVPB SCH (14:51)
[2017-05-06] MEDS ORDERED: WATER IVPB SCH (14:51)
[2017-05-06] MEDS ORDERED: Meropenem 500 MG in Dextrose 5% In Water 100 ML IVPB SCH (14:53)
[2017-05-06] MEDS ORDERED: Meropenem 500 MG in Dextrose 5% In Water 100 ML IVPB STA ×2 (15:36→15:46)
[2017-05-06] MEDS: Collagenase 250 Units/gm Ointment(30 gm) TOP SCH (15:46)
--- NOTE | 2017-05-06 16:34 | CP.PCM.PN ---
Subjective - Date & Time of Evaluation Date of Evaluation: 05/06/17 Time of Evaluation: 15:15 - Subjective Subjective: Infectious Disease Follow Up: May 06, 2017 72 yo female sent for altered mental status. Not answering questions. Her hospitalization in January 2017 showed a patient who was awake and alert and able to express needs. The patient is lying in bed crosseyed and tracking only after heavy stimulation. Patient had fevers in the nursing facility ([facility] not sure if [place] [facility] or [place]). Fevers up to 102.4 F here. Afebrile the last few days. Bacteremia and UTI. Gram negative rods are predominant. ESBL + E. coli and Providencia noted in blood and urine cultures. VRE in one other culture as well. Head CT showing no new abnormalities. Interval progression of small vessel disease as per reading. Finding of diverticulitis being evaluated by surgery... no surgical intervention. Possible PEG placement. Patient is more responsive today as see opens eyes to voice. Nurse last night state that she will occasionally mouth a word or two. Able to eat with aid. Objective - Vital Signs/Intake and Output Vital Signs (last 24 hours): Temp Pulse Resp BP Pulse Ox 98.3 F 95 H 20 130/80 100 05/06/17 08:35 05/06/17 08:35 05/06/17 08:35 05/06/17 10:30 05/06/17 08:35 Intake and Output: 05/06/17 05/06/17 06:59 18:59 Intake Total 3160 Output Total 500 Balance 2660 - Medications Medications: Current Medications Acetaminophen (Tylenol 650 Mg Supp) 650 mg RC Q4H PRN PRN Reason: Fever >100.4 F Last Admin: 05/02/17 06:08 Dose: 650 mg Albuterol/Ipratropium (Duoneb 3 Mg/0.5 Mg (3 Ml) Ud) 3 ml IH [id number] PRN PRN Reason: Shortness of Breath Amlodipine Besylate (Norvasc) 10 mg PO DAILY [facility] Last Admin: 05/06/17 10:30 Dose: 10 mg Aspirin (Aspirin Chewable) 81 mg PO DAILY [facility] Last Admin: 05/06/17 10:30 Dose: 81 mg Calcium/Vitamin D (Oscal-D 250 Mg-125 Units Tab) 1 tab PO DAILY [facility] Last Admin: 05/06/17 10:30 Dose: 1 tab Collagenase (Santyl) 0 gm TOP DAILY [facility] Last Admin: 05/04/17 20:35 Dose: Not Given Docusate Sodium (Colace Liquid) 100 mg PO TID [facility] Heparin Sodium (Porcine) (Heparin) 5,000 units SC Q12 VESNA PRN Reason: Protocol Last Admin: 05/06/17 11:00 Dose: 5,000 units Dextrose (Dextrose 5% In Water 1000 Ml) 1,000 mls @ 100 mls/hr IV .Q10H [facility] Last Admin: 05/06/17 04:58 Dose: 100 mls/hr Ampicillin Sodium/Sulbactam (Sodium 3 gm/ Dextrose) 100 mls @ 200 mls/hr IVPB Q6 VESNA PRN Reason: Protocol Meropenem 500 mg/ Dextrose 100 mls @ 100 mls/hr IVPB Q12 VESNA PRN Reason: Protocol Meropenem 500 mg/ Dextrose 100 mls @ 100 mls/hr IVPB STAT STA PRN Reason: Protocol Stop: 05/06/17 16:45 Last Admin: 05/06/17 16:04 Dose: 100 mls/hr Insulin Human Regular (Humulin R High) 0 units SC ACHS VESNA PRN Reason: Protocol Last Admin: 05/06/17 11:58 Dose: 10 units Multivitamins (Thera Tab) 1 tab PO 0800 [facility] Last Admin: 05/06/17 08:24 Dose: 1 tab Pantoprazole Sodium (Protonix Inj) 40 mg IVP DAILY [facility] Last Admin: 05/06/17 11:00 Dose: 40 mg Polyethylene Glycol (Miralax) 17 gm PO DAILY [facility] Last Admin: 05/06/17 12:17 Dose: 17 gm Thiamine HCl (Vitamin B1 Tab) 100 mg PO DAILY [facility] Last Admin: 05/05/17 10:51 Dose: 100 mg - Labs Labs: 05/06/17 06:00 05/06/17 06:00 PT 11.3 SECONDS (9.4-12.5) 04/28/17 17:56 INR 1.04 (0.93-1.08) 04/28/17 17:56 APTT 25.9 Seconds (25.1-36.5) 04/28/17 17:56 - Constitutional Appears: Non-toxic, No Acute Distress, Chronically Ill - Head Exam Head Exam: ATRAUMATIC, NORMOCEPHALIC - Eye Exam Eye Exam: EOMI, PERRL Pupil Exam: NORMAL ACCOMODATION, PERRL - ENT Exam ENT Exam: Mucous Membranes Moist, Normal External Ear Exam, TM's Normal Bilaterally - Neck Exam Neck Exam: Full ROM, Normal Inspection - Respiratory Exam Respiratory Exam: Decreased Breath Sounds, NORMAL BREATHING PATTERN. absent: Rales, Rhonchi, Wheezes - Cardiovascular Exam Cardiovascular Exam: REGULAR RHYTHM, RRR, +S1, +S2 - GI/Abdominal Exam GI & Abdominal Exam: Soft, Tenderness, Normal Bowel Sounds. absent: Distended - Extremities Exam Additional comments: general weakness. contractures of the left arm from shoulder to wrist - Neurological Exam Neurological Exam: Alert Additional comments: arousable to pain and moderate stimuli. Opens eyes and stares. Not voicing words as of yet. - Skin Skin Exam: Intact, Normal Color Assessment and Plan - Assessment and Plan (Free Text) Assessment: 72 yo female with extensive past medical history presenting with AMS. Fevers up to 102.4 F. Urinalysis highly suggestive of UTI. Currently on Ceftriaxone. Patient is growing gram negative rods in the blood cultures. History of ESBL + E. Coli in the distant past. Would change the patient to Meropenem for treatment. The patient also has renal insuffiency. Ordered CT scan of the head given the severe change in mental status... this was negative. Awaiting final blood culture and urine culture results. Patient with Bacteremia and UTI with gram negative rods at the least. Continuing on Meropenem give ESBL+ E. Coli and Providencia (sensitive to Rocephin). Blood culture is also showing VRE growth. Reculture the patient on tuesday... both urine and blood. Continue on Unasyn for the VRE seen. 05/02/2017 culture appears to be negative. Bedbound patient. Patient with extremely limited ability to interact. Supportive care. Patient is more arousable today. Consider up to 14 days of treatment Thank you for allowing me to participate in the care of the patient, we will follow with you.
[2017-05-06 16:56] VITALS: BP 124/84; PULSE 98; TEMP 98; O2SAT 98
== END 2017-05-06 18:31 | DRG 872 ==
LOC: ED 16:39 → ERH 19:39 → 5RSO 22:14
PROVIDERS: ADMIT Internal Medicine; ATTEND Internal Medicine
PROC: 02HV33Z Insertion of Infusion Device into Superior Vena Cava, Percutaneous Approach (ICD-10-PCS; 2017-05-02)
PROC: B548ZZA Ultrasonography of Superior Vena Cava, Guidance (ICD-10-PCS; 2017-05-02)
PROC: 0T25X0Z Change Drainage Device in Kidney, External Approach (ICD-10-PCS; principal; 2017-05-04)
DX: A41.9 Sepsis, unspecified organism (principal); N13.6 Pyonephrosis; N17.9 Acute kidney failure, unspecified; L89.152 Pressure ulcer of sacral region, stage 2; E87.0 Hyperosmolality and hypernatremia; E87.2 Acidosis; I13.0 Hypertensive heart and chronic kidney disease with heart failure and stage 1 through stage 4 chronic kidney disease, or unspecified chronic kidney disease; D69.6 Thrombocytopenia, unspecified; F03.90 Unspecified dementia, unspecified severity, without behavioral disturbance, psychotic disturbance, mood disturbance, and anxiety; I50.32 Chronic diastolic (congestive) heart failure; R47.01 Aphasia; I69.354 Hemiplegia and hemiparesis following cerebral infarction affecting left non-dominant side; K57.32 Diverticulitis of large intestine without perforation or abscess without bleeding; N30.01 Acute cystitis with hematuria; I48.91 Unspecified atrial fibrillation; E86.0 Dehydration; E11.22 Type 2 diabetes mellitus with diabetic chronic kidney disease; E78.5 Hyperlipidemia, unspecified; D64.9 Anemia, unspecified; G89.29 Other chronic pain; R65.20 Severe sepsis without septic shock; N18.9 Chronic kidney disease, unspecified; R13.12 Dysphagia, oropharyngeal phase; I35.0 Nonrheumatic aortic (valve) stenosis; E87.6 Hypokalemia; E11.65 Type 2 diabetes mellitus with hyperglycemia; I27.20 Pulmonary hypertension, unspecified; K59.00 Constipation, unspecified; K80.20 Calculus of gallbladder without cholecystitis without obstruction; B95.2 Enterococcus as the cause of diseases classified elsewhere; K21.9 Gastro-esophageal reflux disease without esophagitis; Z66 Do not resuscitate; F41.9 Anxiety disorder, unspecified; Z16.21 Resistance to vancomycin; B96.20 Unspecified Escherichia coli [E. coli] as the cause of diseases classified elsewhere; J44.9 Chronic obstructive pulmonary disease, unspecified; Z74.01 Bed confinement status; Z87.01 Personal history of pneumonia (recurrent); Z87.440 Personal history of urinary (tract) infections; Z87.891 Personal history of nicotine dependence